=== PATIENT | male | born 2000 | race Caucasian/White ===

== ENCOUNTER → 2022-06-24 | Outpatient (CLI) | payer BC, OTHER, SELFPAY ==
[2022-06-24 12:04] LABS: Hematocrit 48.6 % (40-54); Hemoglobin 16.2 g/dL (13.0-16.5); Mean Corp Hgb Conc 33.3 g/dL (32-36); Mean Corpuscular Hgb 27.6 pg (27.0-32.0); Mean Corpuscular Volume 82.7 fL (80-94); Mean Platelet Vol. 9.9 fl (6.2-12.0); Platelet Count 220 K/mm3 (150-450); RBC Distribution Width CV 13.2 % (11.6-14.6); RBC Distribution Width SD 39.5 fl (35.1-43.9); Red Blood Count 5.88 M/mm3 (4.6-6.2); White Blood Count 9.2 K/mm3 (4.4-11.0)
[2022-06-24 12:55] LABS: ALB/GLOB Ratio 1.1 RATIO (0.9-2.4); AST(SGOT) 52 U/L (15-37); Alanine Aminotransfer ALT/SGPT 150 U/L (16-61); Alkaline Phosphatase 122 U/L (45-117); Anion Gap 8 (5-15); BUN 9 mg/dL (7-18); BUN/Creat Ratio 12.1 RATIO (10-20); Calcium,Total 9.3 mg/dL (8.5-10.1); Chloride 104 mmol/L (98-107); Cholesterol 209 mg/dL (200); Creatinine, Serum 0.74 mg/dL (0.70-1.30); EST Glomerular Filtration Rate 140 mL/min (>60); Est Glom Filt Rate - Afr Amer 169 mL/min (>60); Globulin 3.5 g/dL (2.2-4.2); Glucose 87 mg/dL (74-106); High Density Lipoprotein 35 mg/dL; Potassium 4.3 mmol/L (3.5-5.1); Protein, Total 7.5 g/dL (6.4-8.2); Sodium Level 140 mmol/L (136-145); T4 Free Direct 0.98 ng/dL (0.76-1.46); Thyroid Stim Hormone (TSH) 0.94 uIU/mL (0.358-3.74); Triglycerides 420 mg/dL; Uric Acid 8.8 mg/dL (3.5-7.2)
[2022-06-27 18:14] LABS: Hepatitis B Surface Antibody Non-Reactive; Hepatitis B Surface Antigen Non-Reactive (Nonreactive); Hepatitis C Antibody Non-Reactive (Nonreactive)
[2022-07-12 00:07] LABS: Thyroid Stim Immunoglob <0.10 IU/L (0.00-0.55)
[2022-07-12 08:53] LABS: Thyroglobulin RIA 194 ng/mL (.); Thyroid Peroxidase AB < 9 IU/mL (0-34)
== END | disposition home or self-care (01) ==
LOC: MFPLAB 09:58
PROVIDERS: PCP Family Medicine; Referring Provider Family Medicine; Visit Provider Family Medicine
DX: R79.89 Other specified abnormal findings of blood chemistry (principal); M10.9 Gout, unspecified; E01.0 Iodine-deficiency related diffuse (endemic) goiter; E66.9 Obesity, unspecified
CPT/HCPCS: 36415; 80053; 80061; 84432; 84439; 84443; 84445; 84550; 85027; 86376; 86706; 86800; 86803; 87340

== ENCOUNTER → 2022-07-01 | Outpatient (CLI) | payer BC, OTHER, SELFPAY ==
--- NOTE | 2022-07-01 17:00 | US_ITS ---
INDICATION: THYROMEGALY EXAMINATION: Ultrasound US Thyroid (eg thyroid, parathyroid, parotid) TECHNIQUE: Andrew scale and color doppler imaging was performed of the thyroid gland. COMPARISON: None. FINDINGS: RIGHT THYROID LOBE: 6.4 x 4.1 x 4.1 cm. Homogeneous echotexture with normal vascularity. [There is a heterogenous and solid 5.7 x 4.6 x 3.8 cm nodule within the mid and lower pole containing scattered calcifications and mild internal vascularity. LEFT THYROID LOBE: 4.8 x 1.7 x 1.6 cm. Homogeneous echotexture with normal vascularity. [Within the lower pole there is a complex 0.6 x 0.5 x 0.4 cm nodule. ISTHMUS: 0.34 cm. No thyroid nodules are present. There are scattered nonpathologically enlarged lymph nodes. US/Thyroid IMPRESSION: Enlarged thyroid gland associated with a solid 5.7 x 4.6 x 2.8 cm nodule within the right lobe and a complex 0.5 x 0.4 x 0.4 cm nodule within the left lobe. Electronically Signed: Sally Peralta MD at 10:28 EST ,
== END | disposition home or self-care (01) ==
LOC: US 16:55
PROVIDERS: PCP Family Medicine; Referring Provider Family Medicine; Visit Provider Family Medicine
DX: E01.0 Iodine-deficiency related diffuse (endemic) goiter (principal)
CPT/HCPCS: 76536

== ENCOUNTER → 2022-07-15 | Outpatient (CLI) | payer BC, OTHER, SELFPAY ==
--- NOTE | 2022-07-15 | IMM_PTH ---
PATIENT: SUSIE MEYER LOC: [facility] U#:[id number] AGE/SX: 22/M ROOM: RE07/15/[address]: Dr. Hill Lara MD : 2000 BED: DIS: 07/15/2022 SPEC #: [id number] RECD: 07/19/22 13:59 STATUS: KYMBERLY REQ #: [id number] CORA: 07/15/22 00:[address]: Hill Lara DEPT: IMMUNOHISTOCHEMISTRY RECD BY: Kasey Wade ENTERED: 07/19/22 14:00 SP TYPE: IMMUNO OTHR DR: Dr. Sal Lopez MD Tissues: A - Thyroid gland, NOS Procedures: HBME (initial) CD56 (add) CK19 (add) GAL-3 (add) PHYSICIAN & INSTITUTION [place] [address] SPECIMEN INFORMATION: Tissue Source: A ? Right thyroid Clinical Info: Multinodular goiter Specimen Number: [id number] CPT code: 28699, 52469 x3 METHODOLOGY: Deparaffinized sections of prefer/formalin-fixed tissue or PAP/DQ stained slides are incubated with monoclonal/polyclonal antibodies/oligonucleotide probes. Localization is made via biotin free immunoperoxidase method. Appropriate controls are performed and reacted as expected. Results on target cell population are indicated in the following table: RESULTS: ANTIBODY / CLONE RESULT Block A HBME1 (HBME-1) positive CK19 (A53-B/A2.26) positive GAL3 (9C4) positive CD56 (123C3.D5) negative These tests were developed and their performance characteristics determined by [facility]. They may not have been cleared or approved by the U.S. Food and Drug Administration. The FDA has determined that such clearance or approval is not necessary. The above immunohistochemical/dualISH markers are ordered by Dr. Doherty and reviewed by the Pathologist. INTERPRETATION: A. 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 SJ:madison 07/20/2022
--- NOTE | 2022-07-15 | FLU_PTH ---
PATIENT: SUSIE MEYER LOC: [facility] U#:[id number] AGE/SX: 22/M ROOM: RE07/15/[address]: Dr. Hill Lara MD : 2000 BED: DIS: 07/15/2022 SPEC #: [id number] RECD: 07/15/22 16:47 STATUS: KYMBERLY REThai #: [id number] CORA: 07/15/22 00:[address]: Hill Lara DEPT: CYTOLOGY RECD BY: Mary Kate De La Cruz ENTERED: 07/18/22 11:15 SP TYPE: Fluid OTHR DR: Dr. Sal Lopez MD Tissues: A - Thyroid gland, NOS B - Thyroid gland, NOS Procedures: Special Stain Group II Surgery Specimen Level IV Cytospin Fluid Cytology Other HEADER OPERATION: Fine needle aspiration right thyroid PRE-OP DIAGNOSIS: Multinodular goiter TISSUE SUBMITTED: A ? Right thyroid fluid, B ? Right thyroid x12 slides DIAGNOSIS CYTOLOGY A. Right thyroid nodule, fine needle aspiration (cytospin and cell block): Papillary thyroid carcinoma ([place] Category ). See comment. B. Right thyroid nodule, fine needle aspiration (smears): Papillary thyroid carcinoma ([place] Category ). See comment. AM:madison 07/19/2022 COMMENT A. Immunohistochemistry ([id number]) supports the above diagnosis. The [place] System for thyroid diagnostic categorization was used in the evaluation of this case. This case has been reviewed in consultation with Dr. Levy who concurs with the above diagnosis. CYTOLOGY STUDY Slides are reviewed. CYTOLOGY GROSS A - Received is 20 ml of brown cloudy fluid labeled with the patient's name and and designated per the requisition as right thyroid. Submitted for cytology preparation including cell block. B - Received are 12 smears labeled with the patient's name and designated per the requisition as right thyroid. Submitted for staining. / madison 07/18/2022 TC:0 CPT: 29520 x2, 46074 ADDENDUM ADDENDUM ADDENDUM ADDENDUM ADDENDUM ADDENDUM ADDENDUM ADDENDUM ADDENDUM ADDENDUM ADDENDUM 08/22/2022 09:14 ADDENDUM 08/22/2022 09:14 ADDENDUM 08/22/2022 09:14 ADDENDUM 08/22/2022 09:14 ADDENDUM 08/22/2022 09:14 This addendum is added to incorporate an outside pathology consultation report. The case was examined at [facility] (#[id number]) and the following diagnosis was rendered. Right thyroid nodule, fine needle aspiration: Positive for malignant cells. Papillary thyroid carcinoma. Please see complete above mentioned consultation report in EMR
== END | disposition home or self-care (01) ==
PROVIDERS: PCP Family Medicine; Referring Provider Surgery; Visit Provider Surgery
DX: E04.2 Nontoxic multinodular goiter (principal)
CPT/HCPCS: 88108; 88161; 88305; 88313; 88341; 88342

== ENCOUNTER → 2022-09-23 | Outpatient (CLI) | payer BC, OTHER, SELFPAY ==
[2022-09-23 10:11] LABS: Absolute Lymphocyte Count 3.86 X10^3/uL (0.83-4.51); Absolute Neutrophil Count 6.2 X10^3/uL (2.0-7.7); Basophil# 0.09 X10^3/uL; Basophil% 0.8 % (0-1); Eosinophil# 0.46 X10^3/uL; Hemoglobin 16.5 g/dL (13.0-16.5); Lymphocyte # 3.86 X10^3/ul (0.83-4.51); Lymphocyte % 33.8 % (19-41); Mean Corpuscular Hgb 27.3 pg (27.0-32.0); Mean Corpuscular Volume 82.6 fL (80-94); Mean Platelet Vol. 9.6 fl (6.2-12.0); Monocyte# 0.64 X10^3/uL; Monocyte% 5.6 % (0-10); NRBC Flagged by Analyzer 0 % (0-5); Neutrophil % 54.2 % (47-70); Platelet Count 279 K/mm3 (150-450); RBC Distribution Width CV 12.9 % (11.6-14.6); RBC Distribution Width SD 38.5 fl (35.1-43.9); Red Blood Count 6.05 M/mm3 (4.6-6.2); White Blood Count 11.4 K/mm3 (4.4-11.0)
[2022-09-23 10:27] LABS: ALB/GLOB Ratio 0.9 RATIO (0.9-2.4); AST(SGOT) 25 U/L (15-37); Alanine Aminotransfer ALT/SGPT 77 U/L (16-61); Albumin, Serum 3.8 g/dL (3.2-5.0); Alkaline Phosphatase 103 U/L (45-117); Anion Gap 5 (5-15); BUN 13 mg/dL (7-18); BUN/Creat Ratio 16.6 RATIO (10-20); Calcium,Total 9.1 mg/dL (8.5-10.1); Chloride 107 mmol/L (98-107); Cholesterol 211 mg/dL (200); Creatinine, Serum 0.78 mg/dL (0.70-1.30); EST Glomerular Filtration Rate 132 mL/min (>60); Est Glom Filt Rate - Afr Amer 159 mL/min (>60); Globulin 4.1 g/dL (2.2-4.2); Glucose 96 mg/dL (74-106); High Density Lipoprotein 31 mg/dL; Potassium 4.1 mmol/L (3.5-5.1); Protein, Total 7.9 g/dL (6.4-8.2); Sodium Level 136 mmol/L (136-145); Triglycerides 432 mg/dL; Uric Acid 8.4 mg/dL (3.5-7.2)
== END | disposition home or self-care (01) ==
LOC: MFPLAB 08:32
PROVIDERS: PCP Family Medicine; Visit Provider Family Medicine
DX: M10.9 Gout, unspecified (principal); E78.1 Pure hyperglyceridemia; E66.9 Obesity, unspecified
CPT/HCPCS: 36415; 80053; 80061; 84550; 85025

== ENCOUNTER → 2023-01-30 | Outpatient (CLI) | payer BC, OTHER, SELFPAY ==
[2023-01-30 18:01] LABS: Absolute Lymphocyte Count 3.69 X10^3/uL (0.83-4.51); Basophil# 0.05 X10^3/uL; Basophil% 0.5 % (0-1); Eosinophil# 0.37 X10^3/uL; Eosinophils% 3.8 % (0-5); Hemoglobin 14.9 g/dL (13.0-16.5); Lymphocyte # 3.69 X10^3/ul (0.83-4.51); Lymphocyte % 38.1 % (19-41); Mean Corp Hgb Conc 33.1 g/dL (32-36); Mean Corpuscular Hgb 27.4 pg (27.0-32.0); Mean Corpuscular Volume 82.9 fL (80-94); Monocyte# 0.59 X10^3/uL; Monocyte% 6.1 % (0-10); NRBC Flagged by Analyzer 0 % (0-5); Neutrophil # 4.96 X10^3/uL (2.7-7.7); Neutrophil % 51.2 % (47-70); Platelet Count 224 K/mm3 (150-450); RBC Distribution Width CV 13.5 % (11.6-14.6); RBC Distribution Width SD 40.8 fl (35.1-43.9); Red Blood Count 5.43 M/mm3 (4.6-6.2); White Blood Count 9.7 K/mm3 (4.4-11.0)
[2023-01-30 18:45] LABS: ALB/GLOB Ratio 1.1 RATIO (0.9-2.4); AST(SGOT) 41 U/L (15-37); Alanine Aminotransfer ALT/SGPT 114 U/L (16-61); Albumin, Serum 4.1 g/dL (3.2-5.0); Alkaline Phosphatase 110 U/L (45-117); Anion Gap 8 (5-15); BUN 12 mg/dL (7-18); BUN/Creat Ratio 14.2 RATIO (10-20); Chloride 105 mmol/L (98-107); Creatinine, Serum 0.84 mg/dL (0.70-1.30); EST Glomerular Filtration Rate 120 mL/min (>60); Est Glom Filt Rate - Afr Amer 145 mL/min (>60); Globulin 3.6 g/dL (2.2-4.2); Glucose 87 mg/dL (74-106); Potassium 3.8 mmol/L (3.5-5.1); Protein, Total 7.7 g/dL (6.4-8.2); Sodium Level 139 mmol/L (136-145); T4 Free Direct 1.16 ng/dL (0.76-1.46); Thyroid Stim Hormone (TSH) 3.03 uIU/mL (0.358-3.74); Uric Acid 8.7 mg/dL (3.5-7.2)
[2023-01-30 18:46] LABS: Vitamin B12 389 pg/mL (211-911); Vitamin D,25 Hydroxy 13.5 ng/mL
[2023-02-02 09:09] LABS: Anti-Thyroglobulin AB < 1.0 IU/mL (0.0-0.9); Thyroglobulin, Serum Qt. 0.1 ng/mL (1.4-29.2)
== END | disposition home or self-care (01) ==
PROVIDERS: PCP Family Medicine; Referring Provider Family Medicine; Visit Provider Family Medicine
DX: E89.0 Postprocedural hypothyroidism (principal); C73 Malignant neoplasm of thyroid gland; R53.83 Other fatigue; R79.89 Other specified abnormal findings of blood chemistry
CPT/HCPCS: 36415; 80053; 82306; 82607; 84432; 84439; 84443; 84550; 85025; 86800

== ENCOUNTER → 2023-07-28 | Outpatient (CLI) | payer BC, OTHER, SELFPAY ==
[2023-07-28 17:54] LABS: Absolute Lymphocyte Count 3.69 X10^3/uL (0.83-4.51); Absolute Neutrophil Count 5.1 X10^3/uL (2.0-7.7); Basophil# 0.05 X10^3/uL; Basophil% 0.5 % (0-1); Eosinophil# 0.43 X10^3/uL; Eosinophils% 4.4 % (0-5); Hematocrit 46.4 % (40-54); Hemoglobin 16.1 g/dL (13.0-16.5); Lymphocyte # 3.69 X10^3/ul (0.83-4.51); Lymphocyte % 37.5 % (19-41); Mean Corp Hgb Conc 34.7 g/dL (32-36); Mean Corpuscular Hgb 27.8 pg (27.0-32.0); Mean Corpuscular Volume 80.1 fL (80-94); Mean Platelet Vol. 10.2 fl (6.2-12.0); Monocyte% 6.1 % (0-10); NRBC Flagged by Analyzer 0 % (0-5); Neutrophil # 5.05 X10^3/uL (2.7-7.7); Neutrophil % 51.2 % (47-70); Platelet Count 249 K/mm3 (150-450); RBC Distribution Width CV 13.5 % (11.6-14.6); Red Blood Count 5.79 M/mm3 (4.6-6.2); White Blood Count 9.9 K/mm3 (4.4-11.0)
[2023-07-28 18:23] LABS: ALB/GLOB Ratio 1.1 RATIO (0.9-2.4); AST(SGOT) 54 U/L (15-37); Alanine Aminotransfer ALT/SGPT 148 U/L (16-61); Albumin, Serum 4.1 g/dL (3.2-5.0); Alkaline Phosphatase 109 U/L (45-117); Anion Gap 7 (5-15); BUN 11 mg/dL (7-18); BUN/Creat Ratio 13.4 RATIO (10-20); Calcium,Total 8.6 mg/dL (8.5-10.1); Chloride 105 mmol/L (98-107); Creatinine, Serum 0.82 mg/dL (0.70-1.30); EST Glomerular Filtration Rate 124 mL/min (>60); Est Glom Filt Rate - Afr Amer 150 mL/min (>60); Globulin 3.7 g/dL (2.2-4.2); Glucose 112 mg/dL (74-106); Potassium 3.7 mmol/L (3.5-5.1); Protein, Total 7.8 g/dL (6.4-8.2); Sodium Level 138 mmol/L (136-145); Thyroid Stim Hormone (TSH) 0.16 uIU/mL (0.358-3.74)
[2023-08-01 09:09] LABS: Anti-Thyroglobulin AB < 1.0 IU/mL (0.0-0.9); Thyroglobulin, Serum Qt. 0.1 ng/mL (1.4-29.2)
== END | disposition home or self-care (01) ==
LOC: MFPLAB 16:48
PROVIDERS: PCP Family Medicine; Visit Provider Family Medicine
DX: E89.0 Postprocedural hypothyroidism (principal); E66.9 Obesity, unspecified
CPT/HCPCS: 36415; 80053; 84432; 84439; 84443; 85025; 86800

== ENCOUNTER → 2023-08-14 | Outpatient (CLI) | payer BC, OTHER, SELFPAY ==
[2023-08-14 18:29] LABS: Hemoglobin A1c 5.2 % (3.8-5.6)
--- OUTSIDE RECORDS SUMMARY | 2023-08-14 21:17 | XMS RPT_ITS | CCD ---
Author Name Unknown Address [address] [place] [address] Organization [facility] Care Team Providers Care Pipe Covering Molder Name Role Phone GaurangRony forbestin Cardoza Unavailable Unavailable PattiRonytin Cardoza Unavailable Unavailable Nereyda Salazar Unavailable Unavailable Polo Velasquez Primary Care Provider POLO VELASQUEZ Primary Care UnavailYOEL Tripp Attending Unavailable YOEL DAVENPORT Admitting Unavailable Polo Velasquez MD Primary Care Provider EMILIANA KO Referring Unavailable SCHINNER, POLO E Primary Care Unavailable SCHPORTILLONER, POLO E Primary Care Unavailable SCHESTEBAN, POLO E Primary Care Unavailable HILL LARA Referring Unavailable ETHEL, YOEL Attending Unavailable SCHINNER, POLO E Primary Care Unavailable SCHINNER, POLO E Primary Care Unavailable HILL LRAA P Attending Unavailable SCHINNER, POLO E Primary Care Unavailable HILL LARA P Attending Unavailable SCHINNER, POLO E Primary Care Unavailable HILL LARA Attending Unavailable SCHINNER, POLO E Referring Unavailable SCHINNER, POLO E Primary Care Unavailable OLYASMINEKYSUSYN Referring Unavailable SCHINNER, POLO E Primary Care Unavailable OLSUSY ROMERON Attending Unavailable SCHINNER, POLO E Primary Care Unavailable OLYASMINEKYSUSYN Referring Unavailable SCHINNER, POLO E Primary Care Unavailable OLANSKY, EMILIANA Referring Unavailable SCHINNER, POLO E Primary Care Unavailable ETHEL, YOEL Referring Unavailable SCHINNER, POLO E Primary Care Unavailable OLYASMINEKYSUSYN Attending Unavailable SCHINNER, POLO E Primary Care Unavailable ETHEL, YOEL Attending Unavailable ETHEL, YOEL Referring Unavailable SCHINNER, POLO E Primary Care Unavailable Allergies Allergy Classification Reported Allergen(s) Allergy Type Date of Onset Reaction(s) Facility (20 sources) Seasonal allergy; Translations: [SEASONAL ALLERGIES] Allergy to substance 01-04-2012 Unknown [facility] (20 sources) Shellfish; Translations: [SHELLFISH DERIVED] Drug Allergy 2022 Unknown [facility] (17 sources) Bee pollen; Translations: [BEE POLLEN] Drug Allergy 11-20-2016 Unknown [facility] Medications Current Medications Medication Drug Class(es) Dates Sig (Normalized) Sig (Original) ciclesonide 0.037 mg/actuat metered dose nasal spray (8 sources) End: 08-26-2022 ciclesonide 37 mcg/actuation HFA Use in each nostril. 0 08/26/2022 Discontinued Completed/Discontinued Medications Medication Drug Class(es) Dates Sig (Normalized) Sig (Original) calcium carbonate 500 mg chewable tablet (5 sources) Start: 09-12-2022 take 500 mg by mouth every hour as needed calcium carbonate (TUMS) 500 mg chew Take 1 tablet by mouth every hour as needed (mouth or hand numbness or tingling). 0 09/12/2022 Active Problems Active Problems Problem Classification Problem Date Documented Date Episodic/Chronic Cancer of thyroid (20 sources) Papillary thyroid carcinoma; Translations: [Malignant neoplasm of thyroid gland] Onset: 08-17-2022 Chronic Complications of surgical procedures or medical care (4 sources) Postoperative hypothyroidism; Translations: [Postprocedural hypothyroidism] Onset: 03-24-2023 Chronic Disorders of lipid metabolism (20 sources) Dyslipidemia; Translations: [Hyperlipidemia, unspecified] Onset: 10-14-2014 10-14-2014 Chronic Genitourinary symptoms and ill-defined conditions (19 sources) Nocturnal enuresis; Translations: [Nocturnal enuresis] Onset: 08-28-2012 08-28-2012 Chronic Other liver diseases (20 sources) Fatty (change of) liver, not elsewhere classified; Translations: [Other chronic nonalcoholic liver disease] Onset: 10-13-2014 10-13-2014 Chronic Other nutritional; endocrine; and metabolic disorders (7 sources) Childhood obesity; Translations: [Obesity, unspecified] Onset: 10-14-2014 12-04-2015 Chronic Other nutritional; endocrine; and metabolic disorders (14 sources) Severe obesity; Translations: [Morbid (severe) obesity due to excess calories] Onset: 10-14-2014 Chronic Other nutritional; endocrine; and metabolic disorders (1 source) Obese class II; Translations: [Obesity, unspecified] 03-30-2023 Chronic Residual codes; unclassified (20 sources) Obstructive sleep apnea of child; Translations: [Obstructive sleep apnea (adult) (pediatric)] Onset: 11-26-2014 11-26-2014 Chronic Thyroid disorders (3 sources) Multinodular goiter; Translations: [Nontoxic multinodular goiter] Chronic Past or Other Problems Problem Classification Problem Date Documented Date Episodic/Chronic Allergic reactions (19 sources) Hypersensitivity reaction caused by food; Translations: [Allergy to milk products] Onset: 08-28-2012 08-28-2012 Episodic Diabetes mellitus without complication (20 sources) High hemoglobin A1c level; Translations: [Other abnormal glucose] Onset: 10-14-2014 10-14-2014 Episodic Fracture of lower limb (19 sources) Fracture of upper end of fibula; Translations: [Other fracture of upper and lower end of unspecified fibula, initial encounter for closed fracture] Onset: 03-29-2010 03-29-2010 Episodic Other acquired deformities (19 sources) Toeing-out; Translations: [Other specified acquired deformities of unspecified limb] Onset: 04-22-2009 04-22-2009 Episodic Results Test Name Value Interpretation Reference Range Facil ity Vital Signs Date Time Vital Sign Value Performing Clinician Carson [place] 03-30-2023 13:27-0400 Body weight 146.97 kg Emiliana Ko MD Work Phone: [facility] 03-30-2023 13:27-0400 Diastolic blood pressure 74 mm[Hg] Emiliana Ko MD Work Phone: [facility] 03-30-2023 13:27-0400 Heart rate 72 /min Emiliana Ko MD Work Phone: [facility] 03-30-2023 13:27-0400 SaO2% (BldA) [Mass fraction] 98 % Emiliana Ko MD Work Phone: [facility] 03-30-2023 13:27-0400 Systolic blood pressure 128 mm[Hg] Emiliana Ko MD Work Phone: [facility] 09-28-2022 12:59-0400 Body height 200.7 cm Emiliana Ko MD Work Phone: [facility] 09-28-2022 12:59-0400 Body weight 146.42 kg Emiliana Ko MD Work Phone: [facility] 09-28-2022 12:59-0400 Diastolic blood pressure 83 mm[Hg] Emiliana Ko MD Work Phone: [facility] 09-28-2022 12:59-0400 Heart rate 83 /min Emiliana Ko MD Work Phone: [facility] 09-28-2022 12:59-0400 Respiratory rate 20 /min Emiliana Ko MD Work Phone: [facility] 09-28-2022 12:59-0400 SaO2% (BldA) [Mass fraction] 97 % Emiliaan Ko MD Work Phone: [facility] 09-28-2022 12:59-0400 Systolic blood pressure 137 mm[Hg] Emiliana Ko MD Work Phone: [facility] 09-28-2022 09:13-0400 Body height 200.7 cm Yoel Davenport MD Work Phone: [facility] 09-28-2022 09:13-0400 Body weight 143.79 kg Yoel Davenport MD Work Phone: [facility] 09-28-2022 09:13-0400 Diastolic blood pressure 72 mm[Hg] Yoel Davenport MD Work Phone: [facility] 09-28-2022 09:13-0400 Heart rate 73 /min Yoel Davenport MD Work Phone: [facility] 09-28-2022 09:13-0400 Systolic blood pressure 126 mm[Hg] Yoel Davenport MD Work Phone: [facility] 08-26-2022 08:00-0400 Body height 200.7 cm [facility] 1 Work Phone: [facility] 08-26-2022 08:00-0400 Body temperature 97.11 [degF] Pacc 1 Work Phone: [facility] 08-26-2022 08:00-0400 Body weight 143.79 kg Pacc 1 Work Phone: [facility] 08-26-2022 08:00-0400 Diastolic blood pressure 78 mm[Hg] Pacc 1 Work Phone: [facility] 08-26-2022 08:00-0400 Heart rate 80 /min Pacc 1 Work Phone: [facility] 08-26-2022 08:00-0400 Respiratory rate 16 /min Pacc 1 Work Phone: [facility] 08-26-2022 08:00-0400 SaO2% (BldA) [Mass fraction] 95 % Pacc 1 Work Phone: [facility] 08-26-2022 08:00-0400 Systolic blood pressure 128 mm[Hg] Pacc 1 Work Phone: [facility] 07-26-2022 08:08-0500 Body height 200.7 cm Hill Lara MD Work Phone: [facility] 07-26-2022 08:08-0500 Body temperature 97.3 [degF] Hill Lara MD Work Phone: [facility] 07-26-2022 08:08-0500 Body weight 146.97 kg Hill Lara MD Work Phone: [facility] 07-26-2022 08:08-0500 Diastolic blood pressure 88 mm[Hg] Hill Lara MD Work Phone: [facility] 07-26-2022 08:08-0500 Heart rate 83 /min Hill Lara MD Work Phone: [facility] 07-26-2022 08:08-0500 SaO2% (BldA) [Mass fraction] 96 % Hill Lara MD Work Phone: [facility] 07-26-2022 08:08-0500 Systolic blood pressure 130 mm[Hg] Hill Lara MD Work Phone: [facility] 07-11-2022 12:50-0500 Body height 200.7 cm Hill Lara MD Work Phone: [facility] 07-11-2022 12:50-0500 Body temperature 99.5 [degF] Hill Lara MD Work Phone: [facility] 07-11-2022 12:50-0500 Body weight 148.6 kg Hill Lara MD Work Phone: [facility] 07-11-2022 12:50-0500 Diastolic blood pressure 88 mm[Hg] Hill Lara MD Work Phone: [facility] 07-11-2022 12:50-0500 Heart rate 88 /min Hill Lara MD Work Phone: [facility] 07-11-2022 12:50-0500 SaO2% (BldA) [Mass fraction] 96 % Hill Lara MD Work Phone: [facility] 07-11-2022 12:50-0500 Systolic blood pressure 122 mm[Hg] Hill Lara MD Work Phone: [facility] Encounters Encounter Date Encounter Type Care Provider Facility Start: 07-26-2023 ambulatory Emiliana Ko MD Work Phone: Endocrinology Procedures Date Procedure Procedure Detail Performing Clinician Start: 03-25-2023 Us soft tissue head & neck real time imge carlene Albarran DO Work Phone: Start: 08-31-2022 Ct soft tissue neck w/o contrast material Yoel Davenport MD Work Phone: Start: 07-15-2022 US THYROID BIOPSY RI GHT (POC) SURG USE ONLY Hill Lara MD Work Phone: Plan of Treatment Date Care Activity Detail Author Start: 06-05-2023 Depression Assessment Depression Ass [facility] Start: 05-04-2023 End: 08-03-2023 Thyrotropin [Units/volume] in Serum or Plasma TSH BLD Lab Routine Papillary thyroid carcinoma (HCC) Expected: 05/04/2023 (Approximate), Expires: 08/03/2023 [facility] Work Phone: Immunizations Immunization Date Immunization Notes Care Provider Ismael vazquez 03-06-2018 meningococcal polysaccharide (groups A, C, Y and W-135) diphtheria toxoid conjugate vaccine (MCV4P) Hill Lara MD Work Phone: [facility] 11-04-2013 hepatitis A vaccine, pediatric/adolescent dosage, 2 dose schedule Hill Lara MD Work Phone: [facility] 11-04-2013 measles, mumps and rubella virus vaccine Hill Lara MD Work Phone: [facility] 11-04-2013 poliovirus vaccine, inactivated Hill Lara MD Work Phone: [facility] 12-10-2012 Meningococcal, MCV4, unspecified conjugate formulation(groups A, C, Y and W-135) Hill Lara MD Work Phone: [facility] Work Phone: 12-10-2012 tetanus toxoid, redu elijah diphtheria toxoid, and acellular pertussis vaccine, adsorbed Hill Lara MD Work Phone: [facility] Work Phone: 10-10-2001 diphtheria, tetanus toxoids and acellular pertussis vaccine Hill Lara MD Work Phone: [facility] Work Phone: 10-10-2001 haemophilus influenz ae type b vaccine, HbOC conjugate Hill Lara MD Work Phone: [facility] Work Phone: 07-11-2001 measles, mumps and rubella virus vaccine Hill Lara MD Work Phone: [facility] Work Phone: 04-10-2001 hepatitis B vaccine, pediatric or pediatric/adolescent dosage Hill Lara MD Work Phone: [facility] Work Phone: 04-10-2001 poliovirus vaccine, inactivated Hill Lara MD Work Phone: [facility] Work Phone: 03-09-2001 Chicken Pox (disease) Hill Lara MD Work Phone: [facility] Work Phone: 01-05-2001 diphtheria, tetanus toxoids and acellular pertussis vaccine Hill Lara MD Work Phone: [facility] Work Phone: 01-05-2001 haemophilus influenz ae type b vaccine, HbOC conjugate Hill Lara MD Work Phone: [facility] Work Phone: 01-05-2001 pneumococcal conjuga te vaccine, 7 valent Hill Lara MD Work Phone: [facility] Work Phone: 2000 diphtheria, tetanus toxoids and acellular pertussis vaccine Hill Lara MD Work Phone: [facility] Work Phone: 2000 haemophilus influenz ae type b vaccine, HbOC conjugate Hill Lara MD Work Phone: [facility] Work Phone: 2000 pneumococcal conjuga te vaccine, 7 valent Hill Lara MD Work Phone: [facility] Work Phone: 2000 poliovirus vaccine, inactivated Hill Lara MD Work Phone: [facility] Work Phone: 2000 diphtheria, tetanus toxoids and acellular pertussis vaccine Hill Lara MD Work Phone: [facility] Work Phone: 2000 haemophilus influenz ae type b vaccine, HbOC conjugate Hill Lara MD Work Phone: [facility] Work Phone: 2000 pneumococcal conjuga te vaccine, 7 valent Hill Lara MD Work Phone: [facility] Work Phone: 2000 poliovirus vaccine, inactivated Hill Lara MD Work Phone: [facility] Work Phone: 2000 hepatitis B vaccine, pediatric or pediatric/adolescent dosage Hill Lara MD Work Phone: [facility] Work Phone: 2000 hepatitis B vaccine, pediatric or pediatric/adolescent dosage Hill Lara MD Work Phone: [facility] Work Phone: Payers Date Payer Category Payer Unknown [id number] 2021 Unknown [id number] 2017 Unknown Social History Date Type Detail Facility Start: 07-11-2022 Tobacco smoking stat [facility] Never smoked tobacco [facility] Start: 07-11-2022 Tobacco use and exposure Smoke less tobacco non-user [facility] Start: 07-11-2022 End: 03-30-2023 Alcohol intake Current drinker of alcohol (finding) [facility] Start: 07-11-2022 Tobacco Comment No one in the household smokes [facility] Start: 07-11-2022 Alcohol Comment social [facility] Start: 2000 Sex Assigned At Not on file [facility] Start: 08-07-2022 End: 09-28-2022 Exposure to SARS-CoV-2 (event) Not sure [facility] Start: 2000 Sex Assigned At Male [facility] Start: 09-28-2022 End: 03-30-2023 History of Social function [facility] Start: 09-28-2022 End: 03-30-2023 Tobacco use panel [facility] National Score (1-10 0), lower number is lower risk 54 [facility] Start: 09-29-2022 Gender identity Identifies as male gender (finding) [facility] Start: 09-29-2022 Sexual orientation Heterosexual (dominique obando) [facility] Goals Date Patient Goal Desired Activity /State Personal health goal Clinical Notes 07-11-2022 to 07-26-2023 Telephone Encounter - Antonia Truong MD - 07/26/2023 11:56 AM ESTTelephone Encounter - Mary Ellen Salvador RN - 07/21/2023 8:53 AM Emiliana Alexander MD - 03/30/2023 1:41 PM EDTPatient Instructions Note Date & Type Note Facility 07-26-2023 Miscellaneous Notes Formatting of this note might be differe nt from the original. Please offer him 08/29 at 12:20 PM thank you! LE documented in this encounter [facility] 07-21-2023 Miscellaneous Notes Formatting of this note might be differe nt from the original. Address in another my chart encounter. documented in this encounter [facility] 03-30-2023 Note HNO ID: [id number] Author: Emiliana Ko MD Service: ? Author Type: Physician Type: Progress Notes Filed: 03/30/2023 2:28 PM Note Text: Juve Gavin is a 22 year old male who is presenting today March 30, 2023 for a Thyroid problem. 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 Left cervical level 2A lymph node with cystic degeneration is suspicious for metastatic disease. 2. No suspicious cervical lymph nodes on the right. 3. Somewhat ill-defined masslike region of echogenic tissue at the site of thyroidectomy with associated cystic focus, probably related to postsurgical change and scar tissue. Bus Mechanic: JANI Transcribe Date/Time: Mar 25 2023 10:50A Dictated by : TERRY BAUMANN MD This examination was interpreted and the report reviewed and electronically signed by: TERRY BAUMANN MD on Mar 25 2023 11:02AM EST Results-Findings * * *Final Report* * * DATE OF EXAM: Mar 25 2023 10:00AM [facility] 1049 - US CERVICAL LYMPH NODE MAPPING / PROCEDURE REASON: Papillary thyroid carcinoma (HCC) * * * * Physician Interpretation * * * * EXAMINATION: ULTRASOUND CERVICAL LYMPH NODE MAPPING CLINICAL HISTORY: History of papillary thyroid carcinoma. Status post total thyroidectomy on 09/12/2022. TECHNIQUE: Sonography of the cervical lymph node stations was performed bilaterally. Images were obtained and stored in a permanent archive. COMPARISON: None. RESULT: There are multiple bilateral cervical lymph nodes. Enlarged lymph nodes (short axis greater than 0.8 cm ) or lymph nodes with suspicious features are detailed below. Abnormal right cervical lymph nodes: * None Abnormal left cervical lymph nodes: * There is a level 2A lymph node measuring 1.3 x 0.7 x 1.2 cm with cystic degeneration. No intranodal microcalcifications. No other suspicious left cervical lymph nodes visualized. Central compartment, Level : * Status post thyroidectomy. * There is a masslike region of slightly echogenic tissue with somewhat ill-defined margins between the clavicles at the site of the patient's surgical scar measuring 3.4 x 1.2 x 3.1 cm. There is a small intrinsic cystic component. There is no internal vascularity on Doppler. * No suspicious lymph node. Reviewed US images via PACs. Emiliana Ko MD Endocrinology Staff xxxxxxxxxxxxxxxxxxxxxxxxxxxxxxxxxxxxxxxxxxxxxxxxxxxxxxxxxxxxx x Subjective: Weight: remained stable +/- 5 Lb Energy: stable and OK; Moods: good Sleep: Normal sleep pattern; Temp. Intolerance: None Diaphoresis: Not significant; Memory: Good Mass Effect: None CV: No history of chest pain, palpitation, orthopnea, cyanosis, pedal edema; Resp: No cough, hemoptysis, asthma, recent chest infection, wheezing; GI: No blood in stool, pain with BM, tarry stool, persistent diarrhea or constipation; Eyes: No; Skin: Negative M/S: negative ; Neuro: negative Physical Exam BP 128/74 (BP Site: Left Arm, BP Position: Sitting, BP Cuff Size: Large Adult) Pulse 72 Wt (!) 147 kg (324 lb) SpO2 98% BMI 36.50 kg/m? APPEARANCE: Well appearing, alert, in no acute distress, Obese EYES STEVO, extra occular movements normal NECK Supple, no adenopathy; thyroid surgically removed ABD central adiposity EXTREMITIES No deformities, No skin discoloration, and No edema NEURO Awake, alert and oriented x 3 and Cranial nerves II-XII grossly intact SKIN Skin color, texture, turgor normal, no suspicious rashes or lesions OTHER: Here with his parents. His mother asks the most questions. Impression: This 22 yo man is seen in F/U for surgical hypothyroidism after thyroidectomy by Dr Davenport in September 2022. Thyroglobulin remains below the level of detection and TG antibody titer seems lower. Recommendations: I increase levothyroxine dose to 300 mcg daily. TSH in 6-[address] Debi Pino for Neck US and possible LN biopsy. Emiliana Ko MD Endocrinology Staff [facility] 03-30-2023 History of Present illness Narrative Formatting of this note is different fro m the original. Images from the original note were not included. Juve Gavin is a 22 year old male who is presenting today March 30, 2023 for a Thyroid problem. 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 Left cervical level 2A lymph node with cystic degeneration is suspicious for metastatic disease. 2. No suspicious cervical lymph nodes on the right. 3. Somewhat ill-defined masslike region of echogenic tissue at the site of thyroidectomy with associated cystic focus, probably related to postsurgical change and scar tissue. Bus Mechanic: [employer] Transcribe Date/Time: Mar 25 2023 10:50A Dictated by : TERRY BAUMANN MD This examination was interpreted and the report reviewed and electronically signed by: TERRY BAUMANN MD on Mar 25 2023 11:02AM EST Results-Findings * * *Final Report* * * DATE OF EXAM: Mar 25 2023 10:00AM [facility] 1049 - US CERVICAL LYMPH NODE MAPPING / PROCEDURE REASON: Papillary thyroid carcinoma (HCC) * * * * Physician Interpretation * * * * EXAMINATION: ULTRASOUND CERVICAL LYMPH NODE MAPPING CLINICAL HISTORY: History of papillary thyroid carcinoma. Status post total thyroidectomy on 09/12/2022. TECHNIQUE: Sonography of the cervical lymph node stations was performed bilaterally. Images were obtained and stored in a permanent archive. COMPARISON: None. RESULT: There are multiple bilateral cervical lymph nodes. Enlarged lymph nodes (short axis greater than 0.8 cm ) or lymph nodes with suspicious features are detailed below. Abnormal right cervical lymph nodes: * None Abnormal left cervical lymph nodes: * There is a level 2A lymph node measuring 1.3 x 0.7 x 1.2 cm with cystic degeneration. No intranodal microcalcifications. No other suspicious left cervical lymph nodes visualized. Central compartment, Level : * Status post thyroidectomy. * There is a masslike region of slightly echogenic tissue with somewhat ill-defined margins between the clavicles at the site of the patient's surgical scar measuring 3.4 x 1.2 x 3.1 cm. There is a small intrinsic cystic component. There is no internal vascularity on Doppler. * No suspicious lymph node. Reviewed US images via PACs. Emiliana Ko MD Endocrinology Staff xxxxxxxxxxxxxxxxxxxxxxxxxxxxxxxxxxxxxxxxxxxxxxxxxxxxxxxxxxxxx x Subjective: Weight: remained stable +/- 5 Lb Energy: stable and OK; Moods: good Sleep: Normal sleep pattern; Temp. Intolerance: None Diaphoresis: Not significant; Memory: Good Mass Effect: None CV: No history of chest pain, palpitation, orthopnea, cyanosis, pedal edema; Resp: No cough, hemoptysis, asthma, recent chest infection, wheezing; GI: No blood in stool, pain with BM, tarry stool, persistent diarrhea or constipation; Eyes: No; Skin: Negative M/S: negative ; Neuro: negative Physical Exam BP 128/74 (BP Site: Left Arm, BP Position: Sitting, BP Cuff Size: Large Adult) Pulse 72 Wt (!) 147 kg (324 lb) SpO2 98% BMI 36.50 kg/m APPEARANCE: Well appearing, alert, in no acute distress, Obese EYES STEVO, extra occular movements normal NECK Supple, no adenopathy; thyroid surgically removed ABD central adiposity EXTREMITIES No deformities, No skin discoloration, and No edema NEURO Awake, alert and oriented x 3 and Cranial nerves II-XII grossly intact SKIN Skin color, texture, turgor normal, no suspicious rashes or lesions OTHER: Here with his parents. His mother asks the most questions. Impression: This 22 yo man is seen in F/U for surgical hypothyroidism after thyroidectomy by Dr Davenport in September 2022. Thyroglobulin remains below the level of detection and TG antibody titer seems lower. Recommendations: I increase levothyroxine dose to 300 mcg daily. TSH in 6-[address] Debi Pino for Neck US and possible LN biopsy. Emiliana Ko MD Endocrinology Staff documented in this encounter [facility] 11-28-2022 Miscellaneous Notes Formatting of this note is different fro m the original. Requester: Patient Patients last Endocrinology visit occurred 09/28/22. Follow-up evaluation has been established Upcoming Endocrinology Appointments - Next 365 Days Visit Type Date Time Department EST ALEXANDRA PATIENT 03/30/2023 1:30 PM [facility] . Requested Prescriptions Pending Prescriptions Disp Refills levothyroxine (SYNTHROID) 75 mcg tablet 90 tablet 2 Sig: Take 3 tablets by mouth DAILY (6 AM). If patient is due for an appointment please route to provider for refill consideration and also to the endo scheduling pool. PSS NOTE: Patient needs scheduled appointment No documented in this encounter [facility] 09-28-2022 Note HNO ID: [id number] Author: Emiliana Ko MD Service: ? Author Type: Physician Type: Progress Notes Filed: 09/28/2022 2:45 PM Note Text: Juve Gavin is a 22 year old male who is presenting today September 28, 2022 for a Thyroid problem. 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 Previous laboratory results: Vitamin D 25 Hydroxy (ng/mL) Date Value 10/18/2014 28.2 08/25/2014 13.8 TSH (uU/mL) Date Value 08/25/2014 2.210 PAST MEDICAL HISTORY Diagnosis Date Allergy Fatty liver Gout Obesity PMH - PAST MEDICAL HISTORY OF 2003, 2010 right broken leg - broke this leg two separate times PMH - PAST MEDICAL HISTORY OF 06/04/2001 admitted to [facility] for wheezing Thyromegaly FAMILY HISTORY Problem Relation Age of Onset None Mother Hypertension Father Diabetes Paternal Grandmother other (hypertension) Paternal Grandmother other (Gastritis) Paternal Grandfather Cancer Other maternal side other (Gastritis) Other PGGF PAST SURGICAL HISTORY Procedure Laterality Date CIRCUMCISION W/CLAMP/OTH DEV W/BLOCK THYROID BIOPSY US Right 07/15/2022 FNA HPI 09/12/2022 had total thyroidectomy and bilateral central neck dissection with Dr. Davenport. Pathology below. He denies any neck symptoms - no pain, difficulty swallowing, change in voice. He is taking levothyroxine 225 mcg of levothyroxine daily. He waits an hour before he eats anything else. He was taking calcium supplements - however these were stopped today by Dr. Davenport. He was waiting 4 hours before taking theses and the levothyroxine. No palpitations, tremor, no difficulty sleeping. No numbness/tingling. Review of Systems Thyroid Pain: no Mass Effect: None Energy: stable and OK Moods: good Sleep: Normal sleep pattern Temp. Intolerance: None Cardiac: NOT SIGNIFICANT CV: No history of chest pain, palpitation, orthopnea, cyanosis, pedal edema Resp: No cough, hemoptysis, asthma, recent chest infection, wheezing GI: No blood in stool, pain with BM, tarry stool, persistent diarrhea or constipation Weight: remained stable Eyes: No Memory: Good Diaphoresis: Not significant Skin: Negative M/S: negative Neuro: negative Social History: Social History Tobacco Use Smoking status: Never Smokeless tobacco: Never Tobacco comments: No one in the household smokes Vaping Use Vaping Use: Former Substance Use Topics Alcohol use: Yes Comment: social Drug use: No xxxxxxxxxxxxxxxxxxxxxxxxxxxxxxxxxxxxxxxxxxxxxxxxxxxxxxxxxxxxx xxxxxx SURGICAL PATHOLOGY: [id number] Order: [id number] Collected 09/12/2022 9:52 AM Status: Final result Visible to patient: Yes (seen) Dx: Papillary thyroid carcinoma (HCC) 0 Result Notes Component Resulting Agency FINAL DIAGNOSIS A. Lymph node, delphian, excision: -One lymph node involved by metastatic carcinoma (1/1). B. 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 (See comment and synoptic report.) C. Lymph node, left central neck, excision: -One lymph node involved by metastatic carcinoma (1/1). D. Thyroid, left lobe, completion thyroidectomy: -Thyroid tissue, negative for malignancy. -One lymph node negative for malignancy (0/1). E. Lymph nodes, right central neck dissection: -Two of four lymph nodes involved by metastatic carcinoma (2/4). -Parathyroid tissue present. -Atrophic thymus. -Benign thyroid tissue. F. Lymph nodes, left central neck dissection: -Two of three lymph nodes involved by metastatic carcinoma (2/3). -Atrophic thymus. Diagnosis Comment CCM A 4.9 cm classical type infiltrative papillary thyroid carcinoma with well developed nuclear features and papillary architecture is present in the right thyroid gland. Numerous psammoma bodies are present in the uninvolved thyroid, as well as multiple foci of lymphatic invasion. No vascular invasion is seen. All margins are negative for malignancy. The pathologic stage based on these findings is pT3a pN1a. Please see the synoptic report for additional information. Synoptic Report THYROID GLAND 8th Edition - Protocol posted: 12/02/2020 THYROID GLAND: RESECTION - All Specimens CLINICAL Clinical History Prior right thyroid FNA [id number] positive for PTC SPECIMEN Procedure Total thyroidectomy TUMOR Tumor Focality Unifocal Tumor Characteristics Tumor Site Right lobe Tumor Size Greatest Dimension (Centimeters): 4.9 cm Additional Dimension (Centimeters) 4 cm 4 cm Histologic Type Papillary carcinoma, classic (usual, conventional) Tumor Necrosis Not identified Angioinvasion (vascular invasion) Not identified Lymphatic Invasion Present Extrathyroidal Extension Not identified Margin Status All margins negative for carcinoma Distance from Invasive Carcinoma to Clos (more content not included)... [facility] 09-28-2022 Instructions Ayla Albarran DO - 09/28/2022 1:24 PM EDT - Check labs week of October 24: TSH, Free T4, Thyroglobulin, Renal Function Panel - Get neck ultrasound in 6 months Follow up in 6 months documented in this encounter [facility] 09-28-2022 History of Present illness Narrative Formatting of this note is different fro m the original. Juve Gavin is a 22 year old male who is presenting today September 28, 2022 for a Thyroid problem. 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 Previous laboratory results: Vitamin D 25 Hydroxy (ng/mL) Date Value 10/18/2014 28.2 08/25/2014 13.8 TSH (uU/mL) Date Value 08/25/2014 2.210 PAST MEDICAL HISTORY Diagnosis Date Allergy Fatty liver Gout Obesity PMH - PAST MEDICAL HISTORY OF 2003, 2010 right broken leg - broke this leg two separate times PMH - PAST MEDICAL HISTORY OF 06/04/2001 admitted to [facility] for wheezing Thyromegaly FAMILY HISTORY Problem Relation Age of Onset None Mother Hypertension Father Diabetes Paternal Grandmother other (hypertension) Paternal Grandmother other (Gastritis) Paternal Grandfather Cancer Other maternal side other (Gastritis) Other PGGF PAST SURGICAL HISTORY Procedure Laterality Date CIRCUMCISION W/CLAMP/OTH DEV W/BLOCK THYROID BIOPSY US Right 07/15/2022 FNA HPI 09/12/2022 had total thyroidectomy and bilateral central neck dissection with Dr. Davenport. Pathology below. He denies any neck symptoms - no pain, difficulty swallowing, change in voice. He is taking levothyroxine 225 mcg of levothyroxine daily. He waits an hour before he eats anything else. He was taking calcium supplements - however these were stopped today by Dr. Davenport. He was waiting 4 hours before taking theses and the levothyroxine. No palpitations, tremor, no difficulty sleeping. No numbness/tingling. Review of Systems Thyroid Pain: no Mass Effect: None Energy: stable and OK Moods: good Sleep: Normal sleep pattern Temp. Intolerance: None Cardiac: NOT SIGNIFICANT CV: No history of chest pain, palpitation, orthopnea, cyanosis, pedal edema Resp: No cough, hemoptysis, asthma, recent chest infection, wheezing GI: No blood in stool, pain with BM, tarry stool, persistent diarrhea or constipation Weight: remained stable Eyes: No Memory: Good Diaphoresis: Not significant Skin: Negative M/S: negative Neuro: negative Social History: Social History Tobacco Use Smoking status: Never Smokeless tobacco: Never Tobacco comments: No one in the household smokes Vaping Use Vaping Use: Former Substance Use Topics Alcohol use: Yes Comment: social Drug use: No xxxxxxxxxxxxxxxxxxxxxxxxxxxxxxxxxxxxxxxxxxxxxxxxxxxxxxxxxxxxx xxxxxx SURGICAL PATHOLOGY: [id number] Order: [id number] Collected 09/12/2022 9:52 AM Status: Final result Visible to patient: Yes (seen) Dx: Papillary thyroid carcinoma (HCC) 0 Result Notes Component Resulting Agency FINAL DIAGNOSIS A. Lymph node, delphian, excision: -One lymph node involved by metastatic carcinoma (06/05). B. 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 (See comment and synoptic report.) C. Lymph node, left central neck, excision: -One lymph node involved by metastatic carcinoma (06/05). D. Thyroid, left lobe, completion thyroidectomy: -Thyroid tissue, negative for malignancy. -One lymph node negative for malignancy (0). E. Lymph nodes, right central neck dissection: -Two of four lymph nodes involved by metastatic carcinoma (2/4). -Parathyroid tissue present. -Atrophic thymus. -Benign thyroid tissue. F. Lymph nodes, left central neck dissection: -Two of three lymph nodes involved by metastatic carcinoma (2/3). -Atrophic thymus. Diagnosis Comment CCM A 4.9 cm classical type infiltrative papillary thyroid carcinoma with well developed nuclear features and papillary architecture is present in the right thyroid gland. Numerous psammoma bodies are present in the uninvolved thyroid, as well as multiple foci of lymphatic invasion. No vascular invasion is seen. All margins are negative for malignancy. The pathologic stage based on these findings is pT3a pN1a. Please see the synoptic report for additional information. Synoptic Report THYROID GLAND 8th Edition - Protocol posted: 12/02/2020 THYROID GLAND: RESECTION - All Specimens CLINICAL Clinical History Prior right thyroid FNA [id number] positive for PTC SPECIMEN Procedure Total thyroidectomy TUMOR Tumor Focality Unifocal Tumor Characteristics Tumor Site Right lobe Tumor Size Greatest Dimension (Centimeters): 4.9 cm Additional Dimension (Centimeters) 4 cm 4 cm Histologic Type Papillary carcinoma, classic (usual, conventional) Tumor Necrosis Not identified Angioinvasion (vascular invasion) Not identified Lymphatic Invasion Present Extrathyroidal Extension Not identified Margin Status All margins negative for carcinoma Distance from Invasive Carcinoma to Closest Margin Less than 1 mm REGIONAL LYMPH NODES Regional Lymph Node Status Tumor present in regional lymph node(s) Number of Lymph Nodes with Tumor 6 Shawna Level(s) Involved Level Size of Largest Metastatic Deposit 0.2 cm Extranodal Extension (REJI) Not identified Number of Lymph Nodes Examined 10 Shawna Level(s) Examined Level PATHOLOGIC STAGE CLASSIFICATION (pTNM, AJCC 8th Edition) Reporting of pT, pN, and (when applicable) pM categories is based on information available to the pathologist at the time the report is issued. As per the AJCC (Chapter 1, 8th Ed.) it is the managing physician s responsibility to establish the final pathologic stage based upon all pertinent information, including but potentially not limited to this pathology report. pT Category pT3a pN Category pN1a ADDITIONAL FINDINGS Additional Findings Parathyroid gland(s) present Number of Parathyroid Glands 1 Location of Parathyroid Gland(s) Right Parathyroid Gland Findings Within normal limits . Gross Description CCM A. LYMPH NODE Received fresh is a segment of patton-red soft tissue measuring 11 x 10 x 6 mm. Submitted in toto as FSA1. Gross examination performed at [facility], [address], [place] [address] CLIA# [id number]. B. THYROID LOBE RIGHT Labeled: Thyroid lobe right Received: In formalin Specimen type: Lobectomy Oriented: No Weight: 44.7 g Size: 5.5 x 4.8 x 3.9 cm Ink code: Black: External surface of the right lobe Bureau: Resection margin of the isthmus Sectioning: Right lobe is serially sectioned from superior to inferior Number of discrete nodules: 1 Nodule 1 Location: Involving the upper, mid, and lower poles of the right lobe Size: 4.9 x 4 x 4 cm Description: Well-demarcated, pink-white, and soft Gross extrathyroidal extension: No Background thyroid parenchyma: Red-brown and rubbery Attached skeletal muscle: Not identified Attached lymph nodes: Not identified Attached parathyroid: Not identified Gross photograph: No Cassette Summary: B1-B5: Early Childhood Special Educator nodule from superior to inferior B6: Background parenchyma [facility] September 13, 2022 10:30 AM Gross examination performed at [facility], [address] [place] [address] C. LYMPH NODE Received fresh are two fragments of patton-yellow soft tissue aggregating to 5 x 4 x 2 mm. Submitted in toto as FSC1. Gross examination performed at [facility], [address], [place] [address] CLIA# [id number]. D. THYROID LOBE LEFT Labeled: Thyroid left lobe Received: In formalin Specimen type: Lobectomy Oriented: No Weight: 12.7 g Ink code: Blue: External surface of the left lobe Bureau: Resection margin of the isthmus Sectioning: The left lobe is sectioned from superior to inferior Number of discrete nodules: 0 Background thyroid parenchyma: Red-brown with scattered circumscribed, patton, gelatinous nodules ranging from 0.3 to 0.8 cm in greatest dimension Attached skeletal muscle: Not identified Attached lymph nodes: Not identified Attached parathyroid: Not identified Gross photograph: No Cassette Summary: D1-D2: Left lobe security representative sections [facility] September 13, 2022 9:57 AM Gross examination performed at [facility], [address] [id number] E. SOFT TISSUE Labeled: Right central neck dissection Received: In formalin Size: 4 x 3 x 0.3 cm Lymph node candidates: Total 5 Cassette Summary: Entirely submitted: 5, largest 2.1 x 0.8 x 0.5 cm E1: 1 lymph node candidates E2: 4 lymph node candidates E3: Remainder of tissue SCOTTIE September 13, 2022 9:45 AM Gross examination performed at [facility], [address] [id number] F. SOFT TISSUE Labeled: Left central neck dissection Received: In formalin Size: 3 x 2.5 x 0.3 cm Lymph node candidates: Total 4 Cassette Summary: Entirely submitted: 4, largest 0.8 x 0.6 x 0.3 cm F1: 2 lymph node candidates F2: 2 lymph node candidates F3: Remainder of tissue SCOTTIE September 13, 2022 9:49 AM Gross examination performed at [facility], [address] [id number] xxxxxxxxxxxxxxxxxxxxxxxxxxxxxxxxxxxxxxxxxxxxxxxxxxxxxxxxxxxxx xxxxxx Family Hx: No Thyroid Disease PAST MEDICAL HISTORY Diagnosis Date Allergy Fatty liver Gout Obesity PMH - PAST MEDICAL HISTORY OF 2003, 2010 right broken leg - broke this leg two separate times PMH - PAST MEDICAL HISTORY OF 06/04/2001 admitted to [facility] for wheezing Thyromegaly Physical Exam BP 137/83 Pulse 83 Resp 20 Ht 200.7 cm (6' 7 ) Wt (!) 146.4 kg (322 lb 12.8 oz) SpO2 97% BMI 36.36 kg/m General: Well appearing, no acute distress Heart: Normal rate Lungs: Breathing comfortably on room air Eyes: EOMI, anicteric sclera, no conjunctival injection, no proptosis, no lid lag Neck: Soft, no tenderness, masses or lymphadenopathy, well healing neck scar Abdomen: Soft, nontender, nondistended, no striae, no masses or organomegaly Extremities: Warm and well perfused, no edema Neuro: A&Ox3, no tremors, normal strength in upper and lower extremities Skin: No rashes, ecchymosis IMPRESSION: 22 year old man with medical history of PTC s/p total thyroidectomy (metastatic disease to LN). Here today for follow up. Doing well since surgery, on weight-based levothyroxine. No symptoms of hypocalcemia. PATIENCE risk is intermediate. At this point, will not give CROOKS. Will monitor with Tg and neck ultrasounds. 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 My final recommendations will be communicated back to the requesting physician by way of shared Medical Record and a copy of today's office notes. Impression: This 22 yo man is young and healthy and despite positive LN. There was lymphatic invasion but no vascular invasion. I feel we can monitor Thyroglobulin and Neck US and use Crooks if these suggest need. Recommendations: As outlined above by Dr. Ayla Albarran. Emiliana Ko MD Endocrinology Staff documented in this encounter [facility] 09-28-2022 Note HNO ID: [id number] Author: Yoel Davenport MD Service: ? Author Type: Physician Type: Progress Notes Filed: 09/28/2022 10:29 AM Note Text: Endocrinology Metabolism [facility] Yoel Davenport M.D. Section of Endocrine Surgery and Advanced Laparoscopic Surgery [address] [place] [address] ENDOCRINE SURGERY POST OPERATIVE FOLLOW UP NOTE NAME: Juve Gavin CLINIC NO: [id number] : 2000 Surgeon: Dr. Yoel Davenport HPI: Juve Gavin presents to clinic for a postoperative visit after Total Thyroidectomy and bilateral central neck dissection on 09/12/22. The patient reports doing well post-operatively. The patient has no complaints. The patient is currently taking 75mcg X 3 of levothyroxine and feeling well. Pathology was reviewed with the patient. PATHOLOGY: A. Lymph node, forrest, excision: -One lymph node involved by metastatic carcinoma (1/1). B. 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 (See comment and synoptic report.) C. Lymph node, left central neck, excision: -One lymph node involved by metastatic carcinoma (06/05). D. Thyroid, left lobe, completion thyroidectomy: -Thyroid tissue, negative for malignancy. -One lymph node negative for malignancy (0/1). E. Lymph nodes, right central neck dissection: -Two of four lymph nodes involved by metastatic carcinoma (2/4). -Parathyroid tissue present. -Atrophic thymus. -Benign thyroid tissue. F. Lymph nodes, left central neck dissection: -Two of three lymph nodes involved by metastatic carcinoma (2/3). -Atrophic thymus. PHYSICAL EXAM: On physical exam, the patient is well appearing, alert, and oriented. On inspection, the skin over the anterior neck is smooth, no mass is visualized. The surgical incision is healing well. No signs of wound infection or hematoma. LABS: Recent Labs 09/13/22 0430 09/13/22 0429 08/26/22 0851 08/25/14 1658 CA -- 8.2* 9.6 10.5 PTH 24 -- -- -- Recent Labs 08/25/14 1658 TSH 2.210 - PARATHYROID DATA SHEET Latest Ref Rng AND Units 09/13/2022 CALCIUM 8.5 - 10.5 mg/dL CALCIUM 8.5 - 10.2 mg/dL 8.2 (L) PTH, INTACT 15 - 65 pg/mL 24 CREAT 0.30 - 1.20 mg/dL CREATININE 0.73 - 1.22 mg/dL VITAMIN D 25 HYDROXY 31.0 - 80.0 ng/mL ALBUMIN 3.5 - 5.0 g/dL IMPRESSION: Juve Gavin is doing well after Total Thyroidectomy and bilateral central neck dissection for Thyroid Cancer - Papillary thyroid cancer PLAN: The patient will follow up with endocrinology to discuss CROOKS and also for lifelong monitoring. Will check his Ca and PTH levels today. Yoel Davenport MD 09/28/2022 [facility] 09-28-2022 History of Present illness Narrative Formatting of this note is different fro m the original. Endocrinology Metabolism [facility] Yoel Davenport M.D. Section of Endocrine Surgery and Advanced Laparoscopic Surgery [facility] [place], [place] [id number] ENDOCRINE SURGERY POST OPERATIVE FOLLOW UP NOTE NAME: Juve Gavin CLINIC NO: [id number] : 2000 Surgeon: Dr. Yoel Davenport HPI: Juve Gavin presents to clinic for a postoperative visit after Total Thyroidectomy and bilateral central neck dissection on 09/12/22. The patient reports doing well post-operatively. The patient has no complaints. The patient is currently taking 75mcg X 3 of levothyroxine and feeling well. Pathology was reviewed with the patient. PATHOLOGY: A. Lymph node, delphian, excision: -One lymph node involved by metastatic carcinoma (06/05). B. 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 (See comment and synoptic report.) C. Lymph node, left central neck, excision: -One lymph node involved by metastatic carcinoma (06/05). D. Thyroid, left lobe, completion thyroidectomy: -Thyroid tissue, negative for malignancy. -One lymph node negative for malignancy (0/1). E. Lymph nodes, right central neck dissection: -Two of four lymph nodes involved by metastatic carcinoma (2/4). -Parathyroid tissue present. -Atrophic thymus. -Benign thyroid tissue. F. Lymph nodes, left central neck dissection: -Two of three lymph nodes involved by metastatic carcinoma (2/3). -Atrophic thymus. PHYSICAL EXAM: On physical exam, the patient is well appearing, alert, and oriented. On inspection, the skin over the anterior neck is smooth, no mass is visualized. The surgical incision is healing well. No signs of wound infection or hematoma. LABS: Recent Labs 09/13/22 0430 09/13/22 0429 08/26/22 0851 08/25/14 1658 CA -- 8.2* 9.6 10.5 PTH 24 -- -- -- Recent Labs 08/25/14 1658 TSH 2.210 - PARATHYROID DATA SHEET Latest Ref Rng & Units 09/13/2022 CALCIUM 8.5 - 10.5 mg/dL CALCIUM 8.5 - 10.2 mg/dL 8.2 (L) PTH, INTACT 15 - 65 pg/mL 24 CREAT 0.30 - 1.20 mg/dL CREATININE 0.73 - 1.22 mg/dL VITAMIN D 25 HYDROXY 31.0 - 80.0 ng/mL ALBUMIN 3.5 - 5.0 g/dL IMPRESSION: Juve Gavin is doing well after Total Thyroidectomy and bilateral central neck dissection for Thyroid Cancer - Papillary thyroid cancer PLAN: The patient will follow up with endocrinology to discuss CROOKS and also for lifelong monitoring. Will check his Ca and PTH levels today. Yoel Davenport MD 09/28/2022 documented in this encounter [facility] 09-28-2022 Instructions Kanu Guerra MA - 09/28/2022 9:11 AM EDT Thank you for choosing the [facility] Department of Endocrinology, Diabetes and Metabolism. Did you know that you need to call 48 hours in advance of your scheduled visit, if you are unable to make your appointment? The Endocrinology and Metabolism [facility] thanks you for your commitment, because patients not showing to their appointment results in a lost opportunity for patients to receive [facility] health care at the [facility]. To Cancel an appointment, please choose one of the following: - Call the Appointment Call Center at [phone] - From [employer], Go to Appointments - Cancel Appts If cancelling, consider your need to reschedule to prevent further delays in your care. To Schedule an appointment, please choose one of the following: - Call the Appointment Call Center at [phone] - From [employer], Go to Appointments - Request an Appt documented in this encounter [facility] 09-13-2022 Note HNO ID: [id number] Author: Sae Jim MD Service: Endocrine Surgery Author Type: Physician Type: Progress Notes Filed: 09/13/2022 7:03 AM Note Text: ENDOCRINE SURGERY INPATIENT PROGRESS NOTE Name: Juve Gavin Date: September 13, 2022 POD# 1 S/P total thyroidectomy and b/l CND S: Recovering appropriately. No dysphagia. No dysphonia. No paresthesias. No signs of hematoma. O: MEDICATIONS: Current Facility-Administered Medications Medication Dose Route Frequency dextrose 5% in NaCl 0.45% with 20 mEq/L KCl iv infusion 75 mL/hr INTRAVENOUS CONTINUOUS ibuprofen 600 mg tab(s) (MOTRIN) 600 mg ORAL q 6 H PRN acetaminophen 500 mg tab(s) (TYLENOL) 500 mg ORAL q 4 H PRN cwdejqs-yokwzqbkc-garnokp D3 500 mg-5 mcg (200 unit) 1 tablet 1 tablet ORAL TID calcium carbonate 500 mg chewable tab(s) (TUMS) 500 mg ORAL q 1 H PRN benzocaine-menthol 1 Lozenge (CHLORASEPTIC) 1 Lozenge MUCOUS MEMBRANE (TOPICAL MOUTH AND THROAT) q 2 H PRN phenol 1 [place] (CHLORASEPTIC) 1 [place] MUCOUS MEMBRANE (TOPICAL MOUTH AND THROAT) q 2 H PRN ondansetron (PF) 4 mg injection (ZOFRAN) 4 mg INTRAVENOUS q 6 H PRN NaCl 0.9% iv flush bag 20 mL INTRAVENOUS PRN levothyroxine (SYNTHROID) tab(s) 225 mcg 225 mcg ORAL DAILY (6 AM) PHYSICAL EXAM: BP 132/80 Pulse 85 Temp 36.8 ?C (98.2 ?F) Resp 18 Ht 200.7 cm (6' 7 ) Wt (!) 146.2 kg (322 lb 5 oz) SpO2 95% BMI 36.31 kg/m? General Appearance: In no acute distress. Well appearing. Neuro: Alert and oriented x3. Neck: soft, incision clean/dry/intact, no evidence of deep neck hematoma Abdomen: Soft. Non-distended. Non-tender. No guarding or rebound. Extremities: Warm and well perfused. Intake/Output Summary (Last 24 hours) at 09/13/2022 0702 Last data filed at 09/12/2022 1318 Gross per 24 hour Intake 1500 ml Output -- Net 1500 ml LABS: Calcium, Total Date Value Ref Range Status 09/13/2022 8.2 (L) 8.5 - 10.2 mg/dL Final TSH Date Value Ref Range Status 08/25/2014 2.210 0.400 - 5.500 uU/mL Final PTH, Intact Date Value Ref Range Status 09/13/2022 24 15 - 65 pg/mL Final ASSESSMENT: Juve Lovebassam is POD1 and recovering well. PLAN of Care: - Multimodal pain regimen, minimize narcotics - Regular diet - Scheduled calcium - Start levothyroxine - SCDs, no SQH, holding anticoagulation due to elevated bleeding risk - Discharge home this morning A review of daily goals, interventions, and plan of care with the multidisciplinary team and patient has been conducted. The patient?s concerns have been addressed and the patient agrees to proceed with today?s plan of care. SIGNATURE: Sae Jim MD [phone] Clinical Associate Endocrine and Metabolism [place], Department of Endocrine Surgery [facility] 09-13-2022 Note HNO ID: [id number] Author: Peter Tristan, LIANA Service: ? Author Type: Registered Nurse Type: Nursing Progress Note Filed: 09/13/2022 2:33 AM Note Text: Pt denies any pain numbness or tingling at this time. [facility] 09-12-2022 Note HNO ID: [id number] Author: Robin Atkins MD, PhD Service: Endocrine Surgery Author Type: Resident Type: Progress Notes Filed: 09/12/2022 3:00 PM Note Text: . ENDOCRINE SURGERY POST-OPERATIVE NOTE NAME: Juve Gavin 09/12/2022 8:28 AM Assessment and Plan: Juve Gavin is a 22 year old male w/ PMHx of obesity, OPAL, NAFLD, FNA proven PTC, now s/p THYROIDECTOMY TOTAL and bilateral central neck dissection on 09/12/2022. Recovering appropriately. No dysphagia. No dysphonia. No paresthesias. No signs of hematoma. - Regular diet - No SQH - SCDs - multimodal pain regimen, minimize narcotics - Discharge in AM - Follow-up PTH and Ca in AM - 225 mcg synthroid Robin Atkins MD, PhD Endocrine Surgery [id number] Patient Active Hospital Problem List: No active hospital problems. Subjective: Interval Events: No acute events. Pain: controlled. No other complaints. Physical Exam: BP 141/86 Pulse 88 Temp 36.6 ?C (97.8 ?F) (Temporal) Resp 16 SpO2 97% GENERAL/NEURO: Awake, Alert, NAD HEENT: Normocephalic, Atraumatic; incision c/d/I without signs of hematoma CHEST: Unlabored breathing ABDOMEN: Soft, Non-tender EXTREMITIES: warm, well perfused Labs: CBC, Coags, BMP, Mg, Phos Liver Function, Amylase, AND Lipase Intake and Output: Current Medications: Current Facility-Administered Medications Medication Dose Route Frequency NaCl 0.9% iv infusion 75 mL/hr INTRAVENOUS CONTINUOUS Prior to Admission Medications: fexofenadine HCl (KAPIL ORAL)Take by mouth as needed.Disp: Rfl: [facility] 09-12-2022 Note HNO ID: [id number] Author: Terry Lennon APRN.VP SOFTWARE Service: Anesthesiology Author Type: Nurse Stock Saw Operator Type: Anesthesia Procedure Notes Filed: 09/12/2022 9:19 AM Note Text: ANESTHESIOLOGY PROCEDURE NOTE Airway General Information Procedure Start Time/Medication Administration: 09/12/2022 8:53 AM Patient location during procedure: OR Timeout Performed Pre-procedure: timeout performed Consent Obtained: Yes Patient identity confirmed: arm band and patient Staffing VP SOFTWARE: Terry Lennon APRN.VP SOFTWARE Performed by: MARQUEZ Indications and Patient Condition Indications for airway management: anesthesia Preoxygenated: yes Method: asleep Difficult Mask: No Airway Accessory: oral airway Final Airway Details Final airway type: endotracheal airway Final Endotracheal Airway: NIM tube (NERVEana) Successful intubation technique: direct laryngoscopy Devices used: intubating stylet Blade: Rafat Blade size: #4 ETT size (mm): 8.0 Measured from: lips Measurement (cm): 22 Placement verified by: chest auscultation and capnometry Cormack-Lehane Classification: grade IIb - view of arytenoids or posterior of glottis only Number of attempts at approach: 1 SIGNATURE: Terry Lennon APRN.VP SOFTWARE PATIENT NAME: Juve Gavin DATE: September 12, 2022 TIME: 9:16 AM CSN: [id number] [facility] 08-31-2022 Note HNO ID: [id number] Author: RT Elba(R) Service: Radiology Author Type: Technologist Type: Progress Notes Filed: 08/31/2022 10:56 AM Note Text: Radiology Service Progress Note PATIENT NAME: Juve Gavin DATE OF SERVICE: August 31, 2022 TIME: 10:56 AM PATIENT IDENTITY VERIFICATION COMPLETED USING TWO (2) IDENTIFIERS: Name and Date of confirmed by patient verbally and Name and Date of confirmed by identification band. FALL SCREENING: Has the patient had 2 falls in the last year or 1 fall with injury or currently using an Ambulatory Assistive Device (Walker, Cane, Wheelchair, Crutches, etc.)? No PATIENT GENDER DATA: Male PATIENT RELEVANT IMPLANT DATA REVIEWED: Yes RADIOLOGY DEPARTMENT: CT; Exam(s) Completed: Neck PERIPHERAL IV DATA: Not applicable SIGNED BY: RT Elba(R) August 31, 2022 10:56 AM [facility] 08-31-2022 History of Present illness Narrative Formatting of this note might be differe nt from the original. Radiology Service Progress Note PATIENT NAME: Juve Gavin DATE OF SERVICE: August 31, 2022 TIME: 10:56 AM PATIENT IDENTITY VERIFICATION COMPLETED USING TWO (2) IDENTIFIERS: Name and Date of confirmed by patient verbally and Name and Date of confirmed by identification band. FALL SCREENING: Has the patient had 2 falls in the last year or 1 fall with injury or currently using an Ambulatory Assistive Device (Walker, Cane, Wheelchair, Crutches, etc.)? No PATIENT GENDER DATA: Male PATIENT RELEVANT IMPLANT DATA REVIEWED: Yes RADIOLOGY DEPARTMENT: CT; Exam(s) Completed: Neck PERIPHERAL IV DATA: Not applicable SIGNED BY: RT Elba(R) August 31, 2022 10:56 AM documented in this encounter [facility] 08-26-2022 History and physical note Formatting of this note is different fro m the original. Images from the original note were not included. HISTORY AND PHYSICAL EXAMINATION SERVICE DATE: 08/26/2022 SERVICE TIME: 8:54 AM PRIMARY CARE PHYSICIAN: Polo Velasquez MD REASON FOR VISIT: Juve Gavin is a 22 year old male who is scheduled for Procedure(s): THYROIDECTOMY TOTAL (Bilateral) at the request of Dr. Yoel Davenport MD for consultation. My final recommendation will be communicated back to the requesting physician by way of shared medical record or letter. Subjective The patient has the following: ACTIVE PROBLEM LIST Out-Toeing Fracture, Fibula, Proximal Milk Allergy Nocturnal Enuresis Nafld (Nonalcoholic Fatty Liver Disease) Class 2 Severe Obesity Due to Excess Calories With Serious Comorbidity and Body Mass Index (Bmi) of 35.0 to 35.9 in Adult (Hcc) Elevated Hemoglobin A1c Measurement Dyslipidemia Obstructive Sleep Apnea, Pediatric Papillary Thyroid Carcinoma (Hcc) COVID-19 Immunization Status Overdue - COVID-19 VACCINE (1) Overdue - never done No completion, postpone, frequency change, or communication history exists for this topic. CHIEF COMPLAINT: Pre-op exam HPI: Juve Gavin is a 22 year old seen for PAC due to scheduled above surgery because thyroid cancer. 08/16/2022, Dr. Davenport HPI: The patient was evaluated today for a consultation regarding Thyroid Cancer - Papillary thyroid cancer. The thyroid problem was first diagnosed recently on a thyroid FNA. ULTRASOUND EXAMINATION: Ultrasound examination was performed in the office today. This demonstrated a a nodule involving the right thyroid lobe measuring 4.3 cm, was hypoechoic and was Solid. No worrisome lymphadenopathy was appreciated in either bilateral central neck or lateral jugular chain compartments. A fine needle aspiration biopsy not performed. LABS: TSH Date Value Ref Range Status 08/25/2014 2.210 0.400 - 5.500 uU/mL Final Calcium Date Value Ref Range Status 08/25/2014 10.5 8.5 - 10.5 mg/dL Final A flexible laryngoscopy was done in the office today. This showed vocal cords to be mobile. ASSESSMENT: In summary, Juve Gavin has Thyroid Cancer - Papillary thyroid cancer. PLAN: Will plan total thyroidectomy. Will do a CT neck to assess the relationship of the cancer with surrounding structures. I appreciate being involved in the care of your patient, and please feel free to contact me should you have additional questions. REVIEW OF SYSTEMS: General: No weight loss, malaise or fevers. Neurological: No history of TIA's, stroke, HELP DESK ADMINISTRATOR tumor, impaired sensorium, hemiplegia, paraplegia or quadraplegia. No neurological symptoms or problems. Respiratory: No history of current cough or dyspnea, or pneumonia in the past 6 weeks. No history of respiratory/pulmonary symptoms or problems. Cardiovascular: No history of HTN requiring medication, no history of angina, CHF, NH, cardiac surgery or stents. Denies rest pain, gangrene or revascularization/amputation for PVD. No history of cardiovascular symptoms or problems. GI: No history of GI symptoms or problems. No history of esophageal varices, recent ascites, or ETOH greater than 2 drinks per day. : No history of dysuria, frequency or incontinence, stones or chronic kidney disease. No difficulty urinating, nocturia > 1 time per night or hematuria. Endocrine: See HPI. Hematology: No history of bleeding or clotting disorder. Patient is not taking anti-coagulation or platelet medications. No history of hematological symptoms or problems. Oncology: See HPI. Psych: No history of psychiatric symptoms or problems. Musculoskeletal: Negative for joint pain or swelling, back pain or muscle pain. Skin: Negative for lesions, rash and itching. PAST MEDICAL HISTORY Diagnosis Date Allergy Fatty liver Gout Obesity PMH - PAST MEDICAL HISTORY OF 2003, 2010 right broken leg - broke this leg two separate times PMH - PAST MEDICAL HISTORY OF 06/04/2001 admitted to [facility] for wheezing Thyromegaly PAST SURGICAL HISTORY Procedure Laterality Date CIRCUMCISION W/CLAMP/OTH DEV W/BLOCK THYROID BIOPSY US Right 07/15/2022 FNA FAMILY HISTORY Problem Relation Age of Onset None Mother Hypertension Father Diabetes Paternal Grandmother other (hypertension) Paternal Grandmother other (Gastritis) Paternal Grandfather Cancer Other maternal side other (Gastritis) Other PGGF Social History Tobacco Use Smoking status: Never Smokeless tobacco: Never Tobacco comments: No one in the household smokes Vaping Use Vaping Use: Former Substance Use Topics Alcohol use: Yes Comment: social Drug use: No Prior to Admission medications as of 08/26/22 0800 Medication Sig Last Dose Taking fexofenadine HCl (KAPIL ORAL) Take by mouth as needed. Taking Yes Medication Comments documented by Michelle Merino on 11/13/2018 at 1003. 11/13/2018: Takes no medications daily. Michelle Merino RN (Nurse iron miner blasting). ALLERGIES Allergen Reactions Seasonal Allergies Unknown Trees, hogs/pigs. Shellfish Derived Unknown Bee Pollen Unknown Objective PHYSICAL EXAM: General: alert and oriented (x3), healthy appearance and obese. Pertinent negatives noted - not distressed. Skin: normal color, no rash or lesions. HEENT: EOM intact and pupils equal round. Pertinent negatives noted - no carotid bruit. Cardiovascular: regular rate and rhythm, normal S1 and S2, no rub, murmurs, or gallop. Respiratory: normal breath sounds, no wheezes or crackles. No chest wall deformity or tenderness. Abdomen: soft. Pertinent negatives noted - not tender. Extremities: no deformity, no edema or tenderness, no joint swelling or clubbing. Neurological: normal cognition and motor skills. Gait normal. No weakness or sensory deficit. PAIN ASSESSMENT: VITALS: BP 128/78 Pulse 80 Temp (Src) 97.1 (Temporal) Resp 16 Ht 6' 7 (2.01m) Wt 317 lb (143.8kg) SpO2 95% BMI 35.70 kg/(m^2). Diagnostic tests reviewed for today's visit: Lab Value Units Date High Low HB No results within date range. HCT No results within date range. WBC No results within date range. PLT No results within date range. NA No results within date range. K No results within date range. GLUC No results within date range. BUN No results within date range. CREAT No results within date range. PTSEC No results within date range. INR No results within date range. APTT No results within date range. ALT No results within date range. AST No results within date range. TBILI No results within date range. TSH No results within date range. Lab Value Units Date High Low HCGQT No results within date range. UHCG No results within date range. HCG, BODY* No results within date range. Lab Value Units Date High Low ABORHD No results within date range. ABSCREEN No results within date range. Hemoglobin A1C (%) Date Value 08/25/2014 5.7 No results found for this or any previous visit (from the past 8760 hour(s)). No results found for this or any previous visit (from the past 83461 hour(s)). Assessment Patient has the following medical conditions which may affect love-operative course: Obstructive sleep apnea, pediatric Assessment: hx pediatric, pt denies use of CPAP as an adult, STOP BANG SCORE 4 NAFLD (nonalcoholic fatty liver disease) Assessment: hx 06/24/2022 labs scanned into epic Elevated hemoglobin A1c measurement Assessment: hx, diet controlled, new lab pending Hemoglobin A1C (%) Date Value 08/25/2014 5.7 Class 2 severe obesity due to excess calories with serious comorbidity and body mass index (BMI) of 35.0 to 35.9 in adult ([facility]) Assessment: Body mass index is 35.71 kg/m . Dyslipidemia Assessment: childhood hx, no tx 06/24/2022 Lipid panel Marie Activity Status Index: METS: Climb a flight of stairs or walk up a hill (5.50 METs) DASI Score: 5.5 Patient denies any chest pain or undue shortness of breath with the above physical activity. Clinical Frailty Scale: 2. Well STOP-Bang Score: Snores loudly BMI greater than 35 kg/m^2 Has a large neck Male patient Denies feeling tired, fatigued, or sleepy during the daytime Has not been observed to stop breathing or choking/gasping during sleep Denies having high blood pressure Patient 50 years old or younger STOP-Bang Score: 4 [id number] Score: Age: <65 Sex: male CHF history: No Hypertension history: No Stroke/TIA/thromboembolism history: No Vascular disease history: No Diabetes history: No [id number] Score: 0 ARISCAT Score: Age: <=50 Preoperative SpO2: 91-95% Preoperative anemia: Yes Surgical incision: peripheral Duration of surgery: 2-3 hrs Emergency procedure: No ARISCAT Score: ASA Class: 2 ANESTHESIA FINDINGS: Intubation History: No prior intubation Significant Anesthesia Considerations: has never had anesthesia Airway History: No prior intubation I - PHYSICAL EVALUATION AIRWAY Patient intubated: No. Tracheostomy tube not present Mallampati: III. TM distance: >3 FB. Neck ROM: full ROM without neurological symptoms. Mouth opening: adequate. Short neck: no. Thick neck: yes Ford present: yes Lip Bite Test: II Microretrognathia/Micronagthia/Recessed Chin: No DENTAL Dental findings: teeth intact. II - ANESTHESIA PLAN ASA Score: 2 Anesthetic Plan: other Anesthetic plan additional comments: *PACC/TCI - anesthesia choice. Beta Dennis Monitoring Plan Post Procedure Analgesic Plan Informed Consent Anesthetic risks, benefits, alternatives, personnel and consent discussed: yes. Patient / Responsible Republican agrees to proceed: yes Patient / Surrogate agrees to blood products: blood products not planned Prepared for Surgery: optimally prepared for surgery, pending [see comment]. labs CONSULTS: Patient does not require consults for optimization at this time Planned Anesthetic: other anesthesia choice The Following Tests/Procedures Have Been Initiated: Orders Placed This Encounter >HGB A1c Standing Status: Future Number of Occurrences: 1 Standing Expiration Date: 10/26/2022 Instructions Given to Patient: Instructions located in the after visit summary. Patient given verbal and written preop instructions and voices comprehension and compliance. SIGNATURE: Tatiana Herbert APRN.CNP PATIENT NAME: Juve Gavin DATE: August 26, 2022 TIME: 8:30 AM PAGER/CONTACT #: documented in this encounter [facility] 08-26-2022 Instructions Tatiana Herbert APRN.CNP - 08/26/2022 8:30 AM EDT PATIENT PREOPERATIVE INSTRUCTIONS No ref. provider found has scheduled you for your procedure at this surgery center: [facility]: [phone] -- [address] [place] [address]. Please read below carefully for your personalized instructions. Dietary Restrictions: - No solid food after midnight. - You may have 12 ounces of clear liquids (water, clear juices such as apple juice or gatorade, carbonated beverages, clear tea, black coffee, jello) until 2 hours before scheduled arrival at facility. No red/purple coloring and no creamer/sugar Medications: Unless instructed differently below, stay on all of your medications until your surgery. Approved medications to take the morning of surgery with a sip of water: fexofenadine (KAPIL) If you take any medications for erectile dysfunction-Cialis (Tadalafil), Levitra, Staxyn (Vardenafil) Viagra (Sildenenafil please do not take these for 48 hours before surgery. If you start any new medications after today's visit, please contact the surgeon's office. Blood Thinning Medications: - Stop NSAIDS (Ibuprofen, Advil, Aleve, Motrin, Celebrex, Mobic, etc.) 7 days before surgery, as directed by your surgeon. - Stop Aspirin 7 days before surgery, as directed by your surgeon. - Stop Vitamin E, ALL multi-vitamins, herbals and dietary supplements 7 days before surgery. - You may take Tylenol (Acetaminophen) or any of your pain medications that do not contain aspirin or NSAIDS as needed. Important Reminders: - Candy, mints, and tobacco products are NOT permitted the morning of surgery. - Hearing aids, dentures and glasses may be worn the morning of surgery. - NO jewelry, body piercings, makeup, hairpins or contacts are to be worn the day of surgery. If you develop symptoms such as a fever, cold, or flu, or have other changes to your health within TWO DAYS of scheduled surgery or the morning of surgery, please contact the surgery center above. Personal Belongings: -Please have photo ID and insurance cards. -If you do not have a copy of advance directives on file with us, please bring a copy with you on the day of surgery. - Leave ALL valuables and money at home or with family members. For Outpatient Procedures: - YOU MUST HAVE A RESPONSIBLE ASSISTANT BASEBALL COACH TAKE YOU HOME. A RELATIONS MANAGER OR CLOUD AUTOMATION TESTER CANNOT BE MADE A RESPONSIBLE ASSISTANT BASEBALL COACH. - We recommend that a responsible person stays with you overnight to take care of you. - You cannot stay in a hotel alone after outpatient surgery. You will not be permitted to have your surgery, if you do not have someone to take care of you. Arrival Time for Surgery: - The Surgery Center or hospital where you are having surgery will call the afternoon before surgery (or Monday for Monday surgery) with a scheduled arrival time. - If you have not heard by 4 pm, please contact the surgery center above. Please be aware that emergency situations arise, which may delay or change your surgical time. If this happens, we will notify you as soon as possible and regret any inconvenience. If you already have an Advance Directive, please fax a copy to [phone] or email to for it to be added to your chart. If you do not have an Advance Directive, you can find the appropriate form and more information at [email or web address]. We recommend that you complete the Advance Directive form found on the website and bring it with you the day of your surgery. It can be witnessed and scanned into your chart that day. Tatiana Herbert APRN.CNP documented in this encounter [facility] 08-23-2022 Miscellaneous Notes Formatting of this note might be differe nt from the original. Spoke with patient's mom regarding mychart message. Patient will follow up with endocrinology after surgery and based on pathology results, determine if radioactive iodine treatment is needed. Will coordinate endocrinology appointment with post-op to minimize trips to [facility]. All questions were answered. Beatriz Cárdenas RN documented in this encounter [facility] 08-17-2022 Note HNO ID: [id number] Author: Yoel Davenport MD Service: ? Author Type: Physician Type: Progress Notes Filed: 08/17/2022 12:03 PM Note Text: Endocrinology Metabolism [place] [facility] Yoel Davenport M.D. Section of Endocrine Surgery and Advanced Laparoscopic Surgery [address] [place] [address], [place] [phone] ENDOCRINE SURGERY NEW CONSULTATION NAME: Juve Swenson [facility] NO: [id number] : 2000 Surgeon: Dr. Yoel Davenport REFERRING PROVIDER: Hill Lara III [address] [facility] [address] The patient was referred by the above provider and my findings and recommendations will be communicated by way of the shared medical record. HPI: The patient was evaluated today for a consultation regarding Thyroid Cancer - Papillary thyroid cancer. The thyroid problem was first diagnosed recently on a thyroid FNA. PMH: PAST MEDICAL HISTORY Diagnosis Date Allergy Fatty liver Gout Obesity PMH - PAST MEDICAL HISTORY OF 2003, 2010 right broken leg - broke this leg two separate times PMH - PAST MEDICAL HISTORY OF 06/04/2001 admitted to [facility] for wheezing Thyromegaly PSH: PAST SURGICAL HISTORY Procedure Laterality Date CIRCUMCISION W/CLAMP/OTH DEV W/BLOCK THYROID BIOPSY US Right 07/15/2022 FNA Medications: Current Outpatient Medications on File Prior to Visit Medication Sig fexofenadine HCl (KAPIL ORAL) Take by mouth as needed. EPINEPHrine (EPIPEN) 0.3 mg/0.3 mL auto-injector Inject 0.3 mg intramuscularly. (Patient not taking: Reported on 07/11/2022) ciclesonide 37 mcg/actuation HFA Use in each nostril. (Patient not taking: Reported on 07/11/2022) No current facility-administered medications on file prior to visit. All: ALLERGIES Allergen Reactions Seasonal Allergies Unknown Trees, hogs/pigs. Shellfish Derived Unknown Bee Pollen Unknown SH: Social History Tobacco Use Smoking status: Never Smokeless tobacco: Never Tobacco comments: No one in the household smokes Vaping Use Vaping Use: Former Substance Use Topics Alcohol use: Yes Comment: social Drug use: No FH: Pertinent history above; otherwise, non-contributory REVIEW OF SYSTEMS: GENERAL: Well-appearing, no malaise or fevers Dyspnea:No. Dysphagia:No. Pressure symptoms:No. PHYSICAL EXAM: On physical exam, Juve Gavin is well appearing, alert, and oriented and appears euthyroid. On inspection, the skin over the anterior neck is smooth, a right-sided mass is visualized. Palpation revealed a thyroid enlargement on the right. No lymphadenopathy was palpated on either side of the neck. ULTRASOUND EXAMINATION: Ultrasound examination was performed in the office today. This demonstrated a a nodule involving the right thyroid lobe measuring 4.3 cm, was hypoechoic and was Solid. No worrisome lymphadenopathy was appreciated in either bilateral central neck or lateral jugular chain compartments. A fine needle aspiration biopsy not performed. LABS: TSH Date Value Ref Range Status 08/25/2014 2.210 0.400 - 5.500 uU/mL Final Calcium Date Value Ref Range Status 08/25/2014 10.5 8.5 - 10.5 mg/dL Final A flexible laryngoscopy was done in the office today. This showed vocal cords to be mobile. ASSESSMENT: In summary, Juve Gavin has Thyroid Cancer - Papillary thyroid cancer. PLAN: Will plan total thyroidectomy. Will do a CT neck to assess the relationship of the cancer with surrounding structures. I appreciate being involved in the care of your patient, and please feel free to contact me should you have additional questions. I spent a total of 60 minutes on the date of the service which included preparing to see the patient, [id number] patient care, completing clinical documentation, obtaining and/or reviewing separately obtained history, performing a medically appropriate examination, counseling and educating the patient/family/caregiver, ordering medications, tests, or procedures, communicating with other HCPs (not separately reported), independently interpreting results (not separately reported), communicating results to the patient/family/caregiver, and care coordination (not separately reported). Sincerely, Yoel Davenport MD 08/17/2022 CC: Hill Lara III [address] [facility] [id number] [facility] 08-11-2022 Miscellaneous Notes Formatting of this note might be differe nt from the original. Indexed labs documented in this encounter [facility] 08-10-2022 Miscellaneous Notes Formatting of this note is different fro m the original. 08/10/2022 INTAKE COMPLETED-US COMPLETED IN [facility]-TSH ORDERED PATH SLIDES REQUESTED FROM [facility] 08/10/22 @ 9:46AM. PT. TO GO TO [facility] FOR TSH ENDOCRINE SURGERY PATIENT WORKSHEET Initial Call Date: August 10, 2022 Reason for Consult/ Referral: Thyroid Nodule PATIENT DEMOGRAPHICS Name: Juve Gavin CC#: [id number] : 2000 AGE: [age] year old Contact Numbers: Home: (home) Work: There is no work phone number on file. PATIENT PHYSICIAN INFORMATION Referring Doctor: Address: Phone: Finish Molder: Address: Phone: PCP: Polo Velasquez MD [address] [place] [address] PAST TREATMENT Office notes: SEE [facility] Medications: NONE THAT APPLY Pre-Visit Testing STUDY/TEST DATE ORDERED/REQUESTED DATE RECEIVED/COMPLETED ENTIRE PANEL TSH 08/10/22 FREE T4 FREE T3 Imaging Reports: SEE [facility] CD of Images: SEE [facility] FNA: yes: 07/28 FNA Slides: Slides requested from outside facility (Date received: ) Has the patient ever had thyroid or parathyroid surgery before: No Operative Reports: NONE AVAILABLE Pathology Reports: SEE EPIC documented in this encounter [facility] 07-26-2022 Note HNO ID: [id number] Author: Hill Lara MD Service: ? Author Type: Physician Type: Progress Notes Filed: 07/26/2022 9:16 AM Note Text: Subjective: Patient status post an ultrasound-guided fine-needle aspiration of a 5.7 cm nodule on the right side of his thyroid gland. This came back consistent with papillary thyroid cancer. Patient has been phonating without difficulty not having any difficulty with swallowing has not noticed any hoarseness of his voice. Objective:Blood pressure 130/88, pulse 83, temperature 36.3 ?C (97.3 ?F), height 200.7 cm (6' 7 ), weight (!) 147 kg (324 lb), SpO2 96 %. Neck is supple no abnormalities are palpated. Nodule is felt. Assessment: Papillary thyroid cancer Plan: Going to refer him up to the [facility] [place] for surgery. [facility] 07-26-2022 History of Present illness Narrative Formatting of this note might be differe nt from the original. Subjective: Patient status post an ultrasound-guided fine-needle aspiration of a 5.7 cm nodule on the right side of his thyroid gland. This came back consistent with papillary thyroid cancer. Patient has been phonating without difficulty not having any difficulty with swallowing has not noticed any hoarseness of his voice. Objective:Blood pressure 130/88, pulse 83, temperature 36.3 C (97.3 F), height 200.7 cm (6' 7 ), weight (!) 147 kg (324 lb), SpO2 96 %. Neck is supple no abnormalities are palpated. Nodule is felt. Assessment: Papillary thyroid cancer Plan: Going to refer him up to the [facility] [place] for surgery. documented in this encounter [facility] 07-21-2022 Miscellaneous Notes Formatting of this note might be differe nt from the original. Faxed pathology from [facility] was sent to scanned documents, please review. Thank you. documented in this encounter [facility] 07-15-2022 Note HNO ID: [id number] Author: Hill Lara MD Service: ? Author Type: Physician Type: Progress Notes Filed: 07/15/2022 9:02 AM Note Text: Preoperative diagnosis: Multinodular goiter Postoperative diagnosis: The same Procedure: Ultrasound-guided fine-needle aspiration of dominant right thyroid nodule Surgeon: Jane Procedure: Ultrasound of the right thyroid gland revealed the nodule in question. I prepped the skin with alcohol. I injected 1% lidocaine plain. Under ultrasound guidance I took 3 passes with a 22-gauge needle. Photographs were obtained. I plated this on glass slides. Sterile dressings were applied. The patient tolerated the procedure well. [facility] 07-15-2022 Instructions Britt Palmer LPN - 07/15/2022 8:58 AM EST Instructions After THYROID FINE NEEDLE ASPIRATION Please do not take aspirin or other blood thinners for the next few days. If you have bleeding from the needle site, hold pressure with a clean gauze. If the bleeding continues, contact our office immediately. I recommend taking Advil or Tylenol for the discomfort. An ice pack may improve your discomfort to the area. Contact our office immediately if you have any questions or concerns @ [phone]. Please make an appointment to follow up in 7-[address] Lara and thank you for choosing the [facility] [place]. documented in this encounter [facility] 07-15-2022 Nurse Note Formatting of this note might be differe nt from the original. UNIVERSAL PROTOCOL / SAFETY CHECKLIST Procedure to be Performed:Ultrasound Guided Fine Needle Aspiration Thyroid right Sign In: A Moment of CARE was completed. Personnel directly involved with the procedure wore the appropriate PPE (Personal Protective Equipment). No special equipment needed. Patient/Surrogate Stated/Verified: PATIENT VERIFIED(optional for EMERGENT procedures): Patient name, Date of , Relevant allergies, and The intended procedure Time Out Communication: Intended patient and procedure match the source documents. Consent documented and matches the intended procedure. Relevant labs, photos, and/or imaging studies have been reviewed. Correct side/site marked and visible. No medications required for procedure. No fire risk assessment and interventions applicable. No implant(s) inserted. Sign Out: SIGN OUT (optional for EMERGENT procedures): All specimen containers correctly labeled. No instruments, equipment or retained foreign bodies applicable. Post-procedure follow-up management communicated and Plan of Care Visit completed when applicable. Britt Palmer LPN documented in this encounter [facility] 07-15-2022 History of Present illness Narrative Formatting of this note might be differe nt from the original. Preoperative diagnosis: Multinodular goiter Postoperative diagnosis: The same Procedure: Ultrasound-guided fine-needle aspiration of dominant right thyroid nodule Surgeon: Jane Procedure: Ultrasound of the right thyroid gland revealed the nodule in question. I prepped the skin with alcohol. I injected 1% lidocaine plain. Under ultrasound guidance I took 3 passes with a 22-gauge needle. Photographs were obtained. I plated this on glass slides. Sterile dressings were applied. The patient tolerated the procedure well. documented in this encounter [facility] 07-11-2022 Note HNO ID: [id number] Author: Hill Lara MD Service: ? Author Type: Physician Type: Progress Notes Filed: 07/11/2022 1:32 PM Note Text: HISTORY AND PHYSICAL Juve Gavin 2000 REFERRING PHYSICIAN: Polo Velasquez, * CHIEF COMPLAINT: Consult (Thyroid nodule) HPI: The patient is a 22 year old male with a complaint of a right thyroid nodule. This thyroid nodule was found on Ultrasound by [facility]. The patient denies pain, denies difficulty swallowing, deniesrapid enlargement of the neck, deniesdysphagia, denies a change in the voice, denies hot or cold intolerence. The patient has not a prior history of neck radiation treatment. The patient is being seen by me today at the request of Dr. Polo Velasquez MD for my opinion and advice regarding Multinodular goiter (primary encounter diagnosis). PAST MEDICAL HISTORY Diagnosis Date Allergy Fatty liver Gout Obesity PMH - PAST MEDICAL HISTORY OF 2010 right broken leg - broke this leg two separate times PMH - PAST MEDICAL HISTORY OF 06/04/2001 admitted to [facility] for wheezing Thyromegaly PAST SURGICAL HISTORY Procedure Laterality Date CIRCUMCISION W/CLAMP/OTH DEV W/BLOCK Current Outpatient Medications Medication Sig Dispense Refill fexofenadine HCl (KAPIL ORAL) Take by mouth. EPINEPHrine (EPIPEN) 0.3 mg/0.3 mL auto-injector Inject 0.3 mg intramuscularly. (Patient not taking: Reported on 07/11/2022) ciclesonide 37 mcg/actuation HFA Use in each nostril. (Patient not taking: Reported on 07/11/2022) No current facility-administered medications for this visit. ALLERGIES: Seasonal Allergies and Shellfish Derived PERSONAL HISTORY: Social History Tobacco Use Smoking status: Never Smokeless tobacco: Never Tobacco comments: No one in the household smokes Vaping Use Vaping Use: Former Substance Use Topics Alcohol use: Yes Comment: social Drug use: No FAMILY HISTORY: FAMILY HISTORY Problem Relation Age of Onset None Mother Hypertension Father Diabetes Paternal Grandmother other (hypertension) Paternal Grandmother other (Gastritis) Paternal Grandfather Cancer Other maternal side other (Gastritis) Other PGGF REVIEW OF SYMPTOMS: The review of systems data was entered by the nurse and reviewed by va Nursing Notes: Flor Valderrama RN 07/11/2022 12:56 PM Signed REVIEW OF SYSTEMS: General: The patient denies fatigue, denies weight loss, denies weight gain, denies feeling hot, and denies feelings of cold. Eyes: The patient denies glaucoma, denies eye injury/surgery, does not wear glasses or contacts. Ear/Nose/Throat: The patient NOTES allergies, NOTES hayfever, denies ear infections, and denies bloody noses. Cardiovascular: The patient denies chest pain, denies heart disease, denies high blood pressure,denies cardiac stent, denies prior heart attack, denies irregular heart beat, denies high cholesterol, denies poor circulation, denies heart failure, other cardiac issues, denies claudication, denies cold feet, denies peripheral arterial stent. Respiratory: The patient denies tuberculosis, denies pneumonia, denies frequent cough, denies pulmonary embolism, denies shortness of breath, and denies coughing up blood. Gastrointestinal: The patient denies difficulty swallowing, denies acid reflux, denies ulcers, denies vomiting, denies jaundice/hepatitis, denies gallbladder problems, denies black or tarry stools, denies hemorrhoids, denies bleeding from rectum, denies diverticulitis, denies constipation, denies diarrhea, denies loss of stool control, and denies hernias. Kidney/Bladder: The patient denies kidney stones, denies urine infections, and denies bloody urine. Skin: The patient denies a history of skin cancer, denies bleeding/changing moles, and denies a history of skin rash. Neurologic: The patient denies a history of epilepsy/convulsions, denies headaches, denies head/spinal injuries, and denies stroke/TIA. Psychiatric: The patient denies psychiatric medications, denies depression, and denies voices, denies substance abuse. Endocrine: The patient NOTES thyroid disorders, denies diabetes, and denies hormonal problems. Hematologic: The patient denies a history of bruising, denies bleeding, and denies anemia, denies blood clots. Infections: The patient denies a history of measles and mumps, denies rheumatic fever, and denies sexually transmitted diseases. Musculoskeletal: The patient denies back pain/injury, denies back problems, denies sciatica, denies knee/foot trouble, denies arthritis, or denies gout. When was patient's last Mammogram screening? N/A Last Colonoscopy: None Flor Valderrama RN PHYSICAL EXAMINATION: General: The patient is 22 year old male, well nourished, well hydrated in no acute distress. The patient is oriented to time, place, and person. VITALS: Blood pressure 122/88, pulse 88, temperature 37.5 ?C (99. (more content not included)... [facility] 07-11-2022 History of Present illness Narrative Formatting of this note is different fro m the original. HISTORY AND PHYSICAL Juve Gavin 2000 REFERRING PHYSICIAN: Polo Velasquez, * CHIEF COMPLAINT: Consult (Thyroid nodule) HPI: The patient is a 22 year old male with a complaint of a right thyroid nodule. This thyroid nodule was found on Ultrasound by [facility]. The patient denies pain, denies difficulty swallowing, deniesrapid enlargement of the neck, deniesdysphagia, denies a change in the voice, denies hot or cold intolerence. The patient has not a prior history of neck radiation treatment. The patient is being seen by me today at the request of Dr. Polo Velasquez MD for my opinion and advice regarding Multinodular goiter (primary encounter diagnosis). PAST MEDICAL HISTORY Diagnosis Date Allergy Fatty liver Gout Obesity PMH - PAST MEDICAL HISTORY OF 2003, 2010 right broken leg - broke this leg two separate times PMH - PAST MEDICAL HISTORY OF 06/04/2001 admitted to [facility] for wheezing Thyromegaly PAST SURGICAL HISTORY Procedure Laterality Date CIRCUMCISION W/CLAMP/OTH DEV W/BLOCK Current Outpatient Medications Medication Sig Dispense Refill fexofenadine HCl (KAPIL ORAL) Take by mouth. EPINEPHrine (EPIPEN) 0.3 mg/0.3 mL auto-injector Inject 0.3 mg intramuscularly. (Patient not taking: Reported on 07/11/2022) ciclesonide 37 mcg/actuation HFA Use in each nostril. (Patient not taking: Reported on 07/11/2022) No current facility-administered medications for this visit. ALLERGIES: Seasonal Allergies and Shellfish Derived PERSONAL HISTORY: Social History Tobacco Use Smoking status: Never Smokeless tobacco: Never Tobacco comments: No one in the household smokes Vaping Use Vaping Use: Former Substance Use Topics Alcohol use: Yes Comment: social Drug use: No FAMILY HISTORY: FAMILY HISTORY Problem Relation Age of Onset None Mother Hypertension Father Diabetes Paternal Grandmother other (hypertension) Paternal Grandmother other (Gastritis) Paternal Grandfather Cancer Other maternal side other (Gastritis) Other PGGF REVIEW OF SYMPTOMS: The review of systems data was entered by the nurse and reviewed by va Nursing Notes: Flor Valderrama RN 07/11/2022 12:56 PM Signed REVIEW OF SYSTEMS: General: The patient denies fatigue, denies weight loss, denies weight gain, denies feeling hot, and denies feelings of cold. Eyes: The patient denies glaucoma, denies eye injury/surgery, does not wear glasses or contacts. Ear/Nose/Throat: The patient NOTES allergies, NOTES hayfever, denies ear infections, and denies bloody noses. Cardiovascular: The patient denies chest pain, denies heart disease, denies high blood pressure,denies cardiac stent, denies prior heart attack, denies irregular heart beat, denies high cholesterol, denies poor circulation, denies heart failure, other cardiac issues, denies claudication, denies cold feet, denies peripheral arterial stent. Respiratory: The patient denies tuberculosis, denies pneumonia, denies frequent cough, denies pulmonary embolism, denies shortness of breath, and denies coughing up blood. Gastrointestinal: The patient denies difficulty swallowing, denies acid reflux, denies ulcers, denies vomiting, denies jaundice/hepatitis, denies gallbladder problems, denies black or tarry stools, denies hemorrhoids, denies bleeding from rectum, denies diverticulitis, denies constipation, denies diarrhea, denies loss of stool control, and denies hernias. Kidney/Bladder: The patient denies kidney stones, denies urine infections, and denies bloody urine. Skin: The patient denies a history of skin cancer, denies bleeding/changing moles, and denies a history of skin rash. Neurologic: The patient denies a history of epilepsy/convulsions, denies headaches, denies head/spinal injuries, and denies stroke/TIA. Psychiatric: The patient denies psychiatric medications, denies depression, and denies voices, denies substance abuse. Endocrine: The patient NOTES thyroid disorders, denies diabetes, and denies hormonal problems. Hematologic: The patient denies a history of bruising, denies bleeding, and denies anemia, denies blood clots. Infections: The patient denies a history of measles and mumps, denies rheumatic fever, and denies sexually transmitted diseases. Musculoskeletal: The patient denies back pain/injury, denies back problems, denies sciatica, denies knee/foot trouble, denies arthritis, or denies gout. When was patient's last Mammogram screening? N/A Last Colonoscopy: None Flor Valderrama RN PHYSICAL EXAMINATION: General: The patient is 22 year old male, well nourished, well hydrated in no acute distress. The patient is oriented to time, place, and person. VITALS: Blood pressure 122/88, pulse 88, temperature 37.5 C (99.5 F), height 200.7 cm (6' 7 ), weight (!) 148.6 kg (327 lb 9.6 oz), SpO2 96 %. Body mass index is 36.91 kg/m . HEENT: Normal cephalic, ataumatic, pupils are equally round, sclera are anicteric, mucous membranes are moist, oropharynx is clear. Neck has no masses, asymmetry or lymphadenopathy. Thyroid exam soft nodule is identified on the right side. No lymphadenopathy is palpated.. Respiratory: Clear to auscultation and percussion. Normal respiratory excursion and pattern. Cardiac: Examination is regular rate and rhythm. Abdominal exam: Soft, nontender, with no palpable masses. No hepatosplenomegaly. No palpable hernias. Rectal exam: exam deferred Extremities: no clubbing, cyanosis or edema. No adenopathy. Other: LABORATORY VALUES: As Noted RADIOLOGIC STUDIES: As Noted Assessment IMPRESSION: Multinodular goiter (primary encounter diagnosis) PLAN: I plan to perform an FNAC of the right Thyroid. Diagnoses: (E04.2) Multinodular goiter (primary encounter diagnosis) A letter was sent to Dr. Polo Velasquez MD indicating the above finding for this patient. Return to Clinic: The patient is instructed to follow-up with me 1 week post operatively. Hill Lara III, MD documented in this encounter [facility] 07-11-2022 Nurse Note Formatting of this note might be differe nt from the original. REVIEW OF SYSTEMS: General: The patient denies fatigue, denies weight loss, denies weight gain, denies feeling hot, and denies feelings of cold. Eyes: The patient denies glaucoma, denies eye injury/surgery, does not wear glasses or contacts. Ear/Nose/Throat: The patient NOTES allergies, NOTES hayfever, denies ear infections, and denies bloody noses. Cardiovascular: The patient denies chest pain, denies heart disease, denies high blood pressure,denies cardiac stent, denies prior heart attack, denies irregular heart beat, denies high cholesterol, denies poor circulation, denies heart failure, other cardiac issues, denies claudication, denies cold feet, denies peripheral arterial stent. Respiratory: The patient denies tuberculosis, denies pneumonia, denies frequent cough, denies pulmonary embolism, denies shortness of breath, and denies coughing up blood. Gastrointestinal: The patient denies difficulty swallowing, denies acid reflux, denies ulcers, denies vomiting, denies jaundice/hepatitis, denies gallbladder problems, denies black or tarry stools, denies hemorrhoids, denies bleeding from rectum, denies diverticulitis, denies constipation, denies diarrhea, denies loss of stool control, and denies hernias. Kidney/Bladder: The patient denies kidney stones, denies urine infections, and denies bloody urine. Skin: The patient denies a history of skin cancer, denies bleeding/changing moles, and denies a history of skin rash. Neurologic: The patient denies a history of epilepsy/convulsions, denies headaches, denies head/spinal injuries, and denies stroke/TIA. Psychiatric: The patient denies psychiatric medications, denies depression, and denies voices, denies substance abuse. Endocrine: The patient NOTES thyroid disorders, denies diabetes, and denies hormonal problems. Hematologic: The patient denies a history of bruising, denies bleeding, and denies anemia, denies blood clots. Infections: The patient denies a history of measles and mumps, denies rheumatic fever, and denies sexually transmitted diseases. Musculoskeletal: The patient denies back pain/injury, denies back problems, denies sciatica, denies knee/foot trouble, denies arthritis, or denies gout. When was patient's last Mammogram screening? N/A Last Colonoscopy: None Flor Valderrama RN documented in this encounter [facility] Multinodular goiter- Primary Nontoxic multinodular goiter [facility] Diagnosis Papillary thyroid carcinoma (HCC)- Primary Malignant neoplasm of thyroid gland [facility] Diagnosis Nontoxic single thyroid nodule- Primary Nontoxic uninodular goiter [facility] Diagnosis Papillary thyroid carcinoma (HCC)- Primary Malignant neoplasm of thyroid gland Papillary thyroid carcinoma (HCC) Malignant neoplasm of thyroid gland [facility] Diagnosis Pre-operative examination- Primary Preoperative examination, unspecified Obstructive sleep apnea, pediatric Obstructive sleep apnea (adult) (pediatric) NAFLD (nonalcoholic fatty liver disease) Other chronic nonalcoholic liver disease Elevated hemoglobin A1c measurement Other abnormal blood chemistry Dyslipidemia Other and unspecified hyperlipidemia Class 2 severe obesity due to excess calories with serious comorbidity and body mass index (BMI) of 35.0 to 35.9 in adult (HCC) Papillary thyroid carcinoma (HCC) Malignant neoplasm of thyroid gland [facility]* Diagnosis Papillary thyroid carcinoma (HCC) Malignant neoplasm of thyroid gland Papillary thyroid carcinoma (HCC) Malignant neoplasm of [facility] gland [facility] Papillary thyroid carcinoma (HCC)- Primary Malignant neoplasm of thyroid gland documented in this encounter [facility] note* Diagnosis Papillary thyroid carcinoma (HCC)- Primary Malignant neoplasm of thyroid gland Class 2 severe obesity due to excess calories with serious comorbidity and body mass index (BMI) of 35.0 to 35.9 in adult (HCC) Obstructive sleep apnea, pediatric Obstructive sleep apnea (adult) (pediatric) Post-surgical hypothyroidism Postsurgical hypothyroidism documented in this encounter [facility] note* Diagnosis Papillary thyroid carcinoma (HCC)- Primary Malignant neoplasm of thyroid gland Post-surgical hypothyroidism Postsurgical hypothyroidism documented in this encounter [facility] note* Diagnosis Papillary thyroid carcinoma (HCC) Malignant neoplasm of thyroid gland documented in this encounter [facility] note* Diagnosis Papillary thyroid carcinoma (HCC)- Primary Malignant neoplasm of thyroid gland documented in this encounter [facility] note* Diagnosis Papillary thyroid carcinoma (HCC)- Primary Malignant neoplasm of thyroid gland Post-surgical hypothyroidism Postsurgical hypothyroidism Class 2 obesity documented in this encounter [facility] for referral (narrative)* Diagnostic Procedure Only (Routine) - Authorized Specialty Diagnoses / Procedures Referred By Contac t Referred To Contact US IMAGING Diagnoses Papillary thyroid carcinoma (HCC) Procedures US CERVICAL LYMPH NODE MAPPING US SOFT TISSUE HEAD & NECK REAL TIME IMGE Emiliana Desai MD [address] [place] [address] Us Imaging Referral ID Status Reason Start Date Expiration Date Visits Requested Visits Authorized [id number] Authorized Auto-Generat ed Referral 3 10/28/2023 1 1 [facility] for referral (narrative)* Diagnostic Procedure Only (Routine) - Closed Specialty Diagnoses / Procedures Referred By Contac t Referred To Contact US IMAGING Diagnoses Papillary thyroid carcinoma (HCC) Procedures US CERVICAL LYMPH NODE MAPPING US SOFT TISSUE HEAD & NECK REAL TIME IMGE Emiliana Desai MD [address] [place] [address] Us Imaging [place] [address] Referral ID Status Reason Start Date Expiration Date V isits Requested Visits Authorized [id number] Closed Auto-Generate d Referral 03/30/2023 10/28/2023 1 1 [facility] for visit Narrative* Diagnostic Procedure Only (Routine) - Closed Specialty Diagnoses / Procedures Referred By Contac t Referred To Contact US IMAGING Diagnoses Papillary thyroid carcinoma (HCC) Procedures US CERVICAL LYMPH NODE MAPPING US SOFT TISSUE HEAD & NECK REAL TIME IMGE Emiliana Desai MD [address] [place] [address] Us Imaging [place] [address] Referral ID Status Reason Start Date Expiration Date V isits Requested Visits Authorized [id number] Closed Auto-Generate d Referral 03/30/2023 10/28/2023 1 1 [facility] Summary Purpose Family History No Family History Records FoundNo Family History Records FoundNo Family History Records FoundNo Family History Records Found Advance Directives No Advanced Directives Records FoundNo Advanced Directives Records FoundNo Advanced Directives Records FoundNo Advanced Directives Records Found Reason for Referral Specialty Diagnoses / Procedures Referred By Contac t Referred To Contact Endocrinology Diagnoses Papillary thyroid carcinoma (HCC) Procedures CONSULT TO ENDOCRINOLOGY OFFICE/OUTPATIENT [facility] 60-74 MINUTES Hill Lara MD [address] [place] [address] [place] [address] [place] [phone] Referral ID Status Reason Start Date Expiration Date Visits Requested Visits Authorized [id number] Authorized PCP Requested Referral 07/26/2022 07/26/2023 1 1 Specialty Diagnoses / Procedures Referred By Contac t Referred To Contact Diagnoses Papillary thyroid carcinoma (HCC) Procedures REFER TO PACC - PRE ANESTHESIA CONSULTATION CLINIC OFFICE/OUTPATIENT [facility] MDM 60-74 MINUTES Valeria Basilio MD [address] [place] [phone] Referral ID Status Reason Start Date Expiration Date Visits Requested Visits Authorized [id number] Authorized PCP Requested Referral 08/18/2022 08/18/2023 1 1 Specialty Diagnoses / Procedures Referred By Contdeonte t Referred To Contact CT IMAGING Diagnoses Papillary thyroid carcinoma (HCC) Procedures CT NECK SOFT TISSUE WO IVCON CT SOFT TISSUE NECK W/[place] [address] [place] [address] [phone] Imaging Referral ID Status Reason Start Date Expiration Date V isits Requested Visits Authorized [id number] Closed Auto-Generate d Referral 06/05/2022 06/04/2023 1 1 Additional Source Comments (unrecognized sect ion and content) No Status Records FoundNo Status Records FoundNo Status Records FoundNo Status Records Found INFORMATION SOURCE (unrecogn ized section and content) DATE CREATED AUTHOR AUTHOR'S ORGANIZ ATION 09/19/2022 [facility] DATE CREATED AUTHOR AUTHOR'S ORGANIZ ATION 03/26/2023 [facility] DATE CREATED AUTHOR AUTHOR'S ORGANIZ ATION 05/11/2023 [facility] Source Comments (unrecognize d section and content) In the event this informatio n is protected by the Federal Confidentiality of Alcohol and Drug Abuse Patient Records regulations: The Federal rules restrict any use of the information to criminally investigate or prosecute any alcohol or drug abuse patient.[facility] the event this information is protected by the Federal Confidentiality of Alcohol and Drug Abuse Patient Records regulations: The Federal rules restrict any use of the information to criminally investigate or prosecute any alcohol or drug abuse patient.[facility] the event this information is protected by the Federal Confidentiality of Alcohol and Drug Abuse Patient Records regulations: The Federal rules restrict any use of the information to criminally investigate or prosecute any alcohol or drug abuse patient.[facility] the event this information is protected by the Federal Confidentiality of Alcohol and Drug Abuse Patient Records regulations: The Federal rules restrict any use of the information to criminally investigate or prosecute any alcohol or drug abuse patient.[facility] the event this information is protected by the Federal Confidentiality of Alcohol and Drug Abuse Patient Records regulations: The Federal rules restrict any use of the information to criminally investigate or prosecute any alcohol or drug abuse patient.[facility] the event this information is protected by the Federal Confidentiality of Alcohol and Drug Abuse Patient Records regulations: The Federal rules restrict any use of the information to criminally investigate or prosecute any alcohol or drug abuse patient.[facility] the event this information is protected by the Federal Confidentiality of Alcohol and Drug Abuse Patient Records regulations: The Federal rules restrict any use of the information to criminally investigate or prosecute any alcohol or drug abuse patient.[facility] the event this information is protected by the Federal Confidentiality of Alcohol and Drug Abuse Patient Records regulations: The Federal rules restrict any use of the information to criminally investigate or prosecute any alcohol or drug abuse patient.[facility] the event this information is protected by the Federal Confidentiality of Alcohol and Drug Abuse Patient Records regulations: The Federal rules restrict any use of the information to criminally investigate or prosecute any alcohol or drug abuse patient.[facility] the event this information is protected by the Federal Confidentiality of Alcohol and Drug Abuse Patient Records regulations: The Federal rules restrict any use of the information to criminally investigate or prosecute any alcohol or drug abuse patient.[facility] the event this information is protected by the Federal Confidentiality of Alcohol and Drug Abuse Patient Records regulations: The Federal rules restrict any use of the information to criminally investigate or prosecute any alcohol or drug abuse patient.[facility] the event this information is protected by the Federal Confidentiality of Alcohol and Drug Abuse Patient Records regulations: The Federal rules restrict any use of the information to criminally investigate or prosecute any alcohol or drug abuse patient.[facility] the event this information is protected by the Federal Confidentiality of Alcohol and Drug Abuse Patient Records regulations: The Federal rules restrict any use of the information to criminally investigate or prosecute any alcohol or drug abuse patient.[facility] the event this information is protected by the Federal Confidentiality of Alcohol and Drug Abuse Patient Records regulations: The Federal rules restrict any use of the information to criminally investigate or prosecute any alcohol or drug abuse patient.[facility] the event this information is protected by the Federal Confidentiality of Alcohol and Drug Abuse Patient Records regulations: The Federal rules restrict any use of the information to criminally investigate or prosecute any alcohol or drug abuse patient.[facility] the event this information is protected by the Federal Confidentiality of Alcohol and Drug Abuse Patient Records regulations: The Federal rules restrict any use of the information to criminally investigate or prosecute any alcohol or drug abuse patient.[facility] the event this information is protected by the Federal Confidentiality of Alcohol and Drug Abuse Patient Records regulations: The Federal rules restrict any use of the information to criminally investigate or prosecute any alcohol or drug abuse patient.[facility] the event this information is protected by the Federal Confidentiality of Alcohol and Drug Abuse Patient Records regulations: The Federal rules restrict any use of the information to criminally investigate or prosecute any alcohol or drug abuse patient.[facility] the event this information is protected by the Federal Confidentiality of Alcohol and Drug Abuse Patient Records regulations: The Federal rules restrict any use of the information to criminally investigate or prosecute any alcohol or drug abuse patient.[facility] Reason for Visit (unrecogniz ed section and content) Reason Comments Procedure Right thyroid FNA Reason Comments Follow Up FNA thyroid biopsy r esults Reason Comments Consult FACE SHEET Reason Comments Outside Labs Results Indexed labs Reason Comments OR 09/12/22 MM Total Thyroidectomy Reason Comments Patient Question Reason Comments Consult Specialty Diagnoses / Procedures Referred By Contac t Referred To Contact CT IMAGING Diagnoses Papillary thyroid carcinoma (HCC) Procedures CT NECK SOFT TISSUE WO IVCON CT SOFT TISSUE NECK W/[place] [address] [place] [address] Ct Imaging Referral ID Status Reason Start Date Expiration Date V isits Requested Visits Authorized [id number] Closed Auto-Generate d Referral 06/05/2022 06/04/2023 1 1 Reason Comments Results Pathology thyroid WC H Reason Comments Post Op Reason Comments Thyroid Problem Follow up. 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 Molder Relationship Specialty Start Date End Date Polo Velasquez [address] [place] [address] PCP - General Family Medicine 07/07/22 Pipe Covering Molder Relationship Specialty Start Date End Date Polo Velasquez [address] [place] [address] PCP - General Family Medicine 07/07/22 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 Molder Relationship Specialty Start Date End Date Polo Velasquez [address] [place] [address] PCP - General Family Medicine 07/07/22 Pipe Covering Molder Relationship Specialty Start Date End Date Polo Velasquez [address] [place] [address] PCP - General Family Medicine 07/07/22 Pipe Covering Molder Relationship Specialty Start Date End Date Polo Velasquez [address] [place] [address] PCP - General Family Medicine 07/07/22 Pipe Covering Molder Relationship Specialty Start Date End Date Polo Velasquez [address] [place] [address] PCP - General Family Medicine 07/07/22 Pipe Covering Molder Relationship Specialty Start Date End Date Polo Velasquez [address] [place] [address] PCP - General Family Medicine 07/07/22 Pipe Covering Molder Relationship Specialty Start Date End Date Polo Velasquez MD [address] [place] [address] PCP - General Family Medicine 07/07/22 Pipe Covering Molder Relationship Specialty Start Date End Date Polo Velasquez MD [address] [place] [address] PCP - General Family Medicine 07/07/22 Pipe Covering Molder Relationship Specialty Start Date End Date Polo Velasquez MD [address] [place] [address] PCP - General Family Medicine 07/07/22 Pipe Covering Molder Relationship Specialty Start Date End Date Polo Velasquez MD [address] [place] [address] PCP - General Family Medicine 07/07/22 Pipe Covering Molder Relationship Specialty Start Date End Date Polo Velasquez MD [address] [place] [address] PCP - General Family Medicine 07/07/22 Pipe Covering Molder Relationship Specialty Start Date End Date Polo Velasquez MD [address] [place] [address] PCP - General Family Medicine 07/07/22 FOR RECORDS PERTAINING TO PATIENTS WHO ARE OR HAVE BEEN ENROLLED IN A CHEMICAL DEPENDENCY/SUBSTANCEABUSE PROGRAM, SOME INFORMATION MAY BE OMITTED. This clinical summary was aggregated from multiple sources. Caution should be exercised in using it in the provision of clinical care. This summary normalizes information from multiple sources, and as a consequence, information in this document may materially change the coding, format and clinical context of patient data. In addition, data may be omitted in some cases. CLINICAL DECISIONS SHOULD BE BASED ON THE PRIMARY CLINICAL RECORDS. [facility] official.fm [facility]. provides no warranty or guarantee of the accuracy or completeness of information in this document.
== END | disposition home or self-care (01) ==
LOC: MFPLAB 16:16
PROVIDERS: PCP Family Medicine; Visit Provider Family Medicine
DX: R73.09 Other abnormal glucose (principal)
CPT/HCPCS: 36415; 83036

== ENCOUNTER → 2024-02-27 | Outpatient (CLI) | payer BC, OTHER, SELFPAY ==
[2024-02-27 09:56] LABS: Hematocrit 47.3 % (40-54); Hemoglobin 15.7 g/dL (13.0-16.5); Mean Corp Hgb Conc 33.2 g/dL (32-36); Mean Corpuscular Hgb 27.2 pg (27.0-32.0); Mean Corpuscular Volume 81.8 fL (80-94); Mean Platelet Vol. 10.1 fl (6.2-12.0); Platelet Count 200 K/mm3 (150-450); RBC Distribution Width CV 13.6 % (11.6-14.6); RBC Distribution Width SD 39.8 fl (35.1-43.9); Red Blood Count 5.78 M/mm3 (4.6-6.2); White Blood Count 8.3 K/mm3 (4.4-11.0)
[2024-02-27 10:52] LABS: ALB/GLOB Ratio 1.1 RATIO (0.9-2.4); AST(SGOT) 48 U/L (15-37); Alanine Aminotransfer ALT/SGPT 113 U/L (16-61); Alkaline Phosphatase 119 U/L (45-117); Anion Gap 6 (5-15); BUN 9 mg/dL (7-18); BUN/Creat Ratio 10.7 RATIO (10-20); Calcium,Total 9.4 mg/dL (8.5-10.1); Chloride 104 mmol/L (98-107); Cholesterol 190 mg/dL (200); Creatinine, Serum 0.84 mg/dL (0.70-1.30); EST Glomerular Filtration Rate 119 mL/min (>60); Est Glom Filt Rate - Afr Amer 144 mL/min (>60); Globulin 3.5 g/dL (2.2-4.2); Glucose 84 mg/dL (74-106); High Density Lipoprotein 31 mg/dL; Protein, Total 7.5 g/dL (6.4-8.2); Sodium Level 137 mmol/L (136-145); Triglycerides 372 mg/dL; Uric Acid 9.2 mg/dL (3.5-7.2); Very Low Density Lipoprotein 74 mg/dL (5-40)
== END | disposition home or self-care (01) ==
LOC: MFPLAB 08:30
PROVIDERS: PCP Family Medicine; Visit Provider Family Medicine
DX: M10.9 Gout, unspecified (principal); E78.1 Pure hyperglyceridemia
CPT/HCPCS: 36415; 80053; 80061; 84550; 85027

== ENCOUNTER → 2024-08-27 | Outpatient (CLI) | payer BC, OTHER, SELFPAY ==
[2024-08-27 10:43] LABS: Hematocrit 46.2 % (40-54); Hemoglobin 15.7 g/dL (13.0-16.5); Mean Corpuscular Hgb 27.8 pg (27.0-32.0); Mean Corpuscular Volume 81.8 fL (80-94); Mean Platelet Vol. 9.8 fl (6.2-12.0); Platelet Count 208 K/mm3 (150-450); RBC Distribution Width CV 13.4 % (11.6-14.6); RBC Distribution Width SD 39.2 fl (35.1-43.9); Red Blood Count 5.65 M/mm3 (4.6-6.2); White Blood Count 8.2 K/mm3 (4.4-11.0)
[2024-08-27 11:35] LABS: ALB/GLOB Ratio 1.5 RATIO (0.9-2.4); AST(SGOT) 50 U/L (<=37); Alanine Aminotransfer ALT/SGPT 108 U/L (<=46); Albumin, Serum 4.4 g/dL (3.5-5.0); Alkaline Phosphatase 98 U/L (40-129); Anion Gap 12 (5-15); BUN 13 mg/dL (4-19); BUN/Creat Ratio 14.5 RATIO (10-20); Calcium,Total 9.2 mg/dL (7.6-11.0); Carbon Dioxide 24.2 mmol/L (21.0-32.0); Chloride 104 mmol/L (98-108); Cholesterol 212 mg/dL (<=190); Creatinine, Serum 0.86 mg/dL (0.70-1.20); EST Glomerular Filtration Rate 124 (>60); Globulin 2.9 g/dL (2.2-4.2); Glucose 83 mg/dL (70-99); High Density Lipoprotein 35 mg/dL; Low Density Lipoprotein Calc. 124 mg/dL; Potassium 3.9 mmol/L (3.3-5.1); Protein, Total 7.3 g/dL (5.9-8.4); Sodium Level 140 mmol/L (133-145); Total Bilirubin 0.47 mg/dL (0.00-1.30); Triglycerides 268 mg/dL; Uric Acid 10.6 mg/dL (3.5-7.2); Very Low Density Lipoprotein 54 mg/dL (5-40); cholesterol:hdl ratio screen 6.14
== END | disposition home or self-care (01) ==
LOC: MFPLAB 08:23
PROVIDERS: PCP Family Medicine; Referring Provider Family Medicine; Visit Provider Family Medicine
DX: M10.9 Gout, unspecified (principal); E78.1 Pure hyperglyceridemia
CPT/HCPCS: 36415; 80053; 80061; 84550; 85027

== ENCOUNTER → 2025-02-13 | Outpatient (CLI) | payer BC, OTHER, SELFPAY ==
[2025-02-13 10:19] LABS: Hematocrit 44.8 % (40-54); Hemoglobin 15.3 g/dL (13.0-16.5); Immature Granulocytes Count 0.030 X10^3/uL (0.0-0.0); Mean Corp Hgb Conc 34.2 g/dL (32-36); Mean Corpuscular Volume 79.6 fL (80-94); Mean Platelet Vol. 9.8 fl (6.2-12.0); NRBC Flagged by Analyzer 0 % (0-5); Platelet Count 206 K/mm3 (150-450); RBC Distribution Width CV 13.2 % (11.6-14.6); RBC Distribution Width SD 37.9 fl (35.1-43.9); Red Blood Count 5.63 M/mm3 (4.6-6.2); White Blood Count 7.6 K/mm3 (4.4-11.0)
[2025-02-13 11:47] LABS: AST(SGOT) 42 U/L (<=37); Alanine Aminotransfer ALT/SGPT 100 U/L (<=46); Albumin, Serum 4.4 g/dL (3.5-5.0); Alkaline Phosphatase 94 U/L (40-129); Anion Gap 12 (5-15); BUN 12 mg/dL (4-19); BUN/Creat Ratio 15.9 RATIO (10-20); Calcium,Total 9.4 mg/dL (7.6-11.0); Carbon Dioxide 23.5 mmol/L (21.0-32.0); Chloride 104 mmol/L (98-108); Cholesterol 198 mg/dL (<=190); Globulin 2.8 g/dL (2.2-4.2); Glucose 87 mg/dL (70-99); Low Density Lipoprotein Calc. 104 mg/dL; Potassium 3.8 mmol/L (3.3-5.1); Triglycerides 309 mg/dL; Uric Acid 10.0 mg/dL (3.5-7.2); Very Low Density Lipoprotein 62 mg/dL (5-40); cholesterol:hdl ratio screen 6.07
== END | disposition home or self-care (01) ==
LOC: MFPLAB 08:37
PROVIDERS: PCP Family Medicine; Visit Provider Family Medicine
DX: M10.9 Gout, unspecified (principal); E78.1 Pure hyperglyceridemia
CPT/HCPCS: 36415; 80053; 80061; 84550; 85025

== ENCOUNTER → 2025-05-16 | Outpatient (CLI) | payer BC, OTHER, SELFPAY ==
--- NOTE | 2025-05-16 09:20 | CYST_PTH ---
PATIENT: SUSIE MEYER LOC: [facility] U#:[id number] AGE/SX: 24/M ROOM: RE05/16/[address]: Dr. Cali Velez MD : 2000 BED: DIS: 05/16/2025 SPEC #: [id number] RECD: 05/16/25 15:20 STATUS: KYMBERLY REThai #: [id number] CORA: 05/16/25 09:[address]: Cali Velez DEPT: SURGICAL PATHOLOGY RECD BY: Mary Kate De La Cruz ENTERED: 05/19/25 09:25 SP TYPE: Cyst OTHR DR: Dr. Sal Lopez MD Tissues: CYST Procedures: Surgery Specimen Level III HEADER OPERATION: Excision of cyst on back PRE-OP DIAGNOSIS: Cyst on back TISSUE SUBMITTED: A- Back cyst MICROSCOPIC DIAGNOSIS A. Soft tissue, back, cyst, excision: - Epidermal inclusion cyst. MICROSCOPIC DESCRIPTION Slides are reviewed. GROSS DESCRIPTION A. Received in formalin labeled with the patient's name and date of . Designated as back cyst is a 1.6 x 1.2 x 1.1 cm patton-white disrupted cyst expelling sebaceous-like material, 2.2 x 1.8 x 0.3 cm in aggregate. Staple Fiber Washer sections are submitted in in 1 cassette. NC 05/19/2025 CPT:80081
--- OUTSIDE RECORDS SUMMARY | 2025-05-16 16:04 | XMS RPT_ITS | CCD ---
Author Organization [facility] ion [facility] Care Team Providers Care Hi Ranger Operator Name Role Phone GaurangRony forbestin Cardoza Unavailable Unavailable PattiRonytin Cardoza Unavailable Unavailable Neredya Salazar Unavailable Unavailable Polo Lopez Primary Care Provider [phone] POLO LOPEZ Primary Care UnavailYOEL Tripp Attending Unavailable YOEL DAVENPORT Admitting Unavailable Polo Lopez MD Primary Care Provider EMILIANA KO Referring Unavailable POLO LOPEZ Primary Care Unavailable Polo Lopez MD Primary Care Provider EDILBERTO TRUONG Referring Unavailable POLO LOPEZ Primary Care Unavailable ELIESER ENAMORADO, EDILBERTO Referring Unavailable POLO LOPEZ Primary Care Unavailable ELEISER ENAMORADO, EDILBERTO Referring Unavailable POLO LOPEZ Primary Care Unavailable ELIESER ENAMORADO, EDILBERTO Referring Unavailable POLO LOPEZ Primary Care Unavailable ELIESER ENAMORADO, EDILBERTO Referring Unavailable POLO LOPEZ Primary Care Unavailable POLO LOPEZ Primary Care Unavailable ELIESER ENAMORADO, EDILBERTO Referring Unavailable POLO LOPEZ Primary Care Unavailable ELIESER ENAMORADO, EDILBERTO Referring Unavailable Dr. Polo Lopez MD Primary Care Provider Dr. Polo Lopez MD Attending Provider Dr. Polo Lopez MD Referring Provider EDILBERTO TRUONG Attending Unavailable POLO LOPEZ Primary Care Unavailable POLO LOPEZ Primary Care Unavailable ELIESER ENAMORADO, EDILBERTO Referring Unavailable POLO LOPEZ Primary Care Unavailable ELIESER ENAMORADO, EDILBERTO Referring Unavailable POLO LOPEZ Primary Care Unavailable ELIESER ENAMORADO, EDILBERTO Referring Unavailable POLO LOPEZ Primary Care Unavailable EDILBERTO TRUONG Referring Unavailable EDILBERTO TRUONG Attending Unavailable POLO LOPEZ Primary Care Unavailable POLO LOPEZ Primary Care Unavailable EDILBERTO TRUONG Referring Unavailable John PALENCIA, Dr. Polo Lisa Primary Care Physician Dr. Polo Lopez MD Attending Physician Polo Lopez Primary Care Unavailable Terry Velez Attending Unavailable Polo Lopez Referring Unavailable Polo Lopez Primary Care Unavailable Polo Lopez Attending Unavailable Polo Lopez Referring Unavailable Polo Lopez Attending Unavailable Polo Lopez Primary Care Unavailable Allergies Allergy Classification Reported Allergen(s) Allergy Type Date of Onset Reaction(s) Facility (20 sources) Seasonal allergy; Translations: [SEASONAL ALLERGIES] Allergy to substance 01-04-2012 Unknown [facility] (20 sources) Shellfish; Translations: [SHELLFISH DERIVED] Drug Allergy 2022 Unknown [facility] (20 sources) Bee pollen; Translations: [BEE POLLEN] Drug Allergy 11-20-2016 Unknown [facility] Medications Current Medications Medication Drug Class(es) Dates Sig (Normalized) Sig (Original) ciclesonide 0.037 mg/actuat metered dose nasal spray (8 sources) End: 08-26-2022 ciclesonide 37 mcg/actuation HFA Use in each nostril. 0 08/26/2022 Discontinued Comment on above: Use in each nostril. [id number] 0.3 ml EPINEPHrine 1 mg/ml auto-injector (8 sources) alpha-Adrenergic Agonist, beta-Adrenergic Agonist, Catecholamine Start: 08-31-2017 End: 08-26-2022 EPINEPHrine (EPIPEN) 0.3 mg/0.3 mL auto-injector Inject 0.3 mg intramuscularly. 0 08/31/2017 08/26/2022 Discontinued Comment on above: Inject 0.3 mg intram uscularly. fexofenadine (20 sources) Histamine-1 Receptor Antagonist fexofenadine HCl (KAPIL ORAL) Take by mouth as needed. Active fexofenadine HCl (KAPIL ORAL) Take by mouth as needed. 0 Active fexofenadine HCl (KAPIL ORAL) Take by mouth. 0 Active Comment on above: Take by mouth. Take by mouth as nee ded. levothyroxine sodium 0.3 mg oral tablet (20 sources) l-Thyroxine Start: End: take 1 tablet by mouth once daily levothyroxine (SYNTHROID) 300 mcg tablet Indications: Post-surgical hypothyroidism , Hx of thyroid cancer Take 1 tablet by mouth once daily. 90 tablet 3 01/30/2025 Active Start: 09-13-2022 End: 03-27-2023 take 3 tablets by mouth once daily, then take 6 tablets by mouth in the morning levothyroxine (SYNTHROID) 75 mcg tablet Indications: Papillary thyroid carcinoma (HCC) Take 3 tablets by mouth DAILY (6 AM). 90 tablet 2 11/30/2022 03/27/2023 Discontinued Comment on above: Take 3 tablets by mo uth DAILY (6 AM). Take 1 tablet by disha th daily at 6 am. thyrotropin carmela 0.9 mg injection (THYROGEN) (11 sources) Start: 01-24-2024 End: 01-26-2024 thyrotropin carmela 0.9 mg injection (THYROGEN) Start: 01-15-2024 End: 01-17-2024 thyrotropin carmela 0.9 mg inje ction (THYROGEN) Completed/Discontinued Medications Medication Drug Class(es) Dates Sig (Normalized) Sig (Original) calcium carbonate 500 mg chewable tablet (5 sources) Start: 09-12-2022 take 500 mg by mouth every hour as needed calcium carbonate (TUMS) 500 mg chew Take 1 tablet by mouth every hour as needed (mouth or hand numbness or tingling). 0 09/12/2022 Active Comment on above: Take 1 tablet by disha th every hour as needed (mouth or hand numbness or tingling). calcium carbonate 1250 mg / cholecalciferol 200 unt oral tablet (5 sources) Vitamin D Start: 09-12-2022 take 1 tablet by mouth three times daily calcium-carbonat e-vitamin D3 500 mg-5 mcg (200 unit) per tablet Take 1 tablet by mouth three times daily. 90 tablet 0 09/12/2022 Active Comment on above: Take 1 tablet by disha th three times daily. Problems Active Problems Problem Classification Problem Date Documented Date Episodic/Chronic Cancer of thyroid (20 sources) Papillary thyroid carcinoma; Translations: [Malignant neoplasm of thyroid gland] Onset: 08-17-2022 Chronic Complications of surgical procedures or medical care (19 sources) Postoperative hypothyroidism; Translations: [Postprocedural hypothyroidism] Onset: 01-17-2024 Chronic Disorders of lipid metabolism (20 sources) Dyslipidemia; Translations: [Hyperlipidemia, unspecified] Onset: 10-14-2014 10-14-2014 Chronic Genitourinary symptoms and ill-defined conditions (20 sources) Nocturnal enuresis; Translations: [Nocturnal enuresis] Onset: 08-28-2012 08-28-2012 Chronic Gout and other crystal arthropathies (1 source) Gout, unspecified; Translations: [Gout, unspecified] Onset: 02-26-2025 Chronic Other liver diseases (20 sources) Fatty (change of) liver, not elsewhere classified; Translations: [Other chronic nonalcoholic liver disease] Onset: 10-13-2014 10-13-2014 Chronic Other nutritional; endocrine; and metabolic disorders (7 sources) Childhood obesity; Translations: [Obesity, unspecified] Onset: 10-14-2014 12-04-2015 Chronic Other nutritional; endocrine; and metabolic disorders (20 sources) Severe obesity; Translations: [Morbid (severe) obesity [...] Problem Date Documented Date Episodic/Chronic Allergic reactions (20 sources) Hypersensitivity reaction caused by food; Translations: [Allergy to milk products] Onset: 08-28-2012 08-28-2012 Episodic Cancer of thyroid (9 sources) History of malignant neoplasm of thyroid; Translations: [Personal history of malignant neoplasm of thyroid] Onset: 08-20-2024 10-03-2023 Episodic Diabetes mellitus without complication (20 sources) High hemoglobin A1c level; Translations: [Other abnormal glucose] Onset: 10-14-2014 10-14-2014 Episodic Fracture of lower limb (20 sources) Fracture of upper end of fibula; Translations: [Other fracture of upper and lower end of unspecified fibula, initial encounter for closed fracture] Onset: 03-29-2010 03-29-2010 Episodic Other acquired deformities (20 sources) Toeing-out; Translations: [Other specified acquired deformities of unspecified limb] Onset: 04-22-2009 04-22-2009 Episodic Results Test Name Value Interpretation Reference Range Facility Surgery Visit Reporton 04-09 Surgery Visit Report [facility] [address] [place] [address] OFFICE VISIT Date of Service: 04/09/25 MR#: [id number] Acct: [id number] Name: JUVE MEYER Rep #: [id number] : 2000 Provider: Dr. Terry pham MD Age/Sex: 24/M Location: [facility] Status: Signed Intake Vital Signs 04/09/25 08:21 Height 6 ft 7 in Weight: 310 lb 4 oz BMI 34.9 BP 124/82 H Blood Pressure Location Rt brachial Position Sitting Respiration 17 Pulse 73 Pulse Source Monitor Temp 98.3 F Temp Source Temporal Pulse Oximetry (%) 99 Oxygen Delivery Method room air Intake Visit Reasons: CYST ON BACK Chief Complaint: cyst back Is patient in pain?: No Allergies No Known Allergies Allergy (Unverified 04/09/25 08:22) Medications ???Medication ???Instructions ???Recorded ???Confirmed ???Type albuterol sulfate 90 mcg/actuation 2 puff inhalation Q4 PRN dyspnea 04/09/25 04/09/25 History aerosol inhaler allopurinol 100 mg tablet 100 mg PO QDAY 04/09/25 04/09/25 H istory epinephrine 0.3 mg/0.3 mL IM PRN 04/09/25 04/09/25 History injection, auto-injector fluticasone propionate 115 1 puff inhalation BID 04/09/2510/27 History mcg-salmeterol 21 mcg/actuation HFA inhaler levothyroxine 300 mcg tablet 300 mcg PO QDAY 04/09/25 04/09/25 History [facility] Medical History (Updated 04/09/25 @ 09:[address] Terry Velez MD) Cyst Surgical History (Updated 04/09/25 @ 08:20 by Debora Carrillo LPN) H/O total thyroidectomy Social History (Updated 04/09/25 @ 08:21 by Debora Carrillo LPN) Smoking Status: Never smoker alcohol intake: current substance use type: does not use HPI HPI HPI: The patient is a 24-year-old male presenting for evaluation of a back lesion, referred by Dr. Polo Lopez. The patient reports a protruding lesion in the middle of his back that is visible through his shirt. He denies pain, drainage, or pruritus. He denies any history of staph infections or other skin issues. He has not noticed similar lesions elsewhere. 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 He anticipates being able to limit strenuous activity after Thanksgiving. ROS General General: No weight change, appetite, fatigue, colon cancer, breast cancer or weakness HEENT HEENT: No difficulty swallowing, eye injury, eye surgery, swollen glands or hoarseness Endo Endocrine: Yes thyroid cancer; No thyroid disease, diabetes mellitus, Hair loss, heat intolerance or cold intolerance Skin Skin: No rash or changing moles Musc Musculoskeletal: No back problems, arthritis, rheumatoid arthritis, gout or joint pain Cardio Cardiovascular: No murmur, pacemaker, heart disease, atrial fibrillation, high blood pressure, heart attack, heart stent, palpitations, shortness of breath with exertion or chest pain Psych Psychiatric: No depression, anxiety or hearing voices Resp Respiratory: No shortness of breath, No sleep apnea, No cough, No COPD, No asthma, No emphysema and No wheezing Gastro Gastrointestinal: No abdominal pain, No nausea or vomiting, No diarrhea, No constipation, No blood in stool, No acid reflux, No hemorrhoids, No ulcers, No gallbladder problem and No black,tarry stools [place] Hematologic: No blood thinners, No blood disorders, No bleeding, No anemia and No blood clots Neuro Neurologic: No numbness, No tingling and No weakness Exam Const General: cooperative Orientation: alert, awake and oriented x3 Resp Effort Inspection: normal respiratory effort Skin Other: Hirsuit diffusely. Prominent soft tissue lesion mid back. Under ultrasound there is a well- circumscribed lesion very superficial to the skin which measures 1.4 x 1.3 x 1.0 cm. There is a heterogeneous hypoechoic echotexture consistent with probable epidermal inclusion cyst. Assessment and Plan Assessment and Plan (1) Cyst: Status: Acute Comment: - 1.4 cm superficial, well-circumscribed lesion on the back, confirmed by ultrasound. - Plan for excision in early May. - Discussed procedure details: local anesthesia, incision, dissection, and layered closure. - Advised 2 weeks of activity modification post-procedure, including lifting restriction to 15 lbs and avoiding shear forces to minimize seroma risk. - Educated on wound care: limited showering for 2 days post-op, use of medical-grade tape, and bandage management. - Reviewed risks of infection and seroma formation; patient expressed understanding. - Follow-up wound check at 2 weeks post-excision. Plan: ??? Follow-up visit anticipated early May for excision o (more content not included)... Normal [facility] Absolute lymphocyte countOrd ered By: Polo Lopez on 02-13-2025 Lymphocytes Auto (Unsp spec) [#/Vol] 2.76 10*3/uL 0.83-4.51 [facility] Absolute neutrophil countOrd ered By: Polo Lopez on 02-13-2025 Neutrophils (Bld) [#/Vol] 4.0 10*3/uL 2.0-7.7 [facility] Anion gap in Serum or Plasma Ordered By: Polo Lopez on 02-13-2025 Anion gap [Moles/Vol] 12 mmol/L 5-15 [facility] Automated lymphocyte count a s percentage of total leukocytesOrdered By: Polo Lopez on 02-13-2025 Lymphocytes/100 WBC Auto (Unsp spec) 36.3 % 19-41 [facility] BUN/creatinine ratioOrdered By: Polo Lopez on 02-13-2025 Urea nitrogen/Creatinine [Mass ratio] 15.9 mg/mg 10-20 [facility] Basophil percentageOrdered B y: Polo Lopez on 02-13-2025 Basophils/100 WBC (Bld) 0.7 % 0-1 [facility] Bilirubin, totalOrdered By: Polo Lopez on 02-13-2025 Bilirubin [Mass/Vol] 0.44 mg/dL 0.00-1.30 [facility] CBC W/Diff, Automatedon 02-03 Absolute Lymph 2.76 X10 3/uL Normal 0.83-4.51 [facility] Comment on above: Order Comment: Order Date: 02/13/25 Order Info: [id number] - CBCD Performed By: #### L 500.4100, L100.0100, [id number] #### [facility] [address] [place], [address] Absolute Neut 4.0 X10 3/uL Normal 2.0-7.7 [facility] Comment on above: Order Comment: Order Date: 02/13/25 Order Info: [id number]- - CBCD Performed By: #### L 500.4100, L100.0100, [id number] #### [facility] [address] [place], [address] Basophils/100 WBC (Bld) 0.7 % Normal 0-1 [facility] Comment on above: Order Comment: Order Date: 02/13/25 Order Info: [id number] - CBCD Performed By: #### L 500.4100, L100.0100, [id number] #### [facility] [address] [place], [address] Eosinophils/100 WBC (Bld) 4.6 % Normal 0-5 [facility] Comment on above: Order Comment: Order Date: 02/13/25 Order Info: [id number] - CBCD Performed By: #### L 500.4100, L100.0100, [id number] #### [facility] [address] [place], [address] Erythrocyte distribution width (RBC) [Ratio] 13.2 % Normal 11.6-14.6 [facility] Comment on above: Order Comment: Order Date: 02/13/25 Order Info: [id number] - CBCD Performed By: #### L 500.4100, L100.0100, [id number] #### [facility] [address] [place], [address] Hematocrit (Bld) [Volume fraction] 44.8 % Normal 40-54 [facility] Comment on above: Order Comment: Order Date: 02/13/25 Order Info: [id number] - CBCD Performed By: #### L 500.4100, L100.0100, [id number] #### [facility] [address] [place], [address] Hemoglobin (Bld) [Mass/Vol] 15.3 g/dL Normal 13.0-16.5 [facility] Comment on above: Order Comment: Order Date: 02/13/25 Order Info: [id number]- - CBCD Performed By: #### L 500.4100, L100.0100, [id number] #### [facility] [address] [place], [address] IG% 0.400 Normal 0.0-0.9 [facility] Comment on above: Order Comment: Order Date: 02/13/25 Order Info: [id number] - CBCD Result Comment: IG% - Immature Granulocytes (promyelocytes, myelocytes and metamyelocytes) > 1% indicates that a LEFT SHIFT is Present. Performed By: #### L 500.4100, L100.0100, L500.4050 #### [facility] [address] [place], [address] Lymphocytes/100 WBC (Bld) 36.3 % Normal 19-41 [facility] Comment on above: Order Comment: Order Date: 02/13/25 Order Info: 0184-1 - CBCD Performed By: #### L 500.4100, L100.0100, [id number] #### [facility] [address] [place], [address] MCH (RBC) [Entitic mass] 27.2 pg Normal 27.0-32.0 [facility] Comment on above: Order Comment: Order Date: 02/13/25 Order Info: [id number] - CBCD Performed By: #### L 500.4100, L100.0100, [id number] #### [facility] [address] [place], [address] MCHC (RBC) [Mass/Vol] 34.2 g/dL Normal 32-36 [facility] Comment on above: Order Comment: Order Date: 02/13/25 Order Info: [id number] - CBCD Performed By: #### L 500.4100, L100.0100, [id number] #### [facility] [address] [place], [address] MCV (RBC) [Entitic vol] 79.6 fL Low 80-94 [facility] Comment on above: Order Comment: Order Date: 02/13/25 Order Info: 0184-1 - CBCD Performed By: #### L 500.4100, L100.0100, [id number] #### [facility] [address] [place], [address] Monocytes/100 WBC (Bld) 5.9 % Normal 0-10 [facility] Comment on above: Order Comment: Order Date: 02/13/25 Order Info: 0184-1 - CBCD Performed By: #### L 500.4100, L100.0100, [id number] #### [facility] [address] [place], [address] Neutrophils/100 WBC (Bld) 52.1 % Normal 47-70 [facility] Comment on above: Order Comment: Order Date: 02/13/25 Order Info: 0184-1 - CBCD Performed By: #### L 500.4100, L100.0100, [id number] #### [facility] [address] [place], [address] Nucleated RBC (Bld) [#/Vol] 0 10*3/uL Normal 0-5 [facility] Comment on above: Order Comment: Order Date: 02/13/25 Order Info: [id number] - CBCD Performed By: #### L 500.4100, L100.0100, [id number] #### [facility] [address] [place], [address] Platelet mean volume (Bld) [Entitic vol] 9.8 fL Normal 6.2-12.0 [facility] Comment on above: Order Comment: Order Date: 02/13/25 Order Info: 0184-1 - CBCD Performed By: #### L 500.4100, L100.0100, [id number] #### [facility] [address] [place], [address] Platelets (Bld) [#/Vol] 206 10*3/uL Normal 150-450 [facility] Comment on above: Order Comment: Order Date: 02/13/25 Order Info: [id number] - CBCD Performed By: #### L 500.4100, L100.0100, [id number] #### [facility] [address] [place], [address] RBC (Bld) [#/Vol] 5.63 10*6/uL Normal 4.6-6.2 [facility] Comment on above: Order Comment: Order Date: 02/13/25 Order Info: 0184-1 - CBCD Performed By: #### L 500.4100, L100.0100, [id number] #### [facility] [address] [place], [address] RDW SD 37.9 fl Normal 35.1-43.9 [facility] Comment on above: Order Comment: Order Date: 02/13/25 Order Info: 0184-1 - CBCD Performed By: #### L 500.4100, L100.0100, [id number] #### [facility] [address] [place], [place], [id number] WBC (Bld) [#/Vol] 7.6 10*3/uL Normal 4.4-11.0 [facility] Comment on above: Order Comment: Order Date: 02/13/25 Order Info: [id number] - CBCD Performed By: #### L 500.4100, L100.0100, [id number] #### [facility] [address] [place], [address] Calculated very low density lipoprotein (VLDL) cholesterol measurementOrdered By: Polo Lopez on 02-13-2025 Calculated very low density lipoprotein (VLDL) cholesterol measurement 62 mg/dL High 5-40 [facility] Carbon dioxide, total [Moles /volume] in Central venous bloodOrdered By: Polo Lopez on 02-13-2025 CO2 [Moles/Vol] 23.5 mmol/L 21.0-32.0 [facility] Chloride assayOrdered By: Caroline Lopez on 02-13-2025 Chloride [Moles/Vol] 104 mmol/L 98-108 [facility] Comprehensive Metabolic Prof ilon 02-13-2025 Albumin [Mass/Vol] 4.4 g/dL Normal 3.5-5.0 [facility] Comment on above: Order Comment: Order Date: 02/13/25 Order Info: [id number] - CMP Order Info: [id number] - LIPID Order Info: [id number] - URIC Performed By: #### L 500.4100, L100.0100, L500.4050 #### [facility] [address] [place], [place], [address] Albumin/Globulin [Mass ratio] 1.6 {ratio} Normal 0.9-2.4 [facility] Comment on above: Order Comment: Order Date: 02/13/25 Order Info: [id number] - CMP Order Info: [id number] - LIPID Order Info: [id number] - URIC Performed By: #### L 500.4100, L100.0100, L500.4050 #### [facility] [address] [place], [address] ALK PHOS 94 U/L Normal 40-129 [facility] Comment on above: Order Comment: Order Date: 02/13/25 Order Info: [id number] - CMP Order Info: [id number] - LIPID Order Info: [id number] - URIC Performed By: #### L 500.4100, L100.0100, L500.4050 #### [facility] [address] [place], [address] ALT [Catalytic activity/Vol] 100 U/L High <=46 [facility] Comment on above: Order Comment: Order Date: 02/13/25 Order Info: [id number] - CMP Order Info: - LIPID Order Info: [id number] - URIC Performed By: #### L 500.4100, L100.0100, L500.4050 #### [facility] [address] [place], [address] AST [Catalytic activity/Vol] 42 U/L High <=37 [facility] Comment on above: Order Comment: Order Date: 02/13/25 Order Info: [id number] - CMP Order Info: - LIPID Order Info: [id number] - URIC Performed By: #### L 500.4100, L100.0100, [id number] #### [facility] [address] [place], [address] Bilirubin [Mass/Vol] 0.44 mg/dL Normal 0.00-1.30 [facility] Comment on above: Order Comment: Order Date: 02/13/25 Order Info: [id number] - CMP Order Info: - LIPID Order Info: [id number] - URIC Performed By: #### L 500.4100, L100.0100, L500.4050 #### [facility] [address] [place], [address] BUN/CRE 15.9 RATIO Normal 10-20 [facility] Comment on above: Order Comment: Order Date: 02/13/25 Order Info: [id number]- - CMP Order Info: [id number] - LIPID Order Info: [id number] - URIC Performed By: #### L 500.4100, L100.0100, L500.4050 #### [facility] [address] [place], [address] Calcium [Mass/Vol] 9.4 mg/dL Normal 7.6-11.0 [facility] Comment on above: Order Comment: Order Date: 02/13/25 Order Info: [id number] - CMP Order Info: - LIPID Order Info: [id number] - URIC Performed By: #### L 500.4100, L100.0100, L500.4050 #### [facility] [address] [place], [address] Chloride [Moles/Vol] 104 mmol/L Normal 98-108 [facility] Comment on above: Order Comment: Order Date: 02/13/25 Order Info: [id number] - CMP Order Info: - LIPID Order Info: [id number] - URIC Performed By: #### L 500.4100, L100.0100, L500.4050 #### [facility] [address] [place], [address] CO2 [Moles/Vol] 23.5 mmol/L Normal 21.0-32.0 [facility] Comment on above: Order Comment: Order Date: 02/13/25 Order Info: [id number] - CMP Order Info: [id number] - LIPID Order Info: [id number] - URIC Performed By: #### L 500.4100, L100.0100, L500.4050 #### [facility] [address] [place], [address] Creatinine [Mass/Vol] 0.73 mg/dL Normal 0.70-1.20 [facility] Comment on above: Order Comment: Order Date: 02/13/25 Order Info: [id number] - CMP Order Info: - LIPID Order Info: [id number] - URIC Performed By: #### L 500.4100, L100.0100, L500.4050 #### [facility] [address] [place], [address] GAP 12 Normal 5-15 [facility] Comment on above: Order Comment: Order Date: 02/13/25 Order Info: [id number] - CMP Order Info: - LIPID Order Info: [id number] - URIC Performed By: #### L 500.4100, L100.0100, L500.4050 #### [facility] [address] [place], [address] GFR/1.73 sq M.predicted among non-blacks MDRD (S/P/Bld) [Vol rate/Area] 131 mL/min/{1.73_m2} Normal >60 [facility] Comment on above: Order Comment: Order Date: 02/13/25 Order Info: [id number] - CMP Order Info: - LIPID Order Info: [id number] - URIC Result Comment: mL/m in/1.73m2 CKD-EPI Creatinine Equation (2020) Performed By: #### L 500.4100, L100.0100, L500.4050 #### [facility] [address] [place], [address] Globulin (S) [Mass/Vol] 2.8 g/dL Normal 2.2-4.2 [facility] Comment on above: Order Comment: Order Date: 02/13/25 Order Info: [id number] - CMP Order Info: - LIPID Order Info: [id number] - URIC Performed By: #### L 500.4100, L100.0100, L500.4050 #### [facility] [address] [place], [address] Glucose [Mass/Vol] 87 mg/dL Normal 70-99 [facility] Comment on above: Order Comment: Order Date: 02/13/25 Order Info: [id number] - CMP Order Info: [id number] - LIPID Order Info: [id number] - URIC Performed By: #### L 500.4100, L100.0100, L500.4050 #### [facility] [address] [place], [address] Potassium [Moles/Vol] 3.8 mmol/L Normal 3.3-5.1 [facility] Comment on above: Order Comment: Order Date: 02/13/25 Order Info: [id number] - CMP Order Info: - LIPID Order Info: [id number] - URIC Performed By: #### L 500.4100, L100.0100, L500.4050 #### [facility] [address] [place], [address] Sodium [Moles/Vol] 139 mmol/L Normal 133-145 [facility] Comment on above: Order Comment: Order Date: 02/13/25 Order Info: [id number] - CMP Order Info: [id number] - LIPID Order Info: [id number] - URIC Performed By: #### L 500.4100, L100.0100, L500.4050 #### [facility] [address] [place], [address] T PROT 7.1 g/dL Normal 5.9-8.4 [facility] Comment on above: Order Comment: Order Date: 02/13/25 Order Info: [id number]- - CMP Order Info: [id number] - LIPID Order Info: [id number] - URIC Performed By: #### L 500.4100, L100.0100, L500.4050 #### [facility] [address] [place], [address] Urea nitrogen [Mass/Vol] 12 mg/dL Normal 4-19 [facility] Comment on above: Order Comment: Order Date: 02/13/25 Order Info: [id number]- - CMP Order Info: [id number] - LIPID Order Info: [id number] - URIC Performed By: #### L 500.4100, L100.0100, L500.4050 #### [facility] [address] [place], [address] Eosinophil percentageOrdered By: Polo Lopez on 02-13-2025 Eosinophils/100 WBC (Bld) 4.6 % 0-5 [facility] Erythrocyte distribution wid th ratioOrdered By: Polo Lopez on 02-13-2025 Erythrocyte distribution width (RBC) [Ratio] 13.2 % 11.6-14.6 [facility] Erythrocyte distribution wid th standard deviationOrdered By: Polo Lopez on 02-13-2025 Erythrocyte distribution width (RBC) [Ratio] 37.9 fl 35.1-43.9 [facility] Glomerular filtration rate ( GFR) estimation/1.73 sq m using serum, plasma, or whole bOrdered By: Polo Lopez on 02-13-2025 GFR/1.73 sq M.predicted among non-blacks MDRD (S/P/Bld) [Vol rate/Area] 131 mL/min/{1.73_m2} >60 [facility] Comment on above: mL/min/1.73m2 CKD-EP I Creatinine Equation (2020) Hematocrit Auto (Bld) [Volum e fraction]Ordered By: Polo Lopez on 02-13-2025 Hematocrit (Bld) [Volume fraction] 44.8 % 40-54 [facility] Hemoglobin measurementOrdere d By: Polo Lopez on 02-13-2025 Hemoglobin (Bld) [Mass/Vol] 15.3 g/dL 13.0-16.5 [facility] Immature granulocytes/100 WB C Auto (Bld)Ordered By: Polo Lopez on 02-13-2025 Immature granulocytes/100 WBC (Bld) 0.400 % 0.0-0.9 [facility] Comment on above: IG% - Immature Granu locytes (promyelocytes, myelocytes and metamyelocytes) > 1% indicates that a LEFT SHIFT is Present. LDL calc ser/plasOrdered By: Polo Lopez on 02-13-2025 Cholesterol in LDL [Mass/Vol] 104 mg/dL [facility] Comment on above: Xqkcraqlmq=414-221 m g/dL & Higher Wwof=719 mg/dL or greaterFriedwald Equation for LDL-C Laboratory - Chemistry and C hemistry - challengeOrdered By: Polo Lopez on 02-13-2025 AST [Catalytic activity/Vol] 42 U/L High <38 [facility] Lipid Profileon 02-13-2025 CHOL:HDL 6.07 Normal [facility] Comment on above: Order Comment: Order Date: 02/13/25 Order Info: 0786- - CMP Order Info: - LIPID Order Info: [id number] - URIC Performed By: #### L 500.4100, L100.0100, L500.4050 #### [facility] [address] [place], [address] Cholesterol [Mass/Vol] 198 mg/dL High <=190 [facility] Comment on above: Order Comment: Order Date: 02/13/25 Order Info: 07 - CMP Order Info: - LIPID Order Info: [id number]- - URIC Result Comment: Chol esterol level, Desirable <200 mg/dL Borderline high cholesterol 200-239 mg/dL High cholesterol >=240 mg/dL Recommendations of the NCEP Adult Treatment Panel for the following risk-cutoff thresholds for the [place] population. Performed By: #### L 500.4100, L100.0100, L500.4050 #### [facility] [address] [place], [address] Cholesterol in HDL [Mass/Vol] 33 mg/dL Low [facility] Comment on above: Order Comment: Order Date: 02/13/25 Order Info: 0786 - CMP Order Info: [id number] - LIPID Order Info: [id number] - URIC Result Comment: [place] onal Cholesterol Education Program (NCEP) guidelines: <40 mg/dL: Low HDL-cholesterol (major risk factor for CHD) >= 60 mg/dL: High HDL-cholesterol (negative risk factor for CHD) HDL-cholesterol is affected by a number of factors, e.g. smoking, exercise, hormones, sex and age. Performed By: #### L 500.4100, L100.0100, L500.4050 #### [facility] [address] [place], [address] Cholesterol in LDL [Mass/Vol] 104 mg/dL Normal [facility] Comment on above: Order Comment: Order Date: 02/13/25 Order Info: [id number] - CMP Order Info: [id number] - LIPID Order Info: 308-1 - URIC Result Comment: Bord zjkwhv=585-392 mg/dL Higher Czvi=967 mg/dL or greater Friedwald Equation for LDL-C Performed By: #### L 500.4100, L100.0100, L500.4050 #### [facility] [address] [place], [address] Cholesterol in VLDL [Mass/Vol] 62 mg/dL High 5-40 [facility] Comment on above: Order Comment: Order Date: 02/13/25 Order Info: 0786- - CMP Order Info: [id number] - LIPID Order Info: [id number]- - URIC Performed By: #### L 500.4100, L100.0100, L500.4050 #### [facility] [address] [place], [address] Triglyceride [Mass/Vol] 309 mg/dL High [facility] Comment on above: Order Comment: Order Date: 02/13/25 Order Info: [id number] - CMP Order Info: [id number] - LIPID Order Info: [id number] - URIC Result Comment: The drugs N-Acetylcysteine and Metamizole may falsely depress this assay. Normal range: <150 mg/dL Borderline High: 150-199 mg/dL High: 200-499 mg/dL Very High: >500 mg/dL Performed By: #### L 500.4100, L100.0100, L500.4050 #### [facility] [address] [place], [address] MCV (mean corpuscular volume ) determinationOrdered By: Polo Lopez on 02-13-2025 MCV (RBC) [Entitic vol] 79.6 fL Low 80-94 [facility] Mean corpuscular hemoglobin (MCH) determinationOrdered By: Polo Lopez on 02-13-2025 MCH (RBC) [Entitic mass] 27.2 pg 27.0-32.0 [facility] Mean corpuscular hemoglobin concentration (MCHC) determinationOrdered By: Polo Lopez on 02-13-2025 MCHC (RBC) [Mass/Vol] 34.2 g/dL 32-36 [facility] Mean platelet volume determi nationOrdered By: Polo Lopez on 02-13-2025 Platelet mean volume (Bld) [Entitic vol] 9.8 fL 6.2-12.0 [facility] Monocyte percentageOrdered B y: Polo Lopez on 02-13-2025 Monocytes/100 WBC (Bld) 5.9 % 0-10 [facility] Neutrophil percentageOrdered By: Polo Lopze on 02-13-2025 Neutrophils/100 WBC (Bld) 52.1 % 47-70 [facility] Nucleated red blood cell per centageOrdered By: Polo Lopez on 02-13-2025 Nucleated RBC/100 WBC (Bld) [Ratio] 0 % 0-5 [facility] Platelet countOrdered By: Caroline Lopez on 02-13-2025 Platelets (Bld) [#/Vol] 206 10*3/uL 150-450 [facility] Potassium measurement (mass/ volume)Ordered By: Polo Lopez on 02-13-2025 Potassium (Unsp spec) [Mass/Vol] 3.8 mmol/L 3.3-5.1 [facility] RBC Auto (Bld) [#/Vol]Ordere d By: Polo Lopez on 02-13-2025 RBC (Bld) [#/Vol] 5.63 10*6/uL 4.6-6.2 [facility] Screening total cholesterol/ high density lipoprotein (HDL) cholesterol ratioOrdered By: Polo Lopez on 02-13-2025 Cholesterol.total/Cho lesterol in HDL [Mass ratio] 6.07 {ratio} [facility] Serum creatinine measurement (mass/volume)Ordered By: Polo Lopez on 02-13-2025 Creatinine [Mass/Vol] 0.73 mg/dL 0.70-1.20 [facility] Serum globulin measurementOr dered By: Polo Lopez on 02-13-2025 Globulin (S) [Mass/Vol] 2.8 g/dL 2.2-4.2 [facility] Serum glucose measurement (m ass/volume)Ordered By: Polo Lopez on 02-13-2025 Glucose [Mass/Vol] 87 mg/dL 70-99 [facility] Serum or plasma alanine pham otransferase (ALT) measurementOrdered By: Polo Lopez on 02-13-2025 ALT [Catalytic activity/Vol] 100 U/L High <47 [facility] Serum or plasma albumin camila urement (mass/volume)Ordered By: Polo Lopez on 02-13-2025 Albumin [Mass/Vol] 4.4 g/dL 3.5-5.0 [facility] Serum or plasma albumin/glob ulin mass ratioOrdered By: Polo Lopez on 02-13-2025 Albumin/Globulin [Mass ratio] 1.6 {ratio} 0.9-2.4 [facility] Serum or plasma alkaline andie sphatase measurementOrdered By: Polo Lopez on 02-13-2025 ALP [Catalytic activity/Vol] 94 U/L 40-129 [facility] Serum or plasma calcium camila urement (mass/volume)Ordered By: Polo Lopez on 02-13-2025 Calcium [Mass/Vol] 9.4 mg/dL 7.6-11.0 [facility] Serum or plasma cholesterol in HDL measurement (mass/volume)Ordered By: Polo Lopez on 02-13-2025 Cholesterol in HDL [Mass/Vol] 33 mg/dL Low >40 [facility] Comment on above: National Cholesterol Education Program (NCEP) guidelines:<40 mg/dL: Low HDL-cholesterol (major risk factor for CHD)>= 60 mg/dL: High HDL-cholesterol (negative risk factor for CHD)HDL-cholesterol is affected by a number of factors, e.g. smoking, exercise, hormones, sex and age. Serum or plasma cholesterol measurement (mass/volume)Ordered By: Polo Lopez on 02-13-2025 Cholesterol [Mass/Vol] 198 mg/dL High <191 [facility] Comment on above: Cholesterol level, D esirable <200 mg/dLBorderline high cholesterol 200-239 mg/dLHigh cholesterol >=240 mg/dLRecommendations of the NCEP Adult Treatment Panel for the following risk-cutoff thresholds for the [place] population. Serum or plasma urea nitroge n measurement (mass/volume)Ordered By: Polo Lopez on 02-13-2025 Urea nitrogen [Mass/Vol] 12 mg/dL 4-19 [facility] Serum or plasma uric acid me asurement (mass/volume)Ordered By: Polo Lopez on 02-13-2025 Urate [Mass/Vol] 10.0 mg/dL High 3.5-7.2 [facility] Comment on above: The drugs N-Acetylcy steine and Metamizole may falsely depress this assay. Sodium levelOrdered By: Polo Lopez on 02-13-2025 Sodium [Moles/Vol] 139 mmol/L 133-145 [facility] Total proteinOrdered By: Deven Lopez on 02-13-2025 Protein [Mass/Vol] 7.1 g/dL 5.9-8.4 [facility] Triglycerides measurementOrd ered By: Polo Lopez on 02-13-2025 Triglyceride [Mass/Vol] 309 mg/dL High <199 [facility] Comment on above: The drugs N-Acetylcy steine and Metamizole may falsely depress this assay. Normal range: <150 mg/dLBorderline High: 150-199 mg/dLHigh: 200-499 mg/dLVery High: >500 mg/dL Uric Acidon 02-13-2025 URIC 10.0 mg/dL High 3.5-7.2 [facility] Comment on above: Order Comment: Order Date: 02/13/25 Order Info: 0786-1 - CMP Order Info: [id number] - LIPID Order Info: [id number] - URIC Result Comment: The drugs N-Acetylcysteine and Metamizole may falsely depress this assay. Performed By: #### L 501.1400 #### [facility] [address] [place], [address] White blood cell (WBC) count Ordered By: Polo Lopez on 02-13-2025 WBC (Bld) [#/Vol] 7.6 10*3/uL 4.4-11.0 [facility] TSH SerPl-aCncon 01-27-2025 TSH Qn 0.101 m[IU]/L Low 0.270-4.200 [facility] Comment on above: Order Comment: Edgard cooper Type: BLOOD SPECIMEN Ordering Facility: [facility] Address: [address] [place] [address] Performed By: #### 5 7780-9 #### [facility] CLIA [id number] [address] [place] [address] [place] Thyroglobulin and Thyrogobul in Ab panelon 01-27-2025 Thyroglobulin Ab Qn [IU]/mL Normal <4.0 [facility] Comment on above: Order Comment: Edgard cooper Type: BLOOD SPECIMEN Ordering Facility: [facility] Address: [address] [place] [address] Result Comment: The Thyroglobulin Antibody test was performed using the Linda Sal[employer] Un[employer] DXI paramagnetic particle chemiluminescent immunoassay method. Results obtained with different assay methods or kits cannot be used interchangeably. Performed By: #### 5 7780-9 #### [facility] CLIA [id number] [address] [place] [address] [place] THYROGLOBULIN, SERUM 0.1 ng/mL Low 1.6-50.0 [facility] Comment on above: Order Comment: Edgard cooper Type: BLOOD SPECIMEN Ordering Facility: [facility] Address: [address] [place] [address] Result Comment: The Thyroglobulin test was performed using the Linda [employer] Mobile Unicel DXI paramagnetic particle chemiluminescent immunoassay method. Results obtained with different assay methods or kits cannot be used interchangeably. Performed By: #### 5 7780-9 #### [facility] CLIA [id number] [address] [place] [address] [place] TSH SerPl-aCncon 10-15-2024 TSH Qn 0.089 m[IU]/L Low 0.270-4.200 [facility] Comment on above: Order Comment: Edgard cooper Type: BLOOD SPECIMEN Ordering Facility: [facility] Address: [address] [place] [address] Performed By: #### 3 016-3 #### [facility] CLIA [id number] [address] [place] [address] [place] [facility] Thyroglobulin and Thyrogobul in Ab panelon 10-15-2024 Thyroglobulin Ab Qn [IU]/mL Normal <4.0 [facility] Comment on above: Order Comment: Edgard cooper Type: BLOOD SPECIMEN Ordering Facility: [facility] Address: [address] [place] [address] Result Comment: The Thyroglobulin Antibody test was performed using the Linda Salma Unicel DXI paramagnetic particle chemiluminescent immunoassay method. Results obtained with different assay methods or kits cannot be used interchangeably. Performed By: #### 5 7780-9 #### [facility] CLIA [id number] [address] [place] [address] [place] THYROGLOBULIN, SERUM <0.1 Low 1.6-50.0 [facility] Comment on above: Order Comment: Edgard cooper Type: BLOOD SPECIMEN Ordering Facility: [facility] Address: [address] [place] [address] Result Comment: The Thyroglobulin test was performed using the [employer] Unicel DXI paramagnetic particle chemiluminescent immunoassay method. Results obtained with different assay methods or kits cannot be used interchangeably. Performed By: #### 5 7780-9 #### [facility] CLIA [id number] [address] [place] [address] [place] CNPJulieta 10-11-2024 BELLO Telephone (ENDOSO) JUVE MEYER ([id number]) 1 M Date Time Provider Department 10/11/24 EDILBERTO TRUONG During your visit today, we recorded the following information about you: Gabrielle Marinelli RN 10/11/2024 7:20 AM Signed F pathology lab called office with following recall message. Relayed message that they are recalling thyroglobulin results due to a reagent issue. Patient will need retested if clinically indicated for the recent result on 09/26/24. [facility] patient will not be billed twice for retest. States there will be further arlin sent to providers. Gabrielle Marinelli RN October 11, 2024 7:20 AM Allergies As of Date: 10/11/2024 Noted Allergy Reaction SEASONAL ALLERGIES 01/04/2012 16 - Unknown Comments: Trees, hogs/pigs. SHELLFISH DERIVED 2022 16 - Unknown BEE POLLEN 11/20/2016 16 - Unknown Date Reviewed: 07/22/2024 Reviewed by: Edilberto Truong MD - Fully Assessed Prescriptions as of 10/11/2024 - levothyroxine (SYNTHROID) 300 mcg tablet Take 1 tablet by mouth once daily. - fexofenadine HCl (KAPIL ORAL) Take by mouth as needed. Meds Comments as of 11/13/2018: 11/13/2018: Takes no medications daily. Michelle Merino RN (Nurse contracting officer). Problem List As Of Date 10/11/2024 Noted Resolved Out-Toeing [M21.80] 04/22/2009 Fracture, fibula, proximal [S82.839A] 03/29/2010 Milk allergy [Z91.011] 08/28/2012 Nocturnal enuresis [N39.44] 08/28/2012 NAFLD (nonalcoholic fatty liver disease) [K76.0]10/13/2014 Class 2 severe obesity due to excess calories w*10/14/2014 Elevated hemoglobin A1c measurement [R73.09] 10/14/2014 Dyslipidemia [E78.5] 10/14/2014 Obstructive sleep apnea, pediatric [G47.33] 11/26/2014 Papillary thyroid carcinoma (HCC) [C73] 08/17/2022 Encounter Status:Closed by GABRIELLE MARINELLI on 10/11/24 Normal [facility] TSH SerPl-aCncon 09-26-2024 TSH Qn 0.092 m[IU]/L Low 0.270-4.200 [facility] Comment on above: Order Comment: Edgard cooper Type: BLOOD SPECIMEN Ordering Facility: [facility] Address: [address] [place] [address] Performed By: #### 5 7780-9 #### [facility] CLIA [id number] [address] [place] [address] [place] Thyroglobulin and Thyrogobul in Ab panelon 09-26-2024 Thyroglobulin Ab Qn [IU]/mL Normal <4.0 [facility] Comment on above: Order Comment: Edgard cooper Type: BLOOD SPECIMEN Ordering Facility: [facility] Address: [address] [place] [address] Result Comment: The Thyroglobulin Antibody test was performed using the [employer] DXI paramagnetic particle chemiluminescent immunoassay method. Results obtained with different assay methods or kits cannot be used interchangeably. Performed By: #### 5 7780-9 #### [facility] CLIA [id number] [address] [place] [address] [place] THYROGLOBULIN, SERUM Normal 1.6-50.0 [facility] Comment on above: Order Comment: Edgard cooper Type: BLOOD SPECIMEN Ordering Facility: [facility] Address: [address] [place] [address] Result Comment: This result was recalled due to an issue with the assay reagents. Sample unavailable to retest. Re-order if clinically indicated. Corrected result: Previously reported as 0.5 ng/mL on 09/27/2024 at 11:37 AM EDT. Performed By: #### 5 7780-9 #### [facility] CLIA [id number] [address] [place] [address] [place] Anion gap in Serum or Plasma Ordered By: Polo Lopez on 08-27-2024 Anion gap [Moles/Vol] 12 mmol/L 5-15 [facility] BUN/creatinine ratioOrdered By: Polo Lopez on 08-27-2024 Urea nitrogen/Creatinine [Mass ratio] 14.5 mg/mg 10-20 [facility] Bilirubin, totalOrdered By: Polo Lopez on 08-27-2024 Bilirubin [Mass/Vol] 0.47 mg/dL 0.00-1.30 [facility] CBC-Complete Blood Cnt No Di ffon 08-27-2024 Erythrocyte distribution width (RBC) [Ratio] 13.4 % Normal 11.6-14.6 [facility] Comment on above: Order Comment: Order Date: 08/27/24 Order Info: [id number] - CBC Performed By: #### L 500.4100, L500.4050, L501.1400, L100.0500 #### [facility] [address] [place], [address] Hematocrit (Bld) [Volume fraction] 46.2 % Normal 40-54 [facility] Comment on above: Order Comment: Order Date: 08/27/24 Order Info: [id number] - CBC Performed By: #### L 500.4100, L500.4050, L501.1400, L100.0500 #### [facility] [address] [place], [address] Hemoglobin (Bld) [Mass/Vol] 15.7 g/dL Normal 13.0-16.5 [facility] Comment on above: Order Comment: Order Date: 08/27/24 Order Info: [id number] - CBC Performed By: #### L 500.4100, L500.4050, L501.1400, L100.0500 #### [facility] [address] [place], [address] MCH (RBC) [Entitic mass] 27.8 pg Normal 27.0-32.0 [facility] Comment on above: Order Comment: Order Date: 08/27/24 Order Info: [id number] - CBC Performed By: #### L 500.4100, L500.4050, L501.1400, L100.0500 #### [facility] [address] [place], [address] MCHC (RBC) [Mass/Vol] 34.0 g/dL Normal 32-36 [facility] Comment on above: Order Comment: Order Date: 08/27/24 Order Info: [id number] - CBC Performed By: #### L 500.4100, L500.4050, L501.1400, L100.0500 #### [facility] [address] [place], [address] MCV (RBC) [Entitic vol] 81.8 fL Normal 80-94 [facility] Comment on above: Order Comment: Order Date: 08/27/24 Order Info: [id number] - CBC Performed By: #### L 500.4100, L500.4050, L501.1400, L100.0500 #### [facility] [address] [place], [address] Platelet mean volume (Bld) [Entitic vol] 9.8 fL Normal 6.2-12.0 [facility] Comment on above: Order Comment: Order Date: 08/27/24 Order Info: [id number] - CBC Performed By: #### L 500.4100, L500.4050, L501.1400, L100.0500 #### [facility] [address] [place], [address] Platelets (Bld) [#/Vol] 208 10*3/uL Normal 150-450 [facility] Comment on above: Order Comment: Order Date: 08/27/24 Order Info: [id number] - CBC Performed By: #### L 500.4100, L500.4050, L501.1400, L100.0500 #### [facility] [address] [place], [address] RBC (Bld) [#/Vol] 5.65 10*6/uL Normal 4.6-6.2 [facility] Comment on above: Order Comment: Order Date: 08/27/24 Order Info: [id number] - CBC Performed By: #### L 500.4100, L500.4050, L501.1400, L100.0500 #### [facility] [address] [place], [address] RDW SD 39.2 fl Normal 35.1-43.9 [facility] Comment on above: Order Comment: Order Date: 08/27/24 Order Info: [id number] - CBC Performed By: #### L 500.4100, L500.4050, L501.1400, L100.0500 #### [facility] [address] [place], [address] WBC (Bld) [#/Vol] 8.2 10*3/uL Normal 4.4-11.0 [facility] Comment on above: Order Comment: Order Date: 08/27/24 Order Info: [id number] - CBC Performed By: #### L 500.4100, L500.4050, L501.1400, L100.0500 #### [facility] [address] [place], [address] Calculated very low density lipoprotein (VLDL) cholesterol measurementOrdered By: Polo Lopez on 08-27-2024 VLDL Cholesterol 54 mg/dL High 5-40 [facility] Carbon dioxide, total [Moles /volume] in Central venous bloodOrdered By: Polo Lopez on 08-27-2024 CO2 [Moles/Vol] 24.2 mmol/L 21.0-32.0 [facility] Chloride assayOrdered By: Caroline Lopez on 08-27-2024 Chloride [Moles/Vol] 104 mmol/L 98-108 [facility] Comprehensive Metabolic Prof ilon 08-27-2024 Albumin [Mass/Vol] 4.4 g/dL Normal 3.5-5.0 [facility] Comment on above: Order Comment: Order Date: 08/27/24 Order Info: [id number]- - CMP Order Info: [id number] - LIPID Order Info: [id number] - URIC Performed By: #### L 500.4100, L500.4050, L501.1400, L100.0500 #### [facility] [address] [place], [address] Albumin/Globulin [Mass ratio] 1.5 {ratio} Normal 0.9-2.4 [facility] Comment on above: Order Comment: Order Date: 08/27/24 Order Info: 0786- - CMP Order Info: [id number] - LIPID Order Info: [id number] - URIC Performed By: #### L 500.4100, L500.4050, L501.1400, L100.0500 #### [facility] [address] [place], [address] ALK PHOS 98 U/L Normal 40-129 [facility] Comment on above: Order Comment: Order Date: 08/27/24 Order Info: 0786- - CMP Order Info: [id number] - LIPID Order Info: [id number] - URIC Performed By: #### L 500.4100, L500.4050, L501.1400, L100.0500 #### [facility] [address] [place], [address] ALT [Catalytic activity/Vol] 108 U/L High <=46 [facility] Comment on above: Order Comment: Order Date: 08/27/24 Order Info: 0786- - CMP Order Info: [id number] - LIPID Order Info: [id number] - URIC Performed By: #### L 500.4100, L500.4050, L501.1400, L100.0500 #### [facility] [address] [place], [address] AST [Catalytic activity/Vol] 50 U/L High <=37 [facility] Comment on above: Order Comment: Order Date: 08/27/24 Order Info: 0786- - CMP Order Info: - LIPID Order Info: [id number] - URIC Performed By: #### L 500.4100, L500.4050, L501.1400, L100.0500 #### [facility] [address] [place], [address] Bilirubin [Mass/Vol] 0.47 mg/dL Normal 0.00-1.30 [facility] Comment on above: Order Comment: Order Date: 08/27/24 Order Info: [id number] - CMP Order Info: - LIPID Order Info: [id number] - URIC Performed By: #### L 500.4100, L500.4050, L501.1400, L100.0500 #### [facility] [address] [place], [address] BUN/CRE 14.5 RATIO Normal 10-20 [facility] Comment on above: Order Comment: Order Date: 08/27/24 Order Info: [id number] - CMP Order Info: - LIPID Order Info: [id number] - URIC Performed By: #### L 500.4100, L500.4050, L501.1400, L100.0500 #### [facility] [address] [place], [address] Calcium [Mass/Vol] 9.2 mg/dL Normal 7.6-11.0 [facility] Comment on above: Order Comment: Order Date: 08/27/24 Order Info: [id number] - CMP Order Info: - LIPID Order Info: [id number] - URIC Performed By: #### L 500.4100, L500.4050, L501.1400, L100.0500 #### [facility] [address] [place], [address] Chloride [Moles/Vol] 104 mmol/L Normal 98-108 [facility] Comment on above: Order Comment: Order Date: 08/27/24 Order Info: [id number] - CMP Order Info: [id number] - LIPID Order Info: [id number] - URIC Performed By: #### L 500.4100, L500.4050, L501.1400, L100.0500 #### [facility] [address] [place], [address] CO2 [Moles/Vol] 24.2 mmol/L Normal 21.0-32.0 [facility] Comment on above: Order Comment: Order Date: 08/27/24 Order Info: 0786- - CMP Order Info: [id number] - LIPID Order Info: [id number] - URIC Performed By: #### L 500.4100, L500.4050, L501.1400, L100.0500 #### [facility] [address] [place], [place], [id number] Creatinine [Mass/Vol] 0.86 mg/dL Normal 0.70-1.20 [facility] Comment on above: Order Comment: Order Date: 08/27/24 Order Info: 0786- - CMP Order Info: [id number] - LIPID Order Info: [id number] - URIC Performed By: #### L 500.4100, L500.4050, L501.1400, L100.0500 #### [facility] [address] [place], [address] GAP 12 Normal 5-15 [facility] Comment on above: Order Comment: Order Date: 08/27/24 Order Info: 0786- - CMP Order Info: [id number] - LIPID Order Info: [id number] - URIC Performed By: #### L 500.4100, L500.4050, L501.1400, L100.0500 #### [facility] [address] [place], [address] GFR/1.73 sq M.predicted among non-blacks MDRD (S/P/Bld) [Vol rate/Area] 124 mL/min/{1.73_m2} Normal >60 [facility] Comment on above: Order Comment: Order Date: 08/27/24 Order Info: 0786 - CMP Order Info: [id number] - LIPID Order Info: [id number] - URIC Result Comment: mL/m in/1.73m2 CKD-EPI Creatinine Equation (2020) Performed By: #### L 500.4100, L500.4050, L501.1400, L100.0500 #### [facility] [address] [place], [address] Globulin (S) [Mass/Vol] 2.9 g/dL Normal 2.2-4.2 [facility] Comment on above: Order Comment: Order Date: 08/27/24 Order Info: 07 - CMP Order Info: - LIPID Order Info: [id number] - URIC Performed By: #### L 500.4100, L500.4050, L501.1400, L100.0500 #### [facility] [address] [place], [address] Glucose [Mass/Vol] 83 mg/dL Normal 70-99 [facility] Comment on above: Order Comment: Order Date: 08/27/24 Order Info: 0786 - CMP Order Info: - LIPID Order Info: [id number] - URIC Performed By: #### L 500.4100, L500.4050, L501.1400, L100.0500 #### [facility] [address] [place], [address] Potassium [Moles/Vol] 3.9 mmol/L Normal 3.3-5.1 [facility] Comment on above: Order Comment: Order Date: 08/27/24 Order Info: 0786 - CMP Order Info: [id number] - LIPID Order Info: [id number] - URIC Performed By: #### L 500.4100, L500.4050, L501.1400, L100.0500 #### [facility] [address] [place], [address] Sodium [Moles/Vol] 140 mmol/L Normal 133-145 [facility] Comment on above: Order Comment: Order Date: 08/27/24 Order Info: 0786-1 - CMP Order Info: [id number] - LIPID Order Info: [id number] - URIC Performed By: #### L 500.4100, L500.4050, L501.1400, L100.0500 #### [facility] [address] [place], [place], [address] T PROT 7.3 g/dL Normal 5.9-8.4 [facility] Comment on above: Order Comment: Order Date: 08/27/24 Order Info: 0786-1 - CMP Order Info: [id number] - LIPID Order Info: [id number] - URIC Performed By: #### L 500.4100, L500.4050, L501.1400, L100.0500 #### [facility] [address] [place], [address] Urea nitrogen [Mass/Vol] 13 mg/dL Normal 4-19 [facility] Comment on above: Order Comment: Order Date: 08/27/24 Order Info: 0786-1 - CMP Order Info: [id number] - LIPID Order Info: [id number] - URIC Performed By: #### L 500.4100, L500.4050, L501.1400, L100.0500 #### [facility] [address] [place], [place], [address] Erythrocyte distribution wid th ratioOrdered By: Polo Lopez on 08-27-2024 Erythrocyte distribution width (RBC) [Ratio] 13.4 % 11.6-14.6 [facility] Erythrocyte distribution wid th standard deviationOrdered By: Polo Lopez on 08-27-2024 Erythrocyte distribution width (RBC) [Entitic vol] 39.2 fL 35.1-43.9 [facility] GFR/1.73 sq M.predicted saul g non-blacks MDRD (S/P/Bld) [Vol rate/Area]Ordered By: Polo Lopez on 08-27-2024 Estimated GFR (MDRD) Non-Af Amer 124 >60 [facility] Comment on above: mL/min/1.73m2 CKD-EP I Creatinine Equation (2020) Hematocrit Auto (Bld) [Volum e fraction]Ordered By: Polo Lopez on 08-27-2024 Hematocrit (Bld) [Volume fraction] 46.2 % 40-54 [facility] Hemoglobin measurementOrdere d By: Polo Lopez on 08-27-2024 Hemoglobin (Bld) [Mass/Vol] 15.7 g/dL 13.0-16.5 [facility] LDL calc ser/plasOrdered By: Polo Lopez on 08-27-2024 LDL Cholesterol, Calculated 124 mg/dL [facility] Comment on above: Psvqtdmtmv=247-248 m g/dL & Higher Rqoz=282 mg/dL or greater Laboratory - Chemistry and C hemistry - challengeOrdered By: Polo Lopez on 08-27-2024 AST [Catalytic activity/Vol] 50 U/L High <38 [facility] Lipid Profileon 08-27-2024 CHOL:HDL 6.14 Normal [facility] Comment on above: Order Comment: Order Date: 08/27/24 Order Info: 0786-1 - CMP Order Info: [id number] - LIPID Order Info: [id number] - URIC Performed By: #### L 500.4100, L500.4050, L501.1400, L100.0500 #### [facility] [address] [place], [place], [address] Cholesterol [Mass/Vol] 212 mg/dL High <=190 [facility] Comment on above: Order Comment: Order Date: 08/27/24 Order Info: 0786-1 - CMP Order Info: [id number] - LIPID Order Info: [id number] - URIC Result Comment: Chol esterol level, Desirable <200 mg/dL Borderline high cholesterol 200-239 mg/dL High cholesterol >=240 mg/dL Recommendations of the NCEP Adult Treatment Panel for the following risk-cutoff thresholds for the [place] population. Performed By: #### L 500.4100, L500.4050, L501.1400, L100.0500 #### [facility] [address] [place], [address] Cholesterol in HDL [Mass/Vol] 35 mg/dL Low [facility] Comment on above: Order Comment: Order Date: 08/27/24 Order Info: 0786- - CMP Order Info: [id number] - LIPID Order Info: [id number] - URIC Result Comment: [place] onal Cholesterol Education Program (NCEP) guidelines: <40 mg/dL: Low HDL-cholesterol (major risk factor for CHD) >= 60 mg/dL: High HDL-cholesterol (negative risk factor for CHD) HDL-cholesterol is affected by a number of factors, e.g. smoking, exercise, hormones, sex and age. Performed By: #### L 500.4100, L500.4050, L501.1400, L100.0500 #### [facility] [address] [place], [address] Cholesterol in LDL [Mass/Vol] 124 mg/dL Normal [facility] Comment on above: Order Comment: Order Date: 08/27/24 Order Info: 0786- - CMP Order Info: [id number] - LIPID Order Info: [id number] - URIC Result Comment: Bord iujdsy=099-217 mg/dL Higher Xidv=564 mg/dL or greater Performed By: #### L 500.4100, L500.4050, L501.1400, L100.0500 #### [facility] [address] [place], [address] Cholesterol in VLDL [Mass/Vol] 54 mg/dL High 5-40 [facility] Comment on above: Order Comment: Order Date: 08/27/24 Order Info: 0786- - CMP Order Info: [id number] - LIPID Order Info: [id number] - URIC Performed By: #### L 500.4100, L500.4050, L501.1400, L100.0500 #### [facility] [address] [place], [address] Triglyceride [Mass/Vol] 268 mg/dL High [facility] Comment on above: Order Comment: Order Date: 08/27/24 Order Info: 0786- - CMP Order Info: [id number] - LIPID Order Info: [id number] - URIC Result Comment: The drugs N-Acetylcysteine and Metamizole may falsely depress this assay. Normal range: <150 mg/dL Borderline High: 150-199 mg/dL High: 200-499 mg/dL Very High: >500 mg/dL Performed By: #### L 500.4100, L500.4050, L501.1400, L100.0500 #### [facility] [address] [place], [address] MCV (mean corpuscular volume ) determinationOrdered By: Polo Lopez on 08-27-2024 MCV (RBC) [Entitic vol] 81.8 fL 80-94 [facility] Mean corpuscular hemoglobin (MCH) determinationOrdered By: Polo Lopez on 08-27-2024 MCH (RBC) [Entitic mass] 27.8 pg 27.0-32.0 [facility] Mean corpuscular hemoglobin concentration (MCHC) determinationOrdered By: Polo Lopez on 08-27-2024 MCHC (RBC) [Mass/Vol] 34.0 g/dL 32-36 [facility] Mean platelet volume determi nationOrdered By: Polo Lopez on 08-27-2024 Platelet mean volume (Bld) [Entitic vol] 9.8 fL 6.2-12.0 [facility] Platelet countOrdered By: Caroline Lopez on 08-27-2024 Platelets (Bld) [#/Vol] 208 10*3/uL 150-450 [facility] Potassium (Unsp spec) [Mass/ Vol]Ordered By: Polo Lopez on 08-27-2024 Potassium [Moles/Vol] 3.9 mmol/L 3.3-5.1 [facility] RBC Auto (Bld) [#/Vol]Ordere d By: Polo Lopez on 08-27-2024 RBC (Bld) [#/Vol] 5.65 10*6/uL 4.6-6.2 [facility] Screening total cholesterol/ high density lipoprotein (HDL) cholesterol ratioOrdered By: Polo Lopez on 08-27-2024 Cholesterol.total/Cho lesterol in HDL [Mass ratio] 6.14 {ratio} [facility] Serum creatinine measurement (mass/volume)Ordered By: Polo Lopez on 08-27-2024 Creatinine [Mass/Vol] 0.86 mg/dL 0.70-1.20 [facility] Serum globulin measurementOr dered By: Polo Lopez on 08-27-2024 Globulin (S) [Mass/Vol] 2.9 g/dL 2.2-4.2 [facility] Serum glucose measurement (m ass/volume)Ordered By: Polo Lopez on 08-27-2024 Glucose [Mass/Vol] 83 mg/dL 70-99 [facility] Serum or plasma alanine pham otransferase (ALT) measurementOrdered By: Polo Lopez on 08-27-2024 ALT [Catalytic activity/Vol] 108 U/L High <47 [facility] Serum or plasma albumin camila urement (mass/volume)Ordered By: Polo Lopez on 08-27-2024 Albumin [Mass/Vol] 4.4 g/dL 3.5-5.0 [facility] Serum or plasma albumin/glob ulin mass ratioOrdered By: Polo Lopez on 08-27-2024 Albumin/Globulin [Mass ratio] 1.5 {ratio} 0.9-2.4 [facility] Serum or plasma alkaline andie sphatase measurementOrdered By: Polo Lopez on 08-27-2024 ALP [Catalytic activity/Vol] 98 U/L 40-129 [facility] Serum or plasma calcium camila urement (mass/volume)Ordered By: Polo Lopez on 08-27-2024 Calcium [Mass/Vol] 9.2 mg/dL 7.6-11.0 [facility] Serum or plasma cholesterol in HDL measurement (mass/volume)Ordered By: Polo Lopez on 08-27-2024 Cholesterol in HDL [Mass/Vol] 35 mg/dL Low >40 [facility] Comment on above: National Cholesterol Education Program (NCEP) guidelines:<40 mg/dL: Low HDL-cholesterol (major risk factor for CHD)>= 60 mg/dL: High HDL-cholesterol (negative risk factor for CHD)HDL-cholesterol is affected by a number of factors, e.g. smoking, exercise, hormones, sex and age. Serum or plasma cholesterol measurement (mass/volume)Ordered By: Polo Lopez on 08-27-2024 Cholesterol [Mass/Vol] 212 mg/dL High <191 [facility] Comment on above: Cholesterol level, D esirable <200 mg/dLBorderline high cholesterol 200-239 mg/dLHigh cholesterol >=240 mg/dLRecommendations of the NCEP Adult Treatment Panel for the following risk-cutoff thresholds for the [place] population. Serum or plasma urea nitroge n measurement (mass/volume)Ordered By: Polo Lopez on 08-27-2024 Urea nitrogen [Mass/Vol] 13 mg/dL 4-19 [facility] Serum or plasma uric acid me asurement (mass/volume)Ordered By: Polo Lopez on 08-27-2024 Urate [Mass/Vol] 10.6 mg/dL High 3.5-7.2 [facility] Comment on above: The drugs N-Acetylcy steine and Metamizole may falsely depress this assay. Sodium levelOrdered By: Polo Lopez on 08-27-2024 Sodium [Moles/Vol] 140 mmol/L 133-145 [facility] Total proteinOrdered By: Deven Lopez on 08-27-2024 Protein [Mass/Vol] 7.3 g/dL 5.9-8.4 [facility] Triglycerides measurementOrd ered By: Polo Lopez on 08-27-2024 Triglyceride [Mass/Vol] 268 mg/dL High <199 [facility] Comment on above: The drugs N-Acetylcy steine and Metamizole may falsely depress this assay. Normal range: <150 mg/dLBorderline High: 150-199 mg/dLHigh: 200-499 mg/dLVery High: >500 mg/dL Uric Acidon 08-27-2024 URIC 10.6 mg/dL High 3.5-7.2 [facility] Comment on above: Order Comment: Order Date: 08/27/24 Order Info: 0786-1 - CMP Order Info: [id number] - LIPID Order Info: [id number] - URIC Result Comment: The drugs N-Acetylcysteine and Metamizole may falsely depress this assay. Performed By: #### L 500.4100, L500.4050, L501.1400, L100.0500 #### [facility] [address] [place], [address] White blood cell (WBC) count Ordered By: Polo Lopez on 08-27-2024 WBC (Bld) [#/Vol] 8.2 10*3/uL 4.4-11.0 [facility] TSH SerPl-aCncon 08-20-2024 TSH Qn 2.120 m[IU]/L Normal 0.270-4.200 [facility] Comment on above: Order Comment: Speceverardo cooper Type: BLOOD SPECIMEN Ordering Facility: [facility] Address: [address] [place] [address] Performed By: #### 3 016-3 #### [facility] CLIA [id number] [address] [place] [address] [place] Thyroglobulin and Thyrogobul in Ab panelon 08-20-2024 Thyroglobulin Ab Qn [IU]/mL Normal <4.0 [facility] Comment on above: Order Comment: Edgard cooper Type: BLOOD SPECIMEN Ordering Facility: [facility] Address: [address] [place] [address] Result Comment: The Thyroglobulin Antibody test was performed using the [employer] DXI paramagnetic particle chemiluminescent immunoassay method. Results obtained with different assay methods or kits cannot be used interchangeably. Performed By: #### 5 7780-9 #### [facility] CLIA [id number] [address] [place] [address] [place] THYROGLOBULIN, SERUM 0.1 ng/mL Low 1.6-50.0 [facility] Comment on above: Order Comment: Edgard cooper Type: BLOOD SPECIMEN Ordering Facility: [facility] Address: [address] [place] [address] Result Comment: The Thyroglobulin test was performed using the [employer] DXI paramagnetic particle chemiluminescent immunoassay method. Results obtained with different assay methods or kits cannot be used interchangeably. Performed By: #### 5 7780-9 #### [facility] CLIA [id number] [address] [place] [address] [place] CNOVon 07-22-2024 CNOV Office Visit (ENDOSO ) ENDYJUVE WEIR ([id number]) 1 M Date Time Provider Department 07/22/24 9:00 AM EDILBERTO TRUONG During your visit today, we recorded the following information about you: Temperature Pulse Respiration Blood pressure 97.4 degrees 75/minute 20/minute 135/82 Weight 143 kg Edilberto Truong MD 07/22/2024 10:11 AM Addendum Endocrinology Thyroid Follow Up Juve Meyer is here for follow up regarding: thyroid cancer Last office visit: 09/2023 PCP is Polo Lopez MD, MD History of Present Illness Juve Meyer is a 24 year old male with PMH of Hx of thyroid cancer with postsurgical hypothyroidism, visit for follow up Doing well On LT4 300 mcg 5.5 pills per week Taking it appropriately Here with his mother and brother Brother has thyroid cancer Genetic testing negative Mother has thyroid nodule s/p RFA Past History, Medications, Allergies PAST MEDICAL HISTORY Diagnosis Date Allergy Fatty liver Gout Obesity PMH - PAST MEDICAL HISTORY OF 2003, 2010 right broken leg - broke this leg two separate times PMH - PAST MEDICAL HISTORY OF 06/04/2001 admitted to [facility] for wheezing Thyromegaly PAST SURGICAL HISTORY Procedure Laterality Date CIRCUMCISION W/CLAMP/OTH DEV W/BLOCK THYROID BIOPSY US Right 07/15/2022 [facility] THYROIDECTOMY TOTAL/COMPLETE Bilateral 09/2022 Current Outpatient Medications Medication Sig Dispense Refill levothyroxine (SYNTHROID) 300 mcg tablet one pill Monday to Monday, 1/2 on Monday, skip Monday 90 tablet 3 fexofenadine HCl (KAPIL ORAL) Take by mouth as needed. No current facility-administered medications for this visit. ALLERGIES Allergen Reactions Seasonal Allergies Unknown Trees, hogs/pigs. Shellfish Derived Unknown Bee Pollen Unknown FAMILY HISTORY Problem Relation Age of Onset None Mother Hypertension Father Diabetes Paternal Grandmother other (hypertension) Paternal Grandmother other (Gastritis) Paternal Grandfather Cancer Other maternal side other (Gastritis) Other PGGF Social History Tobacco Use Smoking status: Never Smokeless tobacco: Never Tobacco comments: No one in the household smokes Vaping Use Vaping status: Former Substance Use Topics Alcohol use: Yes Comment: social Drug use: No Review of Systems Answers submitted by the patient for this visit: Core Review of Systems (Submitted on 07/20/2024) Fever : No Night sweats: No Recent unintentional weight change: No Nasal Congestion: No Hearing Loss: No Vision Disturbance: No A cough: No Difficulty Breathing?: No Chest pain: No Irregular heartbeat: No Leg Swelling: No Nausea: No Diarrhea: No Black tarry stools: No Difficulty Urinating?: No Awaken at Night More Than Once to Urinate?: No Joint pain or stiffness: No Muscle aches: No Leg or Foot Discomfort at Night?: No A rash: No Dizziness: No Headaches: No Memory Loss: No Seizures: No Physical examination BP 135/82 Pulse 75 Temp 36.3 ?C (97.4 ?F) (Temporal) Resp 20 Wt (!) 143 kg (315 lb 4.1 oz) SpO2 97% BMI 35.52 kg/m? GENERAL: Well nourished, well hydrated, in no distress and oriented x 3 COMMUNICATION: Hearing: normal; VOICE: normal EYES: no thyroid eye signs, Fundi normal, cornea normal and EOMI NECK: no visible nodules or goiter LUNGS: no audible wheezing or respiratory distress NEURO: normal strength and no tremor SKIN: No rash or visible wound. ENDOCRINE: No cushingoid or acromegalic features Previous Laboratory Results Thyroglobulin Ab, Serum Thyroglobulin, Serum TSH Latest Ref Rng <4.0 IU/mL 1.6 - 50.0 ng/mL 0.270 - 4.200 mIU/L 09/27/2023 <0.9 0.1 (L) 0.030 (L) 11/16/2023 0.049 (L) 12/28/2023 <0.9 0.1 (L) 0.745 01/17/2024 <0.9 0.3 (L) 52.040 (H) 07/18/2024 <0.9 0.1 (L) 3.930 Cytology 09/2023: A - Lymph Node, Aspirate/Fine Needle Aspirate - RIGHT IIb Non-diagnostic aspirate sample. Not a lymphoid sample. B - Lymph Node, Aspirate/Fine Needle Aspirate - LEFT level III Negative for metastatic carcinoma. Limited lymphoid sample Pathology 09/2022 Tumor type PTC Tumor diameter 4.9 cm Solitary Yes Multifocal No Side Right Encapsulated No Capsular invasion No Angioinvasion No Lymphovascular invasion Yes Extrathyroidal invasion No Margins involved No Necrosis: No Background lymphocytic thyroiditis No Node status 6/10 - 0.2 cm (LVL IV) Extranodal extension No Metastases No Complete excision Yes Antibody status < 0.9 TNM/AJCC: pT3a N1a Mx Stage I MACIS Scoring: SCORE = 6.57 Survival by MACIS score (20-yr): 6-6.99 = 89% PATIENCE intermediate risk Clinical N1 or >5 pathologic N1 with all involved lymph nodes <3cm in largest dimension ECOG PERFORMANCE STATUS: 0- Fully active, able to carry on all pre-disease performance w/o restriction. Date of surgery 09/12/2022 Surgeon (more content not included)... Normal [facility] [place] Thyroid glandon [facility] Radiology Study observation (narrative) [facility] TSH SerPl-aCncon 07-18-2024 TSH Qn 3.930 m[IU]/L Normal 0.270-4.200 [facility] Comment on above: Order Comment: Edgard cooper Type: BLOOD SPECIMEN Ordering Facility: [facility] Address: [address] [place] [address] Performed By: #### 3 016-3 #### [facility] CLIA [id number] [address] STATES OF [facility] Thyroglobulin and Thyrogobul in Ab panelon 07-18-2024 Thyroglobulin Ab Qn [IU]/mL Normal <4.0 [facility] Comment on above: Order Comment: Edgard cooper Type: BLOOD SPECIMEN Ordering Facility: [facility] Address: [address] [place] [address] Result Comment: The Thyroglobulin Antibody test was performed using the [employer] DXI paramagnetic particle chemiluminescent immunoassay method. Results obtained with different assay methods or kits cannot be used interchangeably. Performed By: #### 5 7780-9 #### [facility] CLIA [id number] [address] [place] [address] [place] THYROGLOBULIN, SERUM 0.1 ng/mL Low 1.6-50.0 [facility] Comment on above: Order Comment: Speci men Type: BLOOD SPECIMEN Ordering Facility: [facility] Address: [address] [place] [address] Result Comment: The Thyroglobulin test was performed using the [employer] DXI paramagnetic particle chemiluminescent immunoassay method. Results obtained with different assay methods or kits cannot be used interchangeably. Performed By: #### 5 7780-9 #### [facility] CLIA [id number] [address] [place] [address] [place] NM SPECT/CT SINGLE AREAon NM SPECT/CT SINGLE AREA * * *Final Report* * * DATE OF EXAM: Jan 26 2024 9:19AM [facility] [id number] - [place] SPECT/CT SINGLE AREA / PROCEDURE REASON: multiple diagnoses * * * * Physician Interpretation * * * * I-131 POST THERAPY NECK AND WHOLE BODY SCAN CLINICAL HISTORY: Thyroid cancer status post thyroidectomy, and radioiodine therapy. COMPARISON: 01/17/2024 pretherapy scan TECHNIQUE: Using the prior Iodine-131 ablation dose, planar imaging was performed. SPECT/CT imaging: Neck and chest. CT Radiation dose: Integrated Dose-length product (DLP) for this visit = 98 mGy*cm. CT Dose Reduction Employed FINDINGS: The whole body images demonstrate increasing intensity of uptake at the lower neck, and vocal uptake projecting at the level of the face on the left. SPECT-CT imaging evaluation is limited secondary to motion/misregistration, and these images redemonstrate the uptake at the level of the thyroidectomy bed. The uptake at the level of the face is not well localized, although does appear to be either within the anterior aspect of the oral cavity are skin contamination. No grossly evident soft tissue abnormality on the nondiagnostic localizing CT images. Physiologic tracer accumulation in the stomach, GI tract, and nasal pharynx. The hepatic is due to the radioiodine labeled hormone metabolism. No scintigraphic evidence of local and distant metastasis. Finding the localizing nondiagnostic CT images: Hair Spinner (topogram) images: Not available IMPRESSION: * Uptake in the neck is consistent with residual thyroid tissue and/or neoplasm. * No new findings compared to the pretherapy scan to suggest metastatic disease. Teachers Aide: PSCB Transcribe Date/Time: Jan 26 2024 8:46A Dictated by : KIRSTIE DONATO MD This examination was interpreted and the report reviewed and electronically signed by: KIRSTIE DONATO MD on Jan 26 2024 11:27AM EST [id number] [facility] THY CA WBon 01-26-2024 [place] THY CA WB * * *Final Report* * * DATE OF EXAM: Jan 26 2024 9:19AM FVN 0080 - NM THY CA WB / PROCEDURE REASON: multiple diagnoses * * * * Physician Interpretation * * * * I-131 POST THERAPY NECK AND WHOLE BODY SCAN CLINICAL HISTORY: Thyroid cancer status post thyroidectomy, and radioiodine therapy. COMPARISON: 01/17/2024 pretherapy scan TECHNIQUE: Using the prior Iodine-131 ablation dose, planar imaging was performed. SPECT/CT imaging: Neck and chest. CT Radiation dose: Integrated Dose-length product (DLP) for this visit = 98 mGy*cm. CT Dose Reduction Employed FINDINGS: The whole body images demonstrate increasing intensity of uptake at the lower neck, and vocal uptake projecting at the level of the face on the left. SPECT-CT imaging evaluation is limited secondary to motion/misregistration, and these images redemonstrate the uptake at the level of the thyroidectomy bed. The uptake at the level of the face is not well localized, although does appear to be either within the anterior aspect of the oral cavity are skin contamination. No grossly evident soft tissue abnormality on the nondiagnostic localizing CT images. Physiologic tracer accumulation in the stomach, GI tract, and nasal pharynx. The hepatic is due to the radioiodine labeled hormone metabolism. No scintigraphic evidence of local and distant metastasis. Finding the localizing nondiagnostic CT images: Hair Spinner (topogram) images: Not available IMPRESSION: * Uptake in the neck is consistent with residual thyroid tissue and/or neoplasm. * No new findings compared to the pretherapy scan to suggest metastatic disease. Teachers Aide: JANI Transcribe Date/Time: Jan 26 2024 8:46A Dictated by : KIRSTIE DONATO MD This examination was interpreted and the report reviewed and electronically signed by: KIRSTIE DONATO MD on Jan 26 2024 11:27AM EST [id number] [facility] NM Whole body Views for thyr oid tumor metastasis post therapyon 01-26-2024 * * *Final Report* * * DATE OF EXAM: Jan 26 2024 9:19AM FVN 0080 - NM THY CA WB / PROCEDURE REASON: multiple diagnoses * * * * Physician Interpretation * * * * I-131 POST THERAPY NECK AND WHOLE BODY SCAN CLINICAL HISTORY: Thyroid cancer status post thyroidectomy, and radioiodine therapy. COMPARISON: 01/17/2024 pretherapy scan TECHNIQUE: Using the prior Iodine-131 ablation dose, planar imaging was performed. SPECT/CT imaging: Neck and chest. CT Radiation dose: Integrated Dose-length product (DLP) for this visit = 98 mGy*cm. CT Dose Reduction Employed FINDINGS: The whole body images demonstrate increasing intensity of uptake at the lower neck, and vocal uptake projecting at the level of the face on the left. SPECT-CT imaging evaluation is limited secondary to motion/misregistration, and these images redemonstrate the uptake at the level of the thyroidectomy bed. The uptake at the level of the face is not well localized, although does appear to be either within the anterior aspect of the oral cavity are skin contamination. No grossly evident soft tissue abnormality on the nondiagnostic localizing CT images. Physiologic tracer accumulation in the stomach, GI tract, and nasal pharynx. The hepatic is due to the radioiodine labeled hormone metabolism. No scintigraphic evidence of local and distant metastasis. Finding the localizing nondiagnostic CT images: Hair Spinner (topogram) images: Not available [facility] Provider, [facility] - 01/26/2024 * * *Final Report* * * DATE OF EXAM: Jan 26 2024 9:19AM FVN 0080 - NM THY CA WB / PROCEDURE REASON: multiple diagnoses * * * * Physician Interpretation * * * * I-131 POST THERAPY NECK AND WHOLE BODY SCAN CLINICAL HISTORY: Thyroid cancer status post thyroidectomy, and radioiodine therapy. COMPARISON: 01/17/2024 pretherapy scan TECHNIQUE: Using the prior Iodine-131 ablation dose, planar imaging was performed. SPECT/CT imaging: Neck and chest. CT Radiation dose: Integrated Dose-length product (DLP) for this visit = 98 mGy*cm. CT Dose Reduction Employed FINDINGS: The whole body images demonstrate increasing intensity of uptake at the lower neck, and vocal uptake projecting at the level of the face on the left. SPECT-CT imaging evaluation is limited secondary to motion/misregistration, and these images redemonstrate the uptake at the level of the thyroidectomy bed. The uptake at the level of the face is not well localized, although does appear to be either within the anterior aspect of the oral cavity are skin contamination. No grossly evident soft tissue abnormality on the nondiagnostic localizing CT images. Physiologic tracer accumulation in the stomach, GI tract, and nasal pharynx. The hepatic is due to the radioiodine labeled hormone metabolism. No scintigraphic evidence of local and distant metastasis. Finding the localizing nondiagnostic CT images: Hair Spinner (topogram) images: Not available IMPRESSION IMPRESSION: * Uptake in the neck is consistent with residual thyroid tissue and/or neoplasm. * No new findings compared to the pretherapy scan to suggest metastatic disease. Teachers Aide: JANI Transcribe Date/Time: Jan 26 2024 8:46A Dictated by : KIRSTIE DONATO MD This examination was interpreted and the report reviewed and electronically signed by: KIRSTIE DONATO MD on Jan 26 2024 11:27AM [facility] Radiology Study observation (narrative) [facility] No Panel Informationon 01-25 IMPRESSION: * Uptake in the neck is consistent with residual thyroid tissue and/or neoplasm. * No new findings compared to the pretherapy scan to suggest metastatic disease. Teachers Aide: [facility] Transcribe Date/Time: Jan 26 2024 8:46A Dictated by : KIRSTIE DONATO MD This examination was interpreted and the report reviewed and electronically signed by: KIRSTIE DONATO MD on Jan 26 2024 11:27AM [facility] No Panel InformationOrdered By: [facility] Provider on 01-26-2024 [facility] SPECT+CT Lymph nodeon 2023 * * *Final Report* * * DATE OF EXAM: Jan 26 2024 9:19AM FVN 5648 - NM SPECT/CT SINGLE AREA / PROCEDURE REASON: multiple diagnoses * * * * Physician Interpretation * * * * I-131 POST THERAPY NECK AND WHOLE BODY SCAN CLINICAL HISTORY: Thyroid cancer status post thyroidectomy, and radioiodine therapy. COMPARISON: 01/17/2024 pretherapy scan TECHNIQUE: Using the prior Iodine-131 ablation dose, planar imaging was performed. SPECT/CT imaging: Neck and chest. CT Radiation dose: Integrated Dose-length product (DLP) for this visit = 98 mGy*cm. CT Dose Reduction Employed FINDINGS: The whole body images demonstrate increasing intensity of uptake at the lower neck, and vocal uptake projecting at the level of the face on the left. SPECT-CT imaging evaluation is limited secondary to motion/misregistration, and these images redemonstrate the uptake at the level of the thyroidectomy bed. The uptake at the level of the face is not well localized, although does appear to be either within the anterior aspect of the oral cavity are skin contamination. No grossly evident soft tissue abnormality on the nondiagnostic localizing CT images. Physiologic tracer accumulation in the stomach, GI tract, and nasal pharynx. The hepatic is due to the radioiodine labeled hormone metabolism. No scintigraphic evidence of local and distant metastasis. Finding the localizing nondiagnostic CT images: Hair Spinner (topogram) images: Not available [facility] Provider, [facility] - 01/26/2024 * * *Final Report* * * DATE OF EXAM: Jan 26 2024 9:19AM FVN 5648 - NM SPECT/CT SINGLE AREA / PROCEDURE REASON: multiple diagnoses * * * * Physician Interpretation * * * * I-131 POST THERAPY NECK AND WHOLE BODY SCAN CLINICAL HISTORY: Thyroid cancer status post thyroidectomy, and radioiodine therapy. COMPARISON: 01/17/2024 pretherapy scan TECHNIQUE: Using the prior Iodine-131 ablation dose, planar imaging was performed. SPECT/CT imaging: Neck and chest. CT Radiation dose: Integrated Dose-length product (DLP) for this visit = 98 mGy*cm. CT Dose Reduction Employed FINDINGS: The whole body images demonstrate increasing intensity of uptake at the lower neck, and vocal uptake projecting at the level of the face on the left. SPECT-CT imaging evaluation is limited secondary to motion/misregistration, and these images redemonstrate the uptake at the level of the thyroidectomy bed. The uptake at the level of the face is not well localized, although does appear to be either within the anterior aspect of the oral cavity are skin contamination. No grossly evident soft tissue abnormality on the nondiagnostic localizing CT images. Physiologic tracer accumulation in the stomach, GI tract, and nasal pharynx. The hepatic is due to the radioiodine labeled hormone metabolism. No scintigraphic evidence of local and distant metastasis. Finding the localizing nondiagnostic CT images: Hair Spinner (topogram) images: Not available IMPRESSION IMPRESSION: * Uptake in the neck is consistent with residual thyroid tissue and/or neoplasm. * No new findings compared to the pretherapy scan to suggest metastatic disease. Teachers Aide: [facility] Transcribe Date/Time: Jan 26 2024 8:46A Dictated by : KIRSTIE DONATO MD This examination was interpreted and the report reviewed and electronically signed by: KIRSTIE DONATO MD on Jan 26 2024 11:27AM EST [facility] Radiology Study observation (narrative) [facility]YER ([id number]) 1 M Date Time Provider Department 01/25/24 LORI FAROOQ [facility] [place] your visit today, we recorded the following information about you: Allergies As of Date: 01/25/2024 Noted Allergy Reaction SEASONAL ALLERGIES 01/04/2012 16 - Unknown Comments: Trees, hogs/pigs. SHELLFISH DERIVED 2022 16 - Unknown BEE POLLEN 11/20/2016 16 - Unknown Date Reviewed: 09/27/2023 Reviewed by: Edilberto Truong MD - Fully Assessed Reason for Visit: Future Appointment [256] Cmt: Lm on vm about upcoming appt Prescriptions as of 01/25/2024 - levothyroxine (SYNTHROID) 300 mcg tablet one pill Monday to Monday, 1/2 on Monday, skip Monday - fexofenadine HCl (KAPIL ORAL) Take by mouth as needed. Facility-Administered Medications as of 01/25/2024 - thyrotropin carmela 0.9 mg injection (THYROGEN) Meds Comments as of 11/13/2018: 11/13/2018: Takes no medications daily. Michelle Merino, RN (Nurse contracting officer). Problem List As Of Date 01/25/2024 Noted Resolved Out-Toeing [M21.80] 04/22/2009 Fracture, fibula, proximal [S82.839A] 03/29/2010 Milk allergy [Z91.011] 08/28/2012 Nocturnal enuresis [N39.44] 08/28/2012 NAFLD (nonalcoholic fatty liver disease) [K76.0]10/13/2014 Class 2 severe obesity due to excess calories w*10/14/2014 Elevated hemoglobin A1c measurement [R73.09] 10/14/2014 Dyslipidemia [E78.5] 10/14/2014 Obstructive sleep apnea, pediatric [G47.33] 11/26/2014 Papillary thyroid carcinoma (HCC) [C73] 08/17/2022 Encounter Status:Closed by LORI FAROOQ on 01/25/24 [facility] NM SPECT/CT SINGLE AREAon NM SPECT/CT SINGLE AREA * * *Final Report* * * DATE OF EXAM: Jan 17 2024 8:55AM N 5648 - NM SPECT/CT SINGLE AREA / PROCEDURE REASON: multiple diagnoses * * * * Physician Interpretation * * * * I-123 UPTAKE, NECK AND WHOLE BODY SCAN CLINICAL HISTORY: Thyroid cancer status post thyroidectomy TECHNIQUE: 2.2 mCi Iodine-123 sodium orally was followed by a neck uptake, neck scan and whole body scan in anterior and posterior views at about [address] of the neck chest was performed. SPECT imaging of neck chest was performed; anatomic mapping noncontrast CT imaging of the same body region was performed using 1 bed (39cm). CT Dose-Length Product (DLP): 162 mGy*cm. CT Dose Reduction Employed: Yes RESULT: The I-123 uptake at 18 hours is 0.6%. The neck scan demonstrates small focal uptake in the neck localizing to bilateral thyroid bed on SPECT-CT. There are no suspicious foci of activity to suggest distant iodine avid metastases. The whole body scan shows likely physiological activity in the oral cavity, salivary glands, stomach, loops of bowel, GI tract and urinary bladder. IMPRESSION: 1. I-123 neck uptake is 0.6% 2. Scan: focal uptake in the neck in thyroid region. Likely representing iodine avid tissue No scintigraphic evidence of distant iodine avid metastases. Teachers Aide: JANI Transcribe Date/Time: Jan 17 2024 9:11A Dictated by : ZULLY JOHNS MD This examination was interpreted and the report reviewed and electronically signed by: ZULLY JOHNS MD on Jan 17 2024 9:45AM EST [id number] [facility] NM THERAPY THYROID I-131on 0 01-17-2024 NM THERAPY THYROID I-131 * * *Final Report* * * DATE OF EXAM: Jan 17 2024 3:07PM FVN 0078 - NM THERAPY THYROID I-131 / PROCEDURE REASON: multiple diagnoses * * * * Physician Interpretation * * * * I-131 THERAPY: HISTORY: 4.9 cm right papillary thyroid cancer status post total thyroidectomy and bilateral central neck dissection on 09/12/2022. COMPARISON: Neck CT dated 08/31/2022, outside thyroid ultrasound dated 07/01/2022 TECHNIQUE: After the risks, benefits, precautions and alternatives of I-131 therapy were discussed with the patient, the patient understood and agreed to proceed with I-131 therapy. The patient received a written set of instructions for I-131 therapy. Following this discussion, and following consultation with Dr. Edilberto Enamorado, the patient received 91.8 mCi I-131 sodium iodide PO for treatment. The patient will follow up with Dr. Edilberto Enamorado. IMPRESSION: I-131 THERAPY, ABOVE. ? Teachers Aide: JANI Transcribe Date/Time: Jan 17 2024 10:36A Dictated by : NAHED MANLEY MD This examination was interpreted and the report reviewed and electronically signed by: NAHED MANLEY MD on Jan 17 2024 3:12PM EST [id number] [facility] NM THY CA UPTAKEon 4 NM THY CA UPTAKE * * *Final Report* * * DATE OF EXAM: Jan 17 2024 8:55AM FVN 0079 - NM THY CA UPTAKE / PROCEDURE REASON: multiple diagnoses * * * * Physician Interpretation * * * * I-123 UPTAKE, NECK AND WHOLE BODY SCAN CLINICAL HISTORY: Thyroid cancer status post thyroidectomy TECHNIQUE: 2.2 mCi Iodine-123 sodium orally was followed by a neck uptake, neck scan and whole body scan in anterior and posterior views at about [address] of the neck chest was performed. SPECT imaging of neck chest was performed; anatomic mapping noncontrast CT imaging of the same body region was performed using 1 bed (39cm). CT Dose-Length Product (DLP): 162 mGy*cm. CT Dose Reduction Employed: Yes RESULT: The I-123 uptake at 18 hours is 0.6%. The neck scan demonstrates small focal uptake in the neck localizing to bilateral thyroid bed on SPECT-CT. There are no suspicious foci of activity to suggest distant iodine avid metastases. The whole body scan shows likely physiological activity in the oral cavity, salivary glands, stomach, loops of bowel, GI tract and urinary bladder. IMPRESSION: 1. I-123 neck uptake is 0.6% 2. Scan: focal uptake in the neck in thyroid region. Likely representing iodine avid tissue No scintigraphic evidence of distant iodine avid metastases. Teachers Aide: PSCB Transcribe Date/Time: Jan 17 2024 9:11A Dictated by : ZULLY JOHNS MD This examination was interpreted and the report reviewed and electronically signed by: ZULLY JOHNS MD on Jan 17 2024 9:45AM EST [id number] [facility] NM THY CA WBon 01-17-2024 NM THY CA WB * * *Final Report* * * DATE OF EXAM: Jan 17 2024 8:55AM FVN 0080 - NM THY CA WB / PROCEDURE REASON: multiple diagnoses * * * * Physician Interpretation * * * * I-123 UPTAKE, NECK AND WHOLE BODY SCAN CLINICAL HISTORY: Thyroid cancer status post thyroidectomy TECHNIQUE: 2.2 mCi Iodine-123 sodium orally was followed by a neck uptake, neck scan and whole body scan in anterior and posterior views at about [address] of the neck chest was performed. SPECT imaging of neck chest was performed; anatomic mapping noncontrast CT imaging of the same body region was performed using 1 bed (39cm). CT Dose-Length Product (DLP): 162 mGy*cm. CT Dose Reduction Employed: Yes RESULT: The I-123 uptake at 18 hours is 0.6%. The neck scan demonstrates small focal uptake in the neck localizing to bilateral thyroid bed on SPECT-CT. There are no suspicious foci of activity to suggest distant iodine avid metastases. The whole body scan shows likely physiological activity in the oral cavity, salivary glands, stomach, loops of bowel, GI tract and urinary bladder. IMPRESSION: 1. I-123 neck uptake is 0.6% 2. Scan: focal uptake in the neck in thyroid region. Likely representing iodine avid tissue No scintigraphic evidence of distant iodine avid metastases. Teachers Aide: JANI Transcribe Date/Time: Jan 17 2024 9:11A Dictated by : ZULLY JOHNS MD This examination was interpreted and the report reviewed and electronically signed by: ZULLY JOHNS MD on Jan 17 2024 9:45AM EST [id number] Normal [facility] Thyroid gland Views for t herapy W I-131 Luisa 01-17-2024 IMPRESSION: I-131 THERAPY, ABOVE. ? Teachers Aide: JANI Transcribe Date/Time: Jan 17 2024 10:36A Dictated by : NAHED MANLEY MD This examination was interpreted and the report reviewed and electronically signed by: NAHED MANLEY MD on Jan 17 2024 3:12PM EST [facility] * * *Final Report* * * DATE OF EXAM: Jan 17 2024 3:07PM N 0078 - NM THERAPY THYROID I-131 / PROCEDURE REASON: multiple diagnoses * * * * Physician Interpretation * * * * I-131 THERAPY: HISTORY: 4.9 cm right papillary thyroid cancer status post total thyroidectomy and bilateral central neck dissection on 09/12/2022. COMPARISON: Neck CT dated 08/31/2022, outside thyroid ultrasound dated 07/01/2022 TECHNIQUE: After the risks, benefits, precautions and alternatives of I-131 therapy were discussed with the patient, the patient understood and agreed to proceed with I-131 therapy. The patient received a written set of instructions for I-131 therapy. Following this discussion, and following consultation with Dr. Edilberto Enamorado, the patient received 91.8 mCi I-131 sodium iodide PO for treatment. The patient will follow up with Dr. Edilberto Enamorado. [facility] Provider, [facility] - 01/17/2024 * * *Final Report* * * DATE OF EXAM: Jan 17 2024 3:07PM FVN 0078 - NM THERAPY THYROID I-131 / PROCEDURE REASON: multiple diagnoses * * * * Physician Interpretation * * * * I-131 THERAPY: HISTORY: 4.9 cm right papillary thyroid cancer status post total thyroidectomy and bilateral central neck dissection on 09/12/2022. COMPARISON: Neck CT dated 08/31/2022, outside thyroid ultrasound dated 07/01/2022 TECHNIQUE: After the risks, benefits, precautions and alternatives of I-131 therapy were discussed with the patient, the patient understood and agreed to proceed with I-131 therapy. The patient received a written set of instructions for I-131 therapy. Following this discussion, and following consultation with Dr. Edilberto Enamorado, the patient received 91.8 mCi I-131 sodium iodide PO for treatment. The patient will follow up with Dr. Edilberto Enamorado. IMPRESSION IMPRESSION: I-131 THERAPY, ABOVE. ? Teachers Aide: JANI Transcribe Date/Time: Jan 17 2024 10:36A Dictated by : NAHED MANLEY MD This examination was interpreted and the report reviewed and electronically signed by: NAHED MANLEY MD on Jan 17 2024 3:12PM EST [facility] Radiology Study observation (narrative) [facility] [place] Thyroid gland Views for t herapy W I-131 POOrdered By: [facility] Provider on 01-17-2024 [facility] TSH SerPl-aCncon 01-17-2024 TSH Qn 52.040 m[IU]/L High 0.270-4.200 [facility] Comment on above: Order Comment: Speci men Type: BLOOD SPECIMEN Ordering Facility: [facility] Address: [address] [place] [address] Performed By: #### 3 [id number] #### [facility] CLIA [id number] [place] [address] [place] Thyroglobulin and Thyrogobul in Ab panelon 01-17-2024 Thyroglobulin Ab Qn [IU]/mL Normal <4.0 [facility] Comment on above: Order Comment: Edgard cooper Type: BLOOD SPECIMENOrdering Facility: [facility] Address: [address] [place] [address] Result Comment: The Thyroglobulin Antibody test was performed using the [employer]ford [employer] DXI paramagnetic particle chemiluminescent immunoassay method. Results obtained with different assay methods or kits cannot be used interchangeably. Performed By: #### 5 [id number] ####[facility] LABCLIA [id number] [place] [address] [place] THYROGLOBULIN, SERUM 0.3 ng/mL Low 1.6-50.0 [facility] Comment on above: Order Comment: Edgard cooper Type: BLOOD SPECIMENOrdering Facility: [facility] Address: [address] [place] [address] Result Comment: The Thyroglobulin test was performed using the Linda Salma Un[employer]el DXI paramagnetic particle chemiluminescent immunoassay method. Results obtained with different assay methods or kits cannot be used interchangeably. Performed By: #### 5 [id number] ####[facility] LABCLIA [id number] [place] [address] [place] THYROID STIMULATING HORMONEo n 09-27-2023 TSH Qn 0.030 m[IU]/L Low [facility] TSH Qnon 09-27-2023 Interpretation and review of laboratory results Abnormal [facility] [place] Thyroid glandon [facility] Radiology Study observation (narrative) [facility] Whole blood hemoglobin A1c/t otal hemoglobin ratio (mass fraction)Ordered By: Polo Lopez on 08-14-2023 HbA1c (Bld) [Mass fraction] 5.2 % 3.8-5.6 [facility] Comment on above: Normal < 5.7 % Predi abetic 5.7 - 6.4 % Diabetic >or= 6.5 % Please note range changes. Absolute lymphocyte countOrd ered By: Polo Lopez on 07-28-2023 Lymphocytes Auto (Unsp spec) [#/Vol] 3.69 10*3/uL 0.83-4.51 [facility] Automated lymphocyte count a s percentage of total leukocytesOrdered By: Polo Lopez on 07-28-2023 Lymphocytes/100 WBC Auto (Unsp spec) 37.5 % 19-41 [facility] [facility] Basophil percentageOrdered B y: Polo Lopez on 07-28-2023 Basophils/100 WBC (Bld) 0.5 % 0-1 [facility] Bilirubin [Mass/Vol] 0.40 mg/dL 0.20-1.00 [facility] Comment on above: Slight Lipemia, Resu lt may be falsely increased. For patients on eltrombopag therapy, use of Dimension [place] TBIL is not recommended. Chloride [Moles/Vol] 105 mmol/L 98-107 [facility] Eosinophils/100 WBC (Bld) 4.4 % 0-5 [facility] Glucose [Mass/Vol] 112 mg/dL 74-106 [facility] Comment on above: Slight Lipemia, Resu lt may be falsely increased.Fasting Glucose result from 100 to 125 mg/dL suggests IMPAIRED HOMEOSTASIS per A.D.A. criteria. Hemoglobin (Bld) [Mass/Vol] 16.1 g/dL 13.0-16.5 [facility] Monocytes/100 WBC (Bld) 6.1 % 0-10 [facility] Neutrophils (Bld) [#/Vol] 5.1 10*3/uL 2.0-7.7 [facility] Neutrophils/100 WBC (Bld) 51.2 % 47-70 [facility] Potassium [Moles/Vol] 3.7 mmol/L 3.5-5.1 [facility] Comment on above: Slight Hemolysis, Re sult may be falsely increased.-Slight Lipemia, Result may be falsely increased. Protein [Mass/Vol] 7.8 g/dL 6.4-8.2 [facility] Comment on above: Slight Lipemia, Resu lt may be falsely increased. Sodium [Moles/Vol] 138 mmol/L 136-145 [facility] WBC (Bld) [#/Vol] 9.9 10*3/uL 4.4-11.0 [facility] Determination of erythrocyte mean corpuscular volume (MCV)Ordered By: Polo Lopez on 07-28-2023 MCV (RBC) [Entitic vol] 80.1 fL 80-94 [facility] Erythrocyte distribution wid th ratioOrdered By: Polo Lopez on 07-28-2023 Erythrocyte distribution width (RBC) [Ratio] 13.5 % 11.6-14.6 [facility] Erythrocyte distribution wid th standard deviationOrdered By: Polo Lopez on 07-28-2023 Erythrocyte distribution width (RBC) [Entitic vol] 39.0 fL 35.1-43.9 [facility] Hematocrit Auto (Bld) [Volum e fraction]Ordered By: Polo Lopez on 07-28-2023 Hematocrit (Bld) [Volume fraction] 46.4 % 40-54 [facility] Immature granulocytes/100 WB C Auto (Bld)Ordered By: Polo Lopez on 07-28-2023 Immature granulocytes/100 WBC (Bld) 0.300 % 0.0-0.9 [facility] Comment on above: IG% - Immature Granu locytes (promyelocytes, myelocytes and metamyelocytes) > 1% indicates that a LEFT SHIFT is Present. Laboratory - Chemistry and C hemistry - challengeOrdered By: Polo Lopez on 07-28-2023 Albumin/Globulin [Mass ratio] 1.1 {ratio} 0.9-2.4 [facility] ALP [Catalytic activity/Vol] 109 U/L 45-117 [facility] ALT [Catalytic activity/Vol] 148 U/L 16-61 [facility] Comment on above: Slight Lipemia, Resu lt may be falsely increased. CO2 [Moles/Vol] 26.0 mmol/L 21.0-32.0 [facility] Comment on above: Slight Lipemia, Resu lt may be falsely increased. Globulin (S) [Mass/Vol] 3.7 g/dL 2.2-4.2 [facility] Urea nitrogen/Creatinine [Mass ratio] 13.4 mg/mg 10-20 [facility] Laboratory - Hematology and Cell countsOrdered By: Polo Lopez on 07-28-2023 MCH (RBC) [Entitic mass] 27.8 pg 27.0-32.0 [facility] MCHC (RBC) [Mass/Vol] 34.7 g/dL 32-36 [facility] Nucleated RBC/100 WBC (Bld) [Ratio] 0 % 0-5 [facility] Platelet mean volume (Bld) [Entitic vol] 10.2 fL 6.2-12.0 [facility] Platelets (Bld) [#/Vol] 249 10*3/uL 150-450 [facility] No Panel InformationOrdered By: Polo Lopez on 07-28-2023 Estimated GFR (MDRD) Amer 150 mL/min >60 [facility] Comment on above: GFR Calc Estimated GFR (MDRD) Non-Af Amer 124 mL/min >60 [facility] Comment on above: Non- GFR Calc Thyroglobulin Antibody < 1.0 IU/mL 0.0-0.9 [facility] Comment on above: Thyroglobulin Antibo dy measured by Linda CoulterMethodologyIt should be noted that the presence of thyroglobulinantibodies may not be pathogenic nor diagnostic, especiallyat very low levels. The assay dragline operator helper has found thatfour percent of individuals without evidence of thyroiddisease or autoimmunity will have positive TgAb levels upto 4 IU/mL. Thyroglobulin Level 0.1 ng/mL 1.4-29.2 [facility] Comment on above: According to the [facility] [place] [employer],the reference interval for Thyroglobulin (TG) should berelated to euthyroid patients and not for patients whounderwent thyroidectomy. TG reference intervals for thesepatients depend on the residual mass of the thyroid tissueleft after surgery. Establishing a post-operative baselineis recommended. The assay limit of quantitation is 0.1ng/mLThyroglobulin measured by Linda [place] ImmunometricAssayPerformed at: [facility] [id number] Director: Satish Barillas PhD, Phone: [phone] RBC Auto (Bld) [#/Vol]Ordere d By: Polo Lopez on 07-28-2023 RBC (Bld) [#/Vol] 5.79 10*6/uL 4.6-6.2 [facility] Serum or plasma calcium camila urement (mass/volume)Ordered By: Polo Lopez on 07-28-2023 Calcium [Mass/Vol] 8.6 mg/dL 8.5-10.1 [facility] Comment on above: Slight Lipemia, Resu lt may be falsely increased. Serum or plasma creatinine m easurement (mass/volume)Ordered By: Polo Lopez on 07-28-2023 Creatinine [Mass/Vol] 0.82 mg/dL 0.70-1.30 [facility] Comment on above: Slight Lipemia, Resu lt may be falsely increased.The validity of the calculated GFR & GFRAA in patients over 70 years has not been determined. Clinical correlation is essential. Serum or plasma thyroid stim ulating hormone (TSH) measurement (units/volume)Ordered By: Polo Lopez on 07-28-2023 TSH Qn 0.16 uIU/mL 0.358-3.74 [facility] Serum or plasma urea nitroge n measurement (mass/volume)Ordered By: Polo Lopez on 07-28-2023 Urea nitrogen [Mass/Vol] 11 mg/dL 7-18 [facility] Comment on above: Slight Lipemia, Resu lt may be falsely increased. Thin prep Papanicolaou smear with manual screeningOrdered By: Polo Lopez on 07-28-2023 Thin prep Papanicolaou smear with manual screening 4.1 g/dL 3.2-5.0 [facility] Thin prep Papanicolaou smear with manual screening 54 U/L 15-37 [facility] Comment on above: Slight Hemolysis, Re sult may be falsely increased.-Slight Lipemia, Result may be falsely increased. Thin prep Papanicolaou smear with manual screening 7 5-15 [facility] Thin prep Papanicolaou smear with manual screening 1.40 ng/dL 0.76-1.46 [facility] Comment on above: Slight Lipemia, Resu lt may be falsely increased. US CERVICAL LYMPH NODE MAPPI NGon 03-25-2023 US CERVICAL LYMPH NODE MAPPING * * *Final Report* * * DATE OF EXAM: Mar 25 2023 10:00AM [facility] 1049 - US CERVICAL LYMPH NODE [...] on Doppler. * No suspicious lymph node. IMPRESSION: 1. Left cervical level 2A lymph node with cystic degeneration is suspicious for metastatic disease. 2. No suspicious cervical lymph nodes on the right. 3. Somewhat ill-defined masslike region of echogenic tissue at the site of thyroidectomy with associated cystic focus, probably related to postsurgical change and scar tissue. Teachers Aide: [facility] Transcribe Date/Time: Mar 25 2023 10:50A Dictated by : TERRY BAUMANN MD This examination was interpreted and the report reviewed and electronically signed by: TERRY BAUMANN MD on Mar 25 2023 11:02AM EST [id number] Normal [facility] Absolute lymphocyte countOrd ered By: Dr. Lopez on 09-23-2022 Lymphocytes Auto (Unsp spec) [#/Vol] 3.86 10*3/uL 0.83-4.51 [facility] Basophil percentageOrdered B y: Dr. Lopez on 09-23-2022 Basophils/100 WBC (Bld) 0.8 % 0-1 [facility] Bilirubin [Mass/Vol] 0.20 mg/dL 0.20-1.00 [facility] Comment on above: For patients on eltr ombopag therapy, use of Dimension [place] TBIL is not recommended. Chloride [Moles/Vol] 107 mmol/L 98-107 [facility] Cholesterol [Mass/Vol] 211 mg/dL <200 [facility] Comment on above: <200 mg/dL Desirable 200-240 mg/dL Borderline >240 mg/dL High Risk Eosinophils/100 WBC (Bld) 4.0 % 0-5 [facility] Glucose [Mass/Vol] 96 mg/dL 74-106 [facility] Neutrophils (Bld) [#/Vol] 6.2 10*3/uL 2.0-7.7 [facility] Neutrophils/100 WBC (Bld) 54.2 % 47-70 [facility] Potassium [Moles/Vol] 4.1 mmol/L 3.5-5.1 [facility] Protein [Mass/Vol] 7.9 g/dL 6.4-8.2 [facility] Sodium [Moles/Vol] 136 mmol/L 136-145 [facility] Triglyceride [Mass/Vol] 432 mg/dL <199 [facility] Comment on above: The drugs N-Acetylcy steine and Metamizole may falsely depress this assay. TRIGLYCERIDE IS GREATER THAN 400 mg/dL. LDL RESULT IS INVALID AND WILL NOT BE REPORTED.Serum Triglycerides Reference Interval Normal <150 mg/dL Borderline high 150 - 199 mg/dL High 200 - 499 mg/dL Very High > or = 500 mg/dL WBC (Bld) [#/Vol] 11.4 10*3/uL 4.4-11.0 [facility] Blood erythrocytes count (nu mber/volume)Ordered By: Dr. Lopez on 09-23-2022 RBC (Bld) [#/Vol] 6.05 10*6/uL 4.6-6.2 [facility] Blood hemoglobin measurement (mass/volume)Ordered By: Dr. Lopez on 09-23-2022 Hemoglobin (Bld) [Mass/Vol] 16.5 g/dL 13.0-16.5 [facility] Blood lymphocytes/100 leukoc ytesOrdered By: Dr. Lopez on 09-23-2022 Lymphocytes/100 WBC (Bld) 33.8 % 19-41 [facility] Blood monocytes/100 leukocyt esOrdered By: Dr. Lopez on 09-23-2022 Monocytes/100 WBC (Bld) 5.6 % 0-10 [facility] Blood platelet mean volumeOr dered By: Dr. Lopez on 09-23-2022 Platelet mean volume (Bld) [Entitic vol] 9.6 fL 6.2-12.0 [facility] Determination of erythrocyte mean corpuscular volume (MCV)Ordered By: Dr. Lopez on 09-23-2022 MCV (RBC) [Entitic vol] 82.6 fL 80-94 [facility] Hematocrit Auto (Bld) [Volum e fraction]Ordered By: Dr. Lopez on 09-23-2022 Hematocrit (Bld) [Volume fraction] 50.0 % 40-54 [facility] Laboratory - Chemistry and C hemistry - challengeOrdered By: Dr. Lopez on 09-23-2022 ALP [Catalytic activity/Vol] 103 U/L 45-117 [facility] ALT [Catalytic activity/Vol] 77 U/L 16-61 [facility] CO2 [Moles/Vol] 24.0 mmol/L 21.0-32.0 [facility] Globulin (S) [Mass/Vol] 4.1 g/dL 2.2-4.2 [facility] Urea nitrogen/Creatinine [Mass ratio] 16.6 mg/mg 10-20 [facility] Laboratory - Hematology and Cell countsOrdered By: Dr. Lopez on 09-23-2022 Erythrocyte distribution width (RBC) [Entitic vol] 38.5 fL 35.1-43.9 [facility] Erythrocyte distribution width (RBC) [Ratio] 12.9 % 11.6-14.6 [facility] Immature granulocytes/100 WBC (Bld) 1.600 % 0.0-0.9 [facility] Comment on above: IG% - Immature Granu locytes (promyelocytes, myelocytes and metamyelocytes) > 1% indicates that a LEFT SHIFT is Present. MCH (RBC) [Entitic mass] 27.3 pg 27.0-32.0 [facility] Nucleated RBC/100 WBC (Bld) [Ratio] 0 % 0-5 [facility] MCHC Auto (RBC) [Mass/Vol]Or dered By: Dr. Lopez on 09-23-2022 MCHC (RBC) [Mass/Vol] 33.0 g/dL 32-36 [facility] No Panel InformationOrdered By: Dr. Lopez on 09-23-2022 Estimated GFR (MDRD) Amer 159 mL/min >60 [facility] Comment on above: GFR Calc Estimated GFR (MDRD) Non-Af Amer 132 mL/min >60 [facility] Comment on above: Non- GFR Calc Platelets bldOrdered By: Dr. Lopez on 09-23-2022 Platelets (Bld) [#/Vol] 279 10*3/uL 150-450 [facility] Serum or plasma albumin camila urement (mass/volume)Ordered By: Dr. Lopez on 09-23-2022 Albumin [Mass/Vol] 3.8 g/dL 3.2-5.0 [facility] Serum or plasma albumin/glob ulin mass ratioOrdered By: Dr. Lopez on 09-23-2022 Albumin/Globulin [Mass ratio] 0.9 {ratio} 0.9-2.4 [facility] Serum or plasma calcium camila urement (mass/volume)Ordered By: Dr. Lopez on 09-23-2022 Calcium [Mass/Vol] 9.1 mg/dL 8.5-10.1 [facility] Serum or plasma cholesterol in HDL measurement (mass/volume)Ordered By: Dr. Lopez on 09-23-2022 Cholesterol in HDL [Mass/Vol] 31 mg/dL >40 [facility] Comment on above: The drugs N-Acetylcy steine and Metamizole may falsely depress this assay. Reference Range HDL <40 mg/dL Low HDL Cholesterol HDL >or= 60 mg/dL High HDL Cholesterol Serum or plasma cholesterol in VLDL measurement (mass/volume)Ordered By: Dr. Lopez on 09-23-2022 Cholesterol in VLDL [Mass/Vol] TNP [facility] Comment on above: Test not performed Serum or plasma creatinine m easurement (mass/volume)Ordered By: Dr. Lopez on 09-23-2022 Creatinine [Mass/Vol] 0.78 mg/dL 0.70-1.30 [facility] Comment on above: The validity of the calculated GFR & GFRAA in patients over 70 years has not been determined. Clinical correlation is essential. Serum or plasma low density lipoprotein (LDL) cholesterol measurement (mass/volume)Ordered By: Dr. Lopez on 09-23-2022 Cholesterol in LDL [Mass/Vol] TNP [facility] Comment on above: Test not performed Serum or plasma urea nitroge n measurement (mass/volume)Ordered By: Dr. Lopez on 09-23-2022 Urea nitrogen [Mass/Vol] 13 mg/dL 7-18 [facility] Serum or plasma uric acid me asurement (mass/volume)Ordered By: Dr. Lopez on 09-23-2022 Urate [Mass/Vol] 8.4 mg/dL 3.5-7.2 [facility] Comment on above: The drugs N-Acetylcy steine and Metamizole may falsely depress this assay. Thin prep Papanicolaou smear with manual screeningOrdered By: Dr. Lopez on 09-23-2022 Thin prep Papanicolaou smear with manual screening 25 U/L 15-37 [facility] Thin prep Papanicolaou smear with manual screening 5 5-15 [facility] Calcium SerPl-mCncon 09-13- 023 Calcium [Mass/Vol] 8.2 mg/dL Low 8.5-10.2 [facility] Comment on above: Order Comment: Edgard cooper Type: BLOOD SPECIMEN Ordering Facility: [facility] Address: [address] [address] Performed By: #### 1 7861-6 #### [facility] CLIA [id number] [address] [place] [address] [place]-Intact SerPl-mCncon 09-03 Parathyrin.intact [Mass/Vol] 24 pg/mL Normal 15-65 [facility] Comment on above: Order Comment: Edgard cooper Type: BLOOD SPECIMEN Ordering Facility: [facility] Address: [address] [address] Performed By: #### 2 731-8 #### [facility] [id number] [address] [place] [address] ANES POSTPROC EVALon 023 ANES POSTPROC EVAL HNO ID: [id number] Author: Carlos Leavitt MD Service: Anesthesiology Author Type: Anesthesiologist Type: Anesthesia Postprocedure Evaluation Filed: 09/12/2022 3:35 PM Note Text: POST ANESTHESIA EVALUATION NOTE : 2000 Procedure Summary Date: 09/12/22 Room / Location: [place] [address] / OR Anesthesia Start: 838 Anesthesia Stop: 8 Procedure: THYROIDECTOMY TOTAL (Bilateral: Thyroid) Diagnosis: Papillary thyroid carcinoma (HCC) (Papillary thyroid carcinoma (HCC) [C73]) Surgeons: Yoel Davenport MD Responsible Provider: Carlos Leavitt MD Anesthesia Type: general ASA Status: 3 Anesthesia Type: general Airway Type: ETT Last Vitals Vitals Value Taken Time BP 150/91 09/12/22 1506 Temp 37 ?C (98.6 ?F) 09/12/22 1506 Pulse 112 09/12/22 1506 Resp 18 09/12/22 1506 SpO2 94 % 09/12/22 1506 Post Anesthesia Patient Status Patient Evaluation: PACU. PACU/ICU Patient Condition: stable. Anticipated Disposition: inpatient floor planned admission. Neurological Status: aware and responsive. Pulmonary Status: breathing comfortably on room air Airway Control: returned to baseline unsupported. Cardiovascular Status: stable. Pain Management: clinically adequate - multimodal analgesia pain management approach Postoperative Hydration: acceptable. Intraoperative Events: no significant anesthesia events Recommendation: continue current plan of care. Anesthesia Observations No Documentation SIGNATURE: Carlos Leavitt MD PATIENT NAME: Juve Meyer DATE: September 12, 2022 TIME: 3:35 PM CSN: [id number] [facility] ANES PRE-OPon 09-12-2022 ANES PRE-OP HNO ID: [id number] Author: Sonido Hatch MD Service: Anesthesiology Author Type: Physician Type: Anesthesia Preprocedure Evaluation Filed: 09/12/2022 7:07 AM Note Text: ANESTHESIOLOGY DAY OF SURGERY NOTE : 2000 Procedure Information Date/Time: 09/12/22829 Procedure: THYROIDECTOMY TOTAL (Bilateral: Thyroid) Location: MM OR05 / MM OR Surgeons: Yoel Davenport MD Estimated body mass index is 35.71 kg/m? as calculated from the following: Height as of 08/26/22: 200.7 cm (6' 7). Weight as of 08/26/22: 143.8 kg (317 lb). Most recent hematocrit and potassium results: Hematocrit 47.0 08/26/2022 Potassium 4.6 08/26/2022 Relevant Problems ANESTHESIA (+) Obstructive sleep apnea, pediatric -RENAL (+) NAFLD (nonalcoholic fatty liver disease) PULMONARY (+) Obstructive sleep apnea, pediatric I - PHYSICAL EVALUATION AIRWAY Patient intubated: No. Tracheostomy tube not present Mallampati: III. TM distance: >3 FB. Neck ROM: full ROM without neurological symptoms. Mouth opening: adequate. Short neck: no. Thick neck: no DENTAL Dental findings: teeth intact. Additional exam findings: no II - ANESTHESIA PLAN ASA Score: 3 Anesthetic Plan: general Airway type: ETT NPO Status: adequate Anesthetic plan additional comments: fabrice breath sounds normal heart sounds . Beta Dennis Monitoring Plan Monitoring plan: Standard ASA. Post Procedure Analgesic Plan Postoperative analgesic plan: parenteral or oral opioids and multimodal analgesia. Patient / Surrogate agrees to blood products: yes DNR status not reviewed with patient and/or family prior to surgery. Significant changes in the patient condition since the History and Physical, not otherwise documented in primary service progress note: no. Potential Anesthesia issues that may suggest increased risk of complications or contraindication to planned procedure: none. No vitals data found for the desired time range. Facility-Administered Medications as of 09/12/2022 Medication Dose Route Frequency - NaCl 0.9% iv infusion 75 mL/hr INTRAVENOUS CONTINUOUS Outpatient Medications as of 09/12/2022 Medication Sig - fexofenadine HCl (KAPIL ORAL) Take by mouth as needed. I have interviewed and examined the patient. I have reviewed the medical record and/or the pre-anesthesia evaluation, pertinent labs, and test results. This contains updated information obtained within 48 hours of Surgery/Procedure. SIGNATURE: Sonido Hatch MD PATIENT NAME: Juve Meyer DATE: September 12, 2022 TIME: 7:06 AM CSN: [id number] [facility] BRIEF OP NOTon 09-12-2022 BRIEF OP NOT HNO ID: [id number] Author: Robin Atkins MD, PhD Service: Endocrine Surgery Author Type: Resident Type: Brief Op Note Filed: 09/12/2022 1:57 PM Note Text: GENERAL SURGERY BRIEF OP NOTE LOG ID: [id number] Surgery/Procedure Date: 09/12/2022 Incision/Procedure Start Time: 9:18 AM Incision Close/Procedure End Time: 1:28 PM Surgeon(s) and Insole Reinforcer(s): Surgeon(s) and Role: * Yoel Davenport MD - Primary * Robin Atkins MD, PhD - Resident - Assisting Physician Insole Reinforcer: Lizzeth Pritchett PA-C Photographic Specialist: Britatnie Orantse Procedure(s): Procedure(s): THYROIDECTOMY TOTAL Anesthesia: General Findings: Enlarged delphian lymph node. Large right thyroid nodule with known cancer. Left lymph node positive for cancer. Bilateral central neck dissections. Please see operative report for full details Drains: None IV Fluids: Per anesthesia report Estimated Blood Loss: 10 mls Estimated Urine Output: Per anesthesia report Specimens: ID Type Source Tests Collected by Time Destination A : delphian lymph node Tissue LYMPH NODE SURGICAL PATHOLOGY Yoel Davenport MD 09/12/2022 9:52 AM B : Tissue THYROID LOBE RIGHT SURGICAL PATHOLOGY Yoel Davenport MD 09/12/2022 11:04 AM C : left central neck lymph node, rule out cancer Tissue LYMPH NODE SURGICAL PATHOLOGY Yoel Davenport MD 09/12/2022 11:46 AM D : Tissue THYROID LOBE LEFT SURGICAL PATHOLOGY Yoel Davenport MD 09/12/2022 12:05 PM E : right central neck dissection Tissue SOFT TISSUE SURGICAL PATHOLOGY Yoel Davenport MD 09/12/2022 12:19 PM F : left central neck dissection Tissue SOFT TISSUE SURGICAL PATHOLOGY Yoel Davenport MD 09/12/2022 12:41 PM Wound Classification: Class 1, operative wound clean, non-traumatic, with no inflammation encountered, no break in technique, gastrointestinal and genitor-urinary tracts not entered Complications: None Pre-Op/Pre-Procedure Diagnosis: Pre-Op Diagnosis Codes: * Papillary thyroid carcinoma (HCC) [C73] Post-Op/Post-Procedure Diagnosis: Same SIGNATURE: Robin Atkins MD, PhD PATIENT NAME: Juve Meyer DATE: September 12, 2022 TIME: 1:55 PM PAGER/CONTACT #: [phone] From 6pm to 6 am and on weekends, please page general surgery on-call [phone] [facility] OPERATIVE NOon 09-12-2022 OPERATIVE NO HNO ID: [id number] Author: Yoel Davenport MD Service: Endocrine Surgery Author Type: Physician Type: Operative Report Filed: 09/12/2022 1:40 PM Note Text: PATIENT:Juve Meyer , 2000 DATE OF SURGERY/PROCEDURE: 09/12/2022 INCISION/PROCEDURE START TIME: Skin incision at 09:18 AM INCISION CLOSE/PROCEDURE END TIME: Skin closure completed at 1:30 PM PREOPERATIVE DIAGNOSIS:Papillary Thyroid Cancer POSTOPERATIVE DIAGNOSIS:Same SURGEON: Yoel Davenport MD ASSISTANTS: Robin Atkins MD, Brittanie Orantes SA SURGERY/PROCEDURE: Total thyroidectomy, bilateral central neck dissection, intraoperative nerve monitoring, intraoperative neck ultrasound. ANESTHESIA: Endotracheal. HISTORY: This is an 22-year-old man with a 4.8 cm right thyroid nodule. He was consented for total thyroidectomy. OPERATIVE FINDINGS: Intraoperative neck ultrasound demonstrated a 4.8 cm nodule involving the right thyroid lobe. There was no suspicious central or lateral neck lymphadenopathy. These images have been saved to the patient's chart. With exploration, these findings were confirmed. The patient had a hard nodule involving the right thyroid lobe without any local invasion. During the procedure, a Delphian and left central neck lymph node were excised and sent to frozen section, revealing papillary thyroid cancer metastases. Therefore , bilateral neck dissections were performed. During the procedure, right upper, left lower and left upper parathyroid glands were seen. The recurrent laryngeal nerve was identified on both sides and preserved. There was a good signal obtained from both recurrent laryngeal nerves during the whole procedure. There was mild perithyroidal inflammation on the right side. Due to the large size of the cancer, lymph node involvement and challenging body habitus, this was a more challenging procedure than usual, requiring at least 25% more time than usual with the exposure, dissection and hemostasis parts of the procedure. DESCRIPTION OF PROCEDURE: The patient was placed supine on the operative table. General endotracheal anesthetic was administered. Neck was positioned in beanbag. Intraoperative neck ultrasound was performed. These images have been archived in the patient's chart. Neck was prepped and draped. A 9 cm incision was made about a fingerbreadth above the sternal notch with a #15 blade. Platysma was divided. Flaps were raised superiorly, inferiorly below the platysma. Midline was entered longitudinally between the strap muscles. A Delphian lymph node was excised and sent to frozen with the findings above. Then the right lower and upper pole thyroid vessels were divided between 3-0 silk ties and the recurrent laryngeal nerve was identified. Right thyroid lobectomy was performed. Right central neck dissection was performed. Then, attention was directed to the left side. The left lower and upper pole thyroid vessels were divided between 3-0 silk ties and Harmonic Scalpel. A left central neck lymph node was excised and sent to frozen section with the findings above. The recurrent laryngeal nerve was identified and total thyroidectomy was completed. Left central neck dissection was performed. Operative site was irrigated and suctioned, hemostasis was obtained. Pieces of surgicel were left in both central neck compartments for further hemostasis. Hemostasis overall appeared adequate at the end of the procedure and was also checked under positive pressure ventilation. Layers were closed with interrupted 4-0 Vicryl stitches. Skin was closed with a running 4-0 Monocryl subcuticular stitch. A surgical glue dressing was applied. A steristrip was applied to the wound. COMPLICATIONS: None. ESTIMATED BLOOD LOSS: 5 mL. COUNTS: Sponge and instrument counts were correct. SPECIMENS: Right and left thyroid lobes, right and left central neck dissection contents sent for permanent section. Delphian lymph node and left central neck lymph node for frozen. Drains: none I attest I was the primary surgeon, scrubbed for the whole case. Yoel Davenport MD [facility] SURGICAL PATHOLOGYon 023 CASE REPORT [facility] Comment on above: Order Comment: Speci men Type: TISSUE SPECIMEN Ordering Facility: [facility] Address: [place] [address] Result Comment: Surg [facility] Pathology Report Case: [id number] Authorizing Provider: Yoel Davenport MD Collected: 09/12/2022 09:52 AM Ordering Location: [facility] Surgery Received: 09/12/2022 10:00 AM Pathologist: Cassie Roca MD Intraop: Felicitas Irving MD Specimens: A) - LYMPH NODE, delphian lymph node B) - THYROID LOBE RIGHT C) - LYMPH NODE, left central neck lymph node, rule out cancer D) - THYROID LOBE LEFT E) - SOFT TISSUE, right central neck dissection F) - SOFT TISSUE, left central neck dissection Performed By: #### S #### [facility] CLIA [id number] [facility] [facility] CLIA [id number] [address] [place] [address] CLINICAL HISTORY [facility] Comment on above: Order Comment: Speci men Type: TISSUE SPECIMEN Ordering Facility: [facility] Address: [address] [place] [address] Result Comment: Pre- op diagnosis: Papillary thyroid carcinoma (HCC) [C73] Performed By: #### S #### [facility] CLIA [id number] [address] [place] [address] [facility] CLIA [id number] [address] [place] [address] DIAGNOSIS COMMENT A 4.9 cm classical t ype infiltrative papillary thyroid carcinoma with well developed [...] see the synoptic report for additional information. [facility] Comment on above: Order Comment: Speci men Type: TISSUE SPECIMEN Ordering Facility: [facility] Address: [address] [place] [address] Performed By: #### S #### [facility] CLIA [id number] [address] [place] [address] [facility] CLIA [id number] [address] [place] [address] FINAL DIAGNOSIS [facility] Comment on above: Order Comment: Speci men Type: TISSUE SPECIMEN Ordering Facility: [facility] Address: [address] [place] [address] Result Comment: A. L ymph node, delphian, excision: -One lymph node involved [...] involved by metastatic carcinoma (2/3). -Atrophic thymus. Performed By: #### S #### [facility] CLIA [id number] [address] [place] [address] OF [facility] CLIA [id number] [address] [place] [address] FINAL PERFORMING LAB [facility] Comment on above: Order Comment: Speci men Type: TISSUE SPECIMEN Ordering Facility: [facility] Address: [address] [place], [place] [id number] Result Comment: Diag nostic interpretation performed at [facility], [address] [place] [address] CLIA# [id number] Piano Stringer: Prakash Schaeffer M.D. Performed By: #### S #### [facility] CLIA [id number] [address] [place] [address] STATES OF [facility] CLIA [id number] [address] [place] [address] HOMER GROSS DESCRIPTION A. LYMPH NODE Normal [facility] Comment on above: Order Comment: Speci men Type: TISSUE SPECIMEN Ordering Facility: [facility] Address: [address] [id number] Result Comment: Rece ived fresh is a segment of patton-red soft tissue measuring 11 x 10 x 6 mm. Submitted in toto as FSA1. Gross examination performed at [facility], [address], [place] [address] CLIA# [id number]. B. 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 LYMPH NODE Received fresh are two fragments of patton-yellow soft tissue aggregating to 5 x 4 x 2 mm. Submitted in toto as FSC1. Gross examination performed at [facility], [address], [place] [address] CLIA# [id number]. D. THYROID LOBE LEFT Labeled: Thyroid left lobe Received: In formalin Specimen type: Lobectomy Oriented: No Weight: 12.7 g Ink code: Blue: External surface of the left lobe [place]: Resection margin of the isthmus Sectioning: The left lobe is sectioned from superior to inferior Number of discrete nodules: 0 Background thyroid parenchyma: Red-brown with scattered circumscribed, patton, gelatinous nodules ranging from 0.3 to 0.8 cm in greatest dimension Attached skeletal muscle: Not identified Attached lymph nodes: Not identified Attached parathyroid: Not identified Gross photograph: No Cassette Summary: D1-D2: 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 SOFT TISSUE Labeled: Right central neck dissection Received: In formalin Size: 4 x 3 x 0.3 cm Lymph node candidates: Total 5 Cassette Summary: Entirely submitted: 5, largest 2.1 x 0.8 x 0.5 cm E1: 1 lymph node candidates E2: 4 lymph node candidates E3: Remainder of tissue [facility] September 13, 2022 9:45 AM Gross examination performed at [facility], [facility] [place] [address] F. SOFT TISSUE Labeled: Left central neck dissection Received: In formalin Size: 3 x 2.5 x 0.3 cm Lymph node candidates: Total 4 Cassette Summary: Entirely submitted: 4, largest 0.8 x 0.6 x 0.3 cm F1: 2 lymph node candidates F2: 2 lymph node candidates F3: Remainder of tissue [facility] September 13, 2022 9:49 AM Gross examination performed at [facility], [address] [place] [address] Performed By: #### S #### [facility] CLIA [id number] [address] [place] [address] OF [facility] CLIA [id number] [address] [place] [address] INTRAOPERATIVE DIAGNOSIS A. LYMPH NODE Normal [facility] Comment on above: Order Comment: Speci men Type: TISSUE SPECIMEN Ordering Facility: [facility] Address: [address] [place] [address] Result Comment: FSA1 Delphian lymph node: Psammoma bodies and atypical cells suspicious for metastatic papillary thyroid carcinoma (Dr. Felicitas Irving) Intraoperative diagnosis performed at [facility], [address] [place] [address] CLIA# [id number]. C. LYMPH NODE FSC1 Left central neck lymph node: Metastatic carcinoma (Dr. Felicitas Irving) Intraoperative diagnosis performed at [facility], [address] [id number] CLIA# [id number]. Performed By: #### S #### [facility] CLIA [id number] [address] [facility] [id number] [id number] [facility] CLIA [id number] STATES OF [place] SYNOPTIC REPORT THYROID GLAND Normal [facility] Comment on above: Order Comment: Speci men Type: TISSUE SPECIMEN Ordering Facility: [facility] Address: [address] [place] [address] Result Comment: THYR OID GLAND: RESECTION - All Specimens 8th Edition - Protocol posted: 12/02/2020 CLINICAL Clinical History: Prior right thyroid FNA [id number] positive for PTC SPECIMEN Procedure: Total thyroidectomy TUMOR Tumor Focality: Unifocal Tumor Characteristics: Tumor Site: Right lobe Tumor Size: Greatest Dimension (Centimeters): 4.9 cm Additional Dimension (Centimeters): 4 cm Additional Dimension (Centimeters): 4 cm Histologic Type: Papillary carcinoma, classic (usual, conventional) Tumor Necrosis: Not identified Angioinvasion (vascular invasion): Not identified Lymphatic Invasion: Present Extrathyroidal Extension: Not identified Margin Status: All margins negative for carcinoma Distance from Invasive Carcinoma to Closest Margin: Less than 1 mm REGIONAL LYMPH NODES Regional Lymph Node Status: : Tumor present in regional lymph node(s) Number of Lymph Nodes with Tumor: 6 Shawna Level(s) Involved: Level Size of Largest Metastatic Deposit: 0.2 cm Extranodal Extension (REJI): Not identified Number of Lymph Nodes Examined: 10 Shawna Level(s) Examined: Level PATHOLOGIC STAGE CLASSIFICATION (pTNM, AJCC 8th Edition) Reporting of pT, pN, and (when applicable) pM categories is based on information available to the pathologist at the time the report is issued. As per the AJCC (Chapter 1, 8th Ed.) it is the managing physician???s responsibility to establish the final pathologic stage based upon all pertinent information, including but potentially not limited to this pathology report. pT Category: pT3a pN Category: pN1a ADDITIONAL FINDINGS Additional Findings: Parathyroid gland(s) present Number of Parathyroid Glands: 1 Location of Parathyroid Gland(s): Right Parathyroid Gland Findings: Within normal limits Performed By: #### S #### [facility] CLIA [id number] [address] [facility] [address] OF [place] CLIA [id number] STATES OF [place] CT NECK SOFT TISSUE WO IVCON on 08-31-2022 [facility] US THYROID BIOPSY RIGHT (POC ) SURG USE ONLYon 07-15-2022 [facility] Basophil percentageOrdered B y: Dr. Lopez on 06-24-2022 Bilirubin [Mass/Vol] 0.30 mg/dL 0.20-1.00 [facility] Comment on above: For patients on eltr ombopag therapy, use of Dimension [place] TBIL is not recommended. Chloride [Moles/Vol] 104 mmol/L 98-107 [facility] Cholesterol [Mass/Vol] 209 mg/dL <200 [facility] Comment on above: <200 mg/dL Desirable 200-240 mg/dL Borderline >240 mg/dL High Risk Glucose [Mass/Vol] 87 mg/dL 74-106 [facility] Potassium [Moles/Vol] 4.3 mmol/L 3.5-5.1 [facility] Protein [Mass/Vol] 7.5 g/dL 6.4-8.2 [facility] Sodium [Moles/Vol] 140 mmol/L 136-145 [facility] Triglyceride [Mass/Vol] 420 mg/dL <199 [facility] Comment on above: The drugs N-Acetylcy steine and Metamizole may falsely depress this assay. TRIGLYCERIDE IS GREATER THAN 400 mg/dL. LDL RESULT IS INVALID AND WILL NOT BE REPORTED.Serum Triglycerides Reference Interval Normal <150 mg/dL Borderline high 150 - 199 mg/dL High 200 - 499 mg/dL Very High > or = 500 mg/dL WBC (Bld) [#/Vol] 9.2 10*3/uL 4.4-11.0 [facility] Blood erythrocytes count (nu mber/volume)Ordered By: Dr. Lopez on 06-24-2022 RBC (Bld) [#/Vol] 5.88 10*6/uL 4.6-6.2 [facility] Blood hemoglobin measurement (mass/volume)Ordered By: Dr. Lopze on 06-24-2022 Hemoglobin (Bld) [Mass/Vol] 16.2 g/dL 13.0-16.5 [facility] Blood platelet mean volumeOr dered By: Dr. Lopez on 06-24-2022 Platelet mean volume (Bld) [Entitic vol] 9.9 fL 6.2-12.0 [facility] Determination of erythrocyte mean corpuscular volume (MCV)Ordered By: Dr. Lopez on 06-24-2022 MCV (RBC) [Entitic vol] 82.7 fL 80-94 [facility] Hematocrit Auto (Bld) [Volum e fraction]Ordered By: Dr. Lopez on 06-24-2022 Hematocrit (Bld) [Volume fraction] 48.6 % 40-54 [facility] Laboratory - Chemistry and C hemistry - challengeOrdered By: Dr. Lopez on 06-24-2022 ALP [Catalytic activity/Vol] 122 U/L 45-117 [facility] ALT [Catalytic activity/Vol] 150 U/L 16-61 [facility] CO2 [Moles/Vol] 28.0 mmol/L 21.0-32.0 [facility] Free T4 [Mass/Vol] 0.98 ng/dL 0.76-1.46 [facility] Globulin (S) [Mass/Vol] 3.5 g/dL 2.2-4.2 [facility] Urea nitrogen/Creatinine [Mass ratio] 12.1 mg/mg 10-20 [facility] Laboratory - Hematology and Cell countsOrdered By: Dr. Lopez on 06-24-2022 Erythrocyte distribution width (RBC) [Entitic vol] 39.5 fL 35.1-43.9 [facility] Erythrocyte distribution width (RBC) [Ratio] 13.2 % 11.6-14.6 [facility] MCH (RBC) [Entitic mass] 27.6 pg 27.0-32.0 [facility] MCHC Auto (RBC) [Mass/Vol]Or dered By: Dr. Lopez on 06-24-2022 MCHC (RBC) [Mass/Vol] 33.3 g/dL 32-36 [facility] No Panel InformationOrdered By: Dr. Lopez on 06-24-2022 Estimated GFR (MDRD) Amer 169 mL/min >60 [facility] Comment on above: GFR Calc Estimated GFR (MDRD) Non-Af Amer 140 mL/min >60 [facility] Comment on above: Non- GFR Calc Hepatitis B Surface Antigen Non-Reactive Nonreactive [facility] Hepatitis C Antibody Non-Reactive Nonreactive [facility] Comment on above: Non Reactive: < 0.8 Equivocal: >/= 0.8 to < 1.0 Reactive: >/= 1.0The CDC recommends that a reactive/equivocal HCV antibody result be followed up by the HCV Nucleic Acid Amplificationtest (549445) Thyroglobulin Antibody 1.0 IU/mL 0.0-0.9 [facility] Comment on above: Thyroglobulin Antibo dy measured by [facility] Thyroid Stimulating Hormone (TSH) 0.94 uIU/mL 0.358-3.74 [facility] Platelets bldOrdered By: Dr. Lopez on 06-24-2022 Platelets (Bld) [#/Vol] 220 10*3/uL 150-450 [facility] Serum hepatitis B virus surf idalia antibody IgG detectionOrdered By: Dr. Lopez on 06-24-2022 HBV surface IgG Ql (S) Non-Reactive [facility] Comment on above: Non Reactive: Incons istent with immunity less than <10 mIU/mL Reactive: Consistent with immunity greater than or equal to 10 mIU/mL Serum or plasma albumin camila urement (mass/volume)Ordered By: Dr. Lopez on 06-24-2022 Albumin [Mass/Vol] 4.0 g/dL 3.2-5.0 [facility] Serum or plasma albumin/glob ulin mass ratioOrdered By: Dr. Lopez on 06-24-2022 Albumin/Globulin [Mass ratio] 1.1 {ratio} 0.9-2.4 [facility] Serum or plasma calcium camila urement (mass/volume)Ordered By: Dr. Lopez on 06-24-2022 Calcium [Mass/Vol] 9.3 mg/dL 8.5-10.1 [facility] Serum or plasma cholesterol in HDL measurement (mass/volume)Ordered By: Dr. Lopez on 06-24-2022 Cholesterol in HDL [Mass/Vol] 35 mg/dL >40 [facility] Comment on above: The drugs N-Acetylcy steine and Metamizole may falsely depress this assay. Reference Range HDL <40 mg/dL Low HDL Cholesterol HDL >or= 60 mg/dL High HDL Cholesterol Serum or plasma cholesterol in VLDL measurement (mass/volume)Ordered By: Dr. Lopez on 06-24-2022 Cholesterol in VLDL [Mass/Vol] [facility] Comment on above: Test not performed Serum or plasma creatinine m easurement (mass/volume)Ordered By: Dr. Lopez on 06-24-2022 Creatinine [Mass/Vol] 0.74 mg/dL 0.70-1.30 [facility] Comment on above: The validity of the calculated GFR & GFRAA in patients over 70 years has not been determined. Clinical correlation is essential. Serum or plasma low density lipoprotein (LDL) cholesterol measurement (mass/volume)Ordered By: Dr. Lopez on 06-24-2022 Cholesterol in LDL [Mass/Vol] [facility] Comment on above: Test not performed Serum or plasma thyroperoxid ase antibody assay (units/volume)Ordered By: Dr. Lopez on 06-24-2022 TPO Ab Qn [IU]/mL 0-34 [facility] Comment on above: Performed at: BN - [facility] [id number] Director: Shahida Castro MD, Phone: [phone] at: - [facility] [id number] Director: Satish Barillas PhD, Phone: [phone] at: ES - [facility] [address] [id number] Director: Abdullahi Sandoval MD, Phone: [phone] Serum or plasma urea nitroge n measurement (mass/volume)Ordered By: Dr. Lopez on 06-24-2022 Urea nitrogen [Mass/Vol] 9 mg/dL 7-18 [facility] Serum or plasma uric acid me asurement (mass/volume)Ordered By: Dr. Lopez on 06-24-2022 Urate [Mass/Vol] 8.8 mg/dL 3.5-7.2 [facility] Comment on above: The drugs N-Acetylcy steine and Metamizole may falsely depress this assay. Thin prep Papanicolaou smear with manual screeningOrdered By: Dr. Lopez on 06-24-2022 Thin prep Papanicolaou smear with manual screening 52 U/L 15-37 [facility] Thin prep Papanicolaou smear with manual screening 8 5-15 [facility] Thyroglobulin measurement by radioimmunoassay (NATALIYA)Ordered By: Dr. Lopez on 06-24-2022 Thyroglobulin Ab NATALIYA Qn (S) 194 ng/mL . [facility] Comment on above: This test was develo ped and its performance characteristicsdetermined by [employer]. It has not been cleared or approvedby the Food and Drug Administration.Reference Range:Pubertal Childrenand Adults: <40According to the National Academy of Clinical Biochemistry,the reference interval for Thyroglobulin (TG) should berelated to euthyroid patients and not for patients whounderwent thyroidectomy. TG reference intervals for thesepatients depend on the residual mass of the thyroid tissueleft after surgery. Establishing a post-operative baselineis recommended. The assay quantitation limit is 2.0 ng/mL. Thyroid stimulating immunogl obulins detectionOrdered By: Dr. Lopez on 06-24-2022 Thyroid stimulating immunoglobulins Ql (S) <0.10 IU/L 0.00-0.55 [facility] Vital Signs Date Time Vital Sign Value Performing Clinician Carson houston 07-22-2024 08:45-0500 Body mass index (BMI) [Ratio] 35.52 kg/m2 Edilberto Enamorado MD Work Phone: [facility] 07-22-2024 08:45-0500 Body temperature 97.39 [degF] Edilberto Enamorado MD Work Phone: [facility] 07-22-2024 08:45-0500 Body weight 143 kg Edilberto Enamorado MD Work Phone: [facility] 07-22-2024 08:45-0500 Diastolic blood pressure 82 mm[Hg] Edilberto Enamorado MD Work Phone: [facility] 07-22-2024 08:45-0500 Heart rate 75 /min Edilberto Enamorado MD Work Phone: [facility] 07-22-2024 08:45-0500 Respiratory rate 20 /min Edilberto Enamorado MD Work Phone: [facility] 07-22-2024 08:45-0500 SaO2% (BldA) [Mass fraction] 97 % Edilberto Enamorado MD Work Phone: [facility] 07-22-2024 08:45-0500 Systolic blood pressure 135 mm[Hg] Edilberto Enamorado MD Work Phone: [facility] 09-27-2023 11:38-0400 Body mass index (BMI) [Ratio] 34.81 kg/m2 Edilberto Enamorado MD Work Phone: [facility] 09-27-2023 11:38-0400 Body weight 140.16 kg Edilberto Enamorado MD Work Phone: [facility] 09-27-2023 11:38-0400 Diastolic blood pressure 76 mm[Hg] Edilberto Enamorado MD Work Phone: [facility] 09-27-2023 11:38-0400 Heart rate 75 /min Edilberto Enamorado MD Work Phone: [facility] 09-27-2023 11:38-0400 Systolic blood pressure 139 mm[Hg] Edilberto Enamorado MD Work Phone: [facility] 03-30-2023 13:27-0400 Body weight 146.97 kg Emiliana Ko MD Work Phone: [facility] 03-30-2023 13:27-0400 Diastolic blood pressure 74 mm[Hg] Emiliana Ko MD Work Phone: [facility] 03-30-2023 13:27-0400 Heart rate 72 /min Emiliana Ko MD Work Phone: [facility] 03-30-2023 13:27-0400 SaO2% (BldA) [Mass fraction] 98 % Emiliana Ko MD Work Phone: [facility] 03-30-2023 13:27-0400 Systolic blood pressure 128 mm[Hg] Emiliana Ko MD Work Phone: [facility] 09-28-2022 12:59-0400 Body height 200.7 cm Emiliana Ko MD Work Phone: [facility] 09-28-2022 12:59-0400 Body weight 146.42 kg Emiliana Ko MD Work Phone: [facility] 09-28-2022 12:59-0400 Diastolic blood pressure 83 mm[Hg] Emiliana Ko MD Work Phone: [facility] 09-28-2022 12:59-0400 Heart rate 83 /min Emiliana Ko MD Work Phone: [facility] 09-28-2022 12:59-0400 Respiratory rate 20 /min Emiliana Ko MD Work Phone: [facility] 09-28-2022 12:59-0400 SaO2% (BldA) [Mass fraction] 97 % Emiliana Ko MD Work Phone: [facility] 09-28-2022 12:59-0400 Systolic blood pressure 137 mm[Hg] Emiliana Ko MD Work Phone: [facility] 09-28-2022 09:13-0400 Body height 200.7 cm Yoel Davenport MD Work Phone: [facility] 09-28-2022 09:13-0400 Body weight 143.79 kg Yoel Davenport MD Work Phone: [facility] 09-28-2022 09:13-0400 Diastolic blood pressure 72 mm[Hg] Yoel Davenport MD Work Phone: [facility] 09-28-2022 09:13-0400 Heart rate 73 /min Yoel Davenport MD Work Phone: [facility] 09-28-2022 09:13-0400 Systolic blood pressure 126 mm[Hg] Yoel Davenport MD Work Phone: [facility] 08-26-2022 08:00-0400 Body height 200.7 cm Pacc 1 Work Phone: [facility] 08-26-2022 08:00-0400 Body temperature 97.11 [degF] Pacc 1 Work Phone: [facility] 08-26-2022 08:00-0400 Body weight 143.79 kg Pacc 1 Work Phone: [facility] 08-26-2022 08:00-0400 Diastolic blood pressure 78 mm[Hg] Pacc 1 Work Phone: [facility] 08-26-2022 08:00-0400 Heart rate 80 /min Pacc 1 Work Phone: [facility] 08-26-2022 08:00-0400 Respiratory rate 16 /min Pacc 1 Work Phone: [facility] 08-26-2022 08:00-0400 SaO2% (BldA) [Mass fraction] 95 % Pacc 1 Work Phone: [facility] 08-26-2022 08:00-0400 Systolic blood pressure 128 mm[Hg] Pacc 1 Work Phone: [facility] 07-26-2022 08:08-0500 Body height 200.7 cm Hill Lara MD Work Phone: [facility] 07-26-2022 08:08-0500 Body temperature 97.3 [degF] Hill Lara MD Work Phone: [facility] 07-26-2022 08:08-0500 Body weight 146.97 kg Hill Lara MD Work Phone: [facility] 07-26-2022 08:08-0500 Diastolic blood pressure 88 mm[Hg] Hill Lara MD Work Phone: [facility] 07-26-2022 08:08-0500 Heart rate 83 /min Hill Lara MD Work Phone: [facility] 07-26-2022 08:08-0500 SaO2% (BldA) [Mass fraction] 96 % Hill Lara MD Work Phone: [facility] 07-26-2022 08:08-0500 Systolic blood pressure 130 mm[Hg] Hill Lara MD Work Phone: [facility] 07-11-2022 12:50-0500 Body height 200.7 cm Hill Lara MD Work Phone: [facility] 07-11-2022 12:50-0500 Body temperature 99.5 [degF] Hill Lara MD Work Phone: [facility] 07-11-2022 12:50-0500 Body weight 148.6 kg Hill Lara MD Work Phone: [facility] 07-11-2022 12:50-0500 Diastolic blood pressure 88 mm[Hg] Hill Lara MD Work Phone: [facility] 07-11-2022 12:50-0500 Heart rate 88 /min Hill Lara MD Work Phone: [facility] 07-11-2022 12:50-0500 SaO2% (BldA) [Mass fraction] 96 % Hill Lara MD Work Phone: [facility] 07-11-2022 12:50-0500 Systolic blood pressure 122 mm[Hg] Hill Lara MD Work Phone: [facility] Encounters Encounter Date Encounter Type Care Provider Facility Start: 04-09-2025 End: 04-09-2025 ambulatory Polo Lopez Facility:[facility] Start: 02-13-2025 End: 02-13-[address] Polo Lopez MD Work Phone: -[facility] Start: 02-13-2025 End: 02-13-[address] Polo Lopez MD -Laboratory [facility] Start: 02-13-2025 End: 02-13-2025 ambulatory Polo Lopez Facility:[facility] Start: 01-30-2025 End: 01-30-2025 Telemedicine consultation with patient Edilberto Enamorado MD Work Phone: Endocrinology Start: 01-30-2025 End: 01-30-2025 ambulatory Edilberto Enamorado MD Work Phone: Endocrinology Comment on above: Post-surgical hypoth yroidism; Hx of thyroid cancer Start: 01-27-2025 End: 01-27-2025 ambulatory POLO LOPEZ Facility:[facility] Start: 01-14-2025 End: 01-14-2025 Orders Only Edilberto Enamorado MD Work Phone: Endocrinology Comment on above: Post-surgical hypoth yroidism (Primary Dx); Hx of thyroid cancer Start: 10-17-2024 End: 12-17-2024 Follow-up encounter Edilberto Enamorado MD Work Phone: Endocrinology Start: 10-15-2024 End: 10-15-2024 ambulatory POLO LOPEZ Facility:[facility] Start: 10-11-2024 End: 10-11-2024 Telephone encounter Edilberto Enamorado MD Work Phone: Endocrinology Start: 09-27-2024 End: 10-02-2024 Follow-up encounter Edilberto Enamorado MD Work Phone: Endocrinology Start: 09-26-2024 End: 09-26-2024 ambulatory POLO LOPEZ Facility:[facility] Start: 08-29-2024 End: 08-29-2024 Refill Edilberto Enamorado MD Work Phone: Endocrinology Comment on above: Refill Request Start: 08-27-2024 End: 08-27-[address] Polo Lopez MD Work Phone: [facility] Work Phone: Start: 08-27-2024 End: 08-27-[address] Polo Lopez MD -Laboratory, [facility] Start: 08-27-2024 End: 08-27-2024 ambulatory Polo Lopez Facility:[facility] Start: 08-21-2024 End: 10-21-2024 Refill Edilberto Enamorado MD Work Phone: Endocrinology Start: 08-20-2024 End: 08-20-2024 ambulatory POLO LOPEZ Facility:[facility] Start: 07-22-2024 End: 07-22-2024 ambulatory EDILBERTO ENAMORADO Facility:[facility] Start: 07-22-2024 End: 07-22-2024 Patient encounter procedure Edilberto Enamorado MD Work Phone: Endocrinology Comment on above: Post-surgical hypoth yroidism (Primary Dx); Hx of thyroid cancer; Papillary thyroid carcinoma (HCC) Start: 07-18-2024 End: 07-18-2024 ambulatory [facility] Facility:[facility] Start: 07-17-2024 End: 07-19-2024 ambulatory Edilberto Enamorado MD Work Phone: Endocrinology Comment on above: Blood work? Start: 03-11-2024 End: 03-12-2024 ambulatory Edilberto Enamorado MD Work Phone: Endocrinology Comment on above: Jacob appts Start: 01-26-2024 ambulatory [facility] Start: 01-26-2024 End: 01-26-2024 Subsequent hospital visit by physician [facility] 1 Work Phone: [facility] Comment on above: Post-surgical hypoth yroidism [E89.0] Start: 01-25-2024 End: 01-25-2024 Telephone encounter Lori Farooq RT(R) [facility] Comment on above: Future Appointment ( Lm on vm about upcoming appt/) Start: 01-17-2024 End: 01-17-2024 Refill Edilberto Enamorado MD Work Phone: Endocrinology Comment on above: Post-surgical hypoth yroidism [E89.0] Start: 01-16-2024 ambulatory EDILBERTO ENAMORADO Facility:[facility] Start: 01-16-2024 End: 01-16-2024 Subsequent hospital visit by physician [facility] Comment on above: Post-surgical hypoth yroidism [E89.0] Start: 01-15-2024 ambulatory EDILBERTO ENAMORADO Facility:[facility] Start: 01-15-2024 End: 01-15-2024 Subsequent hospital visit by physician [facility] Comment on above: Post-surgical hypoth yroidism [E89.0] Start: 12-18-2023 ambulatory Edilberto Enamorado MD Work Phone: Endocrinology Comment on above: Radioactive iodine Start: 11-17-2023 Telephone encounter Edilberto Thomas Work Phone: Endocrinology Start: 10-03-2023 ambulatory Edilberto Enamorado MD Work Phone: Endocrinology Comment on above: TSH Start: 10-03-2023 Telephone encounter Edilberto Thomas Work Phone: Endocrinology Start: 09-27-2023 End: 09-27-2023 Patient encounter procedure Edilberto Enamorado MD Work Phone: Endocrinology Comment on above: Post-surgical hypoth yroidism (Primary Dx); Papillary thyroid carcinoma (HCC) Start: 09-19-2023 ambulatory Edilberto Enamorado MD Work Phone: Endocrinology Comment on above: Blood work? Start: 08-24-2023 End: 08-24-2023 ambulatory Edilberto Enamorado MD Work Phone: Endocrinology Comment on above: Post-surgical hypoth yroidism (Primary Dx); Papillary thyroid carcinoma (HCC) Start: 08-24-2023 End: 08-24-2023 Telemedicine consultation with patient Edilberto Enamorado MD Work Phone: [facility] Start: 08-14-2023 End: 08-14-2023 ambulatory [facility] Work Phone: Start: 08-14-2023 End: 08-14-2023 Patient encounter procedure [facility] Start: 07-28-2023 End: 07-28-2023 ambulatory [facility] Work Phone: Start: 07-28-2023 End: 07-28-2023 Patient encounter procedure [facility] Start: 07-26-2023 ambulatory Emiliana Ko MD Work Phone: Endocrinology Comment on above: Dr. Elieser Enamorado Start: 07-21-2023 ambulatory Emiliana Ko MD Work Phone: [facility] Start: 07-21-2023 Follow-up encounter Emiliana simmons MD Work Phone: Endocrinology Comment on above: Follow up with dr. Sky eanmorado Start: 03-30-2023 End: 03-30-2023 Patient encounter procedure Emiliana Ko MD Work Phone: Endocrinology Comment on above: Papillary thyroid ca rcinoma (HCC) (Primary Dx); Post-surgical hypothyroidism; Class 2 obesity Start: 03-27-2023 ambulatory Emiliana Ko MD Work Phone: Endocrinology Comment on above: Thyroid dose change. Start: 03-27-2023 E-mail encounter justine m caregiver Emiliana Ko MD Work Phone: [facility] Start: 03-25-2023 ambulatory EMILIANA KO Facility: [id number] Start: 03-25-2023 End: 03-25-2023 Subsequent [facility] Comment on above: Papillary thyroid ca rcinoma (HCC) [C73] Start: 03-22-2023 ambulatory Emiliana Ko MD Work Phone: Endocrinology Comment on above: Blood work? Start: 11-26-2022 [facility] Get Medical Advice Emiliana naik MD Work Phone: Endocrinology Comment on above: Levithyroxine refill Start: 09-28-2022 End: 09-28-2022 Patient encounter procedure Yoel Davenport MD Work Phone: Endocrine Surgery Comment on above: Papillary thyroid ca rcinoma (HCC) (Primary Dx) Papillary thyroid ca rcinoma (HCC) (Primary Dx); Class 2 severe obesity due to excess calories with serious comorbidity and body mass index (BMI) of 35.0 to 35.9 in adult (HCC); Obstructive sleep apnea, pediatric; Post-surgical hypothyroidism Start: 09-23-2022 End: 09-23-2022 ambulatory [facility] Work Phone: Start: 09-23-2022 End: 09-23-2022 Patient encounter procedure [facility] Start: 09-12-2022 End: 09-13-2022 ambulatory [facility] Facility:[facility] Start: 08-31-2022 End: 08-31-2022 Subsequent hospital visit by physician Ketty Parker F30 (I-Stat) Work Phone: Radiology Comment on above: Papillary thyroid ca rcinoma (HCC) [C73] Start: 08-26-2022 End: 08-26-2022 [facility] Start: 08-26-2022 End: 08-26-2022 ambulatory [place] [address] Work Phone: Pre Anesthesia Comment on above: Pre-operative examin ation (Primary Dx); Obstructive sleep apnea, pediatric; NAFLD (nonalcoholic fatty liver disease); Elevated hemoglobin A1c measurement; Dyslipidemia; Class 2 severe obesity due to excess calories with serious comorbidity and body mass index (BMI) of 35.0 to 35.9 in adult (HCC) Start: 08-26-2022 End: 08-26-2022 Preprocedural examination [place] [id number] Work Phone: Pre Anesthesia Start: 08-23-2022 Telephone encounter Yoel schaffer MD Work Phone: Endocrine Surgery Comment on above: Patient Question Start: 08-18-2022 ambulatory Yoel Davenport MD Work Phone: Endocrine Surgery Comment on above: OR 4/10/23 MM (Total Thyroidectomy ) Start: 08-11-2022 Telephone encounter Yoel schaffer MD Work Phone: Endocrine Surgery Comment on above: Outside Labs Results (Indexed labs) Start: 08-10-2022 Telephone encounter Yoel schaffer MD Work Phone: Endocrine Surgery Comment on above: Consult (FACE SHEET) Start: 07-26-2022 End: 07-26-2022 Patient encounter procedure Hill Lara MD Work Phone: General Surgery Comment on above: Papillary thyroid ca rcinoma (HCC) (Primary Dx) Start: 07-21-2022 Telephone encounter Hill hassan MD Work Phone: General Surgery Comment on above: Results (Pathology t hyroid [facility]) Start: 07-15-2022 End: 07-15-2022 ambulatory [facility] Work Phone: Start: 07-15-2022 End: 07-15-2022 Patient encounter procedure [facility]-Laboratory, Specimen Start: 07-15-2022 End: 07-15-2022 Patient encounter procedure Hill Lara MD Work Phone: General Surgery Comment on above: Multinodular goiter (Primary Dx) Start: 07-11-2022 End: 07-11-2022 Patient encounter procedure Hill Lara MD Work Phone: General Surgery Comment on above: Multinodular goiter (Primary Dx) Start: 07-01-2022 End: 07-01-2022 Patient encounter procedure [facility]-Ultrasound, [facility] Start: 06-24-2022 End: 06-24-2022 ambulatory [facility] Work Phone: Start: 06-24-2022 End: 06-24-2022 Patient encounter procedure [facility]-Laboratory, [facility] Start: 01-03-2017 End: 01-04-2017 Ambulatory Bill Cardoza [facility] Facility:[facility] Procedures Date Procedure Procedure Detail Performing Clinician Start: 07-22-2024 Us soft tissue head & neck real time imge carlene Enamorado MD Work Phone: Start: 01-26-2024 Rp loclzj jack spect w/ct 1 area 1 day imaging Edilberto Enamorado MD Work Phone: Start: 01-26-2024 Thyroid carcinoma metastases img whole body Edilberto Enamorado MD Work Phone: Start: 01-17-2024 Rp therapy oral administration Edilberto Enamorado MD Work Phone: Start: 09-27-2023 Us soft tissue head & neck real time imge docm Edilberto Enamorado MD Work Phone: Start: 03-25-2023 Us soft tissue head & neck real time imge docm Ayla Avis GREGORY Work Phone: Start: 08-31-2022 Ct soft tissue neck w/o contrast material Yoel Davenport MD Work Phone: Start: 07-15-2022 US THYROID BIOPSY RI GHT (POC) SURG USE ONLY Hill Lara MD Work Phone: Start: 07-01-2022 US scan of thyroid Plan of Treatment Date Care Activity Detail Author Start: 05-30-2034 Urine microalbumin profile DTaP,Tdap,Td Vaccine (8 - Td or Tdap) [facility] Start: 06-23-2025 End: 06-23-2025 Patient encounter procedure 06/23/2025 9:00 AM EST Office Visit Endocrinology [id number] [place] [address] [place] [id number] [place] [address] time okd per provider Endocrinology Comment on above: time okd per provider Start: 06-05-2025 End: 09-04-2025 Thyroglobulin and Thyrogobulin Ab panel - Serum or Plasma THYROGLOBULIN, SERUM WITH REFLEX TO IA OR LC-MS/MS Lab Routine Post-surgical hypothyroidism Hx of thyroid cancer Expected: 06/05/2025, Expires: 09/04/2025 [facility] Comment on above: Expected: 06/05/2025, Expires: Start: 06-05-2025 End: 09-04-2025 Thyrotropin [Units/volume] in Serum or Plasma THYROID STIMULATING HORMONE Lab Routine Post-surgical hypothyroidism Hx of thyroid cancer Expected: 06/05/2025, Expires: 09/04/2025 [facility] Work Phone: Comment on above: Expected: 06/05/2025, Expires: Start: 05-16-2025 End: 08-14-2025 Thyroglobulin and Thyrogobulin Ab panel - Serum or Plasma THYROGLOBULIN, SERUM WITH REFLEX TO IA OR LC-MS/MS Lab Routine Post-surgical hypothyroidism Hx of thyroid cancer Expected: 05/16/2025, Expires: 08/14/2025 [facility] Comment on above: Expected: 05/16/2025, Expires: Start: 05-16-2025 End: 08-14-2025 Thyrotropin [Units/volume] in Serum or Plasma THYROID STIMULATING HORMONE Lab Routine Post-surgical hypothyroidism Hx of thyroid cancer Expected: 05/16/2025, Expires: 08/14/2025 [facility] Work Phone: Comment on above: Expected: 05/16/2025, Expires: Start: 02-03-2025 Influenza vaccination [facility] Start: 01-30-2025 End: 01-30-2025 [facility] [id number] [place] [address] [place] [address] [place] [address] 6 months Endocrinology Comment on above: 6 months Start: 01-19-2025 End: 04-20-2025 Thyroglobulin and Thyrogobulin Ab panel - Serum or Plasma THYROGLOBULIN, SERUM WITH REFLEX TO IA OR LC-MS/MS Lab Routine Post-surgical hypothyroidism Hx of thyroid cancer Expected: 01/19/2025, Expires: 04/20/2025 [facility] Comment on above: Expected: 01/19/2025, Expires: Start: 01-19-2025 End: 04-20-2025 Thyrotropin [Units/volume] in Serum or Plasma THYROID STIMULATING HORMONE Lab Routine Post-surgical hypothyroidism Hx of thyroid cancer Expected: 01/19/2025, Expires: 04/20/2025 [facility] Comment on above: Expected: 01/19/2025, Expires: Start: 09-21-2024 End: 12-21-2024 Thyrotropin [Units/volume] in Serum or Plasma THYROID STIMULATING HORMONE Lab Routine Post-surgical hypothyroidism Hx of thyroid cancer Expected: 09/21/2024, Expires: 12/21/2024 [facility] Work Phone: Comment on above: Expected: 09/21/2024, Expires: Start: 07-22-2024 End: 07-22-2024 Patient encounter procedure Endocrinology Comment on above: Can we schedule him and his brother for a follow up with me in 6 months (40 min for both for thyroid US and thyroid cancer follow up). Start: 07-19-2024 End: 10-18-2024 Thyroglobulin and Thyrogobulin Ab panel - Serum or Plasma THYROGLOBULIN, SERUM WITH REFLEX TO IA OR LC-MS/MS Lab Routine Post-surgical hypothyroidism Hx of thyroid cancer Expected: 07/19/2024, Expires: 10/18/2024 [facility] Comment on above: Expected: 07/19/2024, Expires: Start: 07-19-2024 End: 10-18-2024 Thyrotropin [Units/volume] in Serum or Plasma THYROID STIMULATING HORMONE Lab Routine Post-surgical hypothyroidism Hx of thyroid cancer Expected: 07/19/2024, Expires: 10/18/2024 [facility] Work Phone: Comment on above: Expected: 07/19/2024, Expires: Start: 02-04-2024 Covid-19 Vaccine ( season) Covid-19 Vaccine ( season) [facility] Start: 02-04-2024 Influenza vaccination [facility] Start: 01-26-2024 End: 01-26-2024 Patient encounter procedure 01/26/2024 7:30 AM EDT Appointment [facility] [address] [place] [address] post 10 day per tech [facility] Comment on above: post 10 day per tech Start: 01-17-2024 End: 01-17-2024 Patient encounter procedure 01/17/2024 2:30 PM EDT Appointment [facility] [address] [place] [address] Weight 310 / Patient not Diabetic / Order in EPIC / DX: Post-surgical hypothyroidism [E89.0] [facility] Comment on above: Weight 310 / Patient not Diabetic / Orde r in EPIC / DX: Post-surgical hypothyroidism [E89.0] Start: 01-17-2024 End: 01-17-2024 Patient encounter procedure 01/17/2024 8:30 AM EDT Appointment [facility] [id number] [place], [place] [id number] Weight 310 / Patient not Diabetic / Order in EPIC / DX: Post-surgical hypothyroidism [E89.0] [facility] Comment on above: Weight 310 / Patient not Diabetic / Orde r in EPIC / DX: Post-surgical hypothyroidism [E89.0] Start: 01-16-2024 End: 01-16-2024 Patient encounter procedure 01/16/2024 2:30 PM EDT Appointment [facility] [address] [place] [address] Weight 310 / Patient not Diabetic / Order in EPIC / DX: Post-surgical hypothyroidism [E89.0] [facility] Comment on above: Weight 310 / Patient not Diabetic / Orde r in EPIC / DX: Post-surgical hypothyroidism [E89.0] Start: 01-16-2024 End: 01-16-2024 Patient encounter procedure 01/16/2024 8:30 AM EDT Appointment [facility] [address] [place] [address] Weight 310 / Patient not Diabetic / Order in EPIC / DX: Post-surgical hypothyroidism [E89.0] [facility] Comment on above: Weight 310 / Patient not Diabetic / Orde r in EPIC / DX: Post-surgical hypothyroidism [E89.0] Start: 11-17-2023 End: 02-16-2024 Thyrotropin [Units/volume] in Serum or Plasma THYROID STIMULATING HORMONE Lab Routine Post-surgical hypothyroidism Expected: 11/17/2023, Expires: 02/16/2024 [facility] Work Phone: Comment on above: Expected: 11/17/2023, Expires: Start: 10-03-2023 End: 01-02-2024 Thyrotropin [Units/volume] in Serum or Plasma THYROID STIMULATING HORMONE Lab Routine Papillary thyroid carcinoma (HCC) Expected: 10/03/2023, Expires: 01/02/2024 [facility] Work Phone: Comment on above: Expected: 10/03/2023, Expires: Start: 09-27-2023 End: 12-27-2023 Thyroglobulin and Thyrogobulin Ab panel - Serum or Plasma [facility] Work Phone: Comment on above: Expected: 09/27/2023, Expires: Start: 09-27-2023 End: 12-27-2023 THYROGLOBULIN, FNA LYMPH NODE [facility] Comment on above: Expected: 09/27/2023, Expires: Start: 06-05-2023 Behavioral Health Screening Behavioral Health Screening [facility] Start: 06-05-2023 Depression Assessment Depression Assessment [facility] Start: 05-04-2023 End: 08-03-2023 Thyrotropin [Units/volume] in Serum or Plasma TSH BLD Lab Routine Papillary thyroid carcinoma (HCC) Expected: 05/04/2023 (Approximate), Expires: 08/03/2023 [facility] Work Phone: Comment on above: Expected: 05/04/2023 (Approximate), Expi res: 08/03/2023 Start: 03-30-2023 End: 10-28-2023 Us soft tissue head & neck real time imge docm US CERVICAL LYMPH NODE MAPPING Radiology Routine Papillary thyroid carcinoma (HCC) Expected: 03/30/2023 (Approximate), Expires: 10/28/2023 [facility] Work Phone: Comment on above: Expected: 03/30/2023 (Approximate), Expi res: 10/28/2023 Start: 03-23-2023 End: 06-22-2023 Comprehensive metabolic 2000 panel - Serum or Plasma COMP METABOLIC PANEL Lab Routine Post-surgical hypothyroidism Expected: 03/23/2023, Expires: 06/22/2023 [facility] Work Phone: Comment on above: Expected: 03/23/2023, Expires: 4 Start: 03-23-2023 End: 06-22-2023 Phosphate [Mass/volume] in Serum or Plasma PHOSPHORUS INORGANIC Lab Routine Post-surgical hypothyroidism Expected: 03/23/2023, Expires: 06/22/2023 [facility] Work Phone: Comment on above: Expected: 03/23/2023, Expires: 4 Start: 03-23-2023 End: 06-22-2023 Thyroglobulin and Thyrogobulin Ab panel - Serum or Plasma THYROGLOBULIN, SERUM WITH REFLEX TO IA OR LC-MS/MS Lab Routine Papillary thyroid carcinoma (HCC) Expected: 03/23/2023, Expires: 06/22/2023 [facility] Work Phone: Comment on above: Expected: 03/23/2023, Expires: 4 Start: 03-23-2023 End: 06-22-2023 Thyrotropin [Units/volume] in Serum or Plasma TSH BLD Lab Routine Papillary thyroid carcinoma (HCC) Post-surgical hypothyroidism Expected: 03/23/2023, Expires: 06/22/2023 [facility] Work Phone: Comment on above: Expected: 03/23/2023, Expires: 4 Start: 03-23-2023 End: 06-22-2023 Thyroxine (T4) free [Mass/volume] in Serum or Plasma T4 FREE/FREE THYROX Lab Routine Papillary thyroid carcinoma (HCC) Post-surgical hypothyroidism Expected: 03/23/2023, Expires: 06/22/2023 [facility] Work Phone: Comment on above: Expected: 03/23/2023, Expires: 4 Start: 02-03-2023 Covid-19 Vaccine () Covid-19 Vaccine ( season) [facility] Start: 02-03-2023 Influenza vaccination [facility] Start: 12-10-2022 Urine microalbumin profile [facility] Start: 10-24-2022 End: 12-24-2022 Renal function 2000 panel - Serum or Plasma RENAL FUNCTION PANEL Lab Routine Papillary thyroid carcinoma (HCC) Expected: 10/24/2022 (Approximate), Expires: 12/24/2022 [facility] Work Phone: Comment on above: Expected: 10/24/2022 (Approximate), Expi res: 12/24/2022 Start: 10-24-2022 End: 12-24-2022 Thyroglobulin and Thyrogobulin Ab panel - Serum or Plasma THYROGLOBULIN, SERUM WITH REFLEX TO IA OR LC-MS/MS Lab Routine Papillary thyroid carcinoma (HCC) Expected: 10/24/2022 (Approximate), Expires: 12/24/2022 [facility] Work Phone: Comment on above: Expected: 10/24/2022 (Approximate), Expi res: 12/24/2022 Start: 10-24-2022 End: 12-24-2022 Thyrotropin [Units/volume] in Serum or Plasma TSH BLD Lab Routine Papillary thyroid carcinoma (HCC) Post-surgical hypothyroidism Expected: 10/24/2022 (Approximate), Expires: 12/24/2022 [facility] Work Phone: Comment on above: Expected: 10/24/2022 (Approximate), Expi res: 12/24/2022 Start: 10-24-2022 End: 12-24-2022 Thyroxine (T4) free [Mass/volume] in Serum or Plasma T4 FREE/FREE THYROX Lab Routine Papillary thyroid carcinoma (HCC) Post-surgical hypothyroidism Expected: 10/24/2022 (Approximate), Expires: 12/24/2022 [facility] Work Phone: Comment on above: Expected: 10/24/2022 (Approximate), Expi res: 12/24/2022 Start: 09-28-2022 End: 11-28-2022 Calcium [Mass/volume] in Serum or Plasma CALCIUM TOTAL BLD Lab Routine Papillary thyroid carcinoma (HCC) Expected: 09/28/2022 (Approximate), Expires: 11/28/2022 [facility] Work Phone: Comment on above: Expected: 09/28/2022 (Approximate), Expi res: 11/28/2022 Start: 09-28-2022 End: 11-28-2022 Calcium.ionized [Moles/volume] in Blood CALCIUM IONIZED BLOOD Lab Routine Papillary thyroid carcinoma (HCC) Expected: 09/28/2022 (Approximate), Expires: 11/28/2022 [facility] Work Phone: Comment on above: Expected: 09/28/2022 (Approximate), Expi res: 11/28/2022 Start: 09-28-2022 End: 11-28-2022 Parathyrin.intact [Mass/volume] in Serum or Plasma PTH INTACT BLD Lab Routine Papillary thyroid carcinoma (HCC) Expected: 09/28/2022 (Approximate), Expires: 11/28/2022 [facility] Work Phone: Comment on above: Expected: 09/28/2022 (Approximate), Expi res: 11/28/2022 Start: 09-28-2022 End: 11-28-2022 Phosphate [Mass/volume] in Serum or Plasma PHOSPHORUS INORGANIC Lab Routine Papillary thyroid carcinoma (HCC) Expected: 09/28/2022 (Approximate), Expires: 11/28/2022 [facility] Work Phone: Comment on above: Expected: 09/28/2022 (Approximate), Expi res: 11/28/2022 Start: 08-26-2022 End: 10-26-2022 Hemoglobin A1c in Blood [facility] Work Phone: Comment on above: Expected: 08/26/2022, Expires: Start: 08-18-2022 End: 08-19-2023 Basic metabolic 2000 panel - Serum or Plasma BASIC METABOLIC PNL Lab Routine Papillary thyroid carcinoma (HCC) Expected: 08/18/2022, Expires: 08/19/2023 [facility] Work Phone: Comment on above: Expected: 08/18/2022, Expires: 4 Start: 08-18-2022 End: 08-19-2023 CBC W Auto Differential panel - Blood CBC + DIFF Lab Routine Papillary thyroid carcinoma (HCC) Expected: 08/18/2022, Expires: 08/19/2023 [facility] Work Phone: Comment on above: Expected: 08/18/2022, Expires: 4 Start: 08-10-2022 End: 10-10-2022 Thyrotropin [Units/volume] in Serum or Plasma TSH BLD Lab Routine Nontoxic single thyroid nodule Expected: 08/10/2022, Expires: 10/10/2022 [facility] Work Phone: Comment on above: Expected: 08/10/2022, Expires: 3 Start: 06-05-2022 DEPRESSION ASSESSMENT DEPRESSION ASSESSMENT [facility] Start: 02-03-2022 Influenza vaccination INFLUENZA (#1) [facility] Start: 11-15-2019 Annual PCP Team Chronic Disease Visit Annual PCP Team Chronic Disease Visit [facility] Start: 2018 Annual PCP Team Chronic Disease Visit Annual PCP Team Chronic Disease Visit [facility] Start: 2018 Anxiety Screening Anxiety Screening [facility] Start: 2018 Depression Screening Depression Screening [facility] Start: 2018 HIV SCREENING HIV SCREENING [facility] Start: 2018 HIV screening HIV Screening [facility] Start: 2016 Meningococcal B Vaccine: Consider Based On Risk (1 of 2 - Patient Seeks Protection) Meningococcal B Vaccine: Consider Based On Risk (1 of 2 - Patient Seeks Protection) [facility] Start: 2015 HPV Vaccine (1 - Male 3-dose series) HPV Vaccine (1 - Male 3-dose series) [facility] Start: 2014 PEDS TO ADULT TRANSITION ANNUAL ASSESSMENT PEDS TO ADULT TRANSITION ANNUAL ASSESSMENT [facility] Start: 2012 PEDS TO ADULT TRANSITION INITIAL DISCUSSION PEDS TO ADULT TRANSITION INITIAL DISCUSSION [facility] Start: 2011 HPV VACCINE (1 - Male 2-dose series) HPV VACCINE (1 - Male 2-dose series) [facility] Start: 2010 MENINGOCOCCAL B: Consider based on risk (1 of 2 - Risk Bexsero 2-dose series) MENINGOCOCCAL B: Consider based on risk (1 of 2 - Risk Bexsero 2-dose series) [facility] Start: 2009 HPV VACCINE (1 - Male 2-dose series) HPV VACCINE (1 - Male 2-dose series) [facility] Start: 2009 HPV Vaccine (1 - Risk male 3-dose series) HPV Vaccine (1 - Risk male 3-dose series) [facility] Start: 01-05-2001 COVID-19 VACCINE (#1) COVID-19 VACCINE (#1) [facility] CYTOLOGY NON-WAITER/WAITRESS SECOND CLASS CYTOLOGY NON-GY N Lab Routine Post-surgical hypothyroidism Papillary thyroid carcinoma (HCC) 09/27/2023 1:38 PM EDT [facility] End: 02-15-2025 NM Thyroid gland Views for therapy W I-131 PO NM THERAPY THYROID I-131 Radiology Routine Post-surgical hypothyroidism Hx of thyroid cancer 1 Occurrences starting 01/17/2024 until 02/15/2025 [facility] Work Phone: Comment on above: 1 Occurrences starting 01/17/2024 until 02/15/2025 REFER FOR ADMIT INTERVIEW REFER FOR ADMIT INTERVIEW Procedures Routine Papillary thyroid carcinoma (HCC) Ordered: 08/18/2022 [facility] Work Phone: Comment on above: Ordered: 08/18/2022 Thyroglobulin antibo dy measurement [facility] Thyroid stimulating immunoglobulins actual/normal in Serum [facility] Thyroperoxidase Ab [Units/volume] in Serum or Plasma [facility] End: 07-22-2025 Thyrotropin [Units/volume] in Serum or Plasma THYROID STIMULATING HORMONE Lab Routine Post-surgical hypothyroidism Hx of thyroid cancer 3 Occurrences starting 07/22/2024 until 07/22/2025 [facility] Work Phone: Comment on above: 3 Occurrences starting 07/22/2024 until 07/22/2025 [facility] Immunizations Immunization Date Immunization Notes Care Provider Ismael vazquez 03-06-2018 meningococcal polysaccharide (groups A, C, Y and W-135) diphtheria toxoid conjugate vaccine (MCV4P) Hill Lara MD Work Phone: [facility] 11-04-2013 hepatitis A vaccine, pediatric/adolescent dosage, 2 dose schedule Hill Lara MD Work Phone: [facility] 11-04-2013 measles, mumps and rubella virus vaccine Hill Lara MD Work Phone: [facility] 11-04-2013 poliovirus vaccine, inactivated Hill Lara MD Work Phone: [facility] 12-10-2012 Meningococcal, MCV4, unspecified conjugate formulation(groups A, C, Y and W-135) Hill Lara MD Work Phone: [facility] Work Phone: 12-10-2012 tetanus toxoid, redu elijah diphtheria toxoid, and acellular pertussis vaccine, adsorbed Hill Lara MD Work Phone: [facility] Work Phone: 10-10-2001 diphtheria, tetanus toxoids and acellular pertussis vaccine Hill Lara MD Work Phone: [facility] Work Phone: 10-10-2001 haemophilus influenz ae type b vaccine, HbOC conjugate Hill Lara MD Work Phone: [facility] Work Phone: 07-11-2001 measles, mumps and rubella virus vaccine Hill Lara MD Work Phone: [facility] Work Phone: 04-10-2001 hepatitis B vaccine, pediatric or pediatric/adolescent dosage Hill Lara MD Work Phone: [facility] Work Phone: 04-10-2001 poliovirus vaccine, inactivated Hill Lara MD Work Phone: [facility] Work Phone: 03-09-2001 Chicken Pox (disease) Hill Lara MD Work Phone: [facility] Work Phone: 01-05-2001 diphtheria, tetanus toxoids and acellular pertussis vaccine Hill Lara MD Work Phone: [facility] Work Phone: 01-05-2001 haemophilus influenz ae type b vaccine, HbOC conjugate Hill Lara MD Work Phone: [facility] Work Phone: 01-05-2001 pneumococcal conjuga te vaccine, 7 valent Hill Lara MD Work Phone: [facility] Work Phone: 2000 diphtheria, tetanus toxoids and acellular pertussis vaccine Hill Lara MD Work Phone: [facility] Work Phone: 2000 haemophilus influenz ae type b vaccine, HbOC conjugate Hill Lara MD Work Phone: [facility] Work Phone: 2000 pneumococcal conjuga te vaccine, 7 valent Hill Lara MD Work Phone: [facility] Work Phone: 2000 poliovirus vaccine, inactivated Hill Lara MD Work Phone: [facility] Work Phone: 2000 diphtheria, tetanus toxoids and acellular pertussis vaccine Hill Lara MD Work Phone: [facility] Work Phone: 2000 haemophilus influenz ae type b vaccine, HbOC conjugate Hill Lara MD Work Phone: [facility] Work Phone: 2000 pneumococcal conjuga te vaccine, 7 valent Hill Lara MD Work Phone: [facility] Work Phone: 2000 poliovirus vaccine, inactivated Hill Lara MD Work Phone: [facility] Work Phone: 2000 hepatitis B vaccine, pediatric or pediatric/adolescent dosage Hill Lara MD Work Phone: [facility] Work Phone: 2000 hepatitis B vaccine, pediatric or pediatric/adolescent dosage Hill Lara MD Work Phone: [facility] Work Phone: Payers Date Payer Category Payer Self-pay 2022 Private Health Insurance [employer] [id number] 2022 Unknown [id number] 2021 [employer] Blue [employer] BLUE ACCE SS PPO [id number] 2021 Unknown [id number] 2017 Unknown Unknown COMMERCIAL OTHER [id number] Unknown [employer] [place]/ PRO CLAIMS [id number] Unknown [id number] Unknown [id number] Unknown [id number] Social History Date Type Detail Facility Tobacco smoking stat [facility] Unknown if ever smoked [facility] Work Phone: Start: 2000 Sex Assigned At Male [facility] Start: 07-11-2022 Tobacco smoking stat [facility] Never smoked tobacco [facility] Start: 07-11-2022 Tobacco use and exposure Smokeless tobacco non-user [facility] Start: 07-11-2022 End: 01-30-2025 Alcohol intake Current drinker of alcohol (finding) [facility] Start: 07-11-2022 Tobacco Comment No one in the household smokes [facility] Start: 07-11-2022 Alcohol Comment social [facility] Start: 2000 Sex Assigned At Not on file [facility] Start: 08-07-2022 End: 09-28-2022 Exposure to SARS-CoV-2 (event) Not sure [facility] Start: 09-28-2022 End: 01-15-2024 History of Social function [facility] Start: 09-28-2022 End: 01-15-2024 Tobacco use panel [facility] Start: 05-06-2012 National Score (1-10 0), lower number is lower risk 54 [facility] Start: 09-29-2022 Gender identity Identifies as male gender (finding) [facility] Start: 09-29-2022 Sexual orientation Heterosexual (dominique obando) [facility] Tobacco smoking stat us [facility] Unknown if ever smoked [facility] Work Phone: Start: 09-02-2024 Sex Male (finding) [facility] Goals Date Patient Goal Desired Activity /State Personal health goal Functional Status Date Assessment Result Facility 09-13-2022 Are you deaf, or do you have serious difficulty hearing No 09/13/2022 8:08 AM EDT Cydney Bentley, LIANA No [facility] 09-13-2022 Are you blind, or do you have serious difficulty seeing, even when wearing glasses No 09/13/2022 8:08 AM Cydney Fuentes, LIANA No [facility] 09-13-2022 Do you have serious difficulty walking or climbing stairs No 09/13/2022 8:08 AM EDCydney Ji, LIANA No [facility] 09-13-2022 Do you have difficul ty dressing or bathing No 09/13/2022 8:08 AM EDCydney Ji, LIANA No [facility] 09-13-2022 Because of a physica l, mental, or emotional condition, do you have difficulty doing errands alone such as visiting a physician's office or shopping No 09/13/2022 8:08 AM Cydney Fuentes, LIANA No [facility] Mental Status Date Assessment Result Facility 09-13-2022 Because of a physica l, mental, or emotional condition, do you have serious difficulty concentrating, remembering, or making decisions No 09/13/2022 8:08 AM EDCydney Ji, LIANA No [facility] Clinical Notes 07-11-2022 to 01-30-2025 Edilberto Truong MD - 01/30/2025 8:46 AM EDTTelephone Encounter - Gabrielle Marinelli RN - 10/11/2024 7:19 AM EDTTelephone Encounter - Gabrielle Marinelli RN - 10/11/2024 7:19 AM EDTPatient Instructions Note Date & Type Note Facility 01-30-2025 Note HNO ID: [id number] Author: EDILBERTO TRUONG MD Service: ? Author Type: Physician Type: Progress Notes Filed: 01/30/2025 08:56 Note Text: Endocrinology Thyroid Follow Up Juve Meyer, virtual visit for follow up regarding: thyroid cancer I have communicated my name and active licensure. The patient's identity and physical location were verified at the time of this visit. Either the patient or their legal used equipment sales representative has been informed of the risks and benefits of -- and alternatives to -- treatment through a remote evaluation and consents to proceed with the evaluation remotely. Last office visit: 07/2024 PCP is Polo Lopez MD, MD History of Present Illness Juve Meyer is a 24 year old male with PMH of Hx of thyroid cancer with postsurgical hypothyroidism, visit for follow up Doing well On LT4 300 mcg daily Taking it appropriately - waits one hour prior to eating Here with his mother (brother on the phone) Brother has thyroid cancer Genetic testing negative Mother has thyroid nodule s/p RFA Past History, Medications, Allergies PAST MEDICAL HISTORY Diagnosis Date Allergy Fatty liver Gout Obesity PMH - PAST MEDICAL HISTORY OF 2003, 2010 right broken leg - broke this leg two separate times PMH - PAST MEDICAL HISTORY OF 06/04/2001 admitted to [facility] for wheezing Thyromegaly PAST SURGICAL HISTORY Procedure Laterality Date CIRCUMCISION W/CLAMP/OTH DEV W/BLOCK THYROID BIOPSY US Right 07/15/2022 [facility]NA THYROIDECTOMY TOTAL/COMPLETE Bilateral 09/2022 Current Outpatient Medications Medication Sig Dispense Refill levothyroxine (SYNTHROID) 300 mcg tablet Take 1 tablet by mouth once daily. 90 tablet 3 fexofenadine HCl (KAPIL ORAL) Take by mouth as needed. No current facility-administered medications for this visit. ALLERGIES Allergen Reactions Seasonal Allergies Unknown Trees, hogs/pigs. Shellfish Derived Unknown Bee Pollen Unknown FAMILY HISTORY Problem Relation Age of Onset None Mother Hypertension Father Diabetes Paternal Grandmother other (hypertension) Paternal Grandmother other (Gastritis) Paternal Grandfather Cancer Other maternal side other (Gastritis) Other PGGF Social History Tobacco Use Smoking status: Never Smokeless tobacco: Never Tobacco comments: No one in the household smokes Vaping Use Vaping status: Former Substance Use Topics Alcohol use: Yes Comment: social Drug use: No Review of Systems Answers submitted by the patient for this visit: Core Review of Systems (Submitted on 01/30/2025) Fever : No Night sweats: No Recent unintentional weight change: No Nasal Congestion: No Hearing Loss: No Vision Disturbance: No A cough: No Difficulty Breathing?: No Chest pain: No Irregular heartbeat: No Leg Swelling: No Nausea: No Diarrhea: No Black tarry stools: No Difficulty Urinating?: No Awaken at Night More Than Once to Urinate?: No Joint pain or stiffness: No Muscle aches: No Leg or Foot Discomfort at Night?: No A rash: No Dizziness: No Headaches: No Memory Loss: No Seizures: No Physical examination GENERAL: Well nourished, well hydrated, in no distress and oriented x 3 COMMUNICATION: Hearing: normal; VOICE: normal EYES: no thyroid eye signs, Fundi normal, cornea normal and EOMI NECK: no visible nodules or goiter LUNGS: no audible wheezing or respiratory distress NEURO: normal strength and no tremor SKIN: No rash or visible wound. ENDOCRINE: No cushingoid or acromegalic features Previous Laboratory Results Thyroglobulin Ab, Serum Thyroglobulin, Serum TSH Latest Ref Rng <4.0 IU/mL 1.6 - 50.0 ng/mL 0.270 - 4.200 mIU/L 08/20/2024 <0.9 0.1 (L) 2.120 09/26/2024 <0.9 - (C) 0.092 (L) 10/15/2024 <0.9 <0.1 (L) 0.089 (L) 01/27/2025 <0.9 0.1 (L) 0.101 (L) Cytology 09/2023: A - Lymph Node, Aspirate/Fine Needle Aspirate - RIGHT IIb Non-diagnostic aspirate sample. Not a lymphoid sample. B - Lymph Node, Aspirate/Fine Needle Aspirate - LEFT level III Negative for metastatic carcinoma. Limited lymphoid sample Pathology 09/2022 Tumor type PTC Tumor diameter 4.9 cm Solitary Yes Multifocal No Side Right Encapsulated No Capsular invasion No Angioinvasion No Lymphovascular invasion Yes Extrathyroidal invasion No Margins involved No Necrosis: No Background lymphocytic thyroiditis No Node status 6/10 - 0.2 cm (LVL IV) Extranodal extension No Metastases No Complete excision Yes Antibody status < 0.9 TNM/AJCC: pT3a N1a Mx Stage I MACIS Scoring: SCORE = 6.57 Survival by MACIS score (20-yr): 6-6.99 = 89% PATIENCE intermediate risk Clinical N1 or >5 pathologic N1 with all involved lymph nodes <3cm in largest dimension ECOG PERFORMANCE STATUS: 0- Fully active, able to carry on all pre-disease performance w/o restriction. Date of surgery 09/12/[address] Davenport [facility] CC Whole body scan 01/17/2024: 0.6 % uptake. No (more content not included)... [facility] 01-30-2025 History of Presen t illness Narrative Endocrinology Thyroid Follow Up Juve Meyer, virtual visit for follow up regarding: thyroid cancer I have communicated my name and active licensure. The patient's identity and physical location were verified at the time of this visit. Either the patient or their legal used equipment sales representative has been informed of the risks and benefits of -- and alternatives to -- treatment through a remote evaluation and consents to proceed with the evaluation remotely. Last office visit: 07/2024 PCP is Polo Lopez MD, MD History of Present Illness Juve Meyer is a 24 year old male with PMH of Hx of thyroid cancer with postsurgical hypothyroidism, visit for follow up Doing well On LT4 300 mcg daily Taking it appropriately - waits one hour prior to eating Here with his mother (brother on the phone) Brother has thyroid cancer Genetic testing negative Mother has thyroid nodule s/p RFA Past History, Medications, Allergies PAST MEDICAL HISTORY Diagnosis Date Allergy Fatty liver Gout Obesity PMH - PAST MEDICAL HISTORY OF 2003, 2010 right broken leg - broke this leg two separate times PMH - PAST MEDICAL HISTORY OF 06/04/2001 admitted to [facility] for wheezing Thyromegaly PAST SURGICAL HISTORY Procedure Laterality Date CIRCUMCISION W/CLAMP/OTH DEV W/BLOCK THYROID BIOPSY US Right 07/15/2022 [facility]NA THYROIDECTOMY TOTAL/COMPLETE Bilateral 09/2022 Current Outpatient Medications Medication Sig Dispense Refill levothyroxine (SYNTHROID) 300 mcg tablet Take 1 tablet by mouth once daily. 90 tablet 3 fexofenadine HCl (KAPIL ORAL) Take by mouth as needed. No current facility-administered medications for this visit. ALLERGIES Allergen Reactions Seasonal Allergies Unknown Trees, hogs/pigs. Shellfish Derived Unknown Bee Pollen Unknown FAMILY HISTORY Problem Relation Age of Onset None Mother Hypertension Father Diabetes Paternal Grandmother other (hypertension) Paternal Grandmother other (Gastritis) Paternal Grandfather Cancer Other maternal side other (Gastritis) Other PGGF Social History Tobacco Use Smoking status: Never Smokeless tobacco: Never Tobacco comments: No one in the household smokes Vaping Use Vaping status: Former Substance Use Topics Alcohol use: Yes Comment: social Drug use: No Review of Systems Answers submitted by the patient for this visit: Core Review of Systems (Submitted on 01/30/2025) Fever : No Night sweats: No Recent unintentional weight change: No Nasal Congestion: No Hearing Loss: No Vision Disturbance: No A cough: No Difficulty Breathing?: No Chest pain: No Irregular heartbeat: No Leg Swelling: No Nausea: No Diarrhea: No Black tarry stools: No Difficulty Urinating?: No Awaken at Night More Than Once to Urinate?: No Joint pain or stiffness: No Muscle aches: No Leg or Foot Discomfort at Night?: No A rash: No Dizziness: No Headaches: No Memory Loss: No Seizures: No Physical examination GENERAL: Well nourished, well hydrated, in no distress and oriented x 3 COMMUNICATION: Hearing: normal; VOICE: normal EYES: no thyroid eye signs, Fundi normal, cornea normal and EOMI NECK: no visible nodules or goiter LUNGS: no audible wheezing or respiratory distress NEURO: normal strength and no tremor SKIN: No rash or visible wound. ENDOCRINE: No cushingoid or acromegalic features Previous Laboratory Results Thyroglobulin Ab, Serum Thyroglobulin, Serum TSH Latest Ref Rng <4.0 IU/mL 1.6 - 50.0 ng/mL 0.270 - 4.200 mIU/L 08/20/2024 <0.9 0.1 (L) 2.120 09/26/2024 <0.9 - (C) 0.092 (L) 10/15/2024 <0.9 <0.1 (L) 0.089 (L) 01/27/2025 <0.9 0.1 (L) 0.101 (L) Cytology 09/2023: A - Lymph Node, Aspirate/Fine Needle Aspirate - RIGHT IIb Non-diagnostic aspirate sample. Not a lymphoid sample. B - Lymph Node, Aspirate/Fine Needle Aspirate - LEFT level III Negative for metastatic carcinoma. Limited lymphoid sample Pathology 09/2022 Tumor type PTC Tumor diameter 4.9 cm Solitary Yes Multifocal No Side Right Encapsulated No Capsular invasion No Angioinvasion No Lymphovascular invasion Yes Extrathyroidal invasion No Margins involved No Necrosis: No Background lymphocytic thyroiditis No Node status 6/10 - 0.2 cm (LVL IV) Extranodal extension No Metastases No Complete excision Yes Antibody status < 0.9 TNM/AJCC: pT3a N1a Mx Stage I MACIS Scoring: SCORE = 6.57 Survival by MACIS score (20-yr): 6-6.99 = 89% PATIENCE intermediate risk Clinical N1 or >5 pathologic N1 with all involved lymph nodes <3cm in largest dimension ECOG PERFORMANCE STATUS: 0- Fully active, able to carry on all pre-disease performance w/o restriction. Date of surgery 09/12/[address] Destin Mitchell [facility] Whole body scan 01/17/2024: 0.6 % uptake. 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, classical) with lymphatic invasion, LN 6/10 (LVL IV, 0.2 cm, no REJI) s/p total thyroidectomy 09/2022 and I-131 with 91.8 mCi (01/2024) with postsurgical hypothyroidism: -- Asymptomatic -- PATIENCE intermediate risk -- Target TSH around 0.1 - 0.5 for the next 3 years -- Thyroglobulin 0.1 with undetectable thyroglobulin Ab level in 01/2025 -- TSH at goal in 01/2025 -- Continue levothyroxine 300 mcg daily -- Check TSH, Tg and Tg Ab in 6 months -- Neck US in 06/2025 The patient will follow up in 06/2025 Edilberto Enamorado MD documented in this encounter [facility] 10-11-2024 Telephone encounter Note [facility] pathology lab called office with following recall message. Relayed message that they are recalling thyroglobulin results due to a reagent issue. Patient will need retested if clinically indicated for the recent result on 09/26/24. [facility] patient will not be billed twice for retest. States there will be further arlin sent to providers. Gabrielle Marinelli RN October 11, 2024 7:20 AM [facility] 10-11-2024 Miscellaneous Notes [facility] pathology lab called office with following recall message. Relayed message that they are recalling thyroglobulin results due to a reagent issue. Patient will need retested if clinically indicated for the recent result on 09/26/24. [facility] patient will not be billed twice for retest. States there will be further arlin sent to providers. Gabrielle Marinelli RN October 11, 2024 7:20 AM documented in this encounter [facility] 10-02-2024 Telephone encounter Note Pt would like additional information. [facility] 10-02-2024 Miscellaneous Notes Pt would like additional information. documented in this encounter [facility] 08-29-2024 Miscellaneous Notes Images from the original note were not included. Most recent Endocrinology visit: Last encounter Visit on 07/22/2024 (with Edilberto Enamorado) 09/28/2022 in [facility] with EMILIANA KO for Papillary thyroid carcinoma (HCC) 03/30/2023 in [facility] with EMILIANA KO for Papillary thyroid carcinoma (HCC) 08/24/2023 in [facility] with EDILBERTO TRUONG for Post-surgical hypothyroidism 09/27/2023 in [facility] with SARAH TRUONGA for Post-surgical hypothyroidism 07/22/2024 in [facility] with EDILBERTO TRUONG for Post-surgical hypothyroidism Upcoming Endocrinology Appointments - Next 365 Days Visit Type Date Time Department VIDEO SPEC EST 01/30/2025 8:40 AM [facility] EST [place] PATIENT 06/23/2025 9:00 AM [facility] Requested Prescriptions Pending Prescriptions Disp Refills levothyroxine (SYNTHROID) 300 mcg tablet 90 tablet 3 Sig: Take 1 tablet by mouth once daily. Hemoglobin A1c: None on file in the last 12 months Latest Ref Rng & Units 08/20/2024 07/18/2024 01/17/2024 TSH TSH 0.270 - 4.200 mIU/L 2.120 3.930 52.040 Free T3: None on file in the last 12 months Free T4: None on file in the last 12 months Latest Ref Rng & Units 08/20/2024 07/18/2024 01/17/2024 Thyroglobulin Thyroglobulin, Serum 1.6 - 50.0 ng/mL 0.1 0.1 0.3 Thyroglobulin Ab, Serum <4.0 IU/mL <0.9 <0.9 <0.9 Vitamin D: None on file in the last 12 months Hematocrit: None on file in the last 12 months Creatinine: None on file in the last 12 months eGFR: None on file in the last 12 months Potassium: None on file in the last 12 months Testosterone: None on file in the last 12 months IGF: None on file in the last 12 months Prolactin: None on file in the last 12 months documented in this encounter [facility] 08-29-2024 Telephone encounter Note Images from the original note were not included. Most recent Endocrinology visit: Last encounter Visit on 07/22/2024 (with Edilberto Enamorado) 09/28/2022 in [facility] with EMILIANA KO for Papillary thyroid carcinoma (HCC) 03/30/2023 in [facility] with EMILIANA KO for Papillary thyroid carcinoma (HCC) 08/24/2023 in [facility] with EDILBERTO TRUONG for Post-surgical hypothyroidism 09/27/2023 in [facility] with EDILBERTO TRUONG for Post-surgical hypothyroidism 07/22/2024 in [facility] with EDILBERTO TRUONG for Post-surgical hypothyroidism Upcoming Endocrinology Appointments - Next 365 Days Visit Type Date Time Department VIDEO SPEC EST 01/30/2025 8:40 AM [facility] EST [place] PATIENT 06/23/2025 9:00 AM [facility] Requested Prescriptions Pending Prescriptions Disp Refills levothyroxine (SYNTHROID) 300 mcg tablet 90 tablet 3 Sig: Take 1 tablet by mouth once daily. Hemoglobin A1c: None on file in the last 12 months Latest Ref Rng & Units 08/20/2024 07/18/2024 01/17/2024 TSH TSH 0.270 - 4.200 mIU/L 2.120 3.930 52.040 Free T3: None on file in the last 12 months Free T4: None on file in the last 12 months Latest Ref Rng & Units 08/20/2024 07/18/2024 01/17/2024 Thyroglobulin Thyroglobulin, Serum 1.6 - 50.0 ng/mL 0.1 0.1 0.3 Thyroglobulin Ab, Serum <4.0 IU/mL <0.9 <0.9 <0.9 Vitamin D: None on file in the last 12 months Hematocrit: None on file in the last 12 months Creatinine: None on file in the last 12 months eGFR: None on file in the last 12 months Potassium: None on file in the last 12 months Testosterone: None on file in the last 12 months IGF: None on file in the last 12 months Prolactin: None on file in the last 12 months [facility] 07-22-2024 Note HNO ID: [id number] Author: EDILBERTO TRUONG MD Service: ? Author Type: Physician Type: Progress Notes Filed: 07/22/2024 10:06 Note Text: Thyroid/parathyroid/neck ultrasound (July 22, 2024): Primary Care Physcian: Juve Meyer Reason for the study: Follow up of thyroid cancer Comparison: 09/2023 Equipment: GE LOGIQ Transducer: Linear/Trapezoidal multifrequency Regions examined: Thyroid bed and Lymphatic areas Technique: Sonography was performed. Color and power Doppler were applied when indicated. Images were obtained and stored in a permanent archive. Empty right and left thyroid beds Other findings: Impression: Empty right and left thyroid beds Benign appearing LN Recommendation: Ultrasound in 1 year. Performed and interpreted by Edilberto Enamorado MD [facility] 07-22-2024 History of Presen t illness Narrative Thyroid/parathyroid/neck ultrasound (July 22, 2024): Primary Care Physcian: Juve Meyer Reason for the study: Follow up of thyroid cancer Comparison: 09/2023 Equipment: GE LOGIQ Transducer: Linear/Trapezoidal multifrequency Regions examined: Thyroid bed and Lymphatic areas Technique: Sonography was performed. Color and power Doppler were applied when indicated. Images were obtained and stored in a permanent archive. Empty right and left thyroid beds Other findings: Impression: Empty right and left thyroid beds Benign appearing LN Recommendation: Ultrasound in 1 year. Performed and interpreted by Edilberto Enamorado MD Endocrinology Thyroid Follow Up Juve Meyer is here for follow up regarding: thyroid cancer Last office visit: 09/2023 PCP is Polo Lopez MD, MD History of Present Illness Juve Meyer is a 24 year old male with PMH of Hx of thyroid cancer with postsurgical hypothyroidism, visit for follow up Doing well On LT4 300 mcg 5.5 pills per week Taking it appropriately Here with his mother and brother Brother has thyroid cancer Genetic testing negative Mother has thyroid nodule s/p RFA Past History, Medications, Allergies PAST MEDICAL HISTORY Diagnosis Date Allergy Fatty liver Gout Obesity PMH - PAST MEDICAL HISTORY OF 2003, 2010 right broken leg - broke this leg two separate times PMH - PAST MEDICAL HISTORY OF 06/04/2001 admitted to [facility] for wheezing Thyromegaly PAST SURGICAL HISTORY Procedure Laterality Date CIRCUMCISION W/CLAMP/OTH DEV W/BLOCK THYROID BIOPSY US Right 07/15/2022 FNA THYROIDECTOMY TOTAL/COMPLETE Bilateral 09/2022 Current Outpatient Medications Medication Sig Dispense Refill levothyroxine (SYNTHROID) 300 mcg tablet one pill Monday to Monday, 1/2 on Monday, skip Monday 90 tablet 3 fexofenadine HCl (KAPIL ORAL) Take by mouth as needed. No current facility-administered medications for this visit. ALLERGIES Allergen Reactions Seasonal Allergies Unknown Trees, hogs/pigs. Shellfish Derived Unknown Bee Pollen Unknown FAMILY HISTORY Problem Relation Age of Onset None Mother Hypertension Father Diabetes Paternal Grandmother other (hypertension) Paternal Grandmother other (Gastritis) Paternal Grandfather Cancer Other maternal side other (Gastritis) Other PGGF Social History Tobacco Use Smoking status: Never Smokeless tobacco: Never Tobacco comments: No one in the household smokes Vaping Use Vaping status: Former Substance Use Topics Alcohol use: Yes Comment: social Drug use: No Review of Systems Answers submitted by the patient for this visit: Core Review of Systems (Submitted on 07/20/2024) Fever : No Night sweats: No Recent unintentional weight change: No Nasal Congestion: No Hearing Loss: No Vision Disturbance: No A cough: No Difficulty Breathing?: No Chest pain: No Irregular heartbeat: No Leg Swelling: No Nausea: No Diarrhea: No Black tarry stools: No Difficulty Urinating?: No Awaken at Night More Than Once to Urinate?: No Joint pain or stiffness: No Muscle aches: No Leg or Foot Discomfort at Night?: No A rash: No Dizziness: No Headaches: No Memory Loss: No Seizures: No Physical examination BP 135/82 Pulse 75 Temp 36.3 C (97.4 F) (Temporal) Resp 20 Wt (!) 143 kg (315 lb 4.1 oz) SpO2 97% BMI 35.52 kg/m GENERAL: Well nourished, well hydrated, in no distress and oriented x 3 COMMUNICATION: Hearing: normal; VOICE: normal EYES: no thyroid eye signs, Fundi normal, cornea normal and EOMI NECK: no visible nodules or goiter LUNGS: no audible wheezing or respiratory distress NEURO: normal strength and no tremor SKIN: No rash or visible wound. ENDOCRINE: No cushingoid or acromegalic features Previous Laboratory Results Thyroglobulin Ab, Serum Thyroglobulin, Serum TSH Latest Ref Rng <4.0 IU/mL 1.6 - 50.0 ng/mL 0.270 - 4.200 mIU/L 09/27/2023 <0.9 0.1 (L) 0.030 (L) 11/16/2023 0.049 (L) 12/28/2023 <0.9 0.1 (L) 0.745 01/17/2024 <0.9 0.3 (L) 52.040 (H) 07/18/2024 <0.9 0.1 (L) 3.930 Cytology 09/2023: A - Lymph Node, Aspirate/Fine Needle Aspirate - RIGHT IIb Non-diagnostic aspirate sample. Not a lymphoid sample. B - Lymph Node, Aspirate/Fine Needle Aspirate - LEFT level III Negative for metastatic carcinoma. Limited lymphoid sample Pathology 09/2022 Tumor type PTC Tumor diameter 4.9 cm Solitary Yes Multifocal No Side Right Encapsulated No Capsular invasion No Angioinvasion No Lymphovascular invasion Yes Extrathyroidal invasion No Margins involved No Necrosis: No Background lymphocytic thyroiditis No Node status 6/10 - 0.2 cm (LVL IV) Extranodal extension No Metastases No Complete excision Yes Antibody status < 0.9 TNM/AJCC: pT3a N1a Mx Stage I MACIS Scoring: SCORE = 6.57 Survival by MACIS score (20-yr): 6-6.99 = 89% PATIENCE intermediate risk Clinical N1 or >5 pathologic N1 with all involved lymph nodes <3cm in largest dimension ECOG PERFORMANCE STATUS: 0- Fully active, able to carry on all pre-disease performance w/o restriction. Date of surgery 09/12/[address] Destin Mitchell [facility] Whole body scan 01/17/2024: 0.6 % uptake. 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 Edilberto Enamorado MD documented in this encounter [facility] 07-22-2024 Instructions Edilberto Truong MD - 07/22/2024 9:09 AM EST Please increase the levothyroxine to 300 mcg one pill Monday to Monday, skip Monday Please repeat TSH in 4 weeks If at goal, next blood work in 6 months Follow up in 6 months documented in this encounter [facility] 07-22-2024 Note HNO ID: [id number] Author: EDILBERTO TRUONG MD Service: ? Author Type: Physician Type: Progress Notes Filed: 07/22/2024 10:11 Note Text: Endocrinology Thyroid Follow Up Juve Meyer is here for follow up regarding: thyroid cancer Last office visit: 09/2023 PCP is Polo Lopez MD, MD History of Present Illness Juve Meyer is a 24 year old male with PMH of Hx of thyroid cancer with postsurgical hypothyroidism, visit for follow up Doing well On LT4 300 mcg 5.5 pills per week Taking it appropriately Here with his mother and brother Brother has thyroid cancer Genetic testing negative Mother has thyroid nodule s/p RFA Past History, Medications, Allergies PAST MEDICAL HISTORY Diagnosis Date Allergy Fatty liver Gout Obesity PMH - PAST MEDICAL HISTORY OF 2010 right broken leg - broke this leg two separate times PMH - PAST MEDICAL HISTORY OF 06/04/2001 admitted to [facility] for wheezing Thyromegaly PAST SURGICAL HISTORY Procedure Laterality Date CIRCUMCISION W/CLAMP/OTH DEV W/BLOCK THYROID BIOPSY US Right 07/15/2022 FNA THYROIDECTOMY TOTAL/COMPLETE Bilateral 09/2022 Current Outpatient Medications Medication Sig Dispense Refill levothyroxine (SYNTHROID) 300 mcg tablet one pill Monday to Monday, 1/2 on Monday, skip Monday 90 tablet 3 fexofenadine HCl (KAPIL ORAL) Take by mouth as needed. No current facility-administered medications for this visit. ALLERGIES Allergen Reactions Seasonal Allergies Unknown Trees, hogs/pigs. Shellfish Derived Unknown Bee Pollen Unknown FAMILY HISTORY Problem Relation Age of Onset None Mother Hypertension Father Diabetes Paternal Grandmother other (hypertension) Paternal Grandmother other (Gastritis) Paternal Grandfather Cancer Other maternal side other (Gastritis) Other PGGF Social History Tobacco Use Smoking status: Never Smokeless tobacco: Never Tobacco comments: No one in the household smokes Vaping Use Vaping status: Former Substance Use Topics Alcohol use: Yes Comment: social Drug use: No Review of Systems Answers submitted by the patient for this visit: Core Review of Systems (Submitted on 07/20/2024) Fever : No Night sweats: No Recent unintentional weight change: No Nasal Congestion: No Hearing Loss: No Vision Disturbance: No A cough: No Difficulty Breathing?: No Chest pain: No Irregular heartbeat: No Leg Swelling: No Nausea: No Diarrhea: No Black tarry stools: No Difficulty Urinating?: No Awaken at Night More Than Once to Urinate?: No Joint pain or stiffness: No Muscle aches: No Leg or Foot Discomfort at Night?: No A rash: No Dizziness: No Headaches: No Memory Loss: No Seizures: No Physical examination BP 135/82 Pulse 75 Temp 36.3 ?C (97.4 ?F) (Temporal) Resp 20 Wt (!) 143 kg (315 lb 4.1 oz) SpO2 97% BMI 35.52 kg/m? GENERAL: Well nourished, well hydrated, in no distress and oriented x 3 COMMUNICATION: Hearing: normal; VOICE: normal EYES: no thyroid eye signs, Fundi normal, cornea normal and EOMI NECK: no visible nodules or goiter LUNGS: no audible wheezing or respiratory distress NEURO: normal strength and no tremor SKIN: No rash or visible wound. ENDOCRINE: No cushingoid or acromegalic features Previous Laboratory Results Thyroglobulin Ab, Serum Thyroglobulin, Serum TSH Latest Ref Rng <4.0 IU/mL 1.6 - 50.0 ng/mL 0.270 - 4.200 mIU/L 09/27/2023 <0.9 0.1 (L) 0.030 (L) 11/16/2023 0.049 (L) 12/28/2023 <0.9 0.1 (L) 0.745 01/17/2024 <0.9 0.3 (L) 52.040 (H) 07/18/2024 <0.9 0.1 (L) 3.930 Cytology 09/2023: A - Lymph Node, Aspirate/Fine Needle Aspirate - RIGHT IIb Non-diagnostic aspirate sample. Not a lymphoid sample. B - Lymph Node, Aspirate/Fine Needle Aspirate - LEFT level III Negative for metastatic carcinoma. Limited lymphoid sample Pathology 09/2022 Tumor type PTC Tumor diameter 4.9 cm Solitary Yes Multifocal No Side Right Encapsulated No Capsular invasion No Angioinvasion No Lymphovascular invasion Yes Extrathyroidal invasion No Margins involved No Necrosis: No Background lymphocytic thyroiditis No Node status 11/12 - 0.2 cm (LVL IV) Extranodal extension No Metastases No Complete excision Yes Antibody status < 0.9 TNM/AJCC: pT3a N1a Mx Stage I MACIS Scoring: SCORE = 6.57 Survival by MACIS score (20-yr): 6-6.99 = 89% PATIENCE intermediate risk Clinical N1 or >5 pathologic N1 with all involved lymph nodes <3cm in largest dimension ECOG PERFORMANCE STATUS: 0- Fully active, able to carry on all pre-disease performance w/o restriction. Date of surgery 09/12/[address] Destin Mitchell [facility] Whole body scan 01/17/2024: 0.6 % uptake. No mets I-131 treatment 01/2024: 91.8 mCi Post-therapy scan 01/2024: no mets Neck US 09/2023: FNA of LL3 LN benign and RL2b LN non-diagnostic Neck US 07/2024: MICHEL Impression/Recommendations Juve Meyer is a 24 y (more content not included)... [facility] 01-17-2024 History of Presen t illness Narrative RADIOLOGY SERVICE PROGRESS NOTE SERVICE DATE: 01/17/2024 SERVICE TIME: 2:32 PM PATIENT IDENTITY VERIFICATION COMPLETED USING TWO (2) STANDARD IDENTIFIERS: Name and Date of confirmed by patient verbally FALL SCREENING: Has the patient had 2 falls in the last year or 1 fall with injury or currently using an Ambulatory Assistive Device (Walker, Cane, Wheelchair, Crutches, etc.)? No PATIENT GENDER DATA: .male ALLERGIES: Reviewed and unchanged MEDICATIONS REVIEWED: Yes PATIENT RELEVANT IMPLANT DATA REVIEWED: Yes PATIENT PRESENTS WITH AN IMPLANTABLE OR ATTACHED FLATBED OWNER OPERATOR: No CREATININE: Creatinine Date Value Ref Range Status 03/24/2023 0.78 0.73 - 1.22 mg/dL Final 10/24/2022 0.76 0.73 - 1.22 mg/dL Final 08/26/2022 0.78 0.73 - 1.22 mg/dL Final Estimated Glomerular Filtration Rate Date Value Ref Range Status 03/24/2023 129 >=60 mL/min/1.73m Final Comment: Estimated Glomerular Filtration Rate (eGFR) is calculated using the 2020 CKD-EPI creatinine equation. This equation utilizes serum creatinine, sex, and age as parameters. The creatinine assay has traceable calibration to isotope dilution-mass spectrometry. Refer to KDIGO guidelines for clinical interpretation. In patients with unstable renal function, e.g. those with acute kidney injury, the eGFR may not accurately reflect actual GFR. P.O.C.T. RESULTS: N/A January 17, [address] PERFORMED: No IV SITE: Ambulatory: Not applicable POST EXAM PIV STATUS: Not applicable PROCEDURE TYPE: NM Therapy: Dr. manley discussed the risks, benefits, alternatives, and precautions of I-131 therapy with the patient, who understood and agreed to proceed with the I-131 therapy. The patient received a written set of instructions regarding the I-131 therapy. 91.8 mCi of I-131 was administered orally for the radioactive I-131 therapy ADMINISTRATION TIME: 1445 PATIENT DISCHARGED TO: Ambulatory patient, left [place] department area. A Diagnostic radioactive procedure has taken place, with no further precautions necessary other than routine body substance precautions. More information regarding radiation safety can be found using this link: [email or web address]% 20Nuclear%20Medicine%20Procedur [email or web address] SIGNATURE: Zoë Pope PATIENT NAME: Juve Meyer DATE: January 17, 2024 TIME: 2:32 PM PAGER/CONTACT #: documented in this encounter [facility] 01-17-2024 Note HNO ID: [id number] Author: KRYSTYNA ZUNIGA Nuclear Tech Service: Nuclear Medicine Author Type: Proposal Specialist Type: Progress Notes Filed: 01/17/2024 14:34 Note Text: RADIOLOGY SERVICE PROGRESS NOTE SERVICE DATE: 01/17/2024 SERVICE TIME: 2:32 PM PATIENT IDENTITY VERIFICATION COMPLETED USING TWO (2) STANDARD IDENTIFIERS: Name and Date of confirmed by patient verbally FALL SCREENING: Has the patient had 2 falls in the last year or 1 fall with injury or currently using an Ambulatory Assistive Device (Walker, Cane, Wheelchair, Crutches, etc.)? No PATIENT GENDER DATA: .male ALLERGIES: Reviewed and unchanged MEDICATIONS REVIEWED: Yes PATIENT RELEVANT IMPLANT DATA REVIEWED: Yes PATIENT PRESENTS WITH AN IMPLANTABLE OR ATTACHED FLATBED OWNER OPERATOR: No CREATININE: Creatinine Date Value Ref Range Status 03/24/2023 0.78 0.73 - 1.22 mg/dL Final 10/24/2022 0.76 0.73 - 1.22 mg/dL Final 08/26/2022 0.78 0.73 - 1.22 mg/dL Final Estimated Glomerular Filtration Rate Date Value Ref Range Status 03/24/2023 129 >=60 mL/min/1.73m? Final Comment: Estimated Glomerular Filtration Rate (eGFR) is calculated using the 2020 CKD-EPI creatinine equation. This equation utilizes serum creatinine, sex, and age as parameters. The creatinine assay has traceable calibration to isotope dilution-mass spectrometry. Refer to KDIGO guidelines for clinical interpretation. In patients with unstable renal function, e.g. those with acute kidney injury, the eGFR may not accurately reflect actual GFR. P.O.C.T. RESULTS: N/A January 17, [address] PERFORMED: No IV SITE: Ambulatory: Not applicable POST EXAM PIV STATUS: Not applicable PROCEDURE TYPE: NM Therapy: Dr. manley discussed the risks, benefits, alternatives, and precautions of I-131 therapy with the patient, who understood and agreed to proceed with the I-131 therapy. The patient received a written set of instructions regarding the I-131 therapy. 91.8 mCi of I-131 was administered orally for the radioactive I-131 therapy ADMINISTRATION TIME: 1445 PATIENT DISCHARGED TO: Ambulatory patient, left [place] department area. A Diagnostic radioactive procedure has taken place, with no further precautions necessary other than routine body substance precautions. More information regarding radiation safety can be found using this link: [email or web address] 20Diagnostic%20Nuclear%20Medici ne%20Procedures.pdf SIGNATURE: Krystyna Zuniga, [employer] PATIENT NAME: Juve Meyer DATE: January 17, 2024 TIME: 2:32 PM PAGER/CONTACT #: [facility] 01-16-2024 History of Presen t illness Narrative RADIOLOGY SERVICE PROGRESS NOTE SERVICE DATE: 01/16/2024 SERVICE TIME: 1:38 PM PATIENT IDENTITY VERIFICATION COMPLETED USING TWO (2) STANDARD IDENTIFIERS: Name and Date of confirmed by patient verbally FALL SCREENING: Has the patient had 2 falls in the last year or 1 fall with injury or currently using an Ambulatory Assistive Device (Walker, Cane, Wheelchair, Crutches, etc.)? No PATIENT GENDER DATA: .male ALLERGIES: Reviewed and unchanged MEDICATIONS REVIEWED: Not applicable PATIENT RELEVANT IMPLANT DATA REVIEWED: Not Applicable PATIENT PRESENTS WITH AN IMPLANTABLE OR ATTACHED FLATBED OWNER OPERATOR: No CREATININE: Creatinine Date Value Ref Range Status 03/24/2023 0.78 0.73 - 1.22 mg/dL Final 10/24/2022 0.76 0.73 - 1.22 mg/dL Final 08/26/2022 0.78 0.73 - 1.22 mg/dL Final Estimated Glomerular Filtration Rate Date Value Ref Range Status 03/24/2023 129 >=60 mL/min/1.73m Final Comment: Estimated Glomerular Filtration Rate (eGFR) is calculated using the 2020 CKD-EPI creatinine equation. This equation utilizes serum creatinine, sex, and age as parameters. The creatinine assay has traceable calibration to isotope dilution-mass spectrometry. Refer to KDIGO guidelines for clinical interpretation. In patients with unstable renal function, e.g. those with acute kidney injury, the eGFR may not accurately reflect actual GFR. P.O.C.T. RESULTS: N/A January 16, [address] PERFORMED: No IV SITE: NM only - not applicable, oral or physician administered agents given to patient POST EXAM PIV STATUS: Not applicable PROCEDURE TYPE: NM INJECT: I 123 wb scan. 2.2 mCi Nal-123 Capsules. No other medications given.. ADMINISTRATION TIME: 1319 PATIENT DISCHARGED TO: Ambulatory patient, left [place] department area. A Diagnostic radioactive procedure has taken place, with no further precautions necessary other than routine body substance precautions. More information regarding radiation safety can be found using this link: [email or web address]-%20Diagnostic% 20Nuclear%20Medicine%20Procedur [email or web address] SIGNATURE: ROLAND Hernandez) PATIENT NAME: Juve Meyer DATE: January 16, 2024 TIME: 1:38 PM PAGER/CONTACT #: documented in this encounter [facility] 01-16-2024 Note HNO ID: [id number] Author: LORI FAROOQ RT (R) Service: ? Author Type: Proposal Specialist Type: Progress Notes Filed: 01/16/2024 13:38 Note Text: RADIOLOGY SERVICE PROGRESS NOTE SERVICE DATE: 01/16/2024 SERVICE TIME: 1:38 PM PATIENT IDENTITY VERIFICATION COMPLETED USING TWO (2) STANDARD IDENTIFIERS: Name and Date of confirmed by patient verbally FALL SCREENING: Has the patient had 2 falls in the last year or 1 fall with injury or currently using an Ambulatory Assistive Device (Walker, Cane, Wheelchair, Crutches, etc.)? No PATIENT GENDER DATA: .male ALLERGIES: Reviewed and unchanged MEDICATIONS REVIEWED: Not applicable PATIENT RELEVANT IMPLANT DATA REVIEWED: Not Applicable PATIENT PRESENTS WITH AN IMPLANTABLE OR ATTACHED FLATBED OWNER OPERATOR: No CREATININE: Creatinine Date Value Ref Range Status 03/24/2023 0.78 0.73 - 1.22 mg/dL Final 10/24/2022 0.76 0.73 - 1.22 mg/dL Final 08/26/2022 0.78 0.73 - 1.22 mg/dL Final Estimated Glomerular Filtration Rate Date Value Ref Range Status 03/24/2023 129 >=60 mL/min/1.73m? Final Comment: Estimated Glomerular Filtration Rate (eGFR) is calculated using the 2020 CKD-EPI creatinine equation. This equation utilizes serum creatinine, sex, and age as parameters. The creatinine assay has traceable calibration to isotope dilution-mass spectrometry. Refer to KDIGO guidelines for clinical interpretation. In patients with unstable renal function, e.g. those with acute kidney injury, the eGFR may not accurately reflect actual GFR. P.O.C.T. RESULTS: N/A January 16, [address] PERFORMED: No IV SITE: [place] only - not applicable, oral or physician administered agents given to patient POST EXAM PIV STATUS: Not applicable PROCEDURE TYPE: MO INJECT: I 123 wb scan. 2.2 mCi Nal-123 Capsules. No other medications given.. ADMINISTRATION TIME: 1319 PATIENT DISCHARGED TO: Ambulatory patient, left MO department area. A Diagnostic radioactive procedure has taken place, with no further precautions necessary other than routine body substance precautions. More information regarding radiation safety can be found using this link: [email or web address] [email or web address] SIGNATURE: RT David(R) PATIENT NAME: Juve Meyer DATE: January 16, 2024 TIME: 1:38 PM PAGER/CONTACT #: [facility] 10-03-2023 Telephone encounter Note This RN notified team working on resolving order issue via email. Called Asia in lab back to update as well. Gabrielle Marinelli RN October 03, 2023 10:34 AM [facility] 10-03-2023 Miscellaneous Notes This RN notified team working on resolving order issue via email. Called Asia in lab back to update as well. Gabrielle Marinelli RN October 03, 2023 10:34 AM Order can be placed but cannot be collected Edilberto Enamorado MD Spoke with Asia in lab customer service. Called stating to attempt to update order for the FNA thyroid washout. Stated that prior ordering issue escalated should be corrected. Pended order for Dr. Elieser Enamorado to sign. Asia had spoken with Marilu in send outs who confirmed they have specimen and stability is for 6 months. Asia requesting call back to notify team to process once lab order signed. Call at [phone] who is available until 1:30. Gabrielle Marinelli RN October 03, 2023 9:46 AM documented in this encounter [facility] 10-03-2023 Telephone encounter Note Order can be placed but cannot be collected Edilberto Enamorado MD [facility] 10-03-2023 Telephone encounter Note Spoke with Asia in lab customer service. Called stating to attempt to update order for the FNA thyroid washout. Stated that prior ordering issue escalated should be corrected. Pended order for Dr. Elieser Enamorado to sign. Asia had spoken with Marilu in send outs who confirmed they have specimen and stability is for 6 months. Asia requesting call back to notify team to process once lab order signed. Call at [phone] who is available until 1:30. Gabrielle Marinelli RN October 03, 2023 9:46 AM [facility] 09-27-2023 Note Addended by: Messi NUNN on: 09/27/2023 05:21 PM Modules accepted: Orders [facility] 09-27-2023 Miscellaneous Notes Addended by: ENMANUEL NUNN on: 09/27/2023 05:21 PM Modules accepted: Orders documented in this encounter [facility] 09-27-2023 History of Presen t illness Narrative Fine needle aspiration of Thyroid Nodule (September 27, 2023) Referring Physician: No ref. provider found Primary Care Physician: Polo Lopez MD, MD ([id number]) Papillary thyroid carcinoma (HCC) Comment: Hx of thyroid cancer Plan: US THYROID/PARATHYROID (POC) ENDO USE ONLY, THYROID STIMULATING HORMONE, THYROGLOBULIN, SERUM WITH REFLEX TO IA OR LC-MS/MS, CYTOLOGY NON-WAITER/WAITRESS SECOND CLASS, CYTOLOGY NON-WAITER/WAITRESS SECOND CLASS, THYROGLOBULIN, FNA LYMPH NODE, THYROGLOBULIN, FNA LYMPH NODE, Juve Swenson Romaine was identified by name and date, acknowledges here to have an FNA of Level III lymph node on the left side and IIb on the right side performed. Patient on anti-platelet or anticoagulant drugs: No The risks, benefits and anticipated outcomes of the procedure, the risks and benefits of the alternatives to the procedure, and the roles and tasks of the personnel to be involved, were discussed with the patient. UNIVERSAL PROTOCOL / SAFETY CHECKLIST Procedure to be Performed: LN RL2b and LL3 FNA Sign In: A Moment of CARE was completed. Personnel directly involved with the procedure wore the appropriate PPE (Personal Protective Equipment). Patient/Surrogate Stated/Verified: PATIENT VERIFIED(optional for EMERGENT procedures): Patient name, Date of , Relevant allergies, and The intended procedure Time Out Communication: Intended patient and procedure match the source documents. Consent documented and matches the intended procedure. Sign Out: SIGN OUT (optional for EMERGENT procedures): All specimen containers correctly labeled. Edilberto Enamorado MD He was positionned in decubitus with the neck in extension. FNA of Level IIb lymph node on the Right side: I used Pain ease to numb the skin overlying the area of the nodule. The skin was prepped in the usual aseptic manner. I performed 2 passes through target nodule using G-25 needles under sonographic guidance. Character of the aspirate: Dry aspirate Thyroglobulin sample sent: No Only cytolyte collected FNA of Level III lymph node on the Left side: I used Pain ease to numb the skin overlying the area of the nodule. The skin was prepped in the usual aseptic manner. I performed 2 passes through target nodule using G-25 needles under sonographic guidance. Character of the aspirate: small drop of blood Thyroglobulin sample sent: Yes The patient tolerated the procedure. The patient tolerated the procedure. Complications: No He was told to go the emergency room if there is severe pain or swelling in the neck area. He will be notified of the result by telephone. Follow up: Dr. Stefani Enamorado MD documented in this encounter [facility] 09-19-[address] Elieser Enamorado, do yo want labs drawn prior to next week appt documented in this encounter [facility] 08-24-2023 History of Presen t illness Narrative Patient is scheduled. Patient needs to be scheduled in the office for neck US and potential FNA Visit cancelled Edilberto Enamorado MD documented in this encounter [facility] 07-26-2023 Miscellaneous Notes Please offer him 08/29 at 12:20 PM thank you! LE documented in this encounter [facility] 07-21-2023 Miscellaneous Notes Address in another my chart encounter. documented in this encounter [facility] 03-30-2023 History of Presen t illness Narrative Images from the original note were not included. Juve Meyer is a 22 year old male who [...] (ng/dL) Date Value 03/24/2023 1.5 10/24/2022 1.4 xxxxxxxxxxxxxxxxxxxxxxxxxxxxxxx xxxxxxxxxxxxxxxxxxxxxxxxxxxxxxx 03/25/2023 11:04 AM - Radiology, [place] In IMPRESSION: 1. Left cervical level 2A lymph node with cystic degeneration is suspicious for metastatic disease. 2. No suspicious cervical lymph nodes on the right. 3. Somewhat ill-defined masslike region of echogenic tissue at the site of thyroidectomy with associated cystic focus, probably related to postsurgical change and scar tissue. Teachers Aide: PSCB Transcribe Date/Time: Mar 25 2023 10:50A Dictated [...] via PACs. Emiliana Ko MD Endocrinology Staff xxxxxxxxxxxxxxxxxxxxxxxxxxxxxxx xxxxxxxxxxxxxxxxxxxxxxxxxxxxxxx Subjective: Weight: remained stable +/- 5 Lb [...] in 6-[address] Debi Enamorado for Neck US and possible LN biopsy. Emiliana Ko MD Endocrinology Staff documented in this encounter [facility] 11-28-2022 Miscellaneous Notes Requester: Patient Patients last Endocrinology visit occurred 09/28/22. Follow-up evaluation has been established Upcoming Endocrinology Appointments - Next 365 Days Visit Type Date Time Department EST ALEXANDRA PATIENT 03/30/2023 1:30 PM ENDO [facility] . Requested Prescriptions Pending Prescriptions Disp Refills levothyroxine (SYNTHROID) 75 mcg tablet 90 tablet 2 Sig: Take 3 tablets by mouth DAILY (6 AM). If patient is due for an appointment please route to provider for refill consideration and also to the endo scheduling pool. PSS NOTE: Patient needs scheduled appointment No documented in this encounter [facility] 09-28-2022 Instructions Ayla Albarran DO - 09/28/2022 1:24 PM EDT - Check labs week of October 24: TSH, Free T4, Thyroglobulin, Renal Function Panel - Get neck ultrasound in 6 months Follow up in 6 months documented in this encounter [facility] 09-28-2022 History of Presen t illness Narrative Juve Meyer is a 22 year old male who [...] PAST MEDICAL HISTORY OF 06/04/2001 admitted to [facility] for wheezing Thyromegaly FAMILY HISTORY Problem [...] use: Yes Comment: social Drug use: No xxxxxxxxxxxxxxxxxxxxxxxxxxxxxxx xxxxxxxxxxxxxxxxxxxxxxxxxxxxxxx xxxxx SURGICAL PATHOLOGY: [id number] Order: [id number] Collected 09/12/2022 9:52 AM Status: Final result Visible to patient: Yes (seen) Dx: Papillary thyroid carcinoma (HCC) 0 Result Notes Component Resulting Agency FINAL DIAGNOSIS A. Lymph node, delphian, excision: -One lymph node involved by metastatic carcinoma (/). B. 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 (See comment and synoptic report.) C. Lymph node, left central neck, excision: -One lymph node involved by metastatic carcinoma (1/). D. Thyroid, left lobe, completion thyroidectomy: -Thyroid [...] CLINICAL Clinical History Prior right thyroid FNA [id number] positive for PTC SPECIMEN Procedure Total thyroidectomy [...] toto as FSA1. Gross examination performed at [facility], [address], [place] [address] CLIA# [id number]. B. THYROID LOBE RIGHT Labeled: Thyroid lobe right Received: In formalin Specimen type: Lobectomy Oriented: No Weight: 44.7 g Size: 5.5 x 4.8 x 3.9 cm Ink code: Black: External surface of the right lobe [place]: Resection margin of the isthmus Sectioning: Right [...] identified Gross photograph: No Cassette Summary: B1-B5: Fusing Machine Operator nodule from superior to inferior B6: Background parenchyma SCOTTIE September 13, 2022 10:30 AM Gross examination performed at [facility], [address] [place] [address] C. LYMPH NODE Received fresh are two fragments of patton-yellow soft tissue aggregating to 5 x 4 x 2 mm. Submitted in toto as FSC1. Gross examination performed at [facility], [address] , [place] [address] CLIA# [id number]. D. THYROID LOBE LEFT Labeled: Thyroid left lobe Received: In formalin Specimen type: Lobectomy Oriented: No Weight: 12.7 g Ink code: Blue: External surface of the left lobe [place]: Resection margin of the isthmus Sectioning: The left lobe is sectioned from superior to inferior Number of discrete nodules: 0 Background thyroid parenchyma: Red-brown with scattered circumscribed, patton, gelatinous nodules ranging from 0.3 to 0.8 cm in greatest dimension Attached skeletal muscle: Not identified Attached lymph nodes: Not identified Attached parathyroid: Not identified Gross photograph: No Cassette Summary: D1-D2: 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 SOFT TISSUE Labeled: Right central neck dissection Received: In formalin Size: 4 x 3 x 0.3 cm Lymph node candidates: Total 5 Cassette Summary: Entirely submitted: 5, largest 2.1 x 0.8 x 0.5 cm E1: 1 lymph node candidates E2: 4 lymph node candidates E3: Remainder of tissue [facility] September 13, 2022 9:45 AM Gross examination performed at [facility], [address] [place] [address] F. SOFT TISSUE Labeled: Left central neck dissection Received: In formalin Size: 3 x 2.5 x 0.3 cm Lymph node candidates: Total 4 Cassette Summary: Entirely submitted: 4, largest 0.8 x 0.6 x 0.3 cm F1: 2 lymph node candidates F2: 2 lymph node candidates F3: Remainder of tissue [facility] September 13, 2022 9:49 AM Gross examination performed at [facility], [facility] [address] [place] [address] xxxxxxxxxxxxxxxxxxxxxxxxxxxxxxx xxxxxxxxxxxxxxxxxxxxxxxxxxxxxxx xxxxx Family Hx: No Thyroid Disease PAST MEDICAL HISTORY Diagnosis Date Allergy Fatty liver Gout Obesity PMH - PAST MEDICAL HISTORY OF 2003, 2010 right broken leg - broke this leg two separate times PMH - PAST MEDICAL HISTORY OF 06/04/2001 admitted to [facility] for wheezing Thyromegaly Physical Exam BP 137/83 Pulse 83 Resp 20 Ht 200.7 cm (6' 7) Wt (!) 146.4 kg (322 lb 12.8 [...] intermediate. At this point, will not give RED. Will monitor with Tg and neck ultrasounds. [...] monitor Thyroglobulin and Neck US and use Red if these suggest need. Recommendations: As outlined above by Dr. Ayla Albarran. Emiliana Ko MD Endocrinology Staff documented in this encounter [facility] 09-28-2022 History of Presen t illness Narrative Endocrinology Metabolism [facility] Yoel Davenport M.D. Section of Endocrine Surgery and Advanced Laparoscopic Surgery [address] [place] [address], [address] [place] [address] ENDOCRINE SURGERY POST OPERATIVE FOLLOW UP NOTE NAME: Juve Meyer CLINIC NO: [id number] : 2000 Surgeon: Dr. Yoel Davenport HPI: Juve Meyer presents to clinic for a postoperative visit [...] ALBUMIN 3.5 - 5.0 g/dL IMPRESSION: Juve Meyer is doing well after Total Thyroidectomy and bilateral central neck dissection for Thyroid Cancer - Papillary thyroid cancer PLAN: The patient will follow up with endocrinology to discuss RED and also for lifelong monitoring. Will check his Ca and PTH levels today. Yoel Davenport MD 09/28/2022 documented in this encounter [facility] 09-28-2022 Instructions Kanu Guerra MA - 09/28/2022 9:11 AM EDT Thank you for choosing the [facility] Department of Endocrinology, Diabetes and Metabolism. Did you know that you need to call 48 hours in advance of your scheduled visit, if you are unable to make your appointment? The Endocrinology and Metabolism [facility] thanks you for your commitment, because patients not showing to their appointment results in a lost opportunity for patients to receive [facility] health care at the [facility]. To Cancel an appointment, please choose one of the following: - Call the Appointment Call Center at [phone] - From [employer], Go to Appointments - Cancel Appts If cancelling, consider your need to reschedule to prevent further delays in your care. To Schedule an appointment, please choose one of the following: - Call the Appointment Call Center at [phone] - From [employer], Go to Appointments - Request an Appt documented in this encounter [facility] 09-13-2022 Note HNO ID: [id number] Author: Sae Jim MD Service: Endocrine Surgery Author Type: Physician Type: Progress Notes Filed: 09/13/2022 7:03 AM Note Text: ENDOCRINE SURGERY INPATIENT PROGRESS NOTE Name: Juve Meyer Date: September 13, 2022 POD# 1 S/P [...] 500 mg ORAL q 4 H PRN [id number] D3 500 mg-5 mcg (200 unit) 1 tablet 1 tablet ORAL TID calcium carbonate 500 mg chewable tab(s) (TUMS) 500 mg ORAL q 1 H PRN benzocaine-menthol 1 Lozenge (CHLORASEPTIC) 1 Lozenge MUCOUS MEMBRANE (TOPICAL MOUTH AND THROAT) q 2 H PRN phenol 1 Treichlers (CHLORASEPTIC) 1 Treichlers MUCOUS MEMBRANE (TOPICAL MOUTH AND THROAT) q 2 H PRN ondansetron (PF) 4 mg injection (ZOFRAN) 4 mg INTRAVENOUS q 6 H PRN NaCl 0.9% iv flush bag 20 mL INTRAVENOUS PRN levothyroxine (SYNTHROID) tab(s) 225 mcg 225 mcg ORAL DAILY (6 AM) PHYSICAL EXAM: BP 132/80 Pulse 85 Temp 36.8 ?C (98.2 ?F) Resp 18 Ht 200.7 cm (6' 7) Wt (!) 146.2 kg (322 lb 5 [...] 15 - 65 pg/mL Final ASSESSMENT: Juve Meyer is POD1 and recovering well. PLAN of [...] plan of care. SIGNATURE: Sae Jim MD [phone] Clinical Associate Endocrine and Metabolism [facility], Department of Endocrine Surgery [facility] 09-13-2022 Note HNO ID: [id number] Author: Peter Tristan RN Service: ? Author Type: Registered Nurse Type: Nursing Progress Note Filed: 09/13/2022 2:33 AM Note Text: Pt denies any pain numbness or tingling at this time. [facility] 09-12-2022 Note HNO ID: [id number] Author: Robin Atkins MD, PhD Service: Endocrine Surgery Author Type: Resident Type: Progress Notes Filed: 09/12/2022 3:00 PM Note Text: . ENDOCRINE SURGERY POST-OPERATIVE NOTE NAME: Juve Meeyr 09/12/2022 8:28 AM Assessment and Plan: Juve Meyer is a 22 year old male w/ [...] synthroid Robin Atkins MD, PhD Endocrine Surgery [id number] Patient Active Hospital Problem List: No active [...] (KAPIL ORAL)Take by mouth as needed.Disp: Rfl: [facility] 09-12-2022 Note HNO ID: [id number] Author: Terry Lennon APRN.PRINTING MANAGER Service: Anesthesiology Author Type: Nurse Job Site Superintendent Type: Anesthesia Procedure Notes Filed: 09/12/2022 9:19 AM Note Text: ANESTHESIOLOGY PROCEDURE NOTE Airway General Information Procedure Start Time/Medication Administration: 09/12/2022 8:53 AM Patient location during procedure: OR Timeout Performed Pre-procedure: timeout performed Consent Obtained: Yes Patient identity confirmed: arm band and patient Staffing PRINTING MANAGER: Terry Lennon APRN.PRINTING MANAGER Performed by: MARQUEZ Indications and Patient Condition [...] attempts at approach: 1 SIGNATURE: Terry Lennon APRN.PRINTING MANAGER PATIENT NAME: Juve Meyer DATE: September 12, 2022 TIME: 9:16 AM CSN: [id number] [facility] 08-31-2022 History of Presen t illness Narrative Radiology Service Progress Note PATIENT NAME: Juve Meyer DATE OF SERVICE: August 31, 2022 TIME: [...] 2022 10:56 AM documented in this encounter [facility] 08-26-2022 History and physical note Images from the original note were not included. HISTORY AND PHYSICAL EXAMINATION SERVICE DATE: 08/26/2022 SERVICE TIME: 8:54 AM PRIMARY CARE PHYSICIAN: Polo Lopez MD REASON FOR VISIT: Juve Meyer is a 22 year old male who [...] topic. CHIEF COMPLAINT: Pre-op exam HPI: Juve Meyer is a 22 year old seen for [...] to be mobile. ASSESSMENT: In summary, Juve Meyer has Thyroid Cancer - Papillary thyroid cancer. [...] fevers. Neurological: No history of TIA's, stroke, INSERT MOLDING OPERATOR tumor, impaired sensorium, hemiplegia, paraplegia or quadraplegia. No neurological symptoms or problems. Respiratory: No history of current cough or dyspnea, or pneumonia in the past 6 weeks. No history of respiratory/pulmonary symptoms or problems. Cardiovascular: No history of HTN requiring medication, no history of angina, CHF, [place], cardiac surgery or stents. Denies rest pain, [...] PAST MEDICAL HISTORY OF 06/04/2001 admitted to [facility] for wheezing Thyromegaly PAST SURGICAL HISTORY [...] no medications daily. Michelle Merino RN (Nurse contracting officer). ALLERGIES Allergen Reactions Seasonal Allergies Unknown Trees, [...] or any previous visit (from the past 88037 hour(s)). Assessment Patient has the following medical conditions which may affect love-operative course: Obstructive sleep apnea, pediatric Assessment: hx pediatric, pt denies use of CPAP as an adult, STOP BANG SCORE 4 NAFLD (nonalcoholic fatty liver disease) Assessment: hx 06/24/2022 labs scanned into [facility] Elevated hemoglobin A1c measurement Assessment: hx, diet controlled, new lab pending Hemoglobin A1C (%) Date Value 08/25/2014 5.7 Class 2 severe obesity due to excess calories with serious comorbidity and body mass index (BMI) of 35.0 to 35.9 in adult (HCC) Assessment: Body mass index is 35.71 kg/m [...] years old or younger STOP-Bang Score: 4 [id number] Score: Age: <65 Sex: male CHF history: No Hypertension history: No Stroke/TIA/thromboembolism history: No Vascular disease history: No Diabetes history: No [id number] Score: 0 ARISCAT Score: Age: <=50 Preoperative [...] Ford present: yes Lip Bite Test: II Microretrognathia/Micronagthia/ Recessed Chin: No DENTAL Dental findings: teeth intact. II - ANESTHESIA PLAN ASA Score: 2 Anesthetic Plan: other Anesthetic plan additional comments: *PACC/TCI - anesthesia choice. Beta Dennis Monitoring Plan Post Procedure Analgesic Plan Informed Consent Anesthetic risks, benefits, alternatives, personnel and consent discussed: yes. Patient / Responsible Alliance Party agrees to proceed: yes Patient / Surrogate [...] SIGNATURE: Tatiana Herbert APRN.CNP PATIENT NAME: Juve Meyer DATE: August 26, 2022 TIME: 8:30 AM PAGER/CONTACT #: documented in this encounter [facility] 08-26-2022 Instructions Tatiana Herbert APRN.CNP - 08/26/2022 8:30 AM EDT PATIENT PREOPERATIVE INSTRUCTIONS No ref. provider found has scheduled you for your procedure at this surgery center: [facility]: [phone] -- [address] [place] [address]. Please read below carefully for your personalized [...] Procedures: - YOU MUST HAVE A RESPONSIBLE BAKERY DECORATOR TAKE YOU HOME. A SOLAR ENERGY TECHNICIAN OR OFFICE MACHINE INSTALLER CANNOT BE MADE A RESPONSIBLE BAKERY DECORATOR. - We recommend that a responsible person [...] Advance Directive, please fax a copy to [phone] or email to for it to be [...] into your chart that day. Tatiana Herbert APRN.ENRICO documented in this encounter [facility] 08-23-2022 Miscellaneous Notes Spoke with patient's mom regarding mychart message. Patient will follow up with endocrinology after surgery and based on pathology results, determine if radioactive iodine treatment is needed. Will coordinate endocrinology appointment with post-op to minimize trips to [facility]. All questions were answered. Beatriz Cárdenas RN documented in this encounter [facility] 08-11-2022 Miscellaneous Notes Indexed labs documented in this encounter [facility] 08-10-2022 Miscellaneous Notes 08/10/2022 INTAKE COMPLETED-US COMPLETED IN EPIC-TSH ORDERED PATH SLIDES REQUESTED FROM [facility] 08/10/22 @ 9:46AM. PT. TO GO TO [facility] FOR TSH ENDOCRINE SURGERY PATIENT WORKSHEET Initial Call Date: August 10, 2022 Reason for Consult/ Referral: Thyroid Nodule PATIENT DEMOGRAPHICS Name: Juve Meyer [facility]#: [id number] : 2000 AGE: [age] year old Contact Numbers: Home: (home) Work: There is no work phone number on file. PATIENT PHYSICIAN INFORMATION Referring Doctor: Address: Phone: Legal Contracts Specialist: Address: Phone: PCP: Polo Lopez MD [address] [facility] [address] [address] PAST TREATMENT Office notes: SEE EPIC Medications: NONE THAT APPLY Pre-Visit Testing STUDY/TEST DATE ORDERED/REQUESTED DATE RECEIVED/COMPLETED ENTIRE PANEL TSH 08/10/22 FREE T4 FREE T3 Imaging Reports: SEE [facility] CD of Images: SEE EPIC FNA: yes: 07/28 FNA Slides: Slides requested from outside facility (Date received: ) Has the patient ever had thyroid or parathyroid surgery before: No Operative Reports: NONE AVAILABLE Pathology Reports: SEE EPIC documented in this encounter [facility] 07-26-2022 History of Presen t illness Narrative Subjective: Patient status post an ultrasound-guided fine-needle aspiration of a 5.7 cm nodule on the right side of his thyroid gland. This came back consistent with papillary thyroid cancer. Patient has been phonating without difficulty not having any difficulty with swallowing has not noticed any hoarseness of his voice. Objective:Blood pressure 130/88, pulse 83, temperature 36.3 C (97.3 F), height 200.7 cm (6' 7), weight (!) 147 kg (324 lb), SpO2 96 %. Neck is supple no abnormalities are palpated. Nodule is felt. Assessment: Papillary thyroid cancer Plan: Going to refer him up to the main campus for surgery. documented in this encounter [facility] 07-21-2022 Miscellaneous Notes Faxed pathology from [facility] was sent to scanned documents, please review. Thank you. documented in this encounter [facility] 07-15-2022 Instructions Britt Palmer LPN - [...] you have any questions or concerns @ [phone]. Please make an appointment to follow up in 7-[address] Lara and thank you for choosing the [facility] [place]. documented in this encounter [facility] [facility] Nurse Note UNIVERSAL PROTOCOL / SAFETY CHECKLIST Procedure to [...] Britt Palmer LPN documented in this encounter [facility] 07-15-2022 History of Presen t illness Narrative Preoperative diagnosis: Multinodular goiter Postoperative diagnosis: The [...] the procedure well. documented in this encounter [facility] 07-11-2022 History of Presen t illness Narrative HISTORY AND PHYSICAL Juve Meyer 2000 REFERRING PHYSICIAN: Polo Lopez, * CHIEF COMPLAINT: Consult (Thyroid nodule) HPI: The patient is a 22 year old male with a complaint of a right thyroid nodule. This thyroid nodule was found on Ultrasound by [facility]. The patient denies pain, denies difficulty swallowing, deniesrapid enlargement of the neck, deniesdysphagia, denies a change in the voice, denies hot or cold intolerence. The patient has not a prior history of neck radiation treatment. The patient is being seen by me today at the request of Dr. Polo Lopez MD for my opinion and advice regarding Multinodular goiter (primary encounter diagnosis). PAST MEDICAL HISTORY Diagnosis Date Allergy Fatty liver Gout Obesity PMH - PAST MEDICAL HISTORY OF 2003, 2010 right broken leg - broke this leg two separate times PMH - PAST MEDICAL HISTORY OF 06/04/2001 admitted to [facility] for wheezing Thyromegaly PAST SURGICAL HISTORY [...] entered by the nurse and reviewed by sd Nursing Notes: Flor Valderrama RN 07/11/2022 12:56 [...] C (99.5 F), height 200.7 cm (6' 7), weight (!) 148.6 kg (327 lb 9.6 [...] A letter was sent to Dr. Polo Lopez MD indicating the above finding for this patient. Return to Clinic: The patient is instructed to follow-up with me 1 week post operatively. Hill Lara III, MD documented in this encounter [facility] 07-11-2022 Nurse Note REVIEW OF SYSTEMS: General: The patient denies [...] Flor Valderrama RN documented in this encounter [facility] Evaluation note No assessment inform ation available [facility] Work Phone: Evaluation note Diagnosis Multinodular goiter- Primary Nontoxic multinodular goiter [facility] Diagnosis Multinodular goiter- Primary Nontoxic multinodular goiter [facility] Diagnosis Papillary thyroid carcinoma (HCC)- Primary Malignant neoplasm of thyroid gland [facility] Diagnosis Nontoxic single thyroid nodule- Primary Nontoxic uninodular goiter [facility] Diagnosis Papillary thyroid carcinoma (HCC)- Primary Malignant neoplasm of thyroid gland Papillary thyroid carcinoma (HCC) Malignant neoplasm of thyroid gland [facility] Diagnosis Pre-operative examination- Primary Preoperative examination, [...] of thyroid gland [facility] Diagnosis Papillary thyroid carcinoma (HCC) Malignant neoplasm of thyroid gland Papillary thyroid carcinoma (HCC) Malignant neoplasm of thyroid gland [facility] Papillary thyroid carcinoma (HCC)- Primary Malignant neoplasm of thyroid gland [facility] Diagnosis Papillary thyroid carcinoma (HCC)- Primary Malignant neoplasm of thyroid gland Class 2 severe obesity due to excess calories with serious comorbidity and body mass index (BMI) of 35.0 to 35.9 in adult (HCC) Obstructive sleep apnea, pediatric Obstructive sleep apnea (adult) (pediatric) Post-surgical hypothyroidism Postsurgical hypothyroidism [facility] Diagnosis Papillary thyroid carcinoma (HCC)- Primary Malignant neoplasm of thyroid gland Post-surgical hypothyroidism Postsurgical hypothyroidism [facility] Diagnosis Papillary thyroid carcinoma (HCC) Malignant neoplasm of thyroid gland [facility] Diagnosis Papillary thyroid carcinoma (HCC)- Primary Malignant neoplasm of thyroid gland [facility] Diagnosis Papillary thyroid carcinoma (HCC)- Primary Malignant neoplasm of thyroid gland Post-surgical hypothyroidism Postsurgical hypothyroidism Class 2 obesity [facility] Diagnosis Post-surgical hypothyroidism- Primary Postsurgical hypothyroidism Papillary thyroid carcinoma (HCC) Malignant neoplasm of thyroid gland [facility] Diagnosis Post-surgical hypothyroidism- Primary Postsurgical hypothyroidism Papillary thyroid carcinoma (HCC) Malignant neoplasm of thyroid gland [facility] Diagnosis Hx of thyroid cancer- Primary Personal history of malignant neoplasm of thyroid [facility] Diagnosis Papillary thyroid carcinoma (HCC) Malignant neoplasm of thyroid gland [facility] Diagnosis Papillary thyroid carcinoma (HCC)- Primary Malignant neoplasm of thyroid gland Post-surgical hypothyroidism Postsurgical hypothyroidism [facility] Diagnosis Post-surgical hypothyroidism Postsurgical hypothyroidism Papillary thyroid carcinoma (HCC) Malignant neoplasm of thyroid gland [facility] Diagnosis Post-surgical hypothyroidism Postsurgical hypothyroidism Papillary thyroid carcinoma (HCC) Malignant neoplasm of thyroid gland [facility] Diagnosis Papillary thyroid carcinoma (HCC)- Primary Malignant neoplasm of thyroid gland Post-surgical hypothyroidism Postsurgical hypothyroidism Hx of thyroid cancer Personal history of malignant neoplasm of thyroid [facility]* Diagnosis Post-surgical hypothyroidism Postsurgical hypothyroidism Papillary thyroid carcinoma (HCC) Malignant neoplasm of thyroid gland [facility] Diagnosis Pre-operative examination- Primary Preoperative examination, unspecified Obstructive sleep apnea, pediatric Obstructive sleep apnea (adult) (pediatric) NAFLD (nonalcoholic fatty liver disease) Other chronic nonalcoholic liver disease Elevated hemoglobin A1c measurement Other abnormal blood chemistry Dyslipidemia Other and unspecified hyperlipidemia Class 2 severe obesity due to excess calories with serious comorbidity and body mass index (BMI) of 35.0 to 35.9 in adult (HCC) Post-surgical hypothyroidism Postsurgical hypothyroidism Papillary thyroid carcinoma (HCC) Malignant neoplasm of thyroid gland [facility] Diagnosis Pre-operative examination- Primary Preoperative examination, unspecified Obstructive sleep apnea, pediatric Obstructive sleep apnea (adult) (pediatric) NAFLD (nonalcoholic fatty liver disease) Other chronic nonalcoholic liver disease Elevated hemoglobin A1c measurement Other abnormal blood chemistry Dyslipidemia Other and unspecified hyperlipidemia Class 2 severe obesity due to excess calories with serious comorbidity and body mass index (BMI) of 35.0 to 35.9 in adult (HCC) Post-surgical hypothyroidism- Primary Postsurgical hypothyroidism Hx of thyroid cancer Personal history of malignant neoplasm of thyroid [facility] Diagnosis Pre-operative examination- Primary Preoperative examination, unspecified Obstructive sleep apnea, pediatric Obstructive sleep apnea (adult) (pediatric) NAFLD (nonalcoholic fatty liver disease) Other chronic nonalcoholic liver disease Elevated hemoglobin A1c measurement Other abnormal blood chemistry Dyslipidemia Other and unspecified hyperlipidemia Class 2 severe obesity due to excess calories with serious comorbidity and body mass index (BMI) of 35.0 to 35.9 in adult (HCC) Post-surgical hypothyroidism- Primary Postsurgical hypothyroidism Hx of thyroid cancer Personal history of malignant neoplasm of thyroid Papillary thyroid carcinoma (HCC) Malignant neoplasm of thyroid gland [facility] Diagnosis Pre-operative examination- Primary Preoperative examination, unspecified Obstructive sleep apnea, pediatric Obstructive sleep apnea (adult) (pediatric) NAFLD (nonalcoholic fatty liver disease) Other chronic nonalcoholic liver disease Elevated hemoglobin A1c measurement Other abnormal blood chemistry Dyslipidemia Other and unspecified hyperlipidemia Class 2 severe obesity due to excess calories with serious comorbidity and body mass index (BMI) of 35.0 to 35.9 in adult (HCC) Post-surgical hypothyroidism Postsurgical hypothyroidism Hx of thyroid cancer Personal history of malignant neoplasm of thyroid [facility] Diagnosis Pre-operative examination- Primary Preoperative examination, unspecified Obstructive sleep apnea, pediatric Obstructive sleep apnea (adult) (pediatric) NAFLD (nonalcoholic fatty liver disease) Other chronic nonalcoholic liver disease Elevated hemoglobin A1c measurement Other abnormal blood chemistry Dyslipidemia Other and unspecified hyperlipidemia Class 2 severe obesity due to excess calories with serious comorbidity and body mass index (BMI) of 35.0 to 35.9 in adult (HCC) Post-surgical hypothyroidism Postsurgical hypothyroidism Hx of thyroid cancer Personal history of malignant neoplasm of thyroid [facility] Diagnosis Pre-operative examination- Primary Preoperative examination, unspecified Obstructive sleep apnea, pediatric Obstructive sleep apnea (adult) (pediatric) NAFLD (nonalcoholic fatty liver disease) Other chronic nonalcoholic liver disease Elevated hemoglobin A1c measurement Other abnormal blood chemistry Dyslipidemia Other and unspecified hyperlipidemia Class 2 severe obesity due to excess calories with serious comorbidity and body mass index (BMI) of 35.0 to 35.9 in adult (HCC) Post-surgical hypothyroidism- Primary Postsurgical hypothyroidism Hx of thyroid cancer Personal history of malignant neoplasm of thyroid documented in this encounter [facility] for referral (narrative)* Diagnostic Procedure Only (Routine) - Authorized Specialty Diagnoses / Procedures Referred By Elizabeth verde Referred To Contact US IMAGING Diagnoses Papillary thyroid carcinoma (HCC) Procedures US CERVICAL LYMPH NODE MAPPING US SOFT TISSUE HEAD & NECK REAL TIME IMGE Emiliana Desai MD [address] [place] [id number] Us Imaging Referral ID Status Reason Start Date Expiration Date Visits Requested Visits Authorized [id number] Authorized Auto-Generat ed Referral 10/28/2023 [address] [facility] for referral (narrative)* Diagnostic Procedure Only (Routine) - Closed Specialty Diagnoses / Procedures Referred By Elizabeth verde Referred To Contact US IMAGING Diagnoses Papillary thyroid carcinoma (HCC) Procedures US CERVICAL LYMPH NODE MAPPING US SOFT TISSUE HEAD & NECK REAL TIME IMGE Emiliana Desai MD [address] [place] [address] Us Imaging [place] [address] Referral ID Status Reason Start Date Expiration Date V isits Requested Visits Authorized [id number] Closed Auto-Generate d Referral 03/30/2023 10/28/2023 [address] [facility] for referral (narrative)* Diagnostic Procedure Only (Routine) - New Request Specialty Diagnoses / Procedures [facility] Referred To Contact MOLECULAR & FUNCTIONAL IMAGING Diagnoses Post-surgical hypothyroidism Hx of thyroid cancer Procedures NM THERAPY THYROID I-131 RP THERAPY ORAL ADMINISTRATION Edilberto Truong MD [address] [place] [address] Molecular & Functional Imaging [address] [place] [address] Referral ID Status Reason Start Date Expiration Date Visits Requested Visits Authorized [id number] New Request Auto-Generat ed Referral 01/17/2024 02/15/2025 [address] [facility] for referral (narrative)* Diagnostic Procedure Only (Routine) - Closed Specialty Diagnoses / Procedures Referred By Contac t Referred To Contact MOLECULAR & FUNCTIONAL IMAGING Diagnoses Post-surgical hypothyroidism Papillary thyroid carcinoma (HCC) Procedures NM THERAPY THYROID I-131 RP THERAPY ORAL ADMINISTRATION Edilberto Truong MD [address] [place] [address] Molecular & Functional Imaging [address] [place] [address] Referral ID Status Reason Start Date Expiration Date V isits Requested Visits Authorized [id number] Closed Auto-Generate d Referral 12/19/2023 01/17/2025 [address] [facility] for referral (narrative)* Diagnostic Procedure Only (Routine) - Closed Specialty Diagnoses / Procedures Referred By Contac t Referred To Contact MOLECULAR & FUNCTIONAL IMAGING Diagnoses Post-surgical hypothyroidism Papillary thyroid carcinoma (HCC) Procedures NM THYROID CA WB THYROID CARCINOMA METASTASES IMG WHOLE BODY Edilberto Truong MD [address] [place] [address] Molecular & Functional Imaging [address] [place] [id number] Referral ID Status Reason Start Date Expiration Date V isits Requested Visits Authorized [id number] Closed Auto-Generate d Referral 12/29/2023 01/17/2025 [address] [facility] for referral (narrative)No reason for referral information [facility] Phone: Reason for visit Narrative* Diagnostic Procedure Only (Routine) - Closed Specialty Diagnoses / Procedures Referred By Contac t Referred To Contact US IMAGING Diagnoses Papillary thyroid carcinoma (HCC) Procedures US CERVICAL LYMPH NODE MAPPING US SOFT TISSUE HEAD & NECK REAL TIME IMGE Emiliana Desai MD [address] [place] [address] [place] [address] Referral ID Status Reason Start Date Expiration Date V isits Requested Visits Authorized [id number] Closed Auto-Generate d Referral 03/30/2023 10/28/2023 [address] [facility] for visit Narrative* Diagnostic Procedure Only (Routine) - Authorized Specialty Diagnoses / Procedures Referred By Contac t Referred To Contact MOLECULAR & FUNCTIONAL IMAGING Diagnoses Post-surgical hypothyroidism Papillary thyroid carcinoma (HCC) Procedures NM THYROID CA WB THYROID CARCINOMA METASTASES IMG WHOLE BODY Edilberto Truong MD [address] [place] [address] Molecular & Functional Imaging [address] [place] [address] Referral ID Status Reason Start Date Expiration Date Visits Requested Visits Authorized [id number] Authorized Auto-Generat ed Referral 12/19/2023 01/17/2025 [address] [facility] for visit Narrative* Diagnostic Procedure Only (Routine) - Authorized Specialty Diagnoses / Procedures Referred By Contac t Referred To Contact MOLECULAR & FUNCTIONAL IMAGING Diagnoses Post-surgical hypothyroidism Papillary thyroid carcinoma (HCC) Procedures NM THYROID CA UPTAKE THYROID CARCINOMA METASTASES UPTAKE Edilberto Truong MD [address] [place] [address] Molecular & Functional Imaging [address] [place] [address] Referral ID Status Reason Start Date Expiration Date Visits Requested Visits Authorized [id number] Authorized Auto-Generat ed Referral 12/19/2023 01/17/2025 [address] [facility] for visit Narrative* Diagnostic Procedure Only (Routine) - Closed Specialty Diagnoses / Procedures Referred By Contac t Referred To Contact MOLECULAR & FUNCTIONAL IMAGING Diagnoses Post-surgical hypothyroidism Papillary thyroid carcinoma (HCC) Procedures NM THYROID CA WB THYROID CARCINOMA METASTASES IMG WHOLE BODY Edilberto Truong MD [address] [place] [address] Molecular & Functional Imaging [address] [place] [address] Referral ID Status Reason Start Date Expiration Date V isits Requested Visits Authorized [id number] Closed Auto-Generate d Referral 12/29/2023 01/17/2025 1 1 [facility] Summary Purpose Family History No Family History Records FoundNo Family History Records FoundNo Family History Records FoundNo Family History Records FoundNo Family History Records FoundNo Family History Records Found Advance Directives No Advanced Directives Records FoundNo Advanced Directives Records FoundNo Advanced Directives Records FoundNo Advanced Directives Records FoundNo Advanced Directives Records FoundNo Advanced Directives Records Found Chief Complaint and Reason for Visit Chief Complaint THYROMEGALY Chief Complaint THYROMEGALY MULTINODULAR GOITER Reason for Referral Specialty Diagnoses / Procedures Referred By Contac t Referred To Contact Endocrinology Diagnoses Papillary thyroid carcinoma (HCC) Procedures CONSULT TO ENDOCRINOLOGY OFFICE/OUTPATIENT [facility] 60-74 MINUTES Hill Lara MD [address] [place] [address] [place] [address] [place] [address] Referral ID Status Reason Start Date Expiration Date Visits Requested Visits Authorized [id number] Authorized PCP Requested Referral 07/26/2022 07/26/2023 1 1 Specialty Diagnoses / Procedures Referred By Contac t Referred To Contact Diagnoses Papillary thyroid carcinoma (HCC) Procedures REFER TO PACC - PRE ANESTHESIA CONSULTATION CLINIC OFFICE/OUTPATIENT [facility] 60-74 MINUTES Vlaeria Basilio MD [address] [place] [address] Referral ID Status Reason Start Date Expiration Date Visits Requested Visits Authorized [id number] Authorized PCP Requested Referral 08/18/2022 08/18/2023 1 1 Specialty Diagnoses / Procedures Referred By Contac t Referred To Contact CT IMAGING Diagnoses Papillary thyroid carcinoma (HCC) Procedures CT NECK SOFT TISSUE WO IVCON CT SOFT TISSUE NECK W/[place] [address] [place] [address] Ct Imaging Referral ID Status Reason Start Date Expiration Date V isits Requested Visits Authorized [id number] Closed Auto-Generate d Referral 06/05/2022 06/04/2023 1 1 Additional Source Comments (unrecognized sect ion and content) No Status Records FoundNo Status Records FoundNo Status Records FoundNo Status Records FoundNo Status Records FoundNo Status Records Found INFORMATION SOURCE (unrecogn ized section and content) DATE CREATED AUTHOR 11/29/2017 [facility] DATE CREATED AUTHOR AUTHOR'S ORGANIZ ATION 09/19/2022 [facility] DATE CREATED AUTHOR AUTHOR'S ORGANIZ ATION 03/26/2023 [facility] DATE CREATED AUTHOR AUTHOR'S ORGANIZ ATION 01/27/2024 [facility] DATE CREATED AUTHOR AUTHOR'S ORGANIZ ATION 02/01/2025 [facility] DATE CREATED AUTHOR AUTHOR'S ORGANIZ ATION 04/09/2025 [facility] Care Teams (unrecognized sec tion and content) Team Status: Active Member Role Status Dates Dr. Nereyda Salazar MD Family Provider Active Dr. Polo Lopez MD Primary Care Provider Active Team Status: Inactive Member Role Status Dates Dr. Polo Lopez MD Primary Care Pr shivanier, Attending Provider, Referring Provider Active Team Status: Active Member Role Status Dates Dr. Polo Lopez MD Primary Care Pr ovider, Attending Provider, Referring Provider Active Hi Ranger Operator Relationship Specialty Start Date End Date Polo Lopez [address] [facility] [address] [place] [address] PCP - General Family Medicine 07/07/22 Hi Ranger Operator Relationship Specialty Start Date End Date Polo Lopez [address] [facility] [address] [place], [place] [id number] PCP - General Family Medicine 07/07/22 Team Status: Inactive Member Role Status Dates Dr. Polo Lopez MD Primary Care Provider Active Dr. Hill Lara MD Attending Provider, Referring Provider Active Hi Ranger Operator Relationship Specialty Start Date End Date Polo Lopez [address] [facility] [address] [place] [address] PCP - General Family Medicine 07/07/22 Hi Ranger Operator Relationship Specialty Start Date End Date Polo Lopez [address] [place] [address] [place] [address] PCP - General Family Medicine 07/07/22 Hi Ranger Operator Relationship Specialty Start Date End Date Polo Lopze [address] [place] [address] [place] [address] PCP - General Family Medicine 07/07/22 Hi Ranger Operator Relationship Specialty Start Date End Date Polo Lopez [address] [place] [address] [place] [address] PCP - General Family Medicine 07/07/22 Hi Ranger Operator Relationship Specialty Start Date End Date Polo Lopez [address] [place] [address] PCP - General Family Medicine 07/07/22 Hi Ranger Operator Relationship Specialty Start Date End Date Polo Lopez [address] [place] [address] [place] [address] PCP - General Family Medicine 07/07/22 Hi Ranger Operator Relationship Specialty Start Date End Date Polo Lopez [address] [place] [address] [place] [address] PCP - General Family Medicine 07/07/22 Hi Ranger Operator Relationship Specialty Start Date End Date Polo Lopez [address] [place] [address] PCP - General Family Medicine 07/07/22 Team Status: Inactive Member Role Status Dates Dr. Polo Lopez MD Primary Care Provider, Attend ing Provider Active Hi Ranger Operator Relationship Specialty Start Date End Date Polo Lopez MD [address] [place] [address] PCP - General Family Medicine 07/07/22 Hi Ranger Operator Relationship Specialty Start Date End Date Polo Lopez MD [address] [place] [address] PCP - General Family Medicine 07/07/22 Hi Ranger Operator Relationship Specialty Start Date End Date Polo Lopez MD [address] [address] [place] [address] PCP - General Family Medicine 07/07/22 Hi Ranger Operator Relationship Specialty Start Date End Date Polo Lopez MD [address] [address] [place] [address] PCP - General Family Medicine 07/07/22 Hi Ranger Operator Relationship Specialty Start Date End Date Polo Lopez MD [address] [place] [address] PCP - General Family Medicine 07/07/22 Hi Ranger Operator Relationship Specialty Start Date End Date Polo Lopez MD [address] [place] [address] PCP - General Family Medicine 07/07/22 Hi Ranger Operator Relationship Specialty Start Date End Date Polo Lopez MD [address] [place] [address] PCP - General Family Medicine 07/07/22 Hi Ranger Operator Relationship Specialty Start Date End Date Polo Lopez MD [address] [place] [address] PCP - General Family Medicine 07/07/22 Hi Ranger Operator Relationship Specialty Start Date End Date Polo Lopez MD [address] [place] [address] PCP - General Family Medicine 07/07/22 Hi Ranger Operator Relationship Specialty Start Date End Date Polo Lopez MD [address] [place] [address] PCP - General Family Medicine 07/07/22 Hi Ranger Operator Relationship Specialty Start Date End Date Polo Lopez MD [address] [place] [address] PCP - General Family Medicine 07/07/22 Hi Ranger Operator Relationship Specialty Start Date End Date Polo Lopez MD [address] [place] [address] PCP - General Family Medicine 07/07/22 Hi Ranger Operator Relationship Specialty Start Date End Date Polo Lopez MD [address] [place] [address] PCP - General Family Medicine 07/07/22 Hi Ranger Operator Relationship Specialty Start Date End Date Polo Lopez MD [address] [place] [address] PCP - General Family Medicine 07/07/22 Hi Ranger Operator Relationship Specialty Start Date End Date Polo Lopez MD [address] [place] [address] PCP - General Family Medicine 07/07/22 Hi Ranger Operator Relationship Specialty Start Date End Date Polo Lopez MD [address] [place] [address] PCP - General Family Medicine 07/07/22 Hi Ranger Operator Relationship Specialty Start Date End Date Polo Lopez MD [address] [place] [address] PCP - General Family Medicine 07/07/22 Hi Ranger Operator Relationship Specialty Start Date End Date Polo Lopez MD [address] [place] [address] PCP - General Family Medicine 07/07/22 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 Polo Lopez MD Primary Care Provider Active Start: August 27, 2024 End: August 27, 2024 Dr. Polo Lopez MD Attending Provider Active Start: August 27, 2024 End: August 27, 2024 Dr. Polo Lopez MD Referring Provider Active Start: August 27, 2024 End: August 27, 2024 Hi Ranger Operator Relationship Specialty Start Date End Date Polo Lopez MD [address] [place] [address] PCP - General Family Medicine 07/07/22 Hi Ranger Operator Relationship Specialty Start Date End Date Polo Lopez MD [address] [place] [address] PCP - General Family Medicine 07/07/22 Hi Ranger Operator Relationship Specialty Start Date End Date Polo Lopez MD [address] [place] [address] PCP - General Family Medicine 07/07/22 Team Status: Active Member Role/Relationship Status Dates Dr. Nereyda Salazar MD Primary care physician Active Dr. Polo Lopez MD Primary care physician Active Team Status: Inactive Member Role/Relationship Status Dates Dr. Polo Lopez MD Primary care physician Active Start: February 13, 2025 End: February 13, 2025 Dr. Polo Lopez MD Attending physician Active Start: February 13, 2025 End: February 13, 2025 Goals (unrecognized section and content) Goals may be documented in a n alternate sectionGoals may be documented in an alternate sectionGoals may be documented in an alternate sectionGoals may be documented in an alternate sectionGoals may be documented in an alternate sectionGoals may be documented in an alternate sectionGoals may be documented in an alternate section Source Comments (unrecognize d section and content) In the event this informatio n is protected by the Federal Confidentiality of Alcohol and Drug Abuse Patient Records regulations: The Federal rules restrict any use of the information to criminally investigate or prosecute any alcohol or drug abuse patient.[facility] the event this information is protected by the Federal Confidentiality of Alcohol and Drug Abuse Patient Records regulations: The Federal rules restrict any use of the information to criminally investigate or prosecute any alcohol or drug abuse patient.[facility] HospitalIn the event this information is protected by the Federal Confidentiality of Alcohol and Drug Abuse Patient Records regulations: The Federal rules restrict any use of the information to criminally investigate or prosecute any alcohol or drug abuse patient.[facility] HospitalIn the event this information is protected by the Federal Confidentiality of Alcohol and Drug Abuse Patient Records regulations: The Federal rules restrict any use of the information to criminally investigate or prosecute any alcohol or drug abuse patient.[facility] HospitalIn the event this information is protected by the Federal Confidentiality of Alcohol and Drug Abuse Patient Records regulations: The Federal rules restrict any use of the information to criminally investigate or prosecute any alcohol or drug abuse patient.[facility] HospitalIn the event this information is protected by the Federal Confidentiality of Alcohol and Drug Abuse Patient Records regulations: The Federal rules restrict any use of the information to criminally investigate or prosecute any alcohol or drug abuse patient.[facility] HospitalIn the event this information is protected by the Federal Confidentiality of Alcohol and Drug Abuse Patient Records regulations: The Federal rules restrict any use of the information to criminally investigate or prosecute any alcohol or drug abuse patient.[facility] HospitalIn the event this information is protected by the Federal Confidentiality of Alcohol and Drug Abuse Patient Records regulations: The Federal rules restrict any use of the information to criminally investigate or prosecute any alcohol or drug abuse patient.[facility] HospitalIn the event this information is protected by the Federal Confidentiality of Alcohol and Drug Abuse Patient Records regulations: The Federal rules restrict any use of the information to criminally investigate or prosecute any alcohol or drug abuse patient.[facility] HospitalIn the event this information is protected by the Federal Confidentiality of Alcohol and Drug Abuse Patient Records regulations: The Federal rules restrict any use of the information to criminally investigate or prosecute any alcohol or drug abuse patient.[facility] HospitalIn the event this information is protected by the Federal Confidentiality of Alcohol and Drug Abuse Patient Records regulations: The Federal rules restrict any use of the information to criminally investigate or prosecute any alcohol or drug abuse patient.[facility] HospitalIn the event this information is protected by the Federal Confidentiality of Alcohol and Drug Abuse Patient Records regulations: The Federal rules restrict any use of the information to criminally investigate or prosecute any alcohol or drug abuse patient.[facility] HospitalIn the event this information is protected by the Federal Confidentiality of Alcohol and Drug Abuse Patient Records regulations: The Federal rules restrict any use of the information to criminally investigate or prosecute any alcohol or drug abuse patient.[facility] HospitalIn the event this information is protected by the Federal Confidentiality of Alcohol and Drug Abuse Patient Records regulations: The Federal rules restrict any use of the information to criminally investigate or prosecute any alcohol or drug abuse patient.[facility] HospitalIn the event this information is protected by the Federal Confidentiality of Alcohol and Drug Abuse Patient Records regulations: The Federal rules restrict any use of the information to criminally investigate or prosecute any alcohol or drug abuse patient.[facility] HospitalIn the event this information is protected by the Federal Confidentiality of Alcohol and Drug Abuse Patient Records regulations: The Federal rules restrict any use of the information to criminally investigate or prosecute any alcohol or drug abuse patient.[facility] HospitalIn the event this information is protected by the Federal Confidentiality of Alcohol and Drug Abuse Patient Records regulations: The Federal rules restrict any use of the information to criminally investigate or prosecute any alcohol or drug abuse patient.[facility] HospitalIn the event this information is protected by the Federal Confidentiality of Alcohol and Drug Abuse Patient Records regulations: The Federal rules restrict any use of the information to criminally investigate or prosecute any alcohol or drug abuse patient.[facility] HospitalIn the event this information is protected by the Federal Confidentiality of Alcohol and Drug Abuse Patient Records regulations: The Federal rules restrict any use of the information to criminally investigate or prosecute any alcohol or drug abuse patient.[facility] HospitalIn the event this information is protected by the Federal Confidentiality of Alcohol and Drug Abuse Patient Records regulations: The Federal rules restrict any use of the information to criminally investigate or prosecute any alcohol or drug abuse patient.[facility] HospitalIn the event this information is protected by the Federal Confidentiality of Alcohol and Drug Abuse Patient Records regulations: The Federal rules restrict any use of the information to criminally investigate or prosecute any alcohol or drug abuse patient.[facility] HospitalIn the event this information is protected by the Federal Confidentiality of Alcohol and Drug Abuse Patient Records regulations: The Federal rules restrict any use of the information to criminally investigate or prosecute any alcohol or drug abuse patient.[facility] HospitalIn the event this information is protected by the Federal Confidentiality of Alcohol and Drug Abuse Patient Records regulations: The Federal rules restrict any use of the information to criminally investigate or prosecute any alcohol or drug abuse patient.[facility] HospitalIn the event this information is protected by the Federal Confidentiality of Alcohol and Drug Abuse Patient Records regulations: The Federal rules restrict any use of the information to criminally investigate or prosecute any alcohol or drug abuse patient.[facility] HospitalIn the event this information is protected by the Federal Confidentiality of Alcohol and Drug Abuse Patient Records regulations: The Federal rules restrict any use of the information to criminally investigate or prosecute any alcohol or drug abuse patient.[facility] HospitalIn the event this information is protected by the Federal Confidentiality of Alcohol and Drug Abuse Patient Records regulations: The Federal rules restrict any use of the information to criminally investigate or prosecute any alcohol or drug abuse patient.[facility] HospitalIn the event this information is protected by the Federal Confidentiality of Alcohol and Drug Abuse Patient Records regulations: The Federal rules restrict any use of the information to criminally investigate or prosecute any alcohol or drug abuse patient.[facility] HospitalIn the event this information is protected by the Federal Confidentiality of Alcohol and Drug Abuse Patient Records regulations: The Federal rules restrict any use of the information to criminally investigate or prosecute any alcohol or drug abuse patient.[facility] HospitalIn the event this information is protected by the Federal Confidentiality of Alcohol and Drug Abuse Patient Records regulations: The Federal rules restrict any use of the information to criminally investigate or prosecute any alcohol or drug abuse patient.[facility] HospitalIn the event this information is protected by the Federal Confidentiality of Alcohol and Drug Abuse Patient Records regulations: The Federal rules restrict any use of the information to criminally investigate or prosecute any alcohol or drug abuse patient.[facility] HospitalIn the event this information is protected by the Federal Confidentiality of Alcohol and Drug Abuse Patient Records regulations: The Federal rules restrict any use of the information to criminally investigate or prosecute any alcohol or drug abuse patient.[facility] HospitalIn the event this information is protected by the Federal Confidentiality of Alcohol and Drug Abuse Patient Records regulations: The Federal rules restrict any use of the information to criminally investigate or prosecute any alcohol or drug abuse patient.[facility] HospitalIn the event this information is protected by the Federal Confidentiality of Alcohol and Drug Abuse Patient Records regulations: The Federal rules restrict any use of the information to criminally investigate or prosecute any alcohol or drug abuse patient.[facility] HospitalIn the event this information is protected by the Federal Confidentiality of Alcohol and Drug Abuse Patient Records regulations: The Federal rules restrict any use of the information to criminally investigate or prosecute any alcohol or drug abuse patient.[facility] HospitalIn the event this information is protected by the Federal Confidentiality of Alcohol and Drug Abuse Patient Records regulations: The Federal rules restrict any use of the information to criminally investigate or prosecute any alcohol or drug abuse patient.[facility] HospitalIn the event this information is protected by the Federal Confidentiality of Alcohol and Drug Abuse Patient Records regulations: The Federal rules restrict any use of the information to criminally investigate or prosecute any alcohol or drug abuse patient.[facility] HospitalIn the event this information is protected by the Federal Confidentiality of Alcohol and Drug Abuse Patient Records regulations: The Federal rules restrict any use of the information to criminally investigate or prosecute any alcohol or drug abuse patient.[facility] HospitalIn the event this information is protected by the Federal Confidentiality of Alcohol and Drug Abuse Patient Records regulations: The Federal rules restrict any use of the information to criminally investigate or prosecute any alcohol or drug abuse patient.[facility] HospitalIn the event this information is protected by the Federal Confidentiality of Alcohol and Drug Abuse Patient Records regulations: The Federal rules restrict any use of the information to criminally investigate or prosecute any alcohol or drug abuse patient.[facility] HospitalIn the event this information is protected by the Federal Confidentiality of Alcohol and Drug Abuse Patient Records regulations: The Federal rules restrict any use of the information to criminally investigate or prosecute any alcohol or drug abuse patient.[facility] HospitalIn the event this information is protected by the Federal Confidentiality of Alcohol and Drug Abuse Patient Records regulations: The Federal rules restrict any use of the information to criminally investigate or prosecute any alcohol or drug abuse patient.[facility] HospitalIn the event this information is protected by the Federal Confidentiality of Alcohol and Drug Abuse Patient Records regulations: The Federal rules restrict any use of the information to criminally investigate or prosecute any alcohol or drug abuse patient.[facility] HospitalIn the event this information is protected by the Federal Confidentiality of Alcohol and Drug Abuse Patient Records regulations: The Federal rules restrict any use of the information to criminally investigate or prosecute any alcohol or drug abuse patient.[facility] HospitalIn the event this information is protected by the Federal Confidentiality of Alcohol and Drug Abuse Patient Records regulations: The Federal rules restrict any use of the information to criminally investigate or prosecute any alcohol or drug abuse patient.[facility] HospitalIn the event this information is protected by the Federal Confidentiality of Alcohol and Drug Abuse Patient Records regulations: The Federal rules restrict any use of the information to criminally investigate or prosecute any alcohol or drug abuse patient.[facility] HospitalIn the event this information is protected by the Federal Confidentiality of Alcohol and Drug Abuse Patient Records regulations: The Federal rules restrict any use of the information to criminally investigate or prosecute any alcohol or drug abuse patient.[facility] Reason for Visit (unrecogniz ed section and content) Reason Comments Consult Thyroid nodule Reason Comments Procedure Right thyroid FNA Reason Comments Follow Up FNA thyroid biopsy r esults Reason Comments Consult FACE SHEET Reason Comments Outside Labs Results Indexed labs Reason Comments OR 09/12/22 MM Total Thyroidectomy Reason Comments Patient Question Reason Comments Consult Specialty Diagnoses / Procedures Referred By Elizabeth verde Referred To Contact CT IMAGING Diagnoses Papillary thyroid carcinoma (HCC) Procedures CT NECK SOFT TISSUE WO IVCON CT SOFT TISSUE NECK W/[place] [address] [place] [address] Ct Imaging Referral ID Status Reason Start Date Expiration Date V isits Requested Visits Authorized [id number] Closed Auto-Generate d Referral 06/05/2022 06/04/2023 1 1 Reason Comments Results Pathology thyroid WC H Reason Comments Post Op Reason Comments Thyroid Problem Follow up. 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 [employer] [facility]. provides no warranty or guarantee of the accuracy or completeness of information in this document.
== END | disposition home or self-care (01) ==
PROVIDERS: PCP Family Medicine; Referring Provider Surgery; Visit Provider Surgery
DX: L72.0 Epidermal cyst (principal)
CPT/HCPCS: 88304